=== PATIENT | male | born 1945 | race Caucasian/White ===

== ENCOUNTER → 2016-08-25 | Outpatient (CLI) | payer OTHER ==
[~2016-08-25] MED LIST: ACET-1256 PO; ASCA500 PO; ASPI-435 PO; BISA-16 PO; BUPR100T13 PO; CALC500C3 PO; CAPS0.072 EXT; CEPH500C2 PO; CHLOTAB3 PO; CRAN1CAP15 PO; EPP3 IM; HYDR25TA5 PO; KETO1DRO13 OPB; MISCCAP80 PO; NORT75CA2 PO; POLY335025 PO; POTA10CA28 PO; PRLSR20 PO; SILD100T PO; SIMETHICONE PO; SODI650T8 PO; TNR25 PO; ZNTT/150 PO; [UNRECOGNIZED DRUG - CODE]
--- NOTE | 2016-08-25 16:12 | DIAGNOSTIC IMAGING REPORT ---
SACRUM COCCYX MIN 2 VIEWS CLINICAL HISTORY: Arthritis, Back pain pain COMPARISON STUDY: 08/16/2013 FINDINGS: Significant degenerative changes low lumbar spine. Moderate degenerative change of the sacrococcygeal region. No well-defined acute bony abnormality. Right hip arthroplasty. IMPRESSION: Considerable degenerative change. No acute process. Electronically signed by: Ray Carrillo M.D. 08/25/2016 4:10 PM Dictated Date/Time: 08/25/2016 4:09 PM
--- NOTE | 2016-08-25 16:12 | DIAGNOSTIC IMAGING REPORT ---
L-SPINE MIN 4 VIEWS ROUTINE CLINICAL HISTORY: Back pain, arthritis. COMPARISON STUDY: MRI dated 05/25/2016 FINDINGS: There is a moderate thoracolumbar scoliosis. Postlaminectomy changes are visualized. There are postsurgical changes are prior lymph node dissection with surgical clips identified within the pelvis. There are postsurgical changes are prior hernia repair. There are postsurgical changes of a total right hip arthroplasty. There are advanced multilevel degenerative changes within the spine. There is a grade 1 spondylolisthesis of L4 and L5. There is narrowing of the AP diameter of the canal, and underlying spinal stenosis is suspected. There is a metallic density within the left mid abdomen possibly representing a probable fragment. IMPRESSION: Advanced multilevel degenerative change. Scoliosis. Postsurgical change. No acute fractures. Electronically signed by: Willard Deleon M.D. 08/25/2016 4:11 PM Dictated Date/Time: 08/25/2016 4:08 PM
== END | disposition home or self-care (01) ==
LOC: C.RADBC 15:39
PROVIDERS: ATTEND Internal Medicine
DX: M19.90 Unspecified osteoarthritis, unspecified site (principal); M54.9 Dorsalgia, unspecified; M41.9 Scoliosis, unspecified

== ENCOUNTER → 2016-10-11 | Outpatient (CLI) | payer OTHER ==
[~2016-10-11] MED LIST changes: -POTA10CA28 PO
--- NOTE | 2016-10-11 15:47 | DIAGNOSTIC IMAGING REPORT ---
RIGHT ELBOW MIN 3 VIEWS ROUTINE CLINICAL HISTORY: Right elbow pain. Olecranon bursitis. COMPARISON: None FINDINGS: Alignment of the right elbow is anatomic. No fracture or joint effusion is present. There is moderate soft tissue swelling overlying olecranon. Irregularity of the lateral condyle is chronic. A few calcific/ossific densities are noted adjacent to the radial head. IMPRESSION: 1. Moderate soft tissue swelling overlying olecranon. This favors olecranon bursitis. 2. No acute fracture or joint effusion of the right elbow. 3. Mild degenerative changes of the right elbow. 4. A few tiny ossific/calcific densities adjacent to the radial head which could reflect osteophytes or joint bodies Electronically signed by: Eyad Bo M.D. 10/11/2016 3:46 PM Dictated Date/Time: 10/11/2016 3:44 PM
--- NOTE | 2016-10-11 15:52 | DIAGNOSTIC IMAGING REPORT ---
RIGHT HAND MIN 3 VIEWS ROUTINE CLINICAL HISTORY: 722.71, M50.10, 719.43, M25.532, 726.33, 716.50, M13 Right pain COMPARISON: None. DISCUSSION: Severe degenerative change throughout the bulk of the wrist and hand region. This is severe at the first carpometacarpal joint. Bony mineralization throughout is somewhat diminished in a periarticular distribution. Considerable soft tissue swelling adjacent to the second metacarpophalangeal joint IMPRESSION: Severe degenerative change and associated deformity. Periarticular osteopenia and soft tissue edematous change. Possibility of rheumatoid variant is considered Electronically signed by: Ray Carrillo M.D. 10/11/2016 3:51 PM Dictated Date/Time: 10/11/2016 3:45 PM
--- NOTE | 2016-10-11 15:56 | DIAGNOSTIC IMAGING REPORT ---
LEFT HAND MIN 3 VIEWS ROUTINE CLINICAL HISTORY: 722.71, M50.10, 719.43, M25.532, 726.33, 716.50, M13 pain COMPARISON: None. DISCUSSION: Severe degenerative change of all major osseous structures of the wrist and to lesser extent hand. Moderate periarticular osteopenia. Deformity with partial degenerative subluxation of the radiocarpal as well as ulnocarpal articulations. Generalized soft tissue edematous change. IMPRESSION: Severe degenerative/rheumatoid change with disruption of the radiocarpal and ulnar carpal articulations Electronically signed by: Ray Carrillo M.D. 10/11/2016 3:55 PM Dictated Date/Time: 10/11/2016 3:52 PM
[2016-10-11 16:55] LABS: CALCIUM 9.3 mg/dl (8.5-10.1)
[2016-10-11 19:38] LABS: FLUID APPEARANCE BLOODY; FLUID MONONUC 70.8 %; FLUID POLYNUC 29.2 %; FLUID RBC (A) 86000 /uL; FLUID WBC (A) 421 /uL
== END | disposition home or self-care (01) ==
LOC: C.RAD1850 15:18
PROVIDERS: ATTEND Internal Medicine Rheumatology
DX: M13.0 Polyarthritis, unspecified (principal); M25.532 Pain in left wrist; M50.10 Cervical disc disorder with radiculopathy, unspecified cervical region; M70.21 Olecranon bursitis, right elbow; M79.9 Soft tissue disorder, unspecified; M85.9 Disorder of bone density and structure, unspecified; M21.941 Unspecified acquired deformity of hand, right hand; M19.041 Primary osteoarthritis, right hand; M85.841 Other specified disorders of bone density and structure, right hand; M06.842 Other specified rheumatoid arthritis, left hand; M21.942 Unspecified acquired deformity of hand, left hand

== ENCOUNTER → 2016-12-07 | Outpatient (CLI) | payer OTHER ==
[2016-12-07 17:11] LABS: BASO % 0.8 %; BASO ABS # 0.08 K/uL (0-0.2); COMPLETE YES; EOS % 7.3 %; HEMATOCRIT 45.2 % (42-52); IG% 0.3 %; LYMPH % 12.1 %; LYMPH ABS # 1.15 K/uL (1.2-3.4); MEAN CELL VOLUME 93.6 fL (80-100); MEAN CORPUSCULAR HEMOGLOBIN 31.3 pg (25-34); MEAN CORPUSCULAR HGB CONC 33.4 g/dl (32-36); MEAN PLATELET VOLUME 10.2 fL (7.4-10.4); MONO % 15.6 %; NEUT % 63.9 %; PLATELET COUNT 357 K/uL (130-400); RED BLOOD COUNT 4.83 M/uL (4.7-6.1); WHITE BLOOD COUNT 9.54 K/uL (4.8-10.8)
== END | disposition home or self-care (01) ==
LOC: C.LABBC 14:43
PROVIDERS: ATTEND Internal Medicine Rheumatology
DX: M25.532 Pain in left wrist (principal); M70.21 Olecranon bursitis, right elbow

== ENCOUNTER → 2017-05-08 | Outpatient (CLI) | payer OTHER ==
[~2017-05-08] MED LIST changes: -BISA-16 PO; -SIMETHICONE PO; -[UNRECOGNIZED DRUG - CODE]
--- NOTE | 2017-05-08 12:36 | DIAGNOSTIC IMAGING REPORT ---
RIGHT UPPER EXT JOINT WITHOUT CLINICAL HISTORY: M25.511 Right pain. Weakness. TECHNIQUE: Multiaxial MRI acquisition COMPARISON STUDY: None FINDINGS: Signal characteristics the osseous structures indicate moderate degenerative changes of glenohumeral as well as acromioclavicular joint. There is moderate amount of fluid within the subdeltoid bursa as well as acromioclavicular joint region. There is a full-thickness tear of the subscapularis tendon with a 3 cm musculotendinous retraction. There are findings of moderate generalized deterioration of the supraspinatus with partial-thickness tears at its superior surface. There does not appear to be evidence for full-thickness tear. There is superimposed supraspinatus tendinitis. The infraspinatus muscle and tendon appear to be intact. There are generalized degenerative changes of the glenoid labrum with loss of the labrum a labral substance and configuration throughout. IMPRESSION: 1. Full-thickness tear subscapularis tendon with 3 cm of musculotendinous retraction.. 2. Degenerative substance change of the supraspinatus with multifocal partial-thickness tears at its superior surface. 3. Considerable degenerative substance change of the glenoid labrum throughout The above report was generated using voice recognition software. It may contain grammatical, syntax or spelling errors. Electronically signed by: Ray Carrillo M.D. 05/08/2017 12:35 PM Dictated Date/Time: 05/08/2017 12:28 PM
== END | disposition home or self-care (01) ==
LOC: C.MRIBC 11:24
DX: S46.801A Unspecified injury of other muscles, fascia and tendons at shoulder and upper arm level, right arm, initial encounter (principal); X58.XXXA Exposure to other specified factors, initial encounter; M25.511 Pain in right shoulder; M19.011 Primary osteoarthritis, right shoulder; R53.1 Weakness; Z96.653 Presence of artificial knee joint, bilateral; Z79.899 Other long term (current) drug therapy

== ENCOUNTER → 2017-08-31 | Outpatient (CLI) | payer OTHER ==
[~2017-08-31] MED LIST changes: -CAPS0.072 EXT
--- NOTE | 2017-08-31 11:28 | DIAGNOSTIC IMAGING REPORT ---
KUB HISTORY: BOWEL OBSTRUCTION, colostomy .041 Z00.00 COMPARISON: Chest and abdominal series 07/12/2016. FINDINGS: Large amount well-formed stool seen within the colon. No dilated loops of small bowel to suggest an obstruction. Right total arthroplasty. S-shaped scoliosis of the lumbar spine. Metallic sutures coils and surgical clips seen overlying the pelvis. Irregular 1 cm metallic foreign body seen within the left side of the abdomen, unchanged. No renal calculi. No ureteral calculi. No pneumoperitoneum or pneumatosis. IMPRESSION: 1. No evidence for bowel obstruction. 2. Large amount of well-formed stool seen throughout the majority of the colon. Electronically signed by: Jaswant Pacheoc M.D. 08/31/2017 11:27 AM Dictated Date/Time: 08/31/2017 11:25 AM
[2017-08-31 13:55] LABS: BASO % 0.7 %; BASO ABS # 0.06 K/uL (0-0.2); EOS % 5.5 %; EOS ABS # 0.44 K/uL (0-0.5); HEMATOCRIT 44.4 % (42-52); HEMOGLOBIN 15.5 g/dL (14.0-18.0); IG# 0.03 K/uL (0.00-0.02); LYMPH % 16.9 %; LYMPH ABS # 1.36 K/uL (1.2-3.4); MEAN CELL VOLUME 93.9 fL (80-100); MEAN CORPUSCULAR HEMOGLOBIN 32.8 pg (25-34); MEAN CORPUSCULAR HGB CONC 34.9 g/dl (32-36); MEAN PLATELET VOLUME 10.3 fL (7.4-10.4); MONO % 17.6 %; MONO ABS # 1.42 K/uL (0.11-0.59); NEUT % 58.9 %; NEUT ABS # 4.74 K/uL (1.4-6.5); PLATELET COUNT 376 K/uL (130-400); RED CELL DISTRIBUTION WIDTH CV 13.8 % (11.5-14.5); RED CELL DISTRIBUTION WIDTH SD 47.1 fL (36.4-46.3); WHITE BLOOD COUNT 8.05 K/uL (4.8-10.8)
[2017-08-31 14:23] LABS: ALBUMIN 3.8 gm/dl (3.4-5.0); TOTAL PROTEIN 6.8 gm/dl (6.4-8.2)
== END | disposition home or self-care (01) ==
LOC: C.LABBC 10:46
PROVIDERS: ATTEND Internal Medicine Rheumatology
DX: Z00.00 Encounter for general adult medical examination without abnormal findings (principal); G56.00 Carpal tunnel syndrome, unspecified upper limb; K56.600 Partial intestinal obstruction, unspecified as to cause; M19.90 Unspecified osteoarthritis, unspecified site; M25.579 Pain in unspecified ankle and joints of unspecified foot; M50.00 Cervical disc disorder with myelopathy, unspecified cervical region; M54.9 Dorsalgia, unspecified; R05 Cough; R68.82 Decreased libido; Z93.3 Colostomy status; M06.041 Rheumatoid arthritis without rheumatoid factor, right hand; M06.042 Rheumatoid arthritis without rheumatoid factor, left hand

== ENCOUNTER → 2017-09-04 | Outpatient (CLI) | payer OTHER ==
--- NOTE | 2017-09-04 15:48 | DIAGNOSTIC IMAGING REPORT ---
RENAL ULTRASOUND HISTORY: N20.0 [id number] COMPARISON: KUB 08/31/2017. Abdomen and pelvis CT 07/07/2016. FINDINGS: Right kidney: 9.9 cm. No hydronephrosis. Moderate cortical thinning with increased cortical echogenicity. A few small cysts with the largest measuring 1.6 cm. Left kidney: 7.6 cm. No hydronephrosis. Moderate to severe cortical thinning with increased cortical echogenicity. A few renal cysts some which contain septations. The largest measures 1.9 cm. No definite renal calculi. Bladder: The bladder is small in size and not well visualized. IMPRESSION: 1. No hydronephrosis. No definite renal calculi. 2. Bilateral renal cysts. 3. Bilateral cortical renal thinning with increased cortical echogenicity consistent with medical renal disease. Electronically signed by: Jaswant Pacheco M.D. 09/04/2017 3:47 PM Dictated Date/Time: 09/04/2017 3:44 PM
== END | disposition home or self-care (01) ==
LOC: C.ULTRBC 14:50
PROVIDERS: ATTEND Urology
DX: N20.0 Calculus of kidney (principal); N28.1 Cyst of kidney, acquired

== ENCOUNTER → 2018-01-02 | Outpatient (CLI) | payer OTHER ==
[~2018-01-02] MED LIST changes: +RANI150T85 PO; -ZNTT/150 PO
[2018-01-02 13:15] LABS: HEMATOCRIT 39.7 % (42-52); HEMOGLOBIN 13.6 g/dL (14.0-18.0); MEAN CELL VOLUME 90.4 fL (80-100); MEAN CORPUSCULAR HGB CONC 34.3 g/dl (32-36); MEAN PLATELET VOLUME 9.8 fL (7.4-10.4); PLATELET COUNT 398 K/uL (130-400); RED CELL DISTRIBUTION WIDTH CV 13.5 % (11.5-14.5); RED CELL DISTRIBUTION WIDTH SD 44.1 fL (36.4-46.3); WHITE BLOOD COUNT 6.16 K/uL (4.8-10.8)
[2018-01-02 13:31] LABS: ALBUMIN 3.8 gm/dl (3.4-5.0); AST/SGOT 30 U/L (15-37); BLOOD UREA NITROGEN 41 mg/dl (7-18); CALCIUM 9.3 mg/dl (8.5-10.1); CARBON DIOXIDE 27 mmol/L (21-32); GLUCOSE 99 mg/dl (70-99); POTASSIUM 3.5 mmol/L (3.5-5.1); SODIUM 135 mmol/L (136-145)
[2018-01-02 13:34] LABS: ALKALINE PHOSPHATASE 92 U/L (45-117); ALT/SGPT 29 U/L (12-78); TOTAL PROTEIN 6.6 gm/dl (6.4-8.2)
== END | disposition home or self-care (01) ==
LOC: C.LABBC 10:31
PROVIDERS: ATTEND Internal Medicine Rheumatology
DX: N20.0 Calculus of kidney (principal); M06.041 Rheumatoid arthritis without rheumatoid factor, right hand

== ENCOUNTER 2019-05-21 21:05 | Inpatient (IN) ==
[2019-05-21 22:38] LABS: Hematocrit (blood only) 39.1 % (42-52); Hemoglobin 13.1 g/dL (14.0-18.0); Mean Corpuscular Hgb Conc 33.5 g/dL (32-36); Mean Corpuscular Volume 86.5 fL (80-100); Mean Platelet Volume 9.1 fL (7.4-10.4); Platelet Count 416 K/uL (130-400); RDW Coefficient of Variation 15.8 % (11.5-14.5); RDW Standard Deviation 50.3 fL (36.4-46.3); Red Blood Count 4.52 M/uL (4.7-6.1); White Blood Count 7.59 K/uL (4.8-10.8)
[2019-05-21 22:54] LABS: Partial Thromboplastin Ratio 0.9; Partial Thromboplastin Time 25.1 Seconds (21.0-31.0)
--- NOTE | 2019-05-21 23:00 | CT Scan Report ---
CT OF THE HEAD WITHOUT CONTRAST CLINICAL HISTORY: Headache. COMPARISON STUDY: Head CT March 10, 2018. CT DOSE: 537.48 mGy.cm TECHNIQUE: Helical axial images of the head were obtained without IV contrast. Automated exposure con trol was utilized for the study. A dose lowering technique was utilized adhering to the principles o f ALARA. FINDINGS: No acute intracranial hemorrhage, midline shift or mass effect is present. The ventricular system is stable. Basilar cisterns are patent. There are no extra-axial collections. White matter hyp odensity suggests small vessel disease. There are no findings to suggest acute dural sinus thrombosis or acute territorial infarct. Left mastoid air cells are partially opacified. IMPRESSION: 1. No acute intracranial findings. 2. Partially opacified left mastoid air cells. Electronically signed by: Eyad Bo M.D. 05/21/2019 10:59 PM
[2019-05-21 23:01] LABS: Albumin Level 3.7 gm/dl (3.4-5.0); BUN Creatinine Ratio 20.2 (10-20); Calcium 9.2 mg/dl (8.5-10.1); Creatinine Clr Calc Pharmacy 46.7 ml/min; Est GFR (African American) 48.5; Est GFR (Non-African American) 41.8; Potassium 3.4 mmol/L (3.5-5.1)
[2019-05-21 23:04] LABS: Albumin Globulin Ratio 1.2 (0.9-2); Bilirubin,Total 0.4 mg/dl (0.2-1); Total Protein 6.7 gm/dl (6.4-8.2)
[2019-05-21] MEDS ORDERED: SODIUM CHLORIDE 0.9% 1000ML 1,000 ML IV ONE (23:08)
[2019-05-22 00:20] LABS: Acanthocytes 1+; Howell-Jolly Bodies 1+; Pappenheimer Bodies 1+; Target Cells 1+
[2019-05-22 00:27] LABS: Appearance Urine Cloudy (Clear); Bacteria Urine Automated 3+ (Negative); Bilirubin Urine Negative (Negative); Blood Urine Negative (Negative); Color Urine Yellow; Glucose Urine UA Negative (Negative); Ketones Urine Trace (Negative); Leukocyte Esterase Urine 3+ (Negative); Nitrite Urine Negative (Negative); Protein Urine 1+ (Negative); RBC Urine Automated 0-4 /hpf (0-4); Specific Gravity Urine 1.015 (1.000-1.030); Urobilinogen Urine Negative (Negative); WBC Urine Automated >30 /hpf (0-5)
[2019-05-22 00:33] LABS: ALC (manual) 1.14 K/uL (1.2-3.4); Basophils # (manual) 0.15 K/uL (0-0.2); Eosinophils # (manual) 0.68 K/uL (0-0.5); Lymphocytes # (manual) 1.14 K/uL (1.2-3.4); Monocytes # (manual) 1.52 K/uL (0.11-0.59)
[2019-05-22] MEDS: LORazepam 0.5 MG TAB PO SCH ×2 (03:36→20:16)
[2019-05-22] MEDS: ACETAMINOPHEN 500 MG TAB PO PRN (04:10)
[2019-05-22] MEDS ORDERED: NSS + 20MEQ KCL 20 MEQ/1,000 ML BAG IV SCH (04:15)
[2019-05-22] MEDS: NORTRIPTYLINE HCL 25 MG CAP PO SCH ×2 (04:50→20:17)
[2019-05-22] MEDS: CHLORZOXAZONE 500 MG TAB PO SCH ×2 (04:50→20:17)
[2019-05-22] MEDS: GABAPENTIN 300 MG CAP PO SCH ×2 (04:51→20:18)
--- NOTE | 2019-05-22 05:13 | Emergency Department Note ---
Entered by Mike Valentino acting as a scribe for Sav Dennis MD ED Provider Note Name: Meek Anaya Age: 73, male Arrives Via: EMS Informant: Patient CC: Headache HPI: The patient is a 73 year old male who presents to the emergency department with complaints of a constant headache beginning a few days ago. The patient states that he has been having a headache located primarily in the back of his head. He notes that he has not fallen recently. He reports that he had a low blood pressure in the 80s today, prompting his call to EMS. He also complains of back pain, neck pain, a decreased appetite, and eye pain. The patient states that he has chronic back and neck pain due to a shrapnel injury that he sustained in [place]. He notes that he has weakness in his arms and he reports that he cannot move his legs. He states that his appetite has been decreased, but he notes that it has been improving over the last few days. He denies any abdominal pain, nausea, vomiting, and rash. He reports that he has a history of previous UTIs. The patient states that he is on cephalexin and he notes that he took 3 Tylenol today for pain. ROS: See above HPI for pertinent positives & negatives. A total of 10 systems reviewed and were otherwise negative. Past Medical History: Please see medical history list. Past Surgical History: Please see surgical history list. Family History: None Social History: , lives with , disabled, former smoker, uses alcohol Home Medications: Please see medication list. Allergies: Oxycodone, Sulfa, hydromorphone, morphine, naproxen Physical: Vitals: BP 101/54, Pulse 83, Resp 16, Temp 98.2 F, O2 Sat 97 Exam: GENERAL: Patient is significantly dehydrated appearing and in no acute distress. EYES: No scleral icterus, unremarkable pupils. ENT: Mucous membranes dry, no nasal congestion. NECK: No masses appreciated, no meningismus, trachea is midline. RESPIRATORY: No dyspnea. Clear to auscultation and equal bilaterally. No wheeze, no rhonchi. CARDIOVASCULAR: Regular rate and rhythm. No murmurs, rubs, gallops appreciated. GASTROINTESTINAL: Abdomen soft, non-tender, no peritonitis. Bowel sounds positive. No masses appreciated. Urostomy in right lower abdomen, ileostomy in left lower abdomen. BACK: No midline tenderness, no CVA tenderness EXTREMITIES: No cyanosis, no edema. Quadriplegic with weak movement of arms and hands. NEUROLOGIC: Alert and oriented, weakness in arms, non-mobile legs. SKIN: No rash, no jaundice, no diaphoresis. ED Course: Prior Medical Record, Triage/Nursing Notes, Medications, Allergies reviewed by Me 2300: The patient was evaluated in room B4. A complete history and physical exam was performed. 0039: Upon reevaluation, the patient is stable. I discussed the findings and the treatment plan with the patient. He expresses agreement and understanding. I spoke with Dr. Garces of the [facility] Hospitalist Service. The patient will be evaluated for further management. Vital Signs: reviewed and remarkable for mild hypotension, hanh Labs: Reviewed and remarkable for hyponatremia, mild renal insufficiency Interventions: saline lock, nss bolus 1 L IV Imaging: CT OF THE HEAD WITHOUT CONTRAST FINDINGS: No acute intracranial hemorrhage, midline shift or mass effect is present. The ventricular system is stable. Basilar cisterns are patent. There are no extra-axial collections. White matter hypodensity suggests small vessel disease. There are no findings to suggest acute dural sinus thrombosis or acute territorial infarct. Left mastoid air cells are partially opacified. IMPRESSION: 1. No acute intracranial findings. 2. Partially opacified left mastoid air cells. Electronically signed by: Eyad Bo M.D. 05/21/2019 10:59 PM EKG: Per My Interpretation: Indication Weakness: NSR 84 bpm no ischemia, no ectopy, qtc 460. No recent available for comparison Consults: 0039: I reviewed the patient's case with Dr. Garces - Hospitalist, [facility]. He will evaluate the patient for further management. Blood pressure: Normal. No Referral necessary Disposition: Hospitalization Differentials: Differential: Sepsis, Infectious (UTI/Pneumonia/Meningitis/etc), Metabolic/Electrolyte Abnormality, Cardiac, Dehydration, Anemia, Hepatic, Endocrine, Toxicologic, Neurologic, amongst other pathologies entertained. Medical Decision Making: Pleasant 73 yr old male with hypotension and headache arrives for evaluation. Extensive PMH with quadraplegia and ostomies. He had SBP in 80s for EMS and is starting to trend up with IV fluids. No neuro deficits new thus with headache went ahead with CT head which was negative. Labs reveal hyponatremia which may explain weakness. Suspect his not eating well and having been drinking extra fluids may have caused hyponatremia. That said, he very much appears dehydrated and I suspect this is cause of hypotension. With normal WBC, no fevers, and no rigors in setting of normal lactate I think this is unlikely infectious. Urine quite concentrated from dehydration, but I do not feel this is infected given it is unclean specimen and inability to cath urostomy. Hydrated with 1 L NSS here with improvement in BP. Breathing comfortably. Given findings will need to come in for further management. Impression: Hypotension, hyponatremia, dehydration Sav Dennis MD The scribe's documentation has been prepared under my direction and personally reviewed by me in its entirety. I confirm that the note above accurately reflects all work, treatment, procedures, and medical decision making performed by me. Impression & Plan Hypotension, Hyponatremia, Dehydration Past Med/Surg History Medical History Open wound of right great toe (Acute) Traumatic wound (Acute) Rheumatoid arthritis (Chronic) Chronic right shoulder pain (Chronic) Leg length discrepancy (Chronic) Lumbar radiculitis (Chronic) Groin pain, chronic, left (Chronic) History of left foot drop (Chronic) Lumbar spinal stenosis (Chronic) multifactorial multilevel L5-S1 Sacroiliac joint pain (Chronic) Spinal cord injury (Chronic) occurred in 1967 GERD (gastroesophageal reflux disease) (Chronic) Hypertension (Chronic) Depression (Chronic) PTSD (post-traumatic stress disorder) (Chronic) SBO (small bowel obstruction) (Chronic) 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) Fusion of lumbar spine (Acute) Ileal loop stomatitis Surgical History History of total knee replacement (TKR) (Chronic) BTKA Hx of cervical spine surgery (Chronic) History of herniorrhaphy (Chronic) History of tonsillectomy and adenoidectomy (Chronic) History of appendectomy (Chronic) History of urostomy (Acute) Knee joint replacement status (Acute) Family History Other No significant family history Social History Preferred Language: Tunisian Communication Ability: Impaired Visual Impairment: Limited Hearing Ability: Use of Hearing Aid Chemistry Associate Required: No Beliefs That Will Affect Care: None marital status: Current Living Situation: Spouse Current Living Situation Comment: 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 ([facility]) OBTAINED THROUGH THE [place] current occupational status: disabled Other Information That Helps Us Care for You: No Feels Safe at Home: Yes Safety Concerns: Feels Safe At This Time Smoking Status: Former smoker Tobacco Type: pipe ; Hx Alcohol Use: Yes Alcohol type: other Alcohol Intake Frequency Comment: ONE DRINK AT BEDTIME Hx Substance Use: No during the past year weight has: increased > 10 lbs Results & Data Vital Signs Vital Signs - 24 hr 05/21/19 21:09 05/21/19 21:16 05/21/19 21:30 Temperature 36.8 C Temperature Source Oral Sepsis Recent Fever Within 48 Hours No Sepsis New/Unexplained Change in Mental Status No Sepsis Action Taken by Nursing No Action Required Pulse Rate 89 84 82 Pulse Rate from SpO2 Sensor 84 82 Pulse Rhythm Respiratory Rate 20 16 28 H Respiratory Depth Normal Blood Pressure 103/68 103/68 113/67 Blood Pressure Mean 79 79 82 Pulse Oximetry 95 94 95 Oxygen Delivery Method Room Air Room Air Room Air 05/21/19 21:53 05/21/19 22:00 05/21/19 22:30 Temperature Temperature Source Sepsis Recent Fever Within 48 Hours Sepsis New/Unexplained Change in Mental Status Sepsis Action Taken by Nursing Pulse Rate 89 84 83 Pulse Rate from SpO2 Sensor 85 83 Pulse Rhythm Regular Respiratory Rate 20 22 16 Respiratory Depth Blood Pressure 97/54 L 101/54 L Blood Pressure Mean 68 69 Pulse Oximetry 95 94 97 Oxygen Delivery Method Room Air Room Air Room Air 05/21/19 23:00 05/21/19 23:30 05/22/19 00:00 Temperature Temperature Source Sepsis Recent Fever Within 48 Hours Sepsis New/Unexplained Change in Mental Status Sepsis Action Taken by Nursing Pulse Rate 85 82 84 Pulse Rate from SpO2 Sensor 86 82 86 Pulse Rhythm Respiratory Rate 20 14 19 Respiratory Depth Blood Pressure 96/88 L 111/83 111/79 Blood Pressure Mean 90 92 89 Pulse Oximetry 96 92 97 Oxygen Delivery Method Room Air Room Air Room Air 05/22/19 00:30 05/22/19 01:00 05/22/19 01:30 Temperature Temperature Source Sepsis Recent Fever Within 48 Hours Sepsis New/Unexplained Change in Mental Status Sepsis Action Taken by Nursing Pulse Rate 86 88 88 Pulse Rate from SpO2 Sensor 85 89 89 Pulse Rhythm Respiratory Rate 16 19 19 Respiratory Depth Blood Pressure 110/76 125/82 115/74 Blood Pressure Mean 87 96 87 Pulse Oximetry 95 95 94 Oxygen Delivery Method Room Air Room Air Room Air Home Medications Current Medication List: was personally reviewed by me Laboratory Data Attestation: I reviewed the patient's lab results. Result diagrams: 05/21/19 22:27 05/21/19 22:27 Lab Results 05/21/19 05/21/19 05/21/19 Range/Units 22:27 22:27 22:27 WBC 7.59 (4.8-10.8) K/uL RBC 4.52 L (4.7-6.1) M/uL Hgb 13.1 L (14.0-18.0) g/dL Hct 39.1 L (42-52) % MCV 86.5 (80-100) fL MCH 29.0 (25-34) pg MCHC 33.5 (32-36) g/dL RDW Std Deviation 50.3 H (36.4-46.3) fL RDW Coeff of Faustino 15.8 H (11.5-14.5) % Plt Count 416 H (130-400) K/uL MPV 9.1 (7.4-10.4) fL Neutrophils % (Manual) 54.0 % Lymphocytes % (Manual) 15.0 % Monocytes % (Manual) 20.0 % Eosinophils % (Manual) 9.0 % Basophils % (Manual) 2.0 % Neutrophils # (Manual) 4.10 (1.4-6.5) K/uL Total Absolute Neuts 4.10 (1.4-6.5) K/uL Lymphocytes # (Manual) 1.14 L (1.2-3.4) K/uL Total Abs Lymphocytes 1.14 L (1.2-3.4) K/uL Monocytes # (Manual) 1.52 H (0.11-0.59) K/uL Eosinophils # (Manual) 0.68 H (0-0.5) K/uL Basophils # (Manual) 0.15 (0-0.2) K/uL Pappenheimer Bodies 1+ Target Cells 1+ Miller-Mcbride Bodies 1+ Acanthocytes (Spur) 1+ PT 10.0 (9.0-12.0) Seconds INR 1.0 (0.9-1.1) APTT 25.1 (21.0-31.0) Seconds PTT Ratio 0.9 Sodium 125 L (136-145) mmol/L Potassium 3.4 L (3.5-5.1) mmol/L Chloride 91 L (98-107) mmol/L Carbon Dioxide 25 (21-32) mmol/L Anion Gap 10.0 (3-11) BUN 32 H (7-18) mg/dl Creatinine 1.60 H (0.6-1.4) mg/dl Est Cr Clr Drug Dosing 46.7 ml/min Est GFR ( Amer) 48.5 Est GFR (Non-Af Amer) 41.8 BUN/Creatinine Ratio 20.2 H (10-20) Glucose 107 H (70-99) mg/dl Lactate (0.4-2.0) mmol/L Calcium 9.2 (8.5-10.1) mg/dl Total Bilirubin 0.4 (0.2-1) mg/dl AST 27 (15-37) U/L ALT 31 (12-78) U/L Alkaline Phosphatase 95 (45-117) U/L Total Protein 6.7 (6.4-8.2) gm/dl Albumin 3.7 (3.4-5.0) gm/dl Globulin 3.0 (2.5-4.0) gm/dl Albumin/Globulin Ratio 1.2 (0.9-2) Urine Color Urine Appearance (Clear) Urine pH (4.5-7.5) Ur Specific Tillar (1.000-1.030) Urine Protein (Negative) Urine Glucose (UA) (Negative) Urine Ketones (Negative) Urine Blood (Negative) Urine Nitrite (Negative) Urine Bilirubin (Negative) Urine Urobilinogen (Negative) Ur Leukocyte Esterase (Negative) Urine WBC (Auto) (0-5) /hpf Urine RBC (Auto) (0-4) /hpf U Hyaline Cast (Auto) (0-5) /lpf U Epithel Cells (Auto) (0-5) /lpf Urine Bacteria (Auto) (Negative) 05/21/19 05/22/19 Range/Units 23:48 00:10 WBC (4.8-10.8) K/uL RBC (4.7-6.1) M/uL Hgb (14.0-18.0) g/dL Hct (42-52) % MCV (80-100) fL MCH (25-34) pg MCHC (32-36) g/dL RDW Std Deviation (36.4-46.3) fL RDW Coeff of Faustino (11.5-14.5) % Plt Count (130-400) K/uL MPV (7.4-10.4) fL Neutrophils % (Manual) % Lymphocytes % (Manual) % Monocytes % (Manual) % Eosinophils % (Manual) % Basophils % (Manual) % Neutrophils # (Manual) (1.4-6.5) K/uL Total Absolute Neuts (1.4-6.5) K/uL Lymphocytes # (Manual) (1.2-3.4) K/uL Total Abs Lymphocytes (1.2-3.4) K/uL Monocytes # (Manual) (0.11-0.59) K/uL Eosinophils # (Manual) (0-0.5) K/uL Basophils # (Manual) (0-0.2) K/uL Pappenheimer Bodies Target Cells Miller-Mcbride Bodies Acanthocytes (Spur) PT (9.0-12.0) Seconds INR (0.9-1.1) APTT (21.0-31.0) Seconds PTT Ratio Sodium (136-145) mmol/L Potassium (3.5-5.1) mmol/L Chloride (98-107) mmol/L Carbon Dioxide (21-32) mmol/L Anion Gap (3-11) BUN (7-18) mg/dl Creatinine (0.6-1.4) mg/dl Est Cr Clr Drug Dosing ml/min Est GFR ( Amer) Est GFR (Non-Af Amer) BUN/Creatinine Ratio (10-20) Glucose (70-99) mg/dl Lactate 2.0 (0.4-2.0) mmol/L Calcium (8.5-10.1) mg/dl Total Bilirubin (0.2-1) mg/dl AST (15-37) U/L ALT (12-78) U/L Alkaline Phosphatase (45-117) U/L Total Protein (6.4-8.2) gm/dl Albumin (3.4-5.0) gm/dl Globulin (2.5-4.0) gm/dl Albumin/Globulin Ratio (0.9-2) Urine Color Yellow Urine Appearance Cloudy A (Clear) Urine pH 7.0 (4.5-7.5) Ur Specific Tillar 1.015 (1.000-1.030) Urine Protein 1+ H (Negative) Urine Glucose (UA) Negative (Negative) Urine Ketones Trace H (Negative) Urine Blood Negative (Negative) Urine Nitrite Negative (Negative) Urine Bilirubin Negative (Negative) Urine Urobilinogen Negative (Negative) Ur Leukocyte Esterase 3+ H (Negative) Urine WBC (Auto) >30 H (0-5) /hpf Urine RBC (Auto) 0-4 (0-4) /hpf U Hyaline Cast (Auto) 5-10 H (0-5) /lpf U Epithel Cells (Auto) 5-10 H (0-5) /lpf Urine Bacteria (Auto) 3+ H (Negative) Administered Medications Acetaminophen (Tylenol) 1,000 mg PO Q8H PRN PRN Reason: Pain Stop: 06/21/19 03:43 Last Admin: 05/22/19 04:10 Dose: 1,000 mg Documented by: [id number] Chlorzoxazone (Paraflex) 250 mg PO [facility] Stop: 06/21/19 01:47 Last Admin: 05/22/19 04:50 Dose: 250 mg Documented by: [id number] Gabapentin (Neurontin) 300 mg PO [facility] Stop: 06/21/19 01:47 Last Admin: 05/22/19 04:51 Dose: 300 mg Documented by: [id number] Potassium Chloride/Sodium Chloride (Normal Saline W/20 Meq Kcl) 20 meq in 1,000 mls @ 125 mls/hr IV .Q8H [facility] Stop: 06/21/19 04:14 Last Admin: 05/22/19 04:54 Dose: 125 mls/hr Documented by: [id number] Lorazepam (Ativan) 0.5 mg PO [facility] Stop: 06/21/19 01:47 Last Admin: 05/22/19 03:36 Dose: Not Given Documented by: [id number] Nortriptyline HCl (Pamelor) 75 mg PO [facility] Stop: 06/21/19 01:47 Last Admin: 05/22/19 04:50 Dose: 75 mg Documented by: [id number] Discontinued Medications Sodium Chloride (Nss 1000ml) 1,000 mls @ 999 mls/hr IV .Q1H1M ONE Stop: 05/22/19 00:08 Last Infusion: 05/22/19 01:48 Dose: 0 mls/hr Documented by: [id number] Admin: 05/22/19 00:16 Dose: 999 mls/hr Documented by: [id number] Discharge Plan Visit Data *Final* Discharge Date/Time: 05/22/19 02:46 Chief Complaint: Headache Stated Complaint: HEADACHE ED Provider: Sav Dennis Discharge Problem: Hypotension, Hyponatremia, Dehydration Patient Disposition: Admitted As Inpatient Discharge Instructions Interventions: ED Discharge Assessment Last Done: 05/22/19 02:46 Discharge Problem: Hypotension Qualifiers: Hypotension type: unspecified hypotension type Qualified Code(s): I95.9 - Hypotension, unspecified The scribe's documentation has been prepared under my direction and personally reviewed by me in its entirety. I confirm that the note above accurately reflects all work, treatment, procedures, and medical decision making performed by me.
--- NOTE | 2019-05-22 05:45 | History & Physical Report ---
Date of Service May 22, 2019 Assessment & Plan (1) Hypotension: Admit tele Hold HCTZ IVF overnight check orthostatic vitals. Last echo was over 1 year prior I will order. DVT prophylaxis = SCDs and Heparin (2) Hyponatremia: Giving IVF then recheck labs. (3) Dehydration: IV hydration. (4) Headache: CT head was unremarkable I will order MRI brain He did report stopping his tramadol around the same time as headaches started, which may be a rebound headache. He is also possibly having referred pain from cervical disc disease or cervical spine arthritis. History of Present Illness 73 y/o male presented to the ED with a 2 week history of headache "behind my eyes". No reported falls or trauma. He said he has also been having problems with low BP such that his PCP reduced dose of HCTZ. He had a BP with systolic in the 80's on 05/21. He has chronic low back pain and neck pain. He has also noticed decreased appetite as of late. He takes Keflex due to chronic foot wound. Basically, the patient presents due to low BP and 2 week history of headache. Primary Care Provider: Elmo Hoskins MD Allergies Allergy/AdvReac Type Severity Reaction Status Date / Time shellfish derived Allergy Severe Anaphylaxis Verified 05/21/19 21:39 oxycodone AdvReac Severe PSYCHOTIC Verified 05/21/19 21:39 Sulfa (Sulfonamide AdvReac Severe KIDNEY Verified 05/21/19 21:39 Antibiotics) FAILURE hydromorphone AdvReac Intermediate NAUSEA AND Verified 05/21/19 21:39 VOMITING morphine AdvReac Mild VOMITING Verified 05/21/19 21:39 naproxen AdvReac Mild vertigo Verified 05/21/19 21:39 Home Medications Home Medications Medication Instructions Recorded Confirmed Type acetaminophen 500 mg tablet 500 mg PO Q6H PRN 05/11/18 05/21/19 History ascorbic acid (vitamin C) 500 mg 500 mg PO BID cap 05/11/18 05/21/19 History capsule aspirin 81 mg tablet,delayed 81 mg PO QPM 05/11/18 05/21/19 History release atenolol 25 mg tablet 25 mg PO QAM 05/11/18 05/21/19 History bupropion HCl XL 150 mg 24 hr 150 mg PO QAM 05/11/18 05/21/19 History tablet, extended release epinephrine 0.3 mg/0.3 mL 0.3 mg IM Q10M PRN 05/11/18 05/21/19 History injection, auto-injector ibuprofen 400 mg tablet 400 mg PO TID PRN tab 05/11/18 05/21/19 History lactobacillus combination no.9 4 2 tab PO DAILY 05/11/18 05/21/19 History billion cell capsule nortriptyline 75 mg capsule 75 mg PO HS cap 05/11/18 05/21/19 History omeprazole magnesium 20 mg 20 mg PO BID tab 05/11/18 05/21/19 History tablet,delayed release polyethylene glycol 3350 17 17 g PO QAM gm 05/11/18 05/21/19 History gram/dose oral powder ranitidine 150 mg tablet 150 mg PO HS tab 05/11/18 05/21/19 History sildenafil 100 mg tablet 100 mg PO DAILY PRN 05/11/18 05/21/19 History simethicone 80 mg chewable tablet 80 mg PO BID 05/11/18 05/21/19 History sodium bicarbonate 650 mg tablet 650 mg PO QDL tab 05/11/18 05/21/19 History gabapentin 300 mg capsule 300 mg PO HS cap 06/13/18 05/21/19 History diclofenac 1 % topical gel 2 gm TOP QID 07/09/18 05/21/19 History lidocaine-prilocaine 2.5 %-2.5 % 1 applic TRANSDERMAL TID gm 07/09/18 05/21/19 History topical cream tocilizumab 162 mg/0.9 mL 162 mg SQ WK ml 09/28/18 05/21/19 History subcutaneous pen injector chlorzoxazone 250 mg PO HS 10/03/18 05/21/19 History cranberry 500 mg PO DAILY 10/23/18 05/21/19 History dextran 70-hypromellose (PF) 1 drp OPB BID 10/23/18 05/21/19 History [Artificial Tears (PF)] lorazepam 0.5 mg PO HS PRN 11/04/18 05/21/19 History hydrochlorothiazide 50 mg tablet 50 mg PO QAM tab 04/29/19 05/21/19 History cephalexin 500 mg capsule 500 mg PO BID #60 cap 04/30/19 05/21/19 Rx tramadol 50 mg tablet 50 mg PO TID PRN 05/09/19 05/21/19 History Past Med/Surg History Medical History Open wound of right great toe (Acute) Traumatic wound (Acute) Rheumatoid arthritis (Chronic) Chronic right shoulder pain (Chronic) Leg length discrepancy (Chronic) Lumbar radiculitis (Chronic) Groin pain, chronic, left (Chronic) History of left foot drop (Chronic) Lumbar spinal stenosis (Chronic) multifactorial multilevel L5-S1 Sacroiliac joint pain (Chronic) Spinal cord injury (Chronic) occurred in 1967 GERD (gastroesophageal reflux disease) (Chronic) Hypertension (Chronic) Depression (Chronic) PTSD (post-traumatic stress disorder) (Chronic) SBO (small bowel obstruction) (Chronic) 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) Fusion of lumbar spine (Acute) Ileal loop stomatitis Surgical History History of total knee replacement (TKR) (Chronic) BTKA Hx of cervical spine surgery (Chronic) History of herniorrhaphy (Chronic) History of tonsillectomy and adenoidectomy (Chronic) History of appendectomy (Chronic) History of urostomy (Acute) Knee joint replacement status (Acute) Family History Other No significant family history Social History Preferred Language: Citizen Of [place] Communication Ability: Impaired Visual Impairment: Limited Hearing Ability: Use of Hearing Aid 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 Beliefs That Will Affect Care: None marital status: Current Living Situation: Spouse Current Living Situation Comment: 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 Eyes- no acute visual changes ENT- no sinus drainage; no pharyngitis Pulmonary- no cough, no wheezing, no shortness of breath Cardiac- no chest pain, no palpitations. GI- no nausea, no vomiting, no diarrhea. - no dysuria, no gross hematuria Musculoskeletal- " all my joints hurt" Derm- no rashes, no new skin lesions, no changing skin lesions Hematologic- no unusual bruising, no unusual bleeding Lymphatics- no adenopathy Endocrine- no polyuria or polydipsia; no heat or cold intolerance Neuro- no focal neurologic symptoms Psych- no anxiety, no depression Physical Exam Physical Exam: GENERAL: Adult male, NAD EYES: No scleral icterus, unremarkable pupils. ENT: Mucous membranes dry, no nasal congestion. NECK: No masses appreciated, no meningismus, trachea is midline. RESPIRATORY: No dyspnea. Clear to auscultation and equal bilaterally. No wheeze, no rhonchi. CARDIOVASCULAR: Regular rate and rhythm. No murmurs, rubs, gallops appreciated. GASTROINTESTINAL: Abdomen soft, non-tender, no peritonitis. Bowel sounds positive. Urostomy in right lower abdomen, ileostomy in left lower abdomen. BACK: No midline tenderness, no CVA tenderness EXTREMITIES: No cyanosis, no edema. Quadriplegic with weak movement of arms and hands. NEUROLOGIC: Alert and oriented, weakness in arms, non-mobile legs. SKIN: No rash, no jaundice, no diaphoresis. Results & Data Vital Signs (Past 12 Hours) Vital Signs Temp Pulse Pulse Pulse Resp BP BP 05/22/19 04:45 36.7 C 50 L 20 05/22/19 04:12 36.7 C 89 18 143/86 H 05/22/19 03:00 87 05/22/19 02:30 87 20 127/90 05/22/19 02:00 88 15 122/69 05/22/19 01:30 88 19 115/74 05/22/19 01:00 88 19 125/82 05/22/19 00:30 86 16 110/76 05/22/19 00:00 84 19 111/79 05/21/19 23:30 82 14 111/83 05/21/19 23:00 85 20 96/88 L 05/21/19 22:30 83 16 101/54 L 05/21/19 22:00 84 22 97/54 L 05/21/19 21:53 89 20 05/21/19 21:30 82 28 H 113/67 05/21/19 21:16 84 16 103/68 05/21/19 21:09 36.8 C 89 20 103/68 BP Pulse Ox 05/22/19 04:45 156/86 H 96 05/22/19 04:12 93 05/22/19 03:00 05/22/19 02:30 96 05/22/19 02:00 94 05/22/19 01:30 94 05/22/19 01:00 95 05/22/19 00:30 95 05/22/19 00:00 97 05/21/19 23:30 92 05/21/19 23:00 96 05/21/19 22:30 97 05/21/19 22:00 94 05/21/19 21:53 95 05/21/19 21:30 95 05/21/19 21:16 94 05/21/19 21:09 95 Laboratory Results Laboratory Results WBC 7.59 K/uL (4.8-10.8) 05/21/19 22:27 RBC 4.52 M/uL (4.7-6.1) L 05/21/19 22:27 Hgb 13.1 g/dL (14.0-18.0) L 05/21/19 22:27 Hct 39.1 % (42-52) L 05/21/19 22:27 MCV 86.5 fL (80-100) 05/21/19 22:27 MCH 29.0 pg (25-34) 05/21/19 22:27 MCHC 33.5 g/dL (32-36) 05/21/19 22:27 RDW Std Deviation 50.3 fL (36.4-46.3) H 05/21/19 22:27 RDW Coeff of Faustino 15.8 % (11.5-14.5) H 05/21/19 22:27 Plt Count 416 K/uL (130-400) H 05/21/19 22:27 MPV 9.1 fL (7.4-10.4) 05/21/19 22:27 Neutrophils % (Manual) 54.0 % 05/21/19 22:27 Lymphocytes % (Manual) 15.0 % 05/21/19 22:27 Monocytes % (Manual) 20.0 % 05/21/19: Eosinophils % (Manual) 9.0 % 05/21/19: Basophils % (Manual) 2.0 % 05/21/19: Neutrophils # (Manual) 4.10 K/uL (1.4-6.5) 05/21/19: Total Absolute Neuts 4.10 K/uL (1.4-6.5) 05/21/19: Lymphocytes # (Manual) 1.14 K/uL (1.2-3.4) L 05/21/19: Total Abs Lymphocytes 1.14 K/uL (1.2-3.4) L 05/21/19: Monocytes # (Manual) 1.52 K/uL (0.11-0.59) H 05/21/19: Eosinophils # (Manual) 0.68 K/uL (0-0.5) H 05/21/19: Basophils # (Manual) 0.15 K/uL (0-0.2) 05/21/19: Pappenheimer Bodies 1+ 05/21/19: Target Cells 1+ 05/21/19: [place] Bodies 1+ 05/21/19: Acanthocytes (Spur) 1+ 05/21/19: PT 10.0 Seconds (9.0-12.0) 05/21/19: INR 1.0 (0.9-1.1) 05/21/19: APTT 25.1 Seconds (21.0-31.0) 05/21/19: PTT Ratio 0.9 05/21/19: Sodium 125 mmol/L (136-145) L 05/21/19: Potassium 3.4 mmol/L (3.5-5.1) L 05/21/19: Chloride 91 mmol/L (98-107) L 05/21/19: Carbon Dioxide 25 mmol/L (21-32) 05/21/19: Anion Gap 10.0 (3-11) 05/21/19: BUN 32 mg/dl (7-18) H 05/21/19: Creatinine 1.60 mg/dl (0.6-1.4) H 05/21/19 22:27 Est Cr Clr Drug Dosing 46.7 ml/min 05/21/19 22:27 Est GFR ( Amer) 48.5 05/21/19 22:27 Est GFR (Non-Af Amer) 41.8 05/21/19 22:27 BUN/Creatinine Ratio 20.2 (10-20) H 05/21/19 22:27 Glucose 107 mg/dl (70-99) H 05/21/19 22:27 Lactate 2.0 mmol/L (0.4-2.0) 05/21/19 23:48 Calcium 9.2 mg/dl (8.5-10.1) 05/21/19 22:27 Total Bilirubin 0.4 mg/dl (0.2-1) 05/21/19 22:27 AST 27 U/L (15-37) 05/21/19 22:27 ALT 31 U/L (12-78) 05/21/19 22:27 Alkaline Phosphatase 95 U/L (45-117) 05/21/19 22:27 Total Protein 6.7 gm/dl (6.4-8.2) 05/21/19 22:27 Albumin 3.7 gm/dl (3.4-5.0) 05/21/19 22:27 Globulin 3.0 gm/dl (2.5-4.0) 05/21/19 22:27 Albumin/Globulin Ratio 1.2 (0.9-2) 05/21/19 22:27 Urine Color Yellow 05/22/19 00:10 Urine Appearance Cloudy (Clear) A 05/22/19 00:10 Urine pH 7.0 (4.5-7.5) 05/22/19 00:10 Ur Specific [place] 1.015 (1.000-1.030) 05/22/19 00:10 Urine Protein 1+ (Negative) H 05/22/19 00:10 Urine Glucose (UA) Negative (Negative) 05/22/19 00:10 Urine Ketones Trace (Negative) H 05/22/19 00:10 Urine Blood Negative (Negative) 05/22/19 00:10 Urine Nitrite Negative (Negative) 05/22/19 00:10 Urine Bilirubin Negative (Negative) 05/22/19 00:10 Urine Urobilinogen Negative (Negative) 05/22/19 00:10 Ur Leukocyte Esterase 3+ (Negative) H 05/22/19 00:10 Urine WBC (Auto) >30 /hpf (0-5) H 05/22/19 00:10 Urine RBC (Auto) 0-4 /hpf (0-4) 05/22/19 00:10 U Hyaline Cast (Auto) 5-10 /lpf (0-5) H 05/22/19 00:10 U Epithel Cells (Auto) 5-10 /lpf (0-5) H 05/22/19 00:10 Urine Bacteria (Auto) 3+ (Negative) H 05/22/19 00:10 Code Status & VTE Plan VTE Prophylaxis Plan VTE Prophylaxis will be ordered: Yes PG Care Time/CCT Total # of Minutes Spent Total Time Spent: 65 Total Time Spent with Patient: Total time spent is greater than 50% in coordination of care (as documented) at patient's floor/unit and/or counseling patient: (1) Hypotension Hypotension type: unspecified hypotension type Qualified Code(s): I95.9 - Hypotension, unspecified
[2019-05-22] MEDS: HEPARIN SOD 5,000 UNIT/0.5 ML VIAL SQ SCH ×3 (06:18→20:30)
[2019-05-22 06:20] LABS: Hematocrit (blood only) 36.7 % (42-52); Hemoglobin 12.1 g/dL (14.0-18.0); Mean Corpuscular Hemoglobin 28.6 pg (25-34); Mean Corpuscular Volume 86.8 fL (80-100); Mean Platelet Volume 9.1 fL (7.4-10.4); Platelet Count 425 K/uL (130-400); RDW Coefficient of Variation 15.6 % (11.5-14.5); RDW Standard Deviation 50.1 fL (36.4-46.3); Red Blood Count 4.23 M/uL (4.7-6.1); White Blood Count 7.86 K/uL (4.8-10.8)
[2019-05-22 06:54] LABS: BUN Creatinine Ratio 23.8 (10-20); Calcium 8.4 mg/dl (8.5-10.1); Creatinine Clr Calc Pharmacy 55.5 ml/min; Est GFR (African American) 59.5; Est GFR (Non-African American) 51.4; Phosphorus 3.2 mg/dl (2.5-4.9); Potassium 3.2 mmol/L (3.5-5.1)
[2019-05-22] MEDS: SIMETHICONE 80 MG CHEW PO SCH ×2 (07:49→20:53)
[2019-05-22] MEDS: PANTOprazole 40 MG TAB PO SCH ×2 (07:50→20:16)
[2019-05-22] MEDS: POLYETHYLENE (MIRALAX) 17 GM PACK PO SCH (07:50)
[2019-05-22] MEDS: BuPROPion XL 150 MG TABCR PO SCH (07:50)
[2019-05-22] MEDS: ASCORBIC ACID 500 MG TAB PO SCH ×2 (07:50→20:16)
[2019-05-22] MEDS: ATENOLOL 25 MG TABLET PO SCH (07:50)
[2019-05-22] MEDS: DICLOFENAC SOD 1% GEL 100 GM TUBE EXT SCH ×4 (07:51→20:19)
[2019-05-22] MEDS ORDERED: NON-FORMULARY MEDICATION (Cranberry 500 MG) PO SCH (09:00)
[2019-05-22] MEDS ORDERED: POTASSIUM CHLORIDE 40 MEQ in SODIUM CHLORIDE 0.9% 500 ML IV ONE (10:43)
[2019-05-22] MEDS ORDERED: CALCIUM GLUCONATE 10% 10 ML VIAL IV STA (10:44)
[2019-05-22] MEDS ORDERED: CALCIUM GLUCONATE 10% 1,000 MG in SODIUM CHLORIDE 0.9% 50 ML IV STA (10:50)
[2019-05-22] MEDS: SODIUM BICARBONATE 650 MG TAB PO SCH (11:19)
[2019-05-22] MEDS: TRAMADOL HCL 50 MG TABLET PO PRN (11:24)
[2019-05-22] MEDS: LIDOCAINE 5% 1 PATCH TD SCH (14:00)
--- NOTE | 2019-05-22 15:07 | History & Physical Bridge Note ---
Date of Service May 22, 2019 History & Physical Bridge Note I have examined the patient, reviewed the History & Physical and in the interval since the performance of the History & Physical I have noted the following changes of clinical significance: no changes noted. Significant pain in the hands and right thigh which he reports is fairly typical for him. After discontinuing his HCTZ, his BP has been stable. His HR is low, however. Na is improving with IV fluids. Will monitor his Na & K this afternoon, and ensure he is still improving.
[2019-05-22 16:08] LABS: BUN Creatinine Ratio 18.8 (10-20); Calcium 8.5 mg/dl (8.5-10.1); Creatinine Clr Calc Pharmacy 49.6 ml/min; Est GFR (Non-African American) 44.9
[2019-05-22 16:12] LABS: Potassium 3.9 mmol/L (3.5-5.1)
[2019-05-22] MEDS ORDERED: ASPIRIN 81 MG ECTAB PO SCH (21:00)
[2019-05-23] MEDS ORDERED: Nursing to Pharmacy Communication ONE ×2 (02:17→04:04)
[2019-05-23] MEDS: HEPARIN SOD 5,000 UNIT/0.5 ML VIAL SQ SCH ×2 (06:25→13:00)
[2019-05-23 06:41] LABS: Hematocrit (blood only) 36.4 % (42-52); Hemoglobin 11.9 g/dL (14.0-18.0); Mean Corpuscular Hemoglobin 28.5 pg (25-34); Mean Corpuscular Hgb Conc 32.7 g/dL (32-36); Mean Corpuscular Volume 87.3 fL (80-100); Mean Platelet Volume 9.2 fL (7.4-10.4); Platelet Count 425 K/uL (130-400); RDW Standard Deviation 50.9 fL (36.4-46.3); Red Blood Count 4.17 M/uL (4.7-6.1); White Blood Count 7.49 K/uL (4.8-10.8)
[2019-05-23 07:16] LABS: BUN Creatinine Ratio 19.1 (10-20); Calcium 8.5 mg/dl (8.5-10.1); Creatinine Clr Calc Pharmacy 44.8 ml/min; Est GFR (Non-African American) 39.7; Potassium 3.7 mmol/L (3.5-5.1)
[2019-05-23] MEDS: DICLOFENAC SOD 1% GEL 100 GM TUBE EXT SCH ×2 (08:40→13:22)
[2019-05-23] MEDS: PANTOprazole 40 MG TAB PO SCH (08:41)
[2019-05-23] MEDS: SIMETHICONE 80 MG CHEW PO SCH (08:41)
[2019-05-23] MEDS: LIDOCAINE 5% 1 PATCH TD SCH (08:41)
[2019-05-23] MEDS: ATENOLOL 25 MG TABLET PO SCH (08:42)
[2019-05-23] MEDS: POLYETHYLENE (MIRALAX) 17 GM PACK PO SCH (08:42)
[2019-05-23] MEDS: ASCORBIC ACID 500 MG TAB PO SCH (08:42)
[2019-05-23] MEDS: BuPROPion XL 150 MG TABCR PO SCH (08:42)
[2019-05-23] MEDS: SODIUM BICARBONATE 650 MG TAB PO SCH (11:20)
[2019-05-23 12:38] VITALS: TEMP 97.5; O2SAT 96
[2019-05-23 12:55] VITALS: BP 131/84; PULSE 88
[2019-05-23] MEDS: ACETAMINOPHEN 500 MG TAB PO PRN (14:21)
[2019-05-23] MEDS: TRAMADOL HCL 50 MG TABLET PO PRN (14:21)
--- NOTE | 2019-05-23 16:33 | Discharge Summary ---
Date of Service May 23, 2019 Principal Diagnosis Hyponatremia and hypotension, possibly from HCTZ Discharge Exam Constitutional WD/WN, vitals as above Eyes EOM intact bilaterally; no conjunctival abnormality ENMT external ear and nose normal, oropharynx normal Neck trachea midline, no thyromegaly normal visual inspection Respiratory normal respiratory effort, lungs clear to auscultation no respiratory distress Cardiovascular RRR, no murmur, no edema Gastrointestinal (Abdomen) Inspection/Auscultation: abdomen normal to inspection; abdomen not distended Musculoskeletal no cyanosis or clubbing, extremities motor strength 5/5 Skin no rashes, warm and dry Neurologic moves all extremities and awake Psychiatric Orientation: alert, oriented to person and cooperative Discharge Data Allergies Allergy/AdvReac Type Severity Reaction Status Date / Time shellfish derived Allergy Severe Anaphylaxis Verified 05/21/19 21:39 oxycodone AdvReac Severe PSYCHOTIC Verified 05/21/19 21:39 Sulfa (Sulfonamide AdvReac Severe KIDNEY Verified 05/21/19 21:39 Antibiotics) FAILURE hydromorphone AdvReac Intermediate NAUSEA AND Verified 05/21/19 21:39 VOMITING morphine AdvReac Mild VOMITING Verified 05/21/19 21:39 naproxen AdvReac Mild vertigo Verified 05/21/19 21:39 Consultations 05/22/19 00:14 ED Decision to Admit Stat Ordered Studies 05/21/19 21:48 CT head/brain wo con Stat Hospital Course (1) Hypotension: Held HCTZ. BP returned to normal. Likely mild dehydration. (2) Hyponatremia: Off HCTZ, it returned to 131 by discharge. Urine lytes were ordered, but never collected. Possibly HCTZ with possible mild SIADH. (3) Dehydration: IV hydration. (4) Headache: CT head was unremarkable. He declined a brain MRI. Headache was gone by discharge. (5) CKD (chronic kidney disease) stage 3, GFR 30-59 ml/min: Stable while inpatient. Total Time Total Time Spent Total Time Spent (In Minutes): 35 Discharge Plan Discharge Items Patient Disposition: Home - Home Health Services Reason For Visit: HYPONATREMIA,HYPOTENSION Discharge Diagnosis: Low sodium, low blood pressure Activity: Resume your previous activity Non-emergency contact: Primary Care Provider Call non-emergency contact if: your symptoms worsen and your pain is unusual for you Follow-up/Referrals: Elmo Hoskins MD [Primary Care Provider] - 05/27/19 1:45 pm (Please, follow up with Dr. Hoskins on MondayMay 27 at 1:45 pm. *If you need to change this appointment, call the office at [phone].) Diet: Heart Healthy Addtl Attending Provider Instructions: Mr. Anaya, Your blood pressure and sodium were likely low due to the HCTZ (hydrochlorothiazide). Your blood pressure returned to normal. Your sodium is still mildly low (131), but is increasing daily. Please follow up with Dr. Hoskins this week, and he may check your labs to be sure your sodium is returning to normal. Please do not take your hydrochlorothiazide any more. Your blood pressure has been good without it here, so you may only need your atenolol at this point to control your BP. Pending Studies at Discharge: No Stand-Alone Forms: My [facility] Medications and DC Order Prescriptions: Continued atenolol 25 mg tablet 25 mg PO QAM RF: 0 aspirin [Adult Aspirin Regimen] 81 mg tablet,delayed release (DR/EC) 81 mg PO QPM RF: 0 acetaminophen [Tylenol Extra Strength] 500 mg tablet 500 mg PO Q6H PRN (Reason: Pain (Scale Score 7-10)) RF: 0 sildenafil [Viagra] 100 mg tablet 100 mg PO DAILY PRN (Reason: Erectile Dysfunction) RF: 0 sodium bicarbonate 650 mg tablet 650 mg PO QDL RF: 0 nortriptyline 75 mg capsule 75 mg PO HS RF: 0 ranitidine HCl [Zantac] 150 mg tablet 150 mg PO HS RF: 0 ibuprofen 400 mg tablet 400 mg PO TID PRN (Reason: Pain) RF: 0 epinephrine 0.3 mg/0.3 mL auto-injector 0.3 mg IM Q10M PRN (Reason: Anaphylaxis) RF: 0 polyethylene glycol 3350 [Miralax] 17 gram/dose powder 17 g PO QAM RF: 0 simethicone 80 mg tablet,chewable 80 mg PO BID RF: 0 omeprazole magnesium [Prilosec OTC] 20 mg tablet,delayed release (DR/EC) 20 mg PO BID RF: 0 bupropion HCl 150 mg tablet extended release 24 hr 150 mg PO QAM RF: 0 lactobacillus combination no.9 [Adult 50+ Probiotic] 4 billion cell capsule 2 tab PO DAILY RF: 0 ascorbic acid (vitamin C) 500 mg capsule 500 mg PO BID RF: 0 diclofenac sodium [Voltaren] 1 % gel 2 gm TOP QID RF: 0 lidocaine-prilocaine 2.5-2.5 % cream 1 applic Transdermal TID RF: 0 tramadol 50 mg tablet 50 mg PO TID PRN (Reason: Pain) RF: 0 gabapentin 300 mg capsule 300 mg PO HS RF: 0 tocilizumab 162 mg/0.9 mL pen injector 162 mg SQ WK RF: 0 cephalexin [Keflex] 500 mg capsule 500 mg PO BID Qty: 60 RF: 0 lorazepam 0.5 mg Tablet 0.5 mg PO HS PRN (Reason: Unknown) RF: 0 chlorzoxazone 500 mg Tablet 250 mg PO HS RF: 0 cranberry 500 mg Capsule 500 mg PO DAILY RF: 0 Artificial Tears (PF) 0.1-0.3 % Dropperette 1 drp OPB BID RF: 0 Discontinued hydrochlorothiazide 50 mg tablet 50 mg PO QAM RF: 0 Discharge Orders: Discharge Order (Routine); Ordered 05/23/19 Ordered By: Moises Perez Admission Data Admit Date/Time: 05/22/19 01:48 Attending Provider: Moises Perez Admit Provider: Aníbal Garces Primary Care Provider: Elmo Hoskins Other Providers: Moises Perez Other Interventions: Discharge Summary Assessment (RN) Last Done: 05/23/19 12:38 DC Date/Time DO NOT enter until pt leaves facility: 05/23/19 14:33
== END 2019-05-23 14:33 | disposition home health service (06) | DRG 315 ==
LOC: ED 21:05 → SUATTDRO 05-22 01:48 → 2N 05-22 01:48

== ENCOUNTER 2020-01-28 16:19 | Inpatient (IN) ==
[2020-01-28] MEDS ORDERED: SODIUM CHLORIDE 0.9% 500 ML IV ONE (17:12)
[2020-01-28] MEDS ORDERED: ACETAMINOPHEN 1,000 MG/100 ML VIAL IV STA (17:14)
[2020-01-28] MEDS ORDERED: PROCHLORPERAZINE 1 ML IV ONE (17:14)
[2020-01-28] MEDS ORDERED: DiphenhydrAMINE HCL 50 MG/ML VIAL IV STA (17:14)
[2020-01-28] MEDS ORDERED: DEXAMETHASONE SOD PHOSPHATE 10 MG in SYRINGE 0 ML IV STA (17:15)
[2020-01-28 18:01] LABS: Basophils # (auto) 0.05 K/uL (0-0.2); Basophils % (auto) 0.5 %; Eosinophils # (auto) 0.98 K/uL (0-0.5); Eosinophils % (auto) 9.4 %; Hematocrit (blood only) 31.3 % (42-52); Immature Granulocytes # (auto) 0.02 K/uL (0.00-0.02); Immature Granulocytes % (auto) 0.2 %; Lymphocytes % (auto) 14.3 %; Mean Corpuscular Hemoglobin 26.5 pg (25-34); Mean Corpuscular Hgb Conc 31.9 g/dL (32-36); Mean Platelet Volume 8.9 fL (7.4-10.4); Monocytes % (auto) 17.2 %; Neutrophils # (auto) 6.12 K/uL (1.4-6.5); Neutrophils % (auto) 58.4 %; Nucleated RBC # (auto) 0.02 K/uL (0-0); Nucleated RBC % (auto) 0.2 %; Platelet Count 488 K/uL (130-400); RDW Coefficient of Variation 15.2 % (11.5-14.5); RDW Standard Deviation 46.2 fL (36.4-46.3); Red Blood Count 3.77 M/uL (4.7-6.1); White Blood Count 10.47 K/uL (4.8-10.8)
[2020-01-28 18:13] LABS: Partial Thromboplastin Ratio 0.9; Partial Thromboplastin Time 24.8 Seconds (21.0-31.0); Prothrombin Time 10.6 Seconds (9.0-12.0)
[2020-01-28] MEDS ORDERED: DEXAMETHASONE **PF** INJ 10 MG/ML VIAL ONE (18:13)
[2020-01-28 18:15] LABS: Appearance Urine Clear (Clear); Bacteria Urine Automated 3+ (Negative); Bilirubin Urine Negative (Negative); Blood Urine Negative (Negative); Color Urine Yellow; Epithelial Cell Urine Auto 0-5 /lpf (0-5); Glucose Urine UA Negative (Negative); Ketones Urine Negative (Negative); Leukocyte Esterase Urine 3+ (Negative); Nitrite Urine Negative (Negative); Protein Urine 2+ (Negative); RBC Urine Automated 0-4 /hpf (0-4); Specific Gravity Urine 1.014 (1.000-1.030); Urobilinogen Urine Negative (Negative); WBC Urine Automated >30 /hpf (0-5); pH Urine 6.5 (4.5-7.5)
[2020-01-28 18:19] LABS: Alanine Aminotransferase 27 U/L (12-78); Albumin Level 3.7 gm/dl (3.4-5.0); Aspartate Aminotransferase 21 U/L (15-37); BUN Creatinine Ratio 23.3 (10-20); Bilirubin Direct 0.1 mg/dl (0-0.2); Blood Urea Nitrogen 28 mg/dl (7-18); Calcium 9.2 mg/dl (8.5-10.1); Carbon Dioxide 26 mmol/L (21-32); Chloride 97 mmol/L (98-107); Creatinine Clr Calc Pharmacy 60.9 ml/min; Est GFR (African American) 67.5; Est GFR (Non-African American) 58.2; Glucose 81 mg/dl (70-99); Potassium 4.3 mmol/L (3.5-5.1); Sodium 131 mmol/L (136-145)
[2020-01-28 18:30] LABS: Albumin Globulin Ratio 1.3 (0.9-2); Alkaline Phosphatase 70 U/L (45-117); Bilirubin,Total 0.5 mg/dl (0.2-1); Globulin 2.8 gm/dl (2.5-4.0); Phosphorus 2.8 mg/dl (2.5-4.9); Total Protein 6.5 gm/dl (6.4-8.2); Troponin I < 0.015 ng/ml (0-0.045)
[2020-01-28] MEDS ORDERED: OPTIRAY 320 125ml IV PRN (19:21)
--- NOTE | 2020-01-28 19:44 | CT Scan Report ---
HEAD CT NONCONTRAST CT DOSE: 1151.80 mGy.cm HISTORY: Stroke symptoms. Stroke evaluation TECHNIQUE: Multiaxial CT images of the head were performed without the use of intravenous contrast. A utomated exposure control was utilized for this study. A dose lowering technique was utilized adheri ng to the principles of ALARA. Comparison: Head CT 05/21/2019. Findings: Small left and trace right mastoid effusions. The paranasal sinuses are clear. The calvariu m and skull base are intact. There is no mass, hematoma, midline shift, acute infarct. White matter h ypodensity is nonspecific but suggestive of microvascular ischemic change. The ventricles and sulci d emonstrate mild age-related involutional changes. Impression: No acute intracranial abnormality. Atrophy and microvascular ischemic changes. ACT 112: Negative or not required by law. Electronically signed by: Jaswant Pacheco M.D. 01/28/2020 7:43 PM
--- NOTE | 2020-01-28 19:50 | CT Scan Report ---
HEAD & NECK CTA HISTORY: Stroke symptoms. Stroke evaluation TECHNIQUE: Multiaxial CT images of the head were performed following the intravenous administration o f contrast to evaluate the major cerebral vessels. Multiaxial CT images of the neck were also perform ed following the intravenous administration of contrast to evaluate the major cervical vessels. Maxim um intensity projection images were also obtained. A dose lowering technique was utilized adhering to the principles of ALARA. COMPARISON: Head CT 01/28/2020. FINDINGS: There is no mass, hematoma, midline shift, or acute infarct. Visualized intracranial internal carotid arteries, distal vertebral arteries, and basilar artery are widely patent. There is no significant s tenosis, occlusion, or aneurysm seen within the bilateral ACAs, MCAs, or compositor apprentice. The major dural venous sinuses are widely patent. Hypoplastic distal right vertebral artery. Hypoplastic right P1 segment c onsidered to be a normal variant. The right SKI INSTRUCTOR is fed primarily through the right posterior communic ating artery. Severely hypoplastic right A1 segment which is also likely developmental. The bilateral A2 segments are fed primarily through the left side. Mild calcified plaque seen within the bilateral carotid siphons. The aortic arch and proximal great vessels are widely patent. There is no significant stenosis, occ lusion, or dissection identified within the bilateral common carotid, internal carotid, or vertebral arteries. There are few subcentimeter bilateral thyroid nodules with the largest on the right measuri ng 8 mm. IMPRESSION: 1. No significant stenosis, occlusion, or aneurysm within the [place]. 2. No significant stenosis, occlusion, or dissection identified within the carotid or vertebral arter ies. ACT 112: Negative or not required by law. Electronically signed by: Jaswant Pacheco M.D. 01/28/2020 7:49 PM
--- NOTE | 2020-01-28 19:50 | CT Scan Report ---
HEAD & NECK CTA HISTORY: Stroke symptoms. Stroke evaluation TECHNIQUE: Multiaxial CT images of the head were performed following the intravenous administration o f contrast to evaluate the major cerebral vessels. Multiaxial CT images of the neck were also perform ed following the intravenous administration of contrast to evaluate the major cervical vessels. Maxim um intensity projection images were also obtained. A dose lowering technique was utilized adhering to the principles of ALARA. COMPARISON: Head CT 01/28/2020. FINDINGS: There is no mass, hematoma, midline shift, or acute infarct. Visualized intracranial internal carotid arteries, distal vertebral arteries, and basilar artery are widely patent. There is no significant s tenosis, occlusion, or aneurysm seen within the bilateral ACAs, MCAs, or behaviorist. The major dural venous sinuses are widely patent. Hypoplastic distal right vertebral artery. Hypoplastic right P1 segment c onsidered to be a normal variant. The right GEOMETRICIAN is fed primarily through the right posterior communic ating artery. Severely hypoplastic right A1 segment which is also likely developmental. The bilateral A2 segments are fed primarily through the left side. Mild calcified plaque seen within the bilateral carotid siphons. The aortic arch and proximal great vessels are widely patent. There is no significant stenosis, occ lusion, or dissection identified within the bilateral common carotid, internal carotid, or vertebral arteries. There are few subcentimeter bilateral thyroid nodules with the largest on the right measuri ng 8 mm. IMPRESSION: 1. No significant stenosis, occlusion, or aneurysm within the [place]. 2. No significant stenosis, occlusion, or dissection identified within the carotid or vertebral arter ies. ACT 112: Negative or not required by law. Electronically signed by: Jaswant Pacheco M.D. 01/28/2020 7:49 PM
[2020-01-29] MEDS ORDERED: ACETAMINOPHEN 500 MG TAB PO PRN (00:34)
[2020-01-29] MEDS ORDERED: EPINEPHRINE ADULT AUTO-INJECT 0.3 MG SYR IM PRN (00:34)
[2020-01-29] MEDS ORDERED: PHARMACIST DISCHARGE MED REC CONSULT PRN (00:34)
--- NOTE | 2020-01-29 00:39 | Emergency Department Note ---
Impression & Plan Stroke-like symptom, Quadriparesis, Left arm weakness, Chronic bilateral low back pain ED Provider Note NAME: GENIE ADAMS AGE: 74 SEX: M ARRIVES VIA: Ambulance INFORMANT: Patient, ED PROVIDER(S): Danny Hansen MD CHIEF COMPLAINT: Back/Leg pain, Left arm weakness, Headache. 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 Patient describes being taken off NSAIDS in preparation for outpatient CT myelogram to evaluate his spine given he reports progressive worsening paresis over the past several months. Patient relates he is unable to get MRI's 2/2 severe claustraphobia and requires complete sedation if he needs MRI. The patient further relates his back and extremity pain typically get worse when he is off of his NSAIDS. However, he reports today he began to have severe ESPANA in association with transient LUE paralysis and so presents to the ED for evaluation. Denies cough, CP, SOB, fevers, changes in colostomy or urostomy output. On arrival the patient is in NAD, AFVSS. He appears chronically ill, clinically dry. 3/5 strength BUE is symmetric. 2/5 strength BLE. EKG unremarkable without evidence of acute ischemia. WBC wnl. Platelets 488 similar to prior. H/H 10.0/31.3 approximate to prior range of valu es. Chemistry without acidosis. Electrolytes and LFTs unremarkable. Troponin negative. UA suspicious for infection. CT head/CTA head/neck negative for ICH, ischemia, or severe narrowing or occlusion of large vessels. Given the paient's report of transient LUE weakness/worse than baseline, reasonable to admit for further management. Patient is agreeable. Case was discussed with Dr. Jones, [facility] hospitalist, who will evaluate the patient for admission. ABX for UTI deferred to admitting team. Triage Nursing notes reviewed and agree them. Prior medical records reviewed Vital Signs: reviewed and remarkable for no significant abnormalities Differential diagnosis: Infection, dehydration, metabolic abnormality, hypo/hyperglycemia, electrolyte disturbance, anemia, hypoxia, cardiac sources, intracerebral event, toxicologic, neurologic, as well as other pathologies. ER treatment provided: See below. Diagnostics interpreted by me: ECG: NSR, sinus arrhythmia, 83 bpm, no ectopy, nonspecific ST abnormality, No overt ST elevation, QTC 451, QRS 92. Cardiac Monitoring: An order for continuous cardiac monitoring was placed and demonstrated NSR, 83 bpm, no ectopy. Laboratory studies: See below Imaging studies: HEAD CT NONCONTRAST CT DOSE: 1151.80 mGy.cm HISTORY: Stroke symptoms. Stroke evaluation TECHNIQUE: Multiaxial CT images of the head were performed without the use of intravenous contrast. Automated exposure control was utilized for this study. A dose lowering technique was utilized adhering to the principles of ALARA. Comparison: Head CT 05/21/2019. Findings: Small left and trace right mastoid effusions. The paranasal sinuses are clear. The calvarium and skull base are intact. There is no mass, hematoma, midline shift, acute infarct. White matter hypodensity is nonspecific but suggestive of microvascular ischemic change. The ventricles and sulci demonstrate mild age-related involutional changes. Impression: No acute intracranial abnormality. Atrophy and microvascular ischemic changes. -- HEAD & NECK CTA HISTORY: Stroke symptoms. Stroke evaluation TECHNIQUE: Multiaxial CT images of the head were performed following the intrav enous administration of contrast to evaluate the major cerebral vessels. Multiaxial CT images of the neck were also performed following the intravenous administration of contrast to evaluate the major cervical vessels. Maximum intensity projection images were also obtained. A dose lowering technique was utilized adhering to the principles of ALARA. COMPARISON: Head CT 01/28/2020. FINDINGS: There is no mass, hematoma, midline shift, or acute infarct. Visualized intracranial internal carotid arteries, distal vertebral arteries, and basilar artery are widely patent. There is no significant stenosis, occlusion, or aneurysm seen within the bilateral ACAs, MCAs, or sales development specialist. The major dural venous s inuses are widely patent. Hypoplastic distal right vertebral artery. Hypoplastic right P1 segment considered to be a normal variant. The right REGISTERED REPRESENTATIVE is fed primarily through the right posterior communicating artery. Severely hypoplastic right A1 segment which is also likely developmental. The bilateral A2 segments are fed primarily through the left side. Mild calcified plaque seen within the bilateral carotid siphons. The aortic arch and proximal great vessels are widely patent. There is no sig nificant stenosis, occlusion, or dissection identified within the bilateral common carotid, internal carotid, or vertebral arteries. There are few subcentimeter bilateral thyroid nodules with the largest on the right measuring 8 mm. IMPRESSION: 1. No significant stenosis, occlusion, or aneurysm within the wain[place] of [place]. 2. No significant stenosis, occlusion, or dissection identified within the carotid or vertebral arteries. Consultation(s): Case was discussed with Dr. Jones, [facility] [place] hospitalist, who will evaluate the patient for admission. 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 Patient describes being taken off NSAIDS in preparation for outpatient CT myelogram to evaluate his spine given he reports progressive worsening paresis over the past several months. Patient relates he is unable to get MRI's 2/2 severe claustraphobia and requires complete sedation if he needs MRI. The patient further relates his back and extremity pain typically get worse when he is off of his NSAIDS. However, he reports today he began to have severe ESPANA in association with transient LUE paralysis and so presents to the ED for evaluation. Denies cough, CP, SOB, fevers, changes in colostomy or urostomy output. ROS: See above HPI for pertinent positives & negatives. A total of 10 systems reviewed and were otherwise negative. PAST MEDICAL HISTORY:See Below PAST SURGICAL HISTORY:See Below FAMILY HISTORY:See Below SOCIAL HISTORY:See Below HOME MEDICATIONS:See Below ALLERGIES:See Below VITALS:See Below PHYSICAL EXAMINATION: GENERAL: Awake, alert, chronically ill-appearing, in no distress HENT: Normocephalic, atraumatic. Oropharynx with dry mucous membranes and otherwise unremarkable. EYES: Normal conjunctiva. Sclera non-icteric. EOMI. No nystamgus. PEARRL. NECK: Supple. No nuchal rigidity. FROM. No JVD. RESPIRATORY: Clear to auscultation. CARDIAC: Regular rate, normal rhythm. Extremities warm and well perfused. Pulses equal. ABDOMEN: Soft, non-distended. No tenderness to palpation. No rebound or guarding. No masses. RECTAL: Deferred. MUSCULOSKELETAL: Chest examination reveals no tenderness. The back is symm etrical on inspection without obvious abnormality. There is no CVA tenderness to palpation. No joint edema. LOWER EXTREMITIES: Calves are equal size bilaterally and non-tender. No edema. No discoloration. NEURO: Speech fluent. 3/5 strength BUE, 2/5 BLE. SKIN: No rash or jaundice noted. Danny Hansen MD Past Med/Surg History Medical History Chronic right shoulder pain (Chronic) Colostomy in place (Chronic) Depression (Chronic) Fusion of lumbar spine (Acute) GERD (gastroesophageal reflux disease) (Chronic) Groin pain, chronic, left (Chronic) History of left foot drop (Chronic) Hypertension (Chronic) 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) Leg length discrepancy (Chronic) Lumbar radiculitis (Chronic) Lumbar spinal stenosis (Chronic) multifactorial multilevel L5-S1 Open wound of right great toe (Acute) PTSD (post-traumatic stress disorder) (Chronic) Rheumatoid arthritis (Chronic) Sacroiliac joint pain (Chronic) SBO (small bowel obstruction) (Chronic) Spinal cord injury (Chronic) occurred in [place] 1967 Traumatic wound (Acute) Surgical History History of appendectomy (Chronic) History of herniorrhaphy (Chronic) History of tonsillectomy and adenoidectomy (Chronic) History of total knee replacement (TKR) (Chronic) BTKA History of urostomy (Acute) Hx of cervical spine surgery (Chronic) Knee joint replacement status (Acute) Family History Other No significant family history Social History Preferred Language: Sinhala Communication Ability: Effective Visual Impairment: Limited Hearing Ability: Use of Hearing Aid Skip Miner Required: No Beliefs That Will Affect Care: None marital status: Current Living Situation: Spouse Current Living Situation Comment: 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 ([facility]) OBTAINED THROUGH THE [facility] current occupational status: disabled Other Information That Helps Us Care for You: No Feels Safe at Home: Yes Safety Concerns: Feels Safe At This Time Smoking Status: Former smoker Tobacco Type: pipe ; Smoking End Date: 35 years ago ; Hx Alcohol Use: Yes Alcohol type: beer, wine and hard liquor Alcohol Intake Frequency Comment: ONE DRINK AT BEDTIME Hx Substance Use: No during the past year weight has: increased > 10 lbs Allergies Allergies Allergy/AdvReac Type Severity Reaction Status Date / Time shellfish derived Allergy Severe Anaphylaxis Verified 01/28/20 17:56 oxycodone AdvReac Severe PSYCHOTIC Verified 01/28/20 17:56 Sulfa (Sulfonamide AdvReac Severe KIDNEY Verified 01/28/20 17:56 Antibiotics) FAILURE hydromorphone AdvReac Intermediate NAUSEA AND Verified 01/28/20 17:56 VOMITING morphine AdvReac Mild VOMITING Verified 01/28/20 17:56 naproxen AdvReac Mild vertigo Verified 01/28/20 17:56 Home Meds Home Medications Medication Instructions Recorded Confirmed acetaminophen 500 mg tablet 500 mg PO Q6H PRN 05/11/18 01/28/20 ascorbic acid (vitamin C) 500 mg 500 mg PO BID cap 05/11/18 01/28/20 capsule aspirin 81 mg tablet,delayed 81 mg PO QPM 05/11/18 01/28/20 release bupropion HCl 150 mg 24 hr tablet, 150 mg PO QAM 05/11/18 01/28/20 extended release epinephrine 0.3 mg/0.3 mL 0.3 mg IM Q10M PRN 05/11/18 01/28/20 injection, auto-injector ibuprofen 400 mg tablet 400 mg PO TID PRN tab 05/11/18 01/28/20 lactobacillus combination no.9 4 2 tab PO DAILY 05/11/18 01/28/20 billion cell capsule nortriptyline 75 mg capsule 75 mg PO HS cap 05/11/18 01/28/20 omeprazole magnesium 20 mg 20 mg PO BID tab 05/11/18 01/28/20 tablet,delayed release polyethylene glycol 3350 17 17 g PO QAM gm 05/11/18 01/28/20 gram/dose oral powder simethicone 80 mg chewable tablet 80 mg PO BID 05/11/18 01/28/20 sodium bicarbonate 650 mg tablet 650 mg PO QDL tab 05/11/18 01/28/20 gabapentin 300 mg capsule 300 mg PO HS cap 06/13/18 01/28/20 diclofenac sodium 1 % topical gel 2 gm TOP QID 07/09/18 01/28/20 lidocaine-prilocaine 2.5 %-2.5 % 1 applic TRANSDERMAL TID gm 07/09/18 01/28/20 topical cream tocilizumab 162 mg/0.9 mL 162 mg SQ WK ml 09/28/18 01/28/20 subcutaneous pen injector Artificial Tears (PF) 1 drp OPB BID 10/23/18 01/28/20 cranberry 500 mg PO DAILY 10/23/18 01/28/20 atenolol 25 mg tablet 12.5 mg PO QAM tab 06/17/19 01/28/20 whey 1 ea PO DAILY gm 07/30/19 01/28/20 cholecalciferol (vitamin D3) 25 25 mcg PO BID cap 01/02/20 01/28/20 mcg (1,000 unit) capsule cholecalciferol (vitamin D3) 25 25 mcg PO BID cap 01/09/20 01/28/20 mcg (1,000 unit) capsule Previous Rx's Medication Instructions Recorded cephalexin 500 mg capsule 500 mg PO BID #60 cap 04/30/19 tramadol 50 mg tablet 50 mg PO TID PRN #120 tab 06/18/19 Results & Data (ED) Vital Signs Vital Signs - 24 hr 01/28/20 16:34 01/28/20 17:31 01/28/20 18:00 Temperature 36.6 C Temperature Source Oral Pulse Rate 87 86 91 H Pulse Rate from SpO2 Sensor Pulse Rhythm Regular Pulse Strength Normal Respiratory Rate 18 18 17 Respiratory Effort / Characteristics Non-Labored Spontaneous Respiratory Depth Normal Respiratory Pattern Regular Blood Pressure 139/96 141/96 H 119/95 Blood Pressure Mean 110 106 99 Blood Pressure Position Sitting Pulse Oximetry 96 Oxygen Delivery Method Room Air Sepsis Recent Fever Within 48 Hours No Sepsis New/Unexplained Change in Mental Status No Sepsis Action Taken by Nursing No Action Required 01/28/20 18:31 01/28/20 19:01 01/28/20 19:48 Temperature Temperature Source Pulse Rate 93 H 87 88 Pulse Rate from SpO2 Sensor 94 H 88 Pulse Rhythm Pulse Strength Respiratory Rate 27 H 16 22 Respiratory Effort / Characteristics Respiratory Depth Respiratory Pattern Blood Pressure 123/72 147/86 H 154/93 H Blood Pressure Mean 85 103 103 Blood Pressure Position Pulse Oximetry 97 96 Oxygen Delivery Method Room Air Sepsis Recent Fever Within 48 Hours Sepsis New/Unexplained Change in Mental Status Sepsis Action Taken by Nursing 01/28/20 20:00 01/28/20 20:30 01/28/20 21:00 Temperature Temperature Source Pulse Rate 90 90 93 H Pulse Rate from SpO2 Sensor 90 88 92 H Pulse Rhythm Pulse Strength Respiratory Rate 16 16 22 Respiratory Effort / Characteristics Respiratory Depth Respiratory Pattern Blood Pressure 152/86 H 141/85 H 147/96 H Blood Pressure Mean 115 99 109 Blood Pressure Position Pulse Oximetry 96 94 94 Oxygen Delivery Method Room Air Sepsis Recent Fever Within 48 Hours Sepsis New/Unexplained Change in Mental Status Sepsis Action Taken by Nursing 01/28/20 21:30 01/28/20 22:00 01/28/20 22:30 Temperature Temperature Source Pulse Rate 92 H 94 H 96 H Pulse Rate from SpO2 Sensor 95 H Pulse Rhythm Pulse Strength Respiratory Rate 14 19 23 Respiratory Effort / Characteristics Respiratory Depth Respiratory Pattern Blood Pressure 128/93 146/92 H 140/97 Blood Pressure Mean 111 116 112 Blood Pressure Position Pulse Oximetry 95 94 95 Oxygen Delivery Method Sepsis Recent Fever Within 48 Hours Sepsis New/Unexplained Change in Mental Status Sepsis Action Taken by Nursing 01/28/20 23:01 Temperature Temperature Source Pulse Rate 100 H Pulse Rate from SpO2 Sensor Pulse Rhythm Pulse Strength Respiratory Rate 21 Respiratory Effort / Characteristics Respiratory Depth Respiratory Pattern Blood Pressure 165/92 H Blood Pressure Mean 98 Blood Pressure Position Pulse Oximetry 97 Oxygen Delivery Method Sepsis Recent Fever Within 48 Hours Sepsis New/Unexplained Change in Mental Status Sepsis Action Taken by Nursing Laboratory Data Result diagrams: 01/28/20 17:31 01/28/20 17:31 Lab Results 01/28/20 01/28/20 01/28/20 Range/Units 17:31 17:31 17:31 WBC 10.47 (4.8-10.8) K/uL RBC 3.77 L (4.7-6.1) M/uL Hgb 10.0 L (14.0-18.0) g/dL Hct 31.3 L (42-52) % MCV 83.0 (80-100) fL MCH 26.5 (25-34) pg MCHC 31.9 L (32-36) g/dL RDW Std Deviation 46.2 (36.4-46.3) fL RDW Coeff of Faustino 15.2 H (11.5-14.5) % Plt Count 488 H (130-400) K/uL MPV 8.9 (7.4-10.4) fL Immature Gran % (Auto) 0.2 % Neut % (Auto) 58.4 % Lymph % (Auto) 14.3 % [place] % (Auto) 17.2 % Eos % (Auto) 9.4 % Baso % (Auto) 0.5 % Immature Gran # (Auto) 0.02 (0.00-0.02) K/uL Neut # (Auto) 6.12 (1.4-6.5) K/uL Lymph # (Auto) 1.50 (1.2-3.4) K/uL [place] # (Auto) 1.80 H (0.11-0.59) K/uL Eos # (Auto) 0.98 H (0-0.5) K/uL Baso # (Auto) 0.05 (0-0.2) K/uL Absolute Nucleated RBC 0.02 H (0-0) K/uL Nucleated RBC % (auto) 0.2 % PT 10.6 (9.0-12.0) Seconds INR 1.0 (0.9-1.1) APTT 24.8 (21.0-31.0) Seconds PTT Ratio 0.9 Sodium 131 L (136-145) mmol/L Potassium 4.3 (3.5-5.1) mmol/L Chloride 97 L (98-107) mmol/L Carbon Dioxide 26 (21-32) mmol/L Anion Gap 8.0 (3-11) BUN 28 H (7-18) mg/dl Creatinine 1.21 (0.6-1.4) mg/dl Est Cr Clr Drug Dosing 60.9 ml/min Est GFR ( Amer) 67.5 Est GFR (Non-Af Amer) 58.2 BUN/Creatinine Ratio 23.3 H (10-20) Glucose 81 (70-99) mg/dl POC Glucose (70-99) mg/dl Calcium 9.2 (8.5-10.1) mg/dl Phosphorus 2.8 (2.5-4.9) mg/dl Magnesium 2.0 (1.8-2.4) mg/dl Total Bilirubin 0.5 (0.2-1) mg/dl Direct Bilirubin 0.1 (0-0.2) mg/dl AST 21 (15-37) U/L ALT 27 (12-78) U/L Alkaline Phosphatase 70 (45-117) U/L Troponin I < 0.015 (0-0.045) ng/ml Total Protein 6.5 (6.4-8.2) gm/dl Albumin 3.7 (3.4-5.0) gm/dl Globulin 2.8 (2.5-4.0) gm/dl Albumin/Globulin Ratio 1.3 (0.9-2) TSH 1.150 (0.300-4.500) uIu/ml Urine Color Urine Appearance (Clear) Urine pH (4.5-7.5) Ur Specific [place] (1.000-1.030) Urine Protein (Negative) Urine Glucose (UA) (Negative) Urine Ketones (Negative) Urine Blood (Negative) Urine Nitrite (Negative) Urine Bilirubin (Negative) Urine Urobilinogen (Negative) Ur Leukocyte Esterase (Negative) Urine WBC (Auto) (0-5) /hpf Urine RBC (Auto) (0-4) /hpf U Hyaline Cast (Auto) (0-5) /lpf U Epithel Cells (Auto) (0-5) /lpf Urine Bacteria (Auto) (Negative) 01/28/20 01/28/20 Range/Units 17:34 18:02 WBC (4.8-10.8) K/uL RBC (4.7-6.1) M/uL Hgb (14.0-18.0) g/dL Hct (42-52) % MCV (80-100) fL MCH (25-34) pg MCHC (32-36) g/dL RDW Std Deviation (36.4-46.3) fL RDW Coeff of Faustino (11.5-14.5) % Plt Count (130-400) K/uL MPV (7.4-10.4) fL Immature Gran % (Auto) % Neut % (Auto) % Lymph % (Auto) % [place] % (Auto) % Eos % (Auto) % Baso % (Auto) % Immature Gran # (Auto) (0.00-0.02) K/uL Neut # (Auto) (1.4-6.5) K/uL Lymph # (Auto) (1.2-3.4) K/uL [place] # (Auto) (0.11-0.59) K/uL Eos # (Auto) (0-0.5) K/uL Baso # (Auto) (0-0.2) K/uL Absolute Nucleated RBC (0-0) K/uL Nucleated RBC % (auto) % PT (9.0-12.0) Seconds INR (0.9-1.1) APTT (21.0-31.0) Seconds PTT Ratio Sodium (136-145) mmol/L Potassium (3.5-5.1) mmol/L Chloride (98-107) mmol/L Carbon Dioxide (21-32) mmol/L Anion Gap (3-11) BUN (7-18) mg/dl Creatinine (0.6-1.4) mg/dl Est Cr Clr Drug Dosing ml/min Est GFR ( Amer) Est GFR (Non-Af Amer) BUN/Creatinine Ratio (10-20) Glucose (70-99) mg/dl POC Glucose 93 (70-99) mg/dl Calcium (8.5-10.1) mg/dl Phosphorus (2.5-4.9) mg/dl Magnesium (1.8-2.4) mg/dl Total Bilirubin (0.2-1) mg/dl Direct Bilirubin (0-0.2) mg/dl AST (15-37) U/L ALT (12-78) U/L Alkaline Phosphatase (45-117) U/L Troponin I (0-0.045) ng/ml Total Protein (6.4-8.2) gm/dl Albumin (3.4-5.0) gm/dl Globulin (2.5-4.0) gm/dl Albumin/Globulin Ratio (0.9-2) TSH (0.300-4.500) uIu/ml Urine Color Yellow Urine Appearance Clear (Clear) Urine pH 6.5 (4.5-7.5) Ur Specific [place] 1.014 (1.000-1.030) Urine Protein 2+ H (Negative) Urine Glucose (UA) Negative (Negative) Urine Ketones Negative (Negative) Urine Blood Negative (Negative) Urine Nitrite Negative (Negative) Urine Bilirubin Negative (Negative) Urine Urobilinogen Negative (Negative) Ur Leukocyte Esterase 3+ H (Negative) Urine WBC (Auto) >30 H (0-5) /hpf Urine RBC (Auto) 0-4 (0-4) /hpf U Hyaline Cast (Auto) 10-30 H (0-5) /lpf U Epithel Cells (Auto) 0-5 (0-5) /lpf Urine Bacteria (Auto) 3+ H (Negative) Administered Medications Ioversol (Optiray 320 125ml) 121 ml IV ONCE PRN PRN Reason: Interaction Checking Stop: 02/01/20 19:20 Last Admin: 01/28/20 19:21 Dose: 121 ml Documented by: [id number] Discontinued Medications Dexamethasone Sodium Phosphate (Decadron Pf) Confirm Administered Dose 10 mg .ROUTE .STK-MED ONE Stop: 01/28/20 18:14 Last Admin: 01/28/20 18:26 Dose: 10 mg Documented by: [id number] Diphenhydramine HCl (Benadryl) 12.5 mg IV NOW STA Stop: 01/28/20 17:15 Last Admin: 01/28/20 18:25 Dose: 12.5 mg Documented by: [id number] Sodium Chloride (Nss) 500 mls @ 999 mls/hr IV .Q31M ONE Stop: 01/28/20 17:42 Last Infusion: 01/28/20 18:55 Dose: 0 mls/hr Documented by: [id number] Admin: 01/28/20 18:24 Dose: 999 mls/hr Documented by: [id number] Acetaminophen (Ofirmev) 1,000 mg in 100 mls @ 400 mls/hr IV NOW STA Stop: 01/28/20 17:28 Last Infusion: 01/28/20 18:44 Dose: 0 mls/hr Documented by: [id number] Admin: 01/28/20 18:29 Dose: 400 mls/hr Documented by: [id number] Prochlorperazine (Compazine) 1 mls @ 1 mls/min IV ONE ONE Stop: 01/28/20 17:15 Last Admin: 01/28/20 18:28 Dose: 1 mls/min Documented by: [id number] Dexamethasone Sodium Phosphate (10 mg/ Syringe) 2.5 mls @ 1 mls/min IV NOW STA Stop: 01/28/20 17:17 Last Admin: 01/28/20 18:26 Dose: Not Given Documented by: [id number] Blood Pressure Blood Pressure Findings: Elevated blood pressure Blood Pressure Disposition: further management by hospitalist Discharge Plan Visit Data *Final* Discharge Date/Time: 01/28/20 23:59 Chief Complaint: Leg Injury/Pain Stated Complaint: R UPPER THIGH & LEG PAIN, HEADACHE ED Provider: Danny Hansen Discharge Problem: Stroke-like symptom, Quadriparesis, Left arm weakness, Chronic bilateral low back pain Patient Disposition: Admitted As Inpatient Discharge Instructions Interventions: ED Discharge Assessment Last Done: 01/28/20 23:59 Discharge Problem: Chronic bilateral low back pain Qualifiers: Sciatica presence: unspecified whether sciatica present Qualified Code(s): M54.5 - Low back pain
[2020-01-29 06:13] LABS: Basophils # (auto) 0.01 K/uL (0-0.2); Basophils % (auto) 0.1 %; Hematocrit (blood only) 33.6 % (42-52); Hemoglobin 10.4 g/dL (14.0-18.0); Immature Granulocytes # (auto) 0.01 K/uL (0.00-0.02); Immature Granulocytes % (auto) 0.1 %; Lymphocytes # (auto) 0.37 K/uL (1.2-3.4); Lymphocytes % (auto) 3.7 %; Mean Corpuscular Hemoglobin 25.9 pg (25-34); Mean Corpuscular Volume 83.8 fL (80-100); Mean Platelet Volume 8.9 fL (7.4-10.4); Monocytes # (auto) 0.06 K/uL (0.11-0.59); Monocytes % (auto) 0.6 %; Neutrophils # (auto) 9.57 K/uL (1.4-6.5); Neutrophils % (auto) 95.5 %; Platelet Count 545 K/uL (130-400); RDW Coefficient of Variation 15.2 % (11.5-14.5); RDW Standard Deviation 47.2 fL (36.4-46.3); Red Blood Count 4.01 M/uL (4.7-6.1); White Blood Count 10.02 K/uL (4.8-10.8)
[2020-01-29 06:39] LABS: BUN Creatinine Ratio 21.7 (10-20); Calcium 9.7 mg/dl (8.5-10.1); Est GFR (African American) 70.3; Est GFR (Non-African American) 60.6; Potassium 4.1 mmol/L (3.5-5.1)
[2020-01-29 07:11] LABS: Estimated Average Glucose 117 mg/dl; Hemoglobin A1C 5.7 % (4.5-5.6)
[2020-01-29] MEDS ORDERED: PANTOprazole 40 MG TAB PO SCH (09:00)
[2020-01-29] MEDS ORDERED: CHOLECALCIFEROL 1,000 UNITS 25 MCG TAB PO SCH ×2 (09:00)
[2020-01-29] MEDS ORDERED: ATENOLOL 25 MG TABLET PO SCH (09:00)
[2020-01-29] MEDS ORDERED: BuPROPion XL 150 MG TABCR PO SCH (09:00)
[2020-01-29] MEDS ORDERED: LACTOBACILLUS ACIDOPHILUS (FLORANEX) TAB PO SCH (09:00)
[2020-01-29] MEDS ORDERED: SIMETHICONE 80 MG CHEW PO SCH (09:00)
[2020-01-29] MEDS ORDERED: ARTIFICIAL TEARS OP SCH (09:00)
[2020-01-29] MEDS ORDERED: cephALEXin 500 MG CAP PO SCH (09:00)
[2020-01-29] MEDS ORDERED: POLYETHYLENE (MIRALAX) 17 GM PACK PO SCH (09:00)
[2020-01-29] MEDS: LIDOCAINE/PRILOCAINE 2.5% EA CRM EXT SCH ×2 (09:42→13:17)
--- NOTE | 2020-01-29 11:01 | Neurology Consultation ---
Date of Consultation January 29, 2020 Assessment & Plan (1) Stroke-like episode: Resolved episode of left upper extremity numbness and weakness occurring in the context of chronic cervical myeloradiculopathy, left ulnar neuropathy, and spastic paraplegia/incomplete quadriplegia. Patient will not tolerate MRI due to severe claustrophobia. Would recommend adding Plavix 75 mg/day to patient's medication regimen for the next 3 weeks, then discontinue daily low- dose aspirin in favor of Plavix monotherapy. Consider 30-day cardiac event monitor. Please contact me if I may be of further assistance. Time spent with patient, record review including imaging and other test results: 50 minutes History of Present Illness Reason for Consultation: concern for stroke Requesting Physician: Mercedes Amaro MD Attending Physician: Maurice Huang DO History of Present Illness The patient is a 74-year-old male with a chief complaint of sudden weakness and numbness affecting the left upper extremity that began yesterday afternoon while he was sitting up speaking with his . The episode resolved within about 15 minutes. 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 He has been experiencing functional decline and was able to ambulate with a walker until about 1 year ago. He has chronic spinal pain, neurogenic bladder, and rheumatoid arthritis. The patient has not had a recurrence of his left upper extremity weakness or numbness during this hospitalization. He indicates that he feels as if he is back to his typical baseline. He does not recall experiencing any associated speech or vision changes with yesterday's episode. He does not recall any associated facial droop. Allergies Allergy/AdvReac Type Severity Reaction Status Date / Time shellfish derived Allergy Severe Anaphylaxis Verified 01/29/20 09:35 oxycodone AdvReac Severe PSYCHOTIC Verified 01/29/20 09:35 Sulfa (Sulfonamide AdvReac Severe KIDNEY Verified 01/29/20 09:35 Antibiotics) FAILURE hydromorphone AdvReac Intermediate NAUSEA AND Verified 01/29/20 09:35 VOMITING morphine AdvReac Mild VOMITING Verified 01/29/20 09:35 naproxen AdvReac Mild vertigo Verified 01/29/20 09:35 Home Medications Home Medications Medication Instructions Recorded Confirmed Type acetaminophen 500 mg tablet 500 mg PO Q6H PRN 05/11/18 01/29/20 History ascorbic acid (vitamin C) 500 mg 500 mg PO BID cap 05/11/18 01/29/20 History capsule aspirin 81 mg tablet,delayed 81 mg PO QPM 05/11/18 01/29/20 History release bupropion HCl 150 mg 24 hr tablet, 150 mg PO QAM 05/11/18 01/29/20 History extended release epinephrine 0.3 mg/0.3 mL 0.3 mg IM Q10M PRN 05/11/18 01/29/20 History injection, auto-injector ibuprofen 400 mg tablet 400 mg PO TID PRN tab 05/11/18 01/29/20 History lactobacillus combination no.9 4 2 tab PO DAILY 05/11/18 01/29/20 History billion cell capsule nortriptyline 75 mg capsule 75 mg PO HS cap 05/11/18 01/29/20 History omeprazole magnesium 20 mg 20 mg PO BID tab 05/11/18 01/29/20 History tablet,delayed release polyethylene glycol 3350 17 17 g PO QAM gm 05/11/18 01/29/20 History gram/dose oral powder simethicone 80 mg chewable tablet 80 mg PO BID 05/11/18 01/29/20 History sodium bicarbonate 650 mg tablet 650 mg PO QDL tab 05/11/18 01/29/20 History gabapentin 300 mg capsule 300 mg PO HS cap 06/13/18 01/29/20 History diclofenac sodium 1 % topical gel 2 gm TOP QID 07/09/18 01/29/20 History lidocaine-prilocaine 2.5 %-2.5 % 1 applic TRANSDERMAL TID gm 07/09/18 01/29/20 History topical cream tocilizumab 162 mg/0.9 mL 162 mg SQ WK ml 09/28/18 01/29/20 History subcutaneous pen injector Artificial Tears (PF) 1 drp OPB BID 10/23/18 01/29/20 History cranberry 500 mg PO DAILY 10/23/18 01/29/20 History cephalexin 500 mg capsule 500 mg PO BID #60 cap 04/30/19 01/29/20 Rx atenolol 25 mg tablet 12.5 mg PO QAM tab 06/17/19 01/29/20 History tramadol 50 mg tablet 50 mg PO TID PRN #120 tab 06/18/19 01/29/20 Rx whey 1 ea PO DAILY gm 07/30/19 01/29/20 History cholecalciferol (vitamin D3) 25 25 mcg PO BID cap 01/02/20 01/29/20 History mcg (1,000 unit) capsule cholecalciferol (vitamin D3) 25 25 mcg PO BID cap 01/09/20 01/29/20 History mcg (1,000 unit) capsule Patient History Medical History Chronic right shoulder pain (Chronic) Colostomy in place (Chronic) Depression (Chronic) Fusion of lumbar spine (Acute) GERD (gastroesophageal reflux disease) (Chronic) Groin pain, chronic, left (Chronic) History of left foot drop (Chronic) Hypertension (Chronic) 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) Leg length discrepancy (Chronic) Lumbar radiculitis (Chronic) Lumbar spinal stenosis (Chronic) multifactorial multilevel L5-S1 Open wound of right great toe (Acute) PTSD (post-traumatic stress disorder) (Chronic) Rheumatoid arthritis (Chronic) Sacroiliac joint pain (Chronic) SBO (small bowel obstruction) (Chronic) Spinal cord injury (Chronic) occurred in [place] 1967 Traumatic wound (Acute) Surgical History History of appendectomy (Chronic) History of herniorrhaphy (Chronic) History of tonsillectomy and adenoidectomy (Chronic) History of total knee replacement (TKR) (Chronic) BTKA History of urostomy (Acute) Hx of cervical spine surgery (Chronic) Knee joint replacement status (Acute) Family History Other No significant family history Social History Preferred Language: [place] Communication Ability: Effective Visual Impairment: Limited Hearing Ability: Use of Hearing Aid Steam Pan Sponger Required: No Beliefs That Will Affect Care: None marital status: Current Living Situation: Spouse Current Living Situation Comment: 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 ([facility]) OBTAINED THROUGH THE [facility] current occupational status: disabled Other Information That Helps Us Care for You: No Feels Safe at Home: Yes Safety Concerns: Feels Safe At This Time Smoking Status: Former smoker Tobacco Type: pipe ; Smoking End Date: 35 years ago ; Hx Alcohol Use: Yes Alcohol type: beer, wine and hard liquor Alcohol Intake Frequency Comment: ONE DRINK AT BEDTIME Hx Substance Use: No during the past year weight has: increased > 10 lbs Review of Systems Constitutional: no fever and no chills Eyes: no blind spots and no diplopia Ear, Nose, Mouth, Throat: no hearing loss Respiratory: no cough and no dyspnea Cardiovascular: no chest pain and no palpitations Gastrointestinal: no nausea and no vomiting Genitourinary: + as per Subjective / HPI and + urinary incontinence Musculoskeletal: as per Subjective / HPI, + back pain, + neck pain, + deformity and + muscle weakness Integumentary: no rash and no lesions Neurologic: as per Subjective / HPI, + localized weakness and + loss of sensation Psychiatric: no depression and no anxiety Hematologic / Lymphatic: no easy bleeding and no easy bruising Exam (Neuro) Physical Exam: This patient has a spastic paraparesis affecting both lower limbs with associated dystonic posturing. He has significant sensory loss from the waist down with notable impairment of proprioceptive sensation. He has mild proximal and moderate distal upper extremity weakness bilaterally with associated atrophy of the intrinsic hand musculature and rheumatic joint deformities affecting the wrists and digits. He does not have a facial droop. He does not appear to have a hemiparesis. There is no dysarthria or aphasia. Constitutional: + physical limitations and + frail appearing; no acute distress Neurologic: Oriented to:: Person, Place and Time Memory: Short Term Intact and Remote Intact Attention: Span Intact and Concentration Intact Language: Naming Objects and Repeating Phrases Speech Fluency: negative Dysarthria Speech Aphasia: negative Aphasia Fund of Knowledge: Current Events, Past History and Vocabulary Cranial Nerves: Normal II, III, IV, , V, VII, VIII, IX, X, XI and XII Motor Strength: Paraplegia; negative Normal Lower Extremities and Normal Upper Extremities Motor Tone: Normal Upper Extremities; negative Normal Lower Extremities Spasticity: Legs Muscle Bulk/Involuntary Movements: No Involuntary Movements and Muscle Atrophy (Atrophy of the intrinsic hand musculature noted bilaterally.) Sensation: Light Touch Intact, Pain/Temperature Intact and Vibration Intact; negative Proprioception Intact Coordination: Finger-Nose Abnormal and Heel-Ness Abnormal Deep Tendon Reflexes: Rt Triceps: 3+, Lt Triceps: 3+, Rt Biceps: 3+, Lt Biceps: 3+, Rt Brachioradialis: 3+, Lt Brachioradialis: 3+, Rt Patellar: 3+, Lt Patellar: 3+, Rt Ankle: 0 and Lt Ankle: 0 Special Tests: negative Babinski Present Details: Gait cannot be tested due to chronic paraplegia/quadriplegia Results & Data ([facility]) Vital Signs (Past 12 Hours) Vital Signs Temp Pulse Pulse Resp BP BP Pulse Ox 01/29/20 08:15 36.7 C 114 H 18 125/80 95 01/29/20 04:13 36.3 C L 108 H 17 131/80 95 01/29/20 02:10 103 H 01/29/20 00:34 36.8 C 100 H 20 147/98 H 92 01/28/20 23:32 101 H 21 114/72 01/28/20 23:01 100 H 21 165/92 H 97 Laboratory Results Triglycerides 65, cholesterol 200, LDL 115, VLDL 13, HDL [address] of the head completed yesterday is negative for hemorrhage or acute process. There is atrophy and chronic microvascular ischemic change. A CT angiogram of the head and neck are negative for stenosis, occlusion, aneurysm, or dissection. I reviewed the images as well as the radiologist's interpretation of these tests. An electrocardiogram completed yesterday reveals a normal sinus rhythm. An echocardiogram completed May 22, 2019 reveals normal left ventricular size and systolic function. There is mild dilatation of the left atrium. There is no atrial septal defect. Coding Level of Care Code 43059 Initial Inpt Care Lvl 2 Diagnoses Stroke-like episode I63.9
[2020-01-29] MEDS ORDERED: SODIUM BICARBONATE 650 MG TAB PO SCH (11:30)
[2020-01-29] MEDS ORDERED: CLOPIDOGREL BISULFATE 75 MG TAB PO ONE (11:50)
[2020-01-29 11:58] VITALS: PULSE 98; TEMP 98.2; O2SAT 94
[2020-01-29] MEDS ORDERED: STROKE PATIENT DISCHARGE STA (13:51)
--- NOTE | 2020-01-29 13:52 | Discharge Summary ---
Date of Service January 29, 2020 Admission HPI Per Admitting Provider The patient is a 74-year-old male with a chief complaint of sudden weakness and numbness affecting the left upper extremity that began yesterday afternoon while he was sitting up speaking with his . The episode resolved within about 15 minutes. 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 He has been experiencing functional decline and was able to ambulate with a walker until about 1 year ago. He has chronic spinal pain, neurogenic bladder, and rheumatoid arthritis. The patient has not had a recurrence of his left upper extremity weakness or numbness during this hospitalization. He indicates that he feels as if he is back to his typical baseline. He does not recall experiencing any associated speech or vision changes with yesterday's episode. He does not recall any associated facial droop. Principal Diagnosis TIA presenting with left arm weakness Discharge Exam Constitutional well developed and well nourished; no acute distress Eyes PERRL, conjunctivae normal, anicteric sclerae ENMT external ear and nose normal, oropharynx normal Neck trachea midline, no thyromegaly Respiratory normal respiratory effort, lungs clear to auscultation Cardiovascular RRR, no murmur, no edema Gastrointestinal (Abdomen) normal bowel sounds, soft, nontender, no hepatosplenomegaly Musculoskeletal Head/Neck/Chest: normocephalic, head atraumatic and neck supple Extremities: + abnormal strength (lower extremity paralysis, upper extremities 4/5 strength) and + muscle atrophy (lower extremities); + abnormal strength Skin no rashes, warm and dry Neurologic patellar DTR's 2+ bilat, sensation intact and PERRL, EOMI, accommodation nl, no face palsy, no dysarthria Psychiatric A+Ox3, euthymic affect Lymphatic no cervical or axillary lymphadenopathy Discharge Data Allergies Allergy/AdvReac Type Severity Reaction Status Date / Time shellfish derived Allergy Severe Anaphylaxis Verified 01/29/20 09:35 oxycodone AdvReac Severe PSYCHOTIC Verified 01/29/20 09:35 Sulfa (Sulfonamide AdvReac Severe KIDNEY Verified 01/29/20 09:35 Antibiotics) FAILURE hydromorphone AdvReac Intermediate NAUSEA AND Verified 01/29/20 09:35 VOMITING morphine AdvReac Mild VOMITING Verified 01/29/20 09:35 naproxen AdvReac Mild vertigo Verified 01/29/20 09:35 Consultations 06/09/20 21:19 ED Decision to Admit Stat 01/29/20 00:34 Consult Case Management - Discharge Planning Routine Consult Neurology Routine Ordered Studies 01/28/20 17:13 CT angio head w con Stat CT angio neck with con Stat CT head/brain wo con Stat 01/29/20 00:34 CT cervical spine w con Routine Hospital Course (1) TIA (transient ischemic attack): presented with episode of decreased responsiveness and left arm weakness left arm always weak but it was more weak than normal symptoms resolved quickly MRI brain without any evidence of acute stroke evaluated by Dr. Asencio with neurology recommendations for secondary stroke prevention are as follows: - aspirin and Plavix for three weeks, then just Plavix 75mg daily - start Lipitor 20mg daily - blood pressure control, well controlled during admission - HbA1c is at goal - will obtain 30 day heart monitor at home to make sure he does not have paroxysmal atrial fibrillation (2) Left arm weakness: resolved, using left arm and hand to eat lunch he says strength back to normal (3) GERD (gastroesophageal reflux disease): previously on Omeprazole this is now contraindicated with plans to use Plavix instructed patient to change to Protonix daily and stop omeprazole (4) Quadriparesis: (5) Normocytic anemia: (6) Cervical myelopathy: (7) CKD (chronic kidney disease) stage 3, GFR 30-59 ml/min: Cr is at baseline Total Time Total Time Spent Total Time Spent (In Minutes): 31 minutes Total Time Includes: Examination of the Patient, Discharge Planning, Medication Reconciliation, Communication With Other Providers (discussed with Dr. Asencio) and Other (spoke with over the phone) Discharge Plan Discharge Items Patient Disposition: Home - Self-Care Reason For Visit: LEFT ARM WEAKNESS Discharge Diagnosis: Left arm weakness Possible TIA Condition on Discharge: Good Goals: secondary stroke prevention measures, see below 30 day event monitor, will be mailed to your home Activity: Resume your previous activity Non-emergency contact: Primary Care Provider Call non-emergency contact if: you have any medication questions and your symptoms worsen Follow-up/Referrals: Elmo Hoskins MD [Primary Care Provider] - 02/07/20 11:30 am (Please, follow up at Dr. Hoskins's office with his associate, Leticia NIELSEN, on MondayFebruary 06 at 11:30 am. *If you need to cancel or change this appointment, call their office at [phone]. A CARDIAC EVENT MONITOR WILL BE MAILED TO YOUR HOME. THE KIT WILL INCLUDE EASY TO FOLLOW INSTRUCTIONS. YOU WILL WEAR THE MONITOR FOR 30 DAYS AND THE RESULTS WILL BE SENT TO DR. HOSKINS. ) Diet: Heart Healthy Addtl Attending Provider Instructions: Medications: - PLAVIX: 75mg daily, received first dose in the hospital, this will replace aspirin for antiplatelet therapy - ASPIRIN: 81mg daily, continue to take this with the Plavix for 3 weeks and then STOP aspirin, just use Plavix for stroke prevention - LIPITOR: 20mg daily, low dose statin to help prevent future stroke Transient left arm weakness, possible TIA difficult to determine if this was true stroke as MRI not possible Dr. Asencio with neurology recommends treating for possible small stroke vs TIA, encouraged that symptoms are rapidly improving plan: Plavix and aspirin for three weeks, after that just use Plavix will arrange for 30 day Holter monitor to look for paroxysmal atrial fibrillation as a risk for stroke blood pressure control, well controlled here in the hospital HbA1c is 5.7% so you do not have diabetes LDL is 115 but HDL (good cholesterol) is very high at 72, will start on low dose statin, Lipitor, can cause muscle pains, follow up with Dr. Hoskins if you have issues Risk Factors for Stroke: You can reduce your chances of stroke by working with your medical provider to adopt a healthy lifestyle. Some specific ways to lower your chance of stroke a re: * If you are a smoker, now is the time to stop smoking cigarettes * If you are diabetic, improve the control of your blood sugars * Avoid excessive amounts of alcohol * Control high blood pressure * Lose weight if you are overweight * Be sure to lead an active lifestyle * Eat a healthy diet low in salt, cholesterol and fat You should know about other risk factors for stroke that you are unable to c ontrol. These include: * Age 55 years or older * Male gender * Certain racial groups: , or / * Family History of Stroke, Mini stroke or Heart Attack * Sickle Cell Disease Follow Up: It is important for you to keep your follow up appointments with your medical provider. Who to Call and When: Medical Emergencies: Call 911 immediately if you experience any of the following warning signs and symptoms of Stroke: * Sudden numbness or weakness of the face, arm or leg, especially on one side of the body * Sudden confusion, trouble speaking or understanding * Sudden trouble seeing in one or both eyes * Sudden trouble walking, dizziness, loss of balance or coordination * Sudden severe headache with no cause Do not delay calling 911 if you experience any warning signs or symptoms of a stroke. Delay in seeking medical attention may affect what treatments can be given to you. . Pending Studies at Discharge: No Stand-Alone Forms: Medications to Prevent Stroke, My [facility], Smoking Cessation Medications and DC Order Prescriptions: New clopidogrel 75 mg tablet 75 mg PO DAILY 30 Days Qty: 30 RF: 3 atorvastatin 20 mg tablet 20 mg PO DAILY 30 Days Qty: 30 RF: 3 Continued aspirin [Adult Aspirin Regimen] 81 mg tablet,delayed release (DR/EC) 81 mg PO QPM RF: 0 acetaminophen [Tylenol Extra Strength] 500 mg tablet 500 mg PO Q6H PRN (Reason: Pain (Scale Score 7-10)) RF: 0 sodium bicarbonate 650 mg tablet 650 mg PO QDL RF: 0 nortriptyline 75 mg capsule 75 mg PO HS RF: 0 ibuprofen 400 mg tablet 400 mg PO TID PRN (Reason: Pain) RF: 0 epinephrine 0.3 mg/0.3 mL auto-injector 0.3 mg IM Q10M PRN (Reason: Anaphylaxis) RF: 0 polyethylene glycol 3350 [Miralax] 17 gram/dose powder 17 g PO QAM RF: 0 simethicone 80 mg tablet,chewable 80 mg PO BID RF: 0 omeprazole magnesium [Prilosec OTC] 20 mg tablet,delayed release (DR/EC) 20 mg PO BID RF: 0 bupropion HCl 150 mg tablet extended release 24 hr 150 mg PO QAM RF: 0 lactobacillus combination no.9 [Adult 50 Plus Probiotic] 4 billion cell capsule 2 tab PO DAILY RF: 0 ascorbic acid (vitamin C) 500 mg capsule 500 mg PO BID RF: 0 diclofenac sodium [Voltaren] 1 % gel 2 gm TOP QID RF: 0 lidocaine-prilocaine 2.5-2.5 % cream 1 applic Transdermal TID RF: 0 gabapentin 300 mg capsule 300 mg PO HS RF: 0 tocilizumab 162 mg/0.9 mL pen injector 162 mg SQ WK RF: 0 cholecalciferol (vitamin D3) 25 mcg (1,000 unit) capsule 25 mcg PO BID RF: 0 atenolol 25 mg tablet 12.5 mg PO QAM RF: 0 tramadol 50 mg tablet 50 mg PO TID PRN (Reason: Pain) Qty: 120 RF: 0 cephalexin [Keflex] 500 mg capsule 500 mg PO BID Qty: 60 RF: 0 whey powder 1 ea PO DAILY RF: 0 cholecalciferol (vitamin D3) 25 mcg (1,000 unit) capsule 25 mcg PO BID RF: 0 cranberry 500 mg Capsule 500 mg PO DAILY RF: 0 Artificial Tears (PF) 0.1-0.3 % Dropperette 1 drp OPB BID RF: 0 Discharge Orders: Discharge Order (Routine); Ordered 01/29/20 Ordered By: Maurice Huang Admission Data Admit Date/Time: 01/28/20 23:14 Attending Provider: Maurice Huang Admit Provider: Mercedes Amaro Primary Care Provider: Elmo Hoskins Other Providers: Chadd Jones ; Mauro Asencio Other Interventions: Discharge Summary Assessment (RN) Last Done: 01/29/20 13:57 DC Date/Time DO NOT enter until pt leaves facility: 01/29/20 14:45 Coding Level of Care Code D/C Day Management >30 mins Diagnoses TIA (transient ischemic attack) G45.9 Left arm weakness R29.898 GERD (gastroesophageal reflux disease) K21.9 Quadriparesis G82.50 Normocytic anemia D64.9 Cervical myelopathy G95.9 CKD (chronic kidney disease) stage 3, GFR 30-59 ml/min N18.3
[2020-01-29 13:58] VITALS: BP 125/80
--- NOTE | 2020-01-29 14:47 | Pharmacy Report ---
Pharmacist Stroke Counseling - Date of Service January 29, 2020 - Scope: Pharmacy has been consulted to provide medication discharge counseling for this patient admitted with [ischemic stroke] [hemorrhagic stroke] [transient ischemic attack] as per the Pharmacist Discharge Counseling for Stroke Patients Yasemin reyna - Medications on Discharge: Home Medications Medication Instructions Recorded Confirmed acetaminophen 500 mg tablet 500 mg PO Q6H PRN 05/11/18 01/29/20 ascorbic acid (vitamin C) 500 mg 500 mg PO BID cap 05/11/18 01/29/20 capsule aspirin 81 mg tablet,delayed 81 mg PO QPM 05/11/18 01/29/20 release bupropion HCl 150 mg 24 hr tablet, 150 mg PO QAM 05/11/18 01/29/20 extended release epinephrine 0.3 mg/0.3 mL 0.3 mg IM Q10M PRN 05/11/18 01/29/20 injection, auto-injector ibuprofen 400 mg tablet 400 mg PO TID PRN tab 05/11/18 01/29/20 lactobacillus combination no.9 4 2 tab PO DAILY 05/11/18 01/29/20 billion cell capsule nortriptyline 75 mg capsule 75 mg PO HS cap 05/11/18 01/29/20 omeprazole magnesium 20 mg 20 mg PO BID tab 05/11/18 01/29/20 tablet,delayed release polyethylene glycol 3350 17 17 g PO QAM 05/11/18 01/29/20 gram/dose oral powder simethicone 80 mg chewable tablet 80 mg PO BID 05/11/18 01/29/20 sodium bicarbonate 650 mg tablet 650 mg PO QDL tab 05/11/18 01/29/20 gabapentin 300 mg capsule 300 mg PO HS cap 06/13/18 01/29/20 diclofenac sodium 1 % topical gel 2 gm TOP QID 07/09/18 01/29/20 lidocaine-prilocaine 2.5 %-2.5 % 1 applic TRANSDERMAL TID gm 07/09/18 01/29/20 topical cream tocilizumab 162 mg/0.9 mL 162 mg SQ WK ml 09/28/18 01/29/20 subcutaneous pen injector Artificial Tears (PF) 1 drp OPB BID 10/23/18 01/29/20 cranberry 500 mg PO DAILY 10/23/18 01/29/20 atenolol 25 mg tablet 12.5 mg PO QAM tab 06/17/19 01/29/20 whey 1 ea PO DAILY gm 07/30/19 01/29/20 cholecalciferol (vitamin D3) 25 25 mcg PO BID cap 01/02/20 01/29/20 mcg (1,000 unit) capsule cholecalciferol (vitamin D3) 25 25 mcg PO BID cap 01/09/20 01/29/20 mcg (1,000 unit) capsule New Rx's Medication Instructions Recorded cephalexin 500 mg capsule 500 mg PO BID #60 cap 04/30/19 tramadol 50 mg tablet 50 mg PO TID PRN #120 tab 06/18/19 atorvastatin 20 mg PO DAILY 30 Days #30 tab 01/29/20 clopidogrel 75 mg PO DAILY 30 Days #30 tab 01/29/20 - Action: The above medications, specifically ones for stroke treatment/prophylaxis, have been reviewed in detail with the patient prior to discharge. This includes indication, common adverse reactions, drug interactions, and medication administration. Medication counseling has been employed using the teach-back method to ensure understanding. - Outcome: The patient has demonstrated understanding of the medications. Additional comments: -attempted to call provider twice to have Prilosec changed to Protonix. Unable to reach at this time. Told patient and his son to continue medications as directed and will attempt to change later. -patient hesitant to start Lipitor and will speak to Dr Hoskins prior. I provided with details regarding benefits. Thank you for allowing pharmacy to be involved in the care of this patient. Please call [phone] with any additional questions
[2020-01-29] MEDS ORDERED: NORTRIPTYLINE HCL 25 MG CAP PO SCH (21:00)
[2020-01-29] MEDS ORDERED: ASPIRIN 81 MG ECTAB PO SCH (21:00)
[2020-01-29] MEDS ORDERED: GABAPENTIN 300 MG CAP PO SCH (21:00)
--- NOTE | 2020-01-29 22:15 | Electrocardiogram Report ---
Test Reason : Blood Pressure : / mmHG Vent. Rate : 083 BPM Atrial Rate : 083 BPM P-R Int : 196 ms QRS Dur : 092 ms QT Int : 384 ms P-R-T Axes : 053 012 067 degrees QTc Int : 451 ms Normal sinus rhythm with sinus arrhythmia Possible Inferior infarct Nonspecific ST abnormality Abnormal ECG When compared with ECG of 21-MAY-2019 21:15, No significant change was found Confirmed by Anupam Contreras ([id number]) on 01/29/2020 10:14:27 PM Referred By: REFERRED SELF Confirmed By:Anupam Contreras
--- NOTE | 2020-01-30 10:45 | XCELERA ---
[id number]
== END 2020-01-29 14:45 | disposition home or self-care (01) | DRG 69 ==
LOC: ED 16:19 → 2S 23:14 → SUATTDRO 23:14 → 2S 23:59

== ENCOUNTER 2020-02-07 21:52 | Inpatient (IN) ==
[2020-02-07 22:58] LABS: Basophils # (auto) 0.06 K/uL (0-0.2); Basophils % (auto) 0.6 %; Eosinophils # (auto) 1.06 K/uL (0-0.5); Eosinophils % (auto) 10.3 %; Hematocrit (blood only) 27.6 % (42-52); Hemoglobin 8.7 g/dL (14.0-18.0); Immature Granulocytes # (auto) 0.03 K/uL (0.00-0.02); Immature Granulocytes % (auto) 0.3 %; Lymphocytes # (auto) 1.53 K/uL (1.2-3.4); Lymphocytes % (auto) 14.9 %; Mean Corpuscular Hemoglobin 25.9 pg (25-34); Mean Corpuscular Hgb Conc 31.5 g/dL (32-36); Mean Corpuscular Volume 82.1 fL (80-100); Mean Platelet Volume 8.8 fL (7.4-10.4); Monocytes # (auto) 1.71 K/uL (0.11-0.59); Monocytes % (auto) 16.7 %; Neutrophils # (auto) 5.87 K/uL (1.4-6.5); Neutrophils % (auto) 57.2 %; Platelet Count 569 K/uL (130-400); RDW Standard Deviation 44.9 fL (36.4-46.3); Red Blood Count 3.36 M/uL (4.7-6.1); White Blood Count 10.26 K/uL (4.8-10.8)
[2020-02-07 23:12] LABS: Albumin Level 3.5 gm/dl (3.4-5.0); BUN Creatinine Ratio 18.2 (10-20); Calcium 8.8 mg/dl (8.5-10.1); Creatinine Clr Calc Pharmacy 49.7 ml/min; Est GFR (African American) 56.1; Est GFR (Non-African American) 48.4
[2020-02-07] MEDS ORDERED: SODIUM CHLORIDE 0.9% 1000ML 500 ML IV ONE (23:18)
[2020-02-07 23:20] LABS: Albumin Globulin Ratio 1.3 (0.9-2); Bilirubin,Total 0.4 mg/dl (0.2-1); Globulin 2.6 gm/dl (2.5-4.0); Thyroid Stimulating Hormone 2.17 uIu/ml (0.300-4.500); Total Protein 6.1 gm/dl (6.4-8.2)
--- NOTE | 2020-02-07 23:25 | Emergency Department Note ---
Impression & Plan Acute hypotension, Anemia, Hematuria, Acute hyponatremia, Acute weakness ED Provider Note Name: GENIE ADAMS Age: 74 Sex: M Arrives Via: Ambulance Informant: Patient, ED Provider: Sav Dennis MD Chief Complaint: Hypotension Impression: Acute Hypotension Anemia Hematuria Acute Hyponatremia Acute Weakness Medical Decision Makin yr old male with extensive history including quadriplegia with colostomy as well as urostomy with small bowel conduit. Recent hospitalization due to weakness felt to be secondary to TIA and thus started on Plavix in addition to his ASA. Increased bleeding in urostomy this morning which has happened previously though was much heavier that previously and thus was seen at PCP office. HgB this afternoon noted to be 8 which is a bit lower than his baseline. He was at home this evenign with and son and started feeling increasingly weak. noted he seemed as if he was near passing out. Blood pressure check by her revealed SBP in the 60s and thus brought in by EMS. BP a bit on low side on arrival and NSS bolus initiated. HgB stable from this morning though is down from his baseline. No indication for transfusion at this time. EKG unremarkable and without headache/injury nor other blood thinner use I don't think neuro imaging necessary. Already on protonix and no blood in colostomy thus further anti-acid seems unnecessary. Na has dropped considerably which has also occurred previously and this combined with modest anemia as well as long day may have resulted in worsening of weakness. With bump in Cr and lower Na likely some dehydration given today's activities. There is no indicat ion of acute infection at this time and abdomen is soft, non-tender without evidence of need for emergent imaging. Blood in to urostomy has happened previously though he and make clear this is much more blood than previously. Fortunately urine is already starting to lighten up. Hospitalist c onsulted for further management. Prior Medical Record and Triage/Nursing Notes reviewed by Me Additional history obtained from Differentials:Infection, dehydration, metabolic abnormality, hypo/hyperglycemia, electrolyte disturbance, anemia, hypoxia, cardiac sources, intracerebral event, toxicologic, neurologic, as well as other pathologies. Vital Signs: reviewed and remarkable for mild hypotension Interventions: saline lock, nss bolus 1 L IV Labs:Reviewed and remarkable for anemia, hyponatremia EKG:Per My Interpretation: Indication Hypotension: NSR 77 bpm, qtc 443 with 1st av block. No Ectopy. No Ischemia. Compared to EKG 01/28/20, no significant changes with IL interval on strip appearing similar. Consults:Dr Robert BUTT Hospitalist Plan: Disposition:Hospitalization. Condition: Good Blood pressure:Normal.No Referral necessary History of Present Illness:74 / M arrives for evaluation of hypotension. Patient with recent hospitalization for near-syncope and started on Plavix in addition to his aspirin for possible TIA. He was doing well at home though noted blood in urostomy bag this morning. HgB this morning was noted to be 8 in physician office. He was feeling very light-headed and fatigued thus checked BP at home. BP was 60s/-. He was taken to ED for further evaluation. No interventions prior to arrival. Laying back and resting makes patient feel better. Exertion makes worse. Denies trauma, falls, nor injury. He notes blood in urostomy for the last few months on and off. Today blood was much heavier and red. It has been clearing up over the last few hours. Denies abdominal pain, fevers, chills, nausea, vomiting, sob, cp, headache, neck pain, leg swelling, rashes, flank pain, nor other symptoms. ROS: See above HPI for pertinent positives & negatives. A total of 10 systems reviewed and were otherwise negative. Past Medical History:See Below Past Surgical History:See Below Family History:See Below Social History:See Below Home Medications:See Below Allergies:See Below Vitals:Blood Pressure: 97/67, Pulse 80, RR 18, T 36.7C, O2 100% on RA Physical Exam: GENERAL: Patient is chronically unwell appearing and in no acute distress. EYES: No scleral icterus, unremarkable pupils. ENT: Mucous membranes moist, no nasal congestion. NECK: No masses appreciated, nomeningismus, trachea is midline. RESPIRATORY: No dyspnea. Clear to auscultation and equal bilaterally. No wheeze, no rhonchi. CARDIOVASCULAR: Regular rate and rhythm.No murmurs, rubs, gallops appreciated. GASTROINTESTINAL: Bloody urine in right abdominal urostomy bag. Left colostomy bag empty. Abdomen soft, non-tender, no peritonitis.Bowel sounds positive.No masses appreciated. BACK: No midline tenderness, no CVA tenderness EXTREMITIES: Normal motion all extremities, no cyanosis. Modest edema bilateral lower legs without significant calf swelling NEUROLOGIC: Spasticity and weakness of upper extremities, no movement lower extremities. CN intact. Alert and oriented. SKIN: No rash, no jaundice, no diaphoresis. PSYCH: Appropriate GCS: 15 ED Course: Times/Reassessments: Stable throughout ED care aSv Dennis MD Past Med/Surg History Surgical History History of appendectomy (Chronic) History of herniorrhaphy (Chronic) History of tonsillectomy and adenoidectomy (Chronic) History of total knee replacement (TKR) (Chronic) BTKA History of urostomy (Acute) Hx of cervical spine surgery (Chronic) Knee joint replacement status (Acute) Family History Other No significant family history Social History Preferred Language: Occitan Communication Ability: Effective Visual Impairment: Limited Hearing Ability: Use of Hearing Aid Clean Out Driller Required: No Beliefs That Will Affect Care: None marital status: Current Living Situation: Spouse Current Living Situation Comment: 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 ([facility]) OBTAINED THROUGH [place] current occupational status: disabled Feels Safe at Home: Yes Smoking Status: Former smoker Tobacco Type: pipe ; Hx Alcohol Use: Yes Alcohol type: beer, wine and hard liquor Alcohol Intake Frequency Comment: ONE DRINK AT BEDTIME Hx Substance Use: No during the past year weight has: increased > 10 lbs Allergies Allergies Allergy/AdvReac Type Severity Reaction Status Date / Time shellfish derived Allergy Severe Anaphylaxis Verified 01/29/20 09:35 oxycodone AdvReac Severe PSYCHOTIC Verified 01/29/20 09:35 Sulfa (Sulfonamide AdvReac Severe KIDNEY Verified 01/29/20 09:35 Antibiotics) FAILURE hydromorphone AdvReac Intermediate NAUSEA AND Verified 01/29/20 09:35 VOMITING morphine AdvReac Mild VOMITING Verified 01/29/20 09:35 naproxen AdvReac Mild vertigo Verified 01/29/20 09:35 Home Meds Home Medications Medication Instructions Recorded Confirmed acetaminophen 500 mg tablet 500 mg PO Q6H PRN 05/11/18 02/07/20 ascorbic acid (vitamin C) 500 mg 500 mg PO BID cap 05/11/18 02/07/20 capsule aspirin 81 mg tablet,delayed 81 mg PO QPM 05/11/18 02/07/20 release bupropion HCl 150 mg 24 hr tablet, 150 mg PO QAM 05/11/18 02/07/20 extended release epinephrine 0.3 mg/0.3 mL 0.3 mg IM Q10M PRN 05/11/18 02/07/20 injection, auto-injector ibuprofen 400 mg tablet 400 mg PO TID PRN tab 05/11/18 02/07/20 lactobacillus combination no.9 4 2 tab PO DAILY 05/11/18 02/07/20 billion cell capsule nortriptyline 75 mg capsule 75 mg PO HS cap 05/11/18 02/07/20 polyethylene glycol 3350 17 17 g PO QAM gm 05/11/18 02/07/20 gram/dose oral powder simethicone 80 mg chewable tablet 80 mg PO BID 05/11/18 02/07/20 sodium bicarbonate 650 mg tablet 650 mg PO QDL tab 05/11/18 02/07/20 gabapentin 300 mg capsule 300 mg PO HS cap 06/13/18 02/07/20 diclofenac sodium 1 % topical gel 2 gm TOP QID 07/09/18 02/07/20 lidocaine-prilocaine 2.5 %-2.5 % 1 applic TRANSDERMAL TID gm 07/09/18 02/07/20 topical cream tocilizumab 162 mg/0.9 mL 162 mg SQ WK ml 09/28/18 02/07/20 subcutaneous pen injector Artificial Tears (PF) 1 drp OPB BID 10/23/18 02/07/20 cranberry 500 mg PO DAILY 10/23/18 02/07/20 atenolol 25 mg tablet 12.5 mg PO QAM tab 06/17/19 02/07/20 whey 1 ea PO DAILY gm 07/30/19 02/07/20 cholecalciferol (vitamin D3) 25 25 mcg PO BID cap 01/02/20 02/07/20 mcg (1,000 unit) capsule cholecalciferol (vitamin D3) 25 25 mcg PO BID cap 01/09/20 02/07/20 mcg (1,000 unit) capsule pantoprazole 40 mg PO DAILY 02/07/20 02/07/20 Previous Rx's Medication Instructions Recorded cephalexin 500 mg capsule 500 mg PO BID #60 cap 04/30/19 tramadol 50 mg tablet 50 mg PO TID PRN #120 tab 06/18/19 clopidogrel 75 mg PO DAILY 30 Days #30 tab 01/29/20 Results & Data (ED) Vital Signs Vital Signs - 24 hr 02/07/20 22:02 02/07/20 22:14 02/07/20 22:15 Temperature Temperature Source Pulse Rate 80 79 79 Pulse Rate from SpO2 Sensor 77 79 Pulse Rhythm Pulse Strength Respiratory Rate 18 17 13 Respiratory Effort / Characteristics Respiratory Depth Respiratory Pattern Blood Pressure 97/61 L 96/66 L 93/65 L Blood Pressure Mean 67 79 80 Blood Pressure Position Pulse Oximetry 98 100 100 Oxygen Delivery Method Sepsis Recent Fever Within 48 Hours Sepsis New/Unexplained Change in Mental Status Sepsis Action Taken by Nursing 02/07/20 22:30 02/07/20 22:31 02/07/20 22:45 Temperature 36.7 C Temperature Source Oral Pulse Rate 79 79 80 Pulse Rate from SpO2 Sensor 78 80 Pulse Rhythm Regular Pulse Strength Normal Respiratory Rate 20 18 16 Respiratory Effort / Characteristics Non-Labored Spontaneous Respiratory Depth Normal Respiratory Pattern Regular Blood Pressure 102/53 L 97/67 L 87/63 L Blood Pressure Mean 63 77 77 Blood Pressure Position Lying Pulse Oximetry 100 95 Oxygen Delivery Method Room Air Sepsis Recent Fever Within 48 Hours No Sepsis New/Unexplained Change in Mental Status No Sepsis Action Taken by Nursing No Action Required 02/07/20 23:00 02/07/20 23:06 02/07/20 23:15 Temperature Temperature Source Pulse Rate 83 80 83 Pulse Rate from SpO2 Sensor 82 81 Pulse Rhythm Regular Pulse Strength Respiratory Rate 20 18 22 Respiratory Effort / Characteristics Respiratory Depth Respiratory Pattern Blood Pressure 105/60 104/66 Blood Pressure Mean 69 95 Blood Pressure Position Pulse Oximetry 97 100 100 Oxygen Delivery Method Room Air Sepsis Recent Fever Within 48 Hours Sepsis New/Unexplained Change in Mental Status Sepsis Action Taken by Nursing 02/07/20 23:30 02/07/20 23:45 02/08/20 00:00 Temperature Temperature Source Pulse Rate 83 83 84 Pulse Rate from SpO2 Sensor 85 82 83 Pulse Rhythm Pulse Strength Respiratory Rate 17 17 19 Respiratory Effort / Characteristics Respiratory Depth Respiratory Pattern Blood Pressure 120/69 112/74 112/72 Blood Pressure Mean 75 96 78 Blood Pressure Position Pulse Oximetry 99 98 99 Oxygen Delivery Method Sepsis Recent Fever Within 48 Hours Sepsis New/Unexplained Change in Mental Status Sepsis Action Taken by Nursing 02/08/20 00:15 02/08/20 00:30 02/08/20 00:45 Temperature Temperature Source Pulse Rate 85 85 85 Pulse Rate from SpO2 Sensor 85 86 86 Pulse Rhythm Pulse Strength Respiratory Rate 24 18 13 Respiratory Effort / Characteristics Respiratory Depth Respiratory Pattern Blood Pressure 110/69 110/69 109/68 Blood Pressure Mean 81 79 93 Blood Pressure Position Pulse Oximetry 96 96 97 Oxygen Delivery Method Sepsis Recent Fever Within 48 Hours Sepsis New/Unexplained Change in Mental Status Sepsis Action Taken by Nursing Laboratory Data Result diagrams: 02/07/20 22:10 02/07/20 23:29 Lab Results 02/07/20 02/07/20 02/07/20 Range/Units 22:10 22:10 23:29 WBC 10.26 (4.8-10.8) K/uL RBC 3.36 L (4.7-6.1) M/uL Hgb 8.7 L (14.0-18.0) g/dL Hct 27.6 L (42-52) % MCV 82.1 (80-100) fL MCH 25.9 (25-34) pg MCHC 31.5 L (32-36) g/dL RDW Std Deviation 44.9 (36.4-46.3) fL RDW Coeff of Faustino 15.0 H (11.5-14.5) % Plt Count 569 H (130-400) K/uL MPV 8.8 (7.4-10.4) fL Immature Gran % (Auto) 0.3 % Neut % (Auto) 57.2 % Lymph % (Auto) 14.9 % [place] % (Auto) 16.7 % Eos % (Auto) 10.3 % Baso % (Auto) 0.6 % Immature Gran # (Auto) 0.03 H (0.00-0.02) K/uL Neut # (Auto) 5.87 (1.4-6.5) K/uL Lymph # (Auto) 1.53 (1.2-3.4) K/uL [place] # (Auto) 1.71 H (0.11-0.59) K/uL Eos # (Auto) 1.06 H (0-0.5) K/uL Baso # (Auto) 0.06 (0-0.2) K/uL Sodium 125 L (136-145) mmol/L Potassium 4.3 (3.5-5.1) mmol/L Chloride 89 L (98-107) mmol/L Carbon Dioxide 23 (21-32) mmol/L Anion Gap 13.0 H (3-11) BUN 26 H (7-18) mg/dl Creatinine 1.41 H (0.6-1.4) mg/dl Est Cr Clr Drug Dosing 49.7 ml/min Est GFR ( Amer) 56.1 Est GFR (Non-Af Amer) 48.4 BUN/Creatinine Ratio 18.2 (10-20) Glucose 94 (70-99) mg/dl Calcium 8.8 (8.5-10.1) mg/dl Magnesium 1.7 L (1.8-2.4) mg/dl Total Bilirubin 0.4 (0.2-1) mg/dl AST 21 (15-37) U/L ALT 29 (12-78) U/L Alkaline Phosphatase 73 (45-117) U/L Troponin I < 0.015 (0-0.045) ng/ml Total Protein 6.1 L (6.4-8.2) gm/dl Albumin 3.5 (3.4-5.0) gm/dl Globulin 2.6 (2.5-4.0) gm/dl Albumin/Globulin Ratio 1.3 (0.9-2) TSH 2.170 (0.300-4.500) uIu/ml Administered Medications Sodium Chloride (Nss 1000ml) 1,000 mls @ 125 mls/hr IV .Q8H MATTHEW Stop: 03/09/20 01:24 Last Admin: 02/08/20 02:58 Dose: 125 mls/hr Documented by: [id number] Discontinued Medications Sodium Chloride (Nss 1000ml) 500 mls @ 999 mls/hr IV .Q31M ONE Stop: 02/07/20 23:48 Last Infusion: 02/08/20 00:20 Dose: 0 mls/hr Documented by: [id number] Admin: 02/07/20 23:25 Dose: 999 mls/hr Documented by: [id number] Discharge Plan Visit Data *Final* Discharge Date/Time: 02/08/20 01:50 Chief Complaint: Syncope (Near Syncope) Stated Complaint: NEAR SYNCOPE, BLODD IN COLOSTOMY BAG ED Provider: Sav Dennis Discharge Problem: Acute hypotension, Anemia, Hematuria, Acute hyponatremia, Acute weakness Patient Disposition: Admitted As Inpatient Discharge Instructions Interventions: ED Discharge Assessment Last Done: 02/08/20 01:50 Discharge Problem: Anemia Qualifiers: Anemia type: other cause Other causes of anemia: acute posthemorrhagic Qualified Code(s): D62 - Acute posthemorrhagic anemia Hematuria Qualifiers: Hematuria type: gross Qualified Code(s): R31.0 - Gross hematuria
[2020-02-07 23:54] LABS: Potassium 4.3 mmol/L (3.5-5.1)
[2020-02-08 00:03] LABS: Aspartate Aminotransferase 21 U/L (15-37); Magnesium 1.7 mg/dl (1.8-2.4); Troponin I < 0.015 ng/ml (0-0.045)
[2020-02-08] MEDS ORDERED: ACETAMINOPHEN 1000 MG/100 ML IV IV PRN (01:25)
--- NOTE | 2020-02-08 01:36 | History & Physical Report ---
Date of Service February 08, 2020 Assessment & Plan (1) Symptomatic anemia: 74 yo M PMHx chronic incomplete quadriplegia, bilateral UE and LE muscle spasms, CKD with baseline Creatinine 1.2, urostomy bag with small bowel conduit, cervical and lumbar myelopathy, HTN, GERD, depression admitted for symptomatic hematuria. Symptomatic anemia due to acute blood loss 2/2 hematuria: Patient with continued hematuria for several days. [place] weak on arrival to ED, with improvement in sypmtoms with 1L NSS bolus. Recently started on Plavix on last admission, takes aspirin and ibuprofen daily. Patient has a history of hematuria with ongoing Urology workup. Bleeding likely due to multiple antiplatelet agents (aspirin, plavix, ibuprofen daily for several days). Hold aspirin and plavix in the setting of acute bleed. NPO for possible Urology intervention tomorrow, consult placed. NSS @ 125cc/hr. Patient refuses blood products at this time despite feeling dizzy and weak earlier today. Will repeat CBC AM and revisit transfusion at that time. Acute on Chronic Hyponatremia: Patient with Na 125 on arrival, baseline ~ 134. NSS 125 cc/hr. BMP AM. Chronic incomplete quadriplegia with muscle spasms and neck pain: No NSAIDs at this time due to acute bleeding. Tylenol 1000mg IV q8h PRN pain. HTN: Hold home medications. GERD: Hold home medications. Depression: Hold home medications. Code Status: FULL CODE FEN/GI: NPO, NSS @ 125cc/hr DVT ppx: SCDs, medical ppx contraindicated in acute blood loss anemia Dispo: med/surg with telemetry, Urology consult, IVF, possible transfusion pending CBC AM (2) Hematuria: (3) Acute hyponatremia: (4) Chronic incomplete quadriplegia: (5) GERD (gastroesophageal reflux disease): (6) Hypertension: (7) Depression: (8) Neck pain: History of Present Illness Chief Complaint: weakness, hematuria Primary Care Provider: Elmo Hoskins MD 74 yo M PMHx chronic incomplete quadriplegia, bilateral UE and LE muscle spasms, CKD with baseline Creatinine 1.2, cervical and lumbar myelopathy, HTN, GERD, depression presented to the ED for weakness in the setting of several days of hematuria. His is with him who also provides collateral information. Was admitted recently for TIA symptoms and during that visit was started on Plavix. Since that admission has been on Plavix, aspirin for CVA protection, also takes ibuprofen 400 mg daily at home. Over the last several days has had consistent hematuria, he reports that "usually when I get blood in my urine it only lasts for 12 to 24 hours, but this is lasting much longer". Today he had an episode at home where he felt profoundly fatigued on the couch, and his reports that he looked like he was going to pass out. They took his blood pressure at home and his cuff read 68/53, repeat on the same cuff 69/42. Very quickly he was given a glass of water and some orange juice, and EMS was called. They report that since he has been discharged they have been measuring his fluid intake, and he has had about 7-8 cups of water per day since discharge. Follows with Dr. Gagnon with Urology for his current work-up of hematuria with a history of small bowel conduit to urostomy bag. In the ED patient was found to be hypotensive to 80s/60s. Hgb 8.7, Na 125. Hospitalist service was consulted for admission. Patient's BP improved to 100s/60s with 1L NSS bolus. Allergies Allergy/AdvReac Type Severity Reaction Status Date / Time shellfish derived Allergy Severe Anaphylaxis Verified 01/29/20 09:35 oxycodone AdvReac Severe PSYCHOTIC Verified 01/29/20 09:35 Sulfa (Sulfonamide AdvReac Severe KIDNEY Verified 01/29/20 09:35 Antibiotics) FAILURE hydromorphone AdvReac Intermediate NAUSEA AND Verified 01/29/20 09:35 VOMITING morphine AdvReac Mild VOMITING Verified 01/29/20 09:35 naproxen AdvReac Mild vertigo Verified 01/29/20 09:35 Home Medications Home Medications Medication Instructions Recorded Confirmed Type acetaminophen 500 mg tablet 500 mg PO Q6H PRN 05/11/18 02/07/20 History ascorbic acid (vitamin C) 500 mg 500 mg PO BID cap 05/11/18 02/07/20 History capsule aspirin 81 mg tablet,delayed 81 mg PO QPM 05/11/18 02/07/20 History release bupropion HCl 150 mg 24 hr tablet, 150 mg PO QAM 05/11/18 02/07/20 History extended release epinephrine 0.3 mg/0.3 mL 0.3 mg IM Q10M PRN 05/11/18 02/07/20 History injection, auto-injector lactobacillus combination no.9 4 2 tab PO DAILY 05/11/18 02/07/20 History billion cell capsule nortriptyline 75 mg capsule 75 mg PO HS cap 05/11/18 02/07/20 History polyethylene glycol 3350 17 17 g PO QAM gm 05/11/18 02/07/20 History gram/dose oral powder simethicone 80 mg chewable tablet 80 mg PO BID 05/11/18 02/07/20 History sodium bicarbonate 650 mg tablet 650 mg PO QDL tab 05/11/18 02/07/20 History gabapentin 300 mg capsule 300 mg PO HS cap 06/13/18 02/07/20 History diclofenac sodium 1 % topical gel 2 gm TOP QID 07/09/18 02/07/20 History lidocaine-prilocaine 2.5 %-2.5 % 1 applic TRANSDERMAL TID gm 07/09/18 02/07/20 History topical cream tocilizumab 162 mg/0.9 mL 162 mg SQ WK ml 09/28/18 02/07/20 History subcutaneous pen injector Artificial Tears (PF) 1 drp OPB BID 10/23/18 02/07/20 History cranberry 500 mg PO DAILY 10/23/18 02/07/20 History atenolol 25 mg tablet 12.5 mg PO QAM tab 06/17/19 02/07/20 History whey 1 ea PO DAILY gm 07/30/19 02/07/20 History cholecalciferol (vitamin D3) 25 25 mcg PO BID cap 01/02/20 02/07/20 History mcg (1,000 unit) capsule cholecalciferol (vitamin D3) 25 25 mcg PO BID cap 01/09/20 02/07/20 History mcg (1,000 unit) capsule clopidogrel 75 mg PO DAILY 30 Days #30 tab 01/29/20 02/07/20 Rx pantoprazole 40 mg PO DAILY 02/07/20 02/07/20 History tramadol 50 mg tablet 50 mg PO TID PRN #120 tab 02/09/20 Rx Past Med/Surg History Medical History Chronic right shoulder pain (Chronic) Colostomy in place (Chronic) Depression (Chronic) Fusion of lumbar spine (Acute) GERD (gastroesophageal reflux disease) (Chronic) Groin pain, chronic, left (Chronic) History of left foot drop (Chronic) Hypertension (Chronic) 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) Leg length discrepancy (Chronic) Lumbar radiculitis (Chronic) Lumbar spinal stenosis (Chronic) multifactorial multilevel L5-S1 Open wound of right great toe (Acute) PTSD (post-traumatic stress disorder) (Chronic) Rheumatoid arthritis (Chronic) Sacroiliac joint pain (Chronic) SBO (small bowel obstruction) (Chronic) Spinal cord injury (Chronic) occurred in 1967 Traumatic wound (Acute) Surgical History History of appendectomy (Chronic) History of herniorrhaphy (Chronic) History of tonsillectomy and adenoidectomy (Chronic) History of total knee replacement (TKR) (Chronic) BTKA History of urostomy (Acute) Hx of cervical spine surgery (Chronic) Knee joint replacement status (Acute) Family History Other No significant family history Social History Preferred Language: Spanish Communication Ability: Effective Visual Impairment: Limited Hearing Ability: Use of Hearing Aid Porcelain Enamel Repairer Required: No Beliefs That Will Affect Care: None marital status: Current Living Situation: Spouse Current Living Situation Comment: 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 ([facility]) OBTAINED THROUGH THE [place] current occupational status: disabled Feels Safe at Home: Yes Smoking Status: Former smoker Tobacco Type: pipe ; Second Hand Exposure: No ; Hx Alcohol Use: Yes Alcohol type: hard liquor Alcohol Intake Frequency Comment: ONE DRINK AT BEDTIME Hx Substance Use: No during the past year weight has: increased > 10 lbs Review of Systems Review of Systems: All systems reviewed & are unremarkable except as noted in HPI & below Constitutional: + malaise; no fever and no chills Respiratory: no cough and no dyspnea Cardiovascular: no chest pain, no palpitations and no edema Gastrointestinal: no abdominal pain, no constipation and no diarrhea/loose stools Genitourinary: + hematuria Physical Exam Constitutional: WD/WN, vitals as above Eyes: PERRL, conjunctivae normal, anicteric sclerae ENMT: external ear and nose normal, oropharynx normal Neck: normal visual inspection Respiratory: normal respiratory effort, lungs clear to auscultation Cardiovascular: RRR, no murmur, no edema Gastrointestinal (Abdomen): normal bowel sounds, soft, nontender, no hepatosplenomegaly Musculoskeletal: no cyanosis or clubbing, extremities motor strength 5/5 Skin: no rashes, warm and dry Neurologic: AAOx3, normal speech. PERRLA, EOMI, no nystagmus. Normal visual acuity bilaterally. Psychiatric: A+Ox3, euthymic affect Genitourinary: urostomy bag with dark red urine with clots within Results & Data Results & Data ([facility]) Vital Signs (Past 12 Hours) Vital Signs Temp Pulse Resp BP Pulse Ox 02/08/20 00:45 85 13 109/68 97 02/08/20 00:30 85 18 110/69 96 02/08/20 00:15 85 24 110/69 96 02/08/20 00:00 84 19 112/72 99 02/07/20 23:45 83 17 112/74 98 02/07/20 23:30 83 17 120/69 99 02/07/20 23:15 83 22 104/66 100 02/07/20 23:06 80 18 100 02/07/20 23:00 83 20 105/60 97 02/07/20 22:45 80 16 87/63 L 95 02/07/20 22:31 36.7 C 79 18 97/67 L 100 02/07/20 22:30 79 20 102/53 L 02/07/20 22:15 79 13 93/65 L 100 02/07/20 22:14 79 17 96/66 L 100 02/07/20 22:02 80 18 97/61 L 98 Code Status & VTE Plan VTE Prophylaxis Plan VTE Prophylaxis will be ordered: Yes Supervising Physician Co-Signing Physician Notes Attending addendum: I have physically seen this patient, have supervised the medical residents activities, and agree with the H&P unless as otherwise noted. Assessment and Plan: Symptomatic anemia/acute blood loss/gross hematuria- N.p.o. NSS@125 mL's per hour Hold aspirin, Plavix and ibuprofen. H&H every 6 hours Type and screen Ceftriaxone 1 g IV daily Consult urology. Hyponatremia- Sodium 125 upon admission. Range 125-134 Has responded to normal saline in the past. Hypertension- Holding atenolol 12.5 mg p.o. Depression- Hold medications until hematuria assessed by urology GERD- Famotidine 20 mg IV every 12 hours Remainder of orders and notations as noted. Resident Activity Tracking Resident Involvement: Resident Care Provided Care Provided: Adult Hospital Medicine (1) Hematuria Hematuria type: gross Qualified Code(s): R31.0 - Gross hematuria
[2020-02-08] MEDS ORDERED: SODIUM CHLORIDE 0.9% 1000ML 250 ML IV ONE (01:40)
[2020-02-08] MEDS ORDERED: ONDANSETRON INJ 2 MG/ML 2 ML VIAL IV PRN (01:48)
[2020-02-08] MEDS: SODIUM CHLORIDE 0.9% 1000ML 1,000 ML IV SCH ×3 (02:58→22:15)
[2020-02-08 07:02] LABS: Basophils # (auto) 0.06 K/uL (0-0.2); Basophils % (auto) 0.7 %; Eosinophils # (auto) 1.34 K/uL (0-0.5); Eosinophils % (auto) 14.8 %; Hematocrit (blood only) 24.2 % (42-52); Hemoglobin 7.7 g/dL (14.0-18.0); Immature Granulocytes # (auto) 0.02 K/uL (0.00-0.02); Immature Granulocytes % (auto) 0.2 %; Lymphocytes # (auto) 1.23 K/uL (1.2-3.4); Lymphocytes % (auto) 13.5 %; Mean Corpuscular Hemoglobin 26.2 pg (25-34); Mean Corpuscular Hgb Conc 31.8 g/dL (32-36); Mean Corpuscular Volume 82.3 fL (80-100); Mean Platelet Volume 8.4 fL (7.4-10.4); Monocytes # (auto) 1.82 K/uL (0.11-0.59); Neutrophils # (auto) 4.61 K/uL (1.4-6.5); Neutrophils % (auto) 50.8 %; Nucleated RBC # (auto) 0.03 K/uL (0-0); Nucleated RBC % (auto) 0.4 %; Platelet Count 526 K/uL (130-400); RDW Coefficient of Variation 14.9 % (11.5-14.5); Red Blood Count 2.94 M/uL (4.7-6.1); White Blood Count 9.08 K/uL (4.8-10.8)
[2020-02-08 07:37] LABS: BUN Creatinine Ratio 20.7 (10-20); Calcium 8.7 mg/dl (8.5-10.1); Creatinine Clr Calc Pharmacy 64.3 ml/min; Est GFR (African American) 69.5; Potassium 3.9 mmol/L (3.5-5.1)
[2020-02-08 07:38] LABS: Acanthocytes 1+; Target Cells 1+
--- NOTE | 2020-02-08 07:50 | Hospitalist Progress Note ---
Date of Service February 08, 2020 Assessment & Plan (1) Symptomatic anemia: 74 yo M PMHx chronic cervical myeloradiculopathy, left ulnar neuropathy, and spastic paraplegia/incomplete quadriplegia, CKD with baseline Creatinine 1.2, urostomy bag with small bowel conduit, cervical and lumbar myelopathy, HTN, GERD, depression admitted for symptomatic hematuria. Symptomatic anemia due to acute blood loss 2/2 hematuria: Transfusion 1 unit packed red blood cells on 02/08/2020 Patient with prehospital hematuria for several days. [place] weak on arrival to ED, with improvement in sypmtoms with 1L NSS bolus. Recently started on Plavix on last admission, takes aspirin and ibuprofen daily. Patient has a history of hematuria with ongoing Urology workup. Bleeding likely due to multiple antiplatelet agents (aspirin, plavix, ibuprofen daily for several days). Holding aspirin and plavix in the setting of acute bleed. Urology not planning on a procedure NSS @ 125cc/hr. Patient refuses blood products at this time despite feeling dizzy and weak earlier today. Will repeat CBC AM and revisit transfusion at that time. Acute on Chronic Hyponatremia: Patient with Na 125 on arrival, improved to 129 NSS 125 cc/hr. Chronic incomplete quadriplegia with muscle spasms and neck pain: No NSAIDs at this time due to acute bleeding. Tylenol 1000mg IV q8h PRN pain. HTN: Hold home medications. GERD: Hold home medications. Depression: Hold home medications. Code Status: FULL CODE (2) Hematuria: (3) Acute hyponatremia: (4) Acute hypotension: (5) Chronic incomplete quadriplegia: (6) GERD (gastroesophageal reflux disease): (7) Hypertension: (8) Depression: (9) Neck pain: Admission and Anticipated Discharge Date Admission Date: February 08, 2020 Subjective pt feels somewhat improved, has clear yellow fluid in urostomy bag and ileal conduit does not show significant granulation tissue when inspected, has lower blood counts, does agree to a transfusion Review of Systems Review of Systems: moderate distress and fatigue, seems near his baseline no headache, blurry or double vision no speech or swallowing issues no chest pain, pressure or palpitations no shortness of breath, cough or wheezes no abdominal pain, nausea or vomiting, diarrhea or constipation no dysuria, hematuria or frequency no focal joint pain or swelling no back pain, CVA tenderness or radicular pain no bruising, bleeding or rashes no focal signs of weakness or numbness or altered sensation no complaints or anxiety or depression. Physical Exam Physical Exam: The patient appeared chronically ill and limited with his movement Vital signs as documented. Head exam is normocephalic atraumatic no scleral icterus Neck is without JVD, thyromegaly, or carotid bruits. Lungs are clear to auscultation, no focal loss of breath sounds Cardiac exam, Rhythm is regular.. No murmurs, rubs or gallops. Abdominal exam reveals normal bowel sounds, soft Has a colostomy bag over his ileal conduit his right lower quadrant with clear yellow urine in it. Extremities are nonedematous and both pedal pulses are normal. Neurologic exam is alert and oriented x3, severe limitations to his upper extremities movements and no movement to his lower extremities Skin is without bruises or rashes Psychologically is without concerns for anxiety or depression Results & Data Results & Data ([facility]) Vital Signs (Past 12 Hours) Vital Signs Temp Pulse Pulse Resp BP BP Pulse Ox 02/08/20 07:00 84 02/08/20 04:51 98.2 F 87 74 16 137/85 93 02/08/20 04:31 97.5 F L 85 18 127/81 95 02/08/20 00:45 85 13 109/68 97 02/08/20 00:30 85 18 110/69 96 02/08/20 00:15 85 24 110/69 96 02/08/20 00:00 84 19 112/72 99 02/07/20 23:45 83 17 112/74 98 02/07/20 23:30 83 17 120/69 99 02/07/20 23:15 83 22 104/66 100 02/07/20 23:06 80 18 100 02/07/20 23:00 83 20 105/60 97 02/07/20 22:45 80 16 87/63 L 95 02/07/20 22:31 98.1 F 79 18 97/67 L 100 02/07/20 22:30 79 20 102/53 L 02/07/20 22:15 79 13 93/65 L 100 02/07/20 22:14 79 17 96/66 L 100 02/07/20 22:02 80 18 97/61 L 98 PG Care Time/CCT Total # of Minutes Spent Total Time Spent with Patient: Total time spent is greater than 50% in coordination of care (as documented) at patient's floor/unit and/or counseling patient: Coding Level of Care Code 31479 Subseq Hosp Care Lvl 3 Diagnoses Symptomatic anemia D64.9 Hematuria R31.0 Hematuria type: gross Acute hyponatremia E87.1 Acute hypotension I95.9 Chronic incomplete quadriplegia G82.50 GERD (gastroesophageal reflux disease) K21.9 Hypertension I10 Depression F32.9 Neck pain M54.2 (1) Hematuria Hematuria type: gross Qualified Code(s): R31.0 - Gross hematuria
[2020-02-08] MEDS ORDERED: SODIUM CHLORIDE 0.9% 250 ML IV PRN (11:03)
[2020-02-08] MEDS ORDERED: IOVERSOL 100ml IV PRN (12:11)
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
--- NOTE | 2020-02-08 12:26 | CT Scan Report ---
CT abdomen pelvis wo/w con CT DOSE: 3199.66 mGycm HISTORY: Blood loss. Hematuria. ABLA TECHNIQUE: Multiaxial CT images of the abdomen and pelvis were performed pre and post intravenous con trast enhancement. A dose lowering technique was utilized adhering to the principles of ALARA. COMPARISON STUDY: 12/30/2019 FINDINGS: No major interval change compared to the prior study. Lung bases are considered generally clear. Liver spleen and pancreas are unremarkable. Chronic cortical as well as calyceal scarring of the kidn eys is noted. This is unchanged. No evidence for renal hydronephrosis. Moderate increase in colonic fecal load. Unchanged operative changes including cystectomy and ileal conduit placement. No free fluid within the abdomen or pelvic region. Operative changes consistent with a right hip arth roplasty. IMPRESSION: 1. Chronic and postoperative change. 2. No change compared to the prior study. 3. Nonobstructive bowel pattern. 4. No evidence for abnormal mass or collection or hematoma. ACT 112: Negative or not required by law. The above report was generated using voice recognition software. It may contain grammatical, syntax or spelling errors. Electronically signed by: Ray Carrillo M.D. 02/08/2020 12:24 PM
[2020-02-08] MEDS: ACETAMINOPHEN 1000 MG/100 ML IV IV PRN ×2 (12:41→21:46)
[2020-02-08] MEDS ORDERED: Nursing to Pharmacy Communication SCH (22:30)
[2020-02-09] MEDS: SODIUM CHLORIDE 0.9% 1000ML 1,000 ML IV SCH (06:43)
[2020-02-09 07:36] LABS: Hematocrit (blood only) 28.4 % (42-52); Hemoglobin 9.1 g/dL (14.0-18.0); Mean Corpuscular Hemoglobin 26.5 pg (25-34); Mean Corpuscular Volume 82.8 fL (80-100); Mean Platelet Volume 8.3 fL (7.4-10.4); Nucleated RBC # (auto) 0.04 K/uL (0-0); Nucleated RBC % (auto) 0.5 %; Platelet Count 532 K/uL (130-400); RDW Coefficient of Variation 15.3 % (11.5-14.5); RDW Standard Deviation 46.5 fL (36.4-46.3); Red Blood Count 3.43 M/uL (4.7-6.1); White Blood Count 7.97 K/uL (4.8-10.8)
[2020-02-09 08:06] LABS: BUN Creatinine Ratio 16.5 (10-20); Calcium 8.8 mg/dl (8.5-10.1); Creatinine Clr Calc Pharmacy 62.5 ml/min; Est GFR (African American) 74.1; Est GFR (Non-African American) 63.9; Potassium 3.4 mmol/L (3.5-5.1)
--- NOTE | 2020-02-09 08:58 | Electrocardiogram Report ---
Test Reason : Blood Pressure : / mmHG Vent. Rate : 077 BPM Atrial Rate : 077 BPM P-R Int : 220 ms QRS Dur : 096 ms QT Int : 392 ms P-R-T Axes : 046 029 058 degrees QTc Int : 443 ms Sinus rhythm with sinus arrhythmia with 1st degree A-V block Inferior infarct , age undetermined Nonspecific ST abnormality Abnormal ECG When compared with ECG of 28-JAN-2020 17:28, No significant change was found Confirmed by Red Hays ([id number]) on 02/09/2020 8:58:17 AM Referred By: REFERRED SELF Confirmed By:Red Hays
[2020-02-09] MEDS ORDERED: POTASSIUM CHLORIDE 20 MEQ TABCR PO STA (11:36)
--- NOTE | 2020-02-09 14:07 | Discharge Summary ---
Date of Service February 09, 2020 Admission HPI Per Admitting Provider 74 yo M PMHx chronic incomplete quadriplegia, bilateral UE and LE muscle spasms, CKD with baseline Creatinine 1.2, cervical and lumbar myelopathy, HTN, GERD, depression presented to the ED for weakness in the setting of several days of hematuria. His is with him who also provides collateral information. Was admitted recently for TIA symptoms and during that visit was started on Plavix. Since that admission has been on Plavix, aspirin for CVA protection, also takes ibuprofen 400 mg daily at home. Over the last several days has had consistent hematuria, he reports that "usually when I get blood in my urine it only lasts for 12 to 24 hours, but this is lasting much longer". Today he had an episode at home where he felt profoundly fatigued on the couch, and his reports that he looked like he was going to pass out. They took his blood pressure at home and his cuff read 68/53, repeat on the same cuff 69/42. Very quickly he was given a glass of water and some orange juice, and EMS was called. They report that since he has been discharged they have been measuring his fluid intake, and he has had about 7-8 cups of water per day since discharge. Follows with Dr. Gagnon with Urology for his current work-up of hematuria with a history of small bowel conduit to urostomy bag. In the ED patient was found to be hypotensive to 80s/60s. Hgb 8.7, Na 125. Hospitalist service was consulted for admission. Patient's BP improved to 100s/60s with 1L NSS bolus. Principal Diagnosis symptomatic anemia. chronic urostomy chronic cervical myopathy Discharge Exam The patient appeared chronically ill and debilitated Vital signs as documented. Lungs are clear but diminshed Cardiac exam, Rhythm is regular.. No murmurs, rubs or gallops. Abdominal exam reveals normal bowel sounds, soft non tender, no masses urostomy in RLQ draining clear urine Discharge Data Allergies Allergy/AdvReac Type Severity Reaction Status Date / Time shellfish derived Allergy Severe Anaphylaxis Verified 01/29/20 09:35 oxycodone AdvReac Severe PSYCHOTIC Verified 01/29/20 09:35 Sulfa (Sulfonamide AdvReac Severe KIDNEY Verified 01/29/20 09:35 Antibiotics) FAILURE hydromorphone AdvReac Intermediate NAUSEA AND Verified 01/29/20 09:35 VOMITING morphine AdvReac Mild VOMITING Verified 01/29/20 09:35 naproxen AdvReac Mild vertigo Verified 01/29/20 09:35 Consultations 02/07/20 23:19 ED Decision to Admit Stat 02/08/20 01:48 Consult Urology Routine Ordered Studies 02/08/20 10:38 CT abdomen pelvis wo/w con Stat Hospital Course (1) Symptomatic anemia: 74 yo M PMHx chronic cervical myeloradiculopathy, left ulnar neuropathy, and spastic paraplegia/incomplete quadriplegia, CKD with baseline Creatinine 1.2, urostomy bag with small bowel conduit, cervical and lumbar myelopathy, HTN, GERD, depression admitted for symptomatic hematuria. Symptomatic anemia due to acute blood loss 2/2 hematuria: Transfusion 1 unit packed red blood cells on 02/08/2020 with adequate rise in hgb Patient with prehospital hematuria for several days. [place] weak on arrival to ED, with improvement in sypmtoms with 1L NSS bolus. Recently started on Plavix on last admission, takes aspirin and ibuprofen daily. Patient has a history of hematuria with ongoing Urology workup. Bleeding likely due to multiple antiplatelet agents (aspirin, plavix, ibuprofen daily for several days). Holding aspirin for one week and restarting plavix at the time of d/c Urology not planning on a procedure as an inpatient may do as an outpt Acute on Chronic Hyponatremia: Patient with Na 125 on arrival, improved to 134 Chronic incomplete quadriplegia with muscle spasms and neck pain: No NSAIDs at this time due to acute bleeding. HTN: resume home medications.->atenolol GERD: resume home medications.->protonix Depression: resume home medications.-> wellbutrin Code Status: FULL CODE (2) Hematuria: (3) Acute hyponatremia: (4) Acute hypotension: (5) Chronic incomplete quadriplegia: (6) GERD (gastroesophageal reflux disease): (7) Hypertension: (8) Depression: (9) Neck pain: Total Time Total Time Spent Total Time Spent (In Minutes): It required greater than 30 minutes to prepare this patient for discharge Discharge Plan Discharge Items Patient Disposition: Home - Home Health Services Reason For Visit: SYMPTOMATIC ANEMIA Discharge Diagnosis: symptomatic anemia hematuria cervical myopathy Activity: Resume your previous activity Non-emergency contact: Primary Care Provider and Urologist Call non-emergency contact if: you have any medication questions and your symptoms worsen Follow-up/Referrals: Elmo Hoskins MD [Primary Care Provider] - Diet: Regular Addtl Attending Provider Instructions: please hold aspirin for one week then restart follow up with urology as you discussed Pending Studies at Discharge: No Stand-Alone Forms: [facility] [employer], Smoking Cessation Medications and DC Order Prescriptions: Continued aspirin [Adult Aspirin Regimen] 81 mg tablet,delayed release (DR/EC) 81 mg PO QPM RF: 0 acetaminophen [Tylenol Extra Strength] 500 mg tablet 500 mg PO Q6H PRN (Reason: Pain (Scale Score 7-10)) RF: 0 sodium bicarbonate 650 mg tablet 650 mg PO QDL RF: 0 nortriptyline 75 mg capsule 75 mg PO HS RF: 0 epinephrine 0.3 mg/0.3 mL auto-injector 0.3 mg IM Q10M PRN (Reason: Anaphylaxis) RF: 0 polyethylene glycol 3350 [Miralax] 17 gram/dose powder 17 g PO QAM RF: 0 simethicone 80 mg tablet,chewable 80 mg PO BID RF: 0 bupropion HCl 150 mg tablet extended release 24 hr 150 mg PO QAM RF: 0 lactobacillus combination no.9 [Adult 50 Plus Probiotic] 4 billion cell capsule 2 tab PO DAILY RF: 0 ascorbic acid (vitamin C) 500 mg capsule 500 mg PO BID RF: 0 diclofenac sodium [Voltaren] 1 % gel 2 gm TOP QID RF: 0 lidocaine-prilocaine 2.5-2.5 % cream 1 applic Transdermal TID RF: 0 gabapentin 300 mg capsule 300 mg PO HS RF: 0 tocilizumab 162 mg/0.9 mL pen injector 162 mg SQ WK RF: 0 cholecalciferol (vitamin D3) 25 mcg (1,000 unit) capsule 25 mcg PO BID RF: 0 atenolol 25 mg tablet 12.5 mg PO QAM RF: 0 tramadol 50 mg tablet 50 mg PO TID PRN (Reason: Pain) Qty: 120 RF: 0 whey powder 1 ea PO DAILY RF: 0 cholecalciferol (vitamin D3) 25 mcg (1,000 unit) capsule 25 mcg PO BID RF: 0 clopidogrel 75 mg tablet 75 mg PO DAILY 30 Days Qty: 30 RF: 3 cranberry 500 mg Capsule 500 mg PO DAILY RF: 0 Artificial Tears (PF) 0.1-0.3 % Dropperette 1 drp OPB BID RF: 0 pantoprazole 40 mg tablet,delayed release (DR/EC) 40 mg PO DAILY RF: 0 Discontinued ibuprofen 400 mg tablet 400 mg PO TID PRN (Reason: Pain) RF: 0 cephalexin [Keflex] 500 mg capsule 500 mg PO BID Qty: 60 RF: 0 Discharge Orders: Discharge Order (Routine); Ordered 02/09/20 Ordered By: Sal Caldwell Admission Data Admit Date/Time: 02/08/20 01:25 Attending Provider: Sal Caldwell Admit Provider: Chadd Jones Primary Care Provider: Elmo Hoskins Other Providers: Chadd Jones ; Lonnie Alatorre Other Interventions: Discharge Summary Assessment (RN) Last Done: 02/09/20 12:50 Coding Level of Care Code D/C Day Management >30 mins Diagnoses Symptomatic anemia D64.9 Hematuria R31.0 Hematuria type: gross Acute hyponatremia E87.1 Acute hypotension I95.9 Chronic incomplete quadriplegia G82.50 GERD (gastroesophageal reflux disease) K21.9 Hypertension I10 Depression F32.9 Neck pain M54.2
--- NOTE | 2020-02-10 01:47 | Billing Data ---
Date of Service February 10, 2020 Coding Level of Care Code 37237 OBS Care - Level 3
== END 2020-02-09 14:47 | disposition home health service (06) | DRG 811 ==
LOC: ED 21:52 → 2N 02-08 01:25 → SUATTDRO 02-08 01:25 → 2N 02-08 01:50

== ENCOUNTER 2021-04-29 17:31 | Inpatient (IN) ==
--- NOTE | 2021-04-29 20:02 | Emergency Department Note ---
History of Present Illness General Chief complaint: Wound Stated complaint: STAGE 3 OR 4 PRESSURE SORE Time Seen by Provider: 04/29/21 19:51 Source: patient and family History of Present Illness Provider complaint: Sacral wound Onset (ago): week(s) 2 Location: buttocks Pain Consistency: + constant Maximum Pain Intensity: 5 Quality: + other (No pain) Relieved By: + none Associated symptoms: no chest pain, no cough, no fever/chills, no headaches, no malaise, no nausea/vomiting, no shortness of breath or no weakness This is a 75-year-old paraplegic who presents with a wound to his sacrum. He has a decubitus ulcer there which developed 2 weeks ago while he was in the hospital in [place] for a right leg wound. His states the right leg wound is doing well and is being followed by home wound care. The wound care personnel saw him yesterday and was concerned about the appearance of his sacral decubitus so called the wound care nurse and they recommended that he be seen by a physician. They attempted to get him into the wound care clinic but they did not have appointment for 3 weeks so they advised him to go directly to the emergency department. He has no symptoms currently. He cannot feel the area. He denies any fever, cough or cold symptoms, chest pain, shortness of breath, abdominal pain, vomiting or malaise. He does have a colostomy and urostomy. He is currently on Keflex. He has no history of MRSA. Home Medications Medication Instructions Recorded Confirmed Type ascorbic acid (vitamin C) 500 mg 500 mg PO BID cap 05/11/18 04/29/21 History capsule aspirin 81 mg tablet,delayed 81 mg PO QPM 05/11/18 04/29/21 History release (Adult Aspirin Regimen) bupropion HCl 150 mg 24 hr tablet, 150 mg PO QAM 05/11/18 04/29/21 History extended release (Wellbutrin XL) polyethylene glycol 3350 17 17 g PO QAM gm 05/11/18 04/29/21 History gram/dose oral powder (Miralax) sodium bicarbonate 650 mg tablet 650 mg PO QDL tab 05/11/18 04/29/21 History gabapentin 300 mg capsule 300 mg PO HS cap 06/13/18 04/29/21 History (Neurontin) dextran 70-hypromellose (PF) 0.1 1 drp OPB BID 10/23/18 04/29/21 History %-0.3 % eye drops in a dropperette (Artificial Tears (PF)) cholecalciferol (vitamin D3) 25 25 mcg PO BID cap 01/09/20 04/29/21 History mcg (1,000 unit) capsule (Vitamin D3) pantoprazole 40 mg tablet,delayed 40 mg PO DAILY 02/07/20 04/29/21 History release (Protonix) cephalexin 500 mg capsule 500 mg PO BID #60 cap 04/08/20 04/29/21 Rx Lactobacillus acidophilus 2 tab PO DAILY 04/23/21 04/29/21 History (Acidophilus) betamethasone dipropionate 0.05 % 1 applic TOPICAL BID 04/23/21 04/29/21 History topical cream cyclobenzaprine 10 mg tablet 10 mg PO TID 04/23/21 04/29/21 History docusate sodium 100 mg capsule 100 mg PO BID 04/23/21 04/29/21 History (Colace) hydrophilic (DermaFix) 1 applic TOPICAL BID 04/23/21 04/29/21 History hydroxyzine HCl 25 mg tablet 25 mg PO Q8H PRN 04/23/21 04/29/21 History lidocaine 5 % topical patch 1 patch TOPICAL DAILY 04/23/21 04/29/21 History (Lidoderm) melatonin 3 mg capsule 3 mg PO HS PRN 04/23/21 04/29/21 History sennosides 8.6 mg tablet (Senokot) 8.6 mg PO DAILY PRN 04/23/21 04/29/21 History tramadol 50 mg tablet (Ultram) 50 mg PO Q8H 04/23/21 04/29/21 History acetaminophen 325 mg tablet 650 mg PO DIRECTED PRN 04/29/21 04/29/21 History (Tylenol) Allergies Allergy/AdvReac Type Severity Reaction Status Date / Time shellfish derived Allergy Severe Anaphylaxis Verified 04/29/21 20:46 trimethoprim Allergy Intermediate rash Verified 04/29/21 20:46 oxycodone AdvReac Severe PSYCHOTIC Verified 04/29/21 20:46 Sulfa (Sulfonamide AdvReac Severe KIDNEY Verified 04/29/21 20:46 Antibiotics) FAILURE hydromorphone AdvReac Intermediate NAUSEA AND Verified 04/29/21 20:46 VOMITING morphine AdvReac Mild VOMITING Verified 04/29/21 20:46 naproxen AdvReac Mild vertigo Verified 04/29/21 20:46 Past Med/Surg History Medical History Leg length discrepancy PTSD (post-traumatic stress disorder) Spinal cord injury occurred in 1967 TIA (transient ischemic attack) Surgical History History of appendectomy History of herniorrhaphy History of tonsillectomy and adenoidectomy History of total knee replacement (TKR) BTKA History of urostomy Hx of cervical spine surgery Knee joint replacement status Family History Other No significant family history Social History Smoking Status: Never smoker Tobacco Type: Pipe Second Hand Exposure: No; Hx Alcohol Use: Yes Alcohol type: hard liquor Alcohol Intake Frequency Comment: ONE DRINK AT BEDTIME Hx Substance Use: No Preferred Language: Divehi Communication Ability: Effective Visual Impairment: Partially Limited Hearing Ability: Use of Hearing Aid Darklight Inspector Required: No Beliefs That Will Affect Care: None marital status: Current Living Situation: Spouse Current Living Situation Comment: 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 and A total of 10 systems reviewed and were otherwise negative Physical Exam Vital Signs Vital Signs - 24 hr 04/29/21 17:39 04/29/21 21:43 04/29/21 22:01 Temperature 36.6 C Temperature Source Temporal Artery Scan Pulse Rate 95 H 109 H 108 H Pulse Rate from SpO2 Sensor 109 H 109 H Respiratory Rate 20 18 16 Respiratory Effort / Characteristics Non-Labored Spontaneous Respiratory Depth Normal Respiratory Pattern Regular Blood Pressure 130/83 146/94 H 146/106 H Blood Pressure Mean 98 111 119 Pulse Oximetry 95 92 92 Oxygen Delivery Method Room Air Sepsis Recent Fever Within 48 Hours No Sepsis New/Unexplained Change in Mental Status No Sepsis Action Taken by Nursing No Action Required 04/29/21 22:30 04/29/21 23:00 04/29/21 23:30 Temperature Temperature Source Pulse Rate 111 H 107 H 107 H Pulse Rate from SpO2 Sensor 111 H 107 H 107 H Respiratory Rate 20 20 20 Respiratory Effort / Characteristics Respiratory Depth Respiratory Pattern Blood Pressure 146/99 H 119/76 132/83 Blood Pressure Mean 114 90 99 Pulse Oximetry 92 92 94 Oxygen Delivery Method Sepsis Recent Fever Within 48 Hours Sepsis New/Unexplained Change in Mental Status Sepsis Action Taken by Nursing 04/30/21 00:00 Temperature Temperature Source Pulse Rate 102 H Pulse Rate from SpO2 Sensor 102 H Respiratory Rate 20 Respiratory Effort / Characteristics Respiratory Depth Respiratory Pattern Blood Pressure 114/75 Blood Pressure Mean 88 Pulse Oximetry 95 Oxygen Delivery Method Sepsis Recent Fever Within 48 Hours Sepsis New/Unexplained Change in Mental Status Sepsis Action Taken by Nursing Constitutional: Vital signs reviewed. Eyes: Pupils are equal round reactive to light. Conjunctiva are noninjected. ENT: Pharynx is clear without erythema or exudate. Mucous membranes are moist. Neck supple without meningeal signs. Respiratory: Clear to auscultation bilaterally. Breath sounds are equal bilaterally. Cardiovascular: Mild tachycardia. Regular rhythm. GI: Soft, nondistended and nontender. Bowel sounds are present. Colostomy and urostomy. Musculoskeletal: Large soft tissue defect to the left buttock with what appears to be necrotic tissue in the inferior margin. There is purulent discharge and a foul odor. There is surrounding cellulitis to the wound. Integumentary: No cyanosis. or jaundice. Neurological: The patient is awake and alert. Wheelchair-bound paraplegic. Psychiatric: Normal affect. Not anxious appearing. Course Administered Medications Discontinued Medications Piperacillin Sod/Tazobactam (Sod 4.5 gm/ Dextrose) 120 mls @ 200 mls/hr IV NOW ONE; Protocol Stop: 04/29/21 20:58 Last Infusion: 04/29/21 23:02 Dose: 0 mls/hr Documented by: [id number] Admin: 04/29/21 22:23 Dose: 200 mls/hr Documented by: [id number] Ioversol (Optiray 320 100ml) 90 ml IV ONCE ONE Stop: 04/29/21 21:27 Last Admin: 04/29/21 21:27 Dose: 90 ml Documented by: [id number] Medical Decision Making Differential Diagnosis Abscess, cellulitis, infected decubitus ulcer, Rossi's gangrene, bacteremia Medical Records Attestation: I reviewed the patient's medical records. I did perform a limited focused review of portions of the patient's old chart on the electronic medical record. The patient was seen here for dehydration and weakness on April 23. He had negative CT angiogram of his chest at that time. Home Medications Current Medication List: was personally reviewed by me Laboratory Data Attestation: I reviewed the patient's lab results. Result diagrams: 04/29/21 20:30 04/29/21 20:30 Lab Results 04/29/21 04/29/21 04/29/21 Range/Units 20:30 20:30 20:30 WBC 14.58 H (4.8-10.8) K/uL RBC 4.11 L (4.7-6.1) M/uL Hgb 10.6 L (14.0-18.0) g/dL POC Hgb (14.0-18.0) g/dl Hct 33.6 L (42-52) % POC Hct (42-52) % MCV 81.8 (80-100) fL MCH 25.8 (25-34) pg MCHC 31.5 L (32-36) g/dL RDW Std Deviation 51.5 H (36.4-46.3) fL RDW Coeff of Faustino 17.7 H (11.5-14.5) % Plt Count 822 H (130-400) K/uL MPV 9.1 (7.4-10.4) fL Immature Gran % (Auto) 0.3 % Neut % (Auto) 74.5 % Lymph % (Auto) 9.7 % [place] % (Auto) 11.8 % Eos % (Auto) 3.5 % Baso % (Auto) 0.2 % Neut # (Auto) 10.86 H (1.4-6.5) K/uL Lymph # (Auto) 1.41 (1.2-3.4) K/uL [place] # (Auto) 1.72 H (0.11-0.59) K/uL Eos # (Auto) 0.51 H (0-0.5) K/uL Baso # (Auto) 0.03 (0-0.2) K/uL Immature Gran # (Auto) 0.05 H (0.00-0.02) K/uL Absolute Nucleated RBC 0.07 H (0-0) K/uL Nucleated RBC % (auto) 0.5 % PT 10.1 (9.0-12.0) Seconds INR 1.0 (0.9-1.1) APTT 32.0 H (21.0-31.0) Seconds PTT Ratio 1.2 POC Sodium (135-144) mmol/L Sodium 130 L (136-145) mmol/L POC Potassium (3.3-5.0) mmol/L Potassium 4.5 (3.5-5.1) mmol/L POC Chloride (101-112) mmol/L Chloride 97 L (98-107) mmol/L Carbon Dioxide 26 (21-32) mmol/L POC Total CO2 (24-31) mmol/L Anion Gap 7.0 (3-11) POC Anion Gap (16-25) mmol/L POC BUN (7-18) mg/dl BUN 27 H (7-18) mg/dl Creatinine 1.46 H (0.6-1.4) mg/dl POC Creatinine (0.6-1.3) mg/dl Est Cr Clr Drug Dosing Not Reportable Est GFR ( Amer) 53.4 ml/min Est GFR (Non-Af Amer) 46.1 ml/min BUN/Creatinine Ratio 18.6 (10-20) Glucose 80 (70-99) mg/dl POC Glucose (other) (70-99) mg/dl Calcium 10.0 (8.5-10.1) mg/dl POC Ioniz Calcium Kareem (1.12-1.32) mmol/l Total Bilirubin 0.3 (0.2-1) mg/dl AST 17 (15-37) U/L ALT 15 (12-78) U/L Alkaline Phosphatase 96 (45-117) U/L Total Protein 7.5 (6.4-8.2) gm/dl Albumin 2.6 L (3.4-5.0) gm/dl Globulin 4.9 H (2.5-4.0) gm/dl Albumin/Globulin Ratio 0.5 L (0.9-2) Lipase 199 (73-393) U/L COVID-19 Eval Order SARS-CoV-2 (PCR) (Negative) 0904/29/21 04/29/21 Range/Units 20:30 20:30 20:45 WBC (4.8-10.8) K/uL RBC (4.7-6.1) M/uL Hgb (14.0-18.0) g/dL POC Hgb 12.2 L (14.0-18.0) g/dl Hct (42-52) % POC Hct 36 L (42-52) % MCV (80-100) fL MCH (25-34) pg MCHC (32-36) g/dL RDW Std Deviation (36.4-46.3) fL RDW Coeff of Faustino (11.5-14.5) % Plt Count (130-400) K/uL MPV (7.4-10.4) fL Immature Gran % (Auto) % Neut % (Auto) % Lymph % (Auto) % [place] % (Auto) % Eos % (Auto) % Baso % (Auto) % Neut # (Auto) (1.4-6.5) K/uL Lymph # (Auto) (1.2-3.4) K/uL [place] # (Auto) (0.11-0.59) K/uL Eos # (Auto) (0-0.5) K/uL Baso # (Auto) (0-0.2) K/uL Immature Gran # (Auto) (0.00-0.02) K/uL Absolute Nucleated RBC (0-0) K/uL Nucleated RBC % (auto) % PT (9.0-12.0) Seconds INR (0.9-1.1) APTT (21.0-31.0) Seconds PTT Ratio POC Sodium 131 L (135-144) mmol/L Sodium (136-145) mmol/L POC Potassium 4.6 (3.3-5.0) mmol/L Potassium (3.5-5.1) mmol/L POC Chloride 94 L (101-112) mmol/L Chloride (98-107) mmol/L Carbon Dioxide (21-32) mmol/L POC Total CO2 25 (24-31) mmol/L Anion Gap (3-11) POC Anion Gap 17.0 (16-25) mmol/L POC BUN 27 H (7-18) mg/dl BUN (7-18) mg/dl Creatinine (0.6-1.4) mg/dl POC Creatinine 1.6 H (0.6-1.3) mg/dl Est Cr Clr Drug Dosing Est GFR ( Amer) ml/min Est GFR (Non-Af Amer) ml/min BUN/Creatinine Ratio (10-20) Glucose (70-99) mg/dl POC Glucose (other) 83 (70-99) mg/dl Calcium (8.5-10.1) mg/dl POC Ioniz Calcium Kareem 1.24 (1.12-1.32) mmol/l Total Bilirubin (0.2-1) mg/dl AST (15-37) U/L ALT (12-78) U/L Alkaline Phosphatase (45-117) U/L Total Protein (6.4-8.2) gm/dl Albumin (3.4-5.0) gm/dl Globulin (2.5-4.0) gm/dl Albumin/Globulin Ratio (0.9-2) Lipase (73-393) U/L COVID-19 Eval Order Covid19 at [facility] SARS-CoV-2 (PCR) NEGATIVE (Negative) Imaging Data Radiologist's Impression: [facility] Patient: GENIE ADAMS (Male) : 43 Status: ER Date: 04/29/21 21:36 Room #: History: BUTTOCKS WOUND EVAL FOR ABSCESS Slices: [phone] Priors: Tech: Meng Salcido @ [id number] Exams: CT ABDOMEN & PELVIS With Contrast Contrast: IV Amt: 90 Accession Numbers: [id number] Referring Physician: HOME CARE FAX [facility] Preliminary Findings Only See Final Report For Complete Findings CT ABDOMEN & PELVIS With Contrast: Mild atelectasis at the lung bases. The heart is large. Liver intact. Gallbladder unremarkable. There is a loculated slightly complex collection spanning most of the length of the pancreas estimated to measure 11 cm TRV and 4.5 cm AP. There is compression of the pancreas. Spleen absent. Adrenals intact. Scarring of the kidneys. Bilateral renal cysts. Moderate amount of stool in the colon. Fluid in small bowel loops. Right anterior pelvic wall ostomy with short segment small bowel hernia. No obstruction. Left anterior abdominal wall ostomy with short segment of bowel. Appendix not seen. Atherosclerosis. No adenopathy, free fluid or free air. Status post previous pelvic wall hernia repair. Degenerative changes and post surgical changes of the spine. Right hip hardware. Left posterior medial gluteal subcutaneous inflammatory changes with bubbles of air. Air is seen tracking from the superficial soft tissues into the deeper subcutaneous tissues near the left inferior ramus. There is a superficial skin ulceration. No obvious loculated collection detected. No foreign body. Comparison February 08, 2020. Similar appearance of the bowel. Impression: Left posterior medial gluteal region decubitus ulcer. Bubbles of air seen tracking from the skin surface into the deep subcutaneous tissues as described.. No loculated collection detected. Radiologist: Demian Brewster M.D. Study ready at 21:38 and initial results transmitted at 22:00 MDM Narrative I did evaluate the patient as noted above. The patient developed a sacral decubitus while hospitalized 2 weeks ago at the [facility]. He was sent here because his wound is not looking well and they could not get him into the wound care clinic. On examination he has a large wound to his left buttock with purulent discharge and some necrotic tissue. There is some deep granulation tissue. IV access was established. I did place an order for continuous cardiac monitoring. The monitor showed sinus tachycardia at a rate of 101 bpm. I did order blood cultures. I did treat the patient with Zosyn IV. He does have a history of asplenia. I did order and review the patient's blood work as noted in the electronic medical record. His white count is 14.5. Hemoglobin is 10. Platelet count is 822. Sodium is 130. Chloride 97. Creatinine is elevated at 1.4. I did discuss the case with Dr. Perez of general surgery who recommended obtaining a CT. I did discuss this with the patient and his . I did order a CT of the abdomen and pelvis. I did review the images myself as well as the radiology report as described above. There is no evidence of intra-abdominal abscess. He does have what is concerning for a pancreatic pseudocyst. I did add a lipase. This was normal. He is not complaining of abdominal pain. Dr. Perez did see the patient in emergency department and performed bedside debridement of the wound. He recommended hospitalization for continued antibiotics and wound care. I did discuss case with the hospitalist and case consultant. Impression & Plan Sacral decubitus ulcer, Cellulitis of buttock, left, Asplenia Discharge Plan Visit Data Chief Complaint: Wound Stated Complaint: STAGE 3 OR 4 PRESSURE SORE ED Provider: Sal Hartman Discharge Problem: Sacral decubitus ulcer, Cellulitis of buttock, left, Asplenia Patient Disposition: Admitted As Inpatient Discharge Instructions Interventions: ED Discharge Assessment Last Done: 04/30/21 00:19 Forms Stand Alone Forms: On License Of [facility] Prescriptions Prescriptions: No Action aspirin [Adult Aspirin Regimen] 81 mg tablet,delayed release (DR/EC) 81 mg PO QPM RF: 0 sodium bicarbonate 650 mg tablet 650 mg PO QDL RF: 0 polyethylene glycol 3350 [Miralax] 17 gram/dose powder 17 g PO QAM RF: 0 bupropion HCl [Wellbutrin XL] 150 mg tablet extended release 24 hr 150 mg PO QAM RF: 0 ascorbic acid (vitamin C) 500 mg capsule 500 mg PO BID RF: 0 gabapentin [Neurontin] 300 mg capsule 300 mg PO HS RF: 0 cholecalciferol (vitamin D3) [Vitamin D3] 25 mcg (1,000 unit) capsule 25 mcg PO BID RF: 0 cephalexin 500 mg capsule 500 mg PO BID Qty: 60 RF: 0 Artificial Tears (PF) 0.1-0.3 % Dropperette 1 drp OPB BID RF: 0 pantoprazole [Protonix] 40 mg tablet,delayed release (DR/EC) 40 mg PO DAILY RF: 0 acetaminophen [Tylenol] 325 mg Tablet 650 mg PO DIRECTED PRN (Reason: Pain) RF: 0 sennosides [Senokot] 8.6 mg Tablet 8.6 mg PO DAILY PRN (Reason: Constipation) RF: 0 hydrophilic [DermaFix] Ointment 1 applic TOPICAL BID RF: 0 lidocaine [Lidoderm] 5 % Adhesive Patch,Medicated 1 patch TOPICAL DAILY RF: 0 betamethasone dipropionate 0.05 % Cream 1 applic TOPICAL BID RF: 0 docusate sodium [Colace] 100 mg Capsule 100 mg PO BID RF: 0 hydroxyzine HCl 25 mg Tablet 25 mg PO Q8H PRN (Reason: Anxiety) RF: 0 Acidophilus Tablet,Chewable 2 tab PO DAILY RF: 0 melatonin 3 mg Capsule 3 mg PO HS PRN (Reason: Sleep) RF: 0 cyclobenzaprine 10 mg tablet 10 mg PO TID RF: 0 tramadol [Ultram] 50 mg tablet 50 mg PO Q8H RF: 0 Referrals Referrals: Elmo Hoskins MD [Primary Care Provider] -
[2021-04-29] MEDS ORDERED: PIPERACILL/TAZOBAC CONSULT ACTIVE PRN (20:23)
[2021-04-29] MEDS ORDERED: PIPERACILLIN/TAZOBACTAM 4.5 GM in DEXTROSE 5% 100 ML IV ONE (20:23)
[2021-04-29 20:50] LABS: Basophils # (auto) 0.03 K/uL (0-0.2); Basophils % (auto) 0.2 %; Eosinophils # (auto) 0.51 K/uL (0-0.5); Eosinophils % (auto) 3.5 %; Hematocrit (blood only) 33.6 % (42-52); Hemoglobin 10.6 g/dL (14.0-18.0); Immature Granulocytes # (auto) 0.05 K/uL (0.00-0.02); Immature Granulocytes % (auto) 0.3 %; Lymphocytes # (auto) 1.41 K/uL (1.2-3.4); Lymphocytes % (auto) 9.7 %; Mean Corpuscular Hemoglobin 25.8 pg (25-34); Mean Corpuscular Hgb Conc 31.5 g/dL (32-36); Mean Corpuscular Volume 81.8 fL (80-100); Mean Platelet Volume 9.1 fL (7.4-10.4); Monocytes # (auto) 1.72 K/uL (0.11-0.59); Monocytes % (auto) 11.8 %; Neutrophils # (auto) 10.86 K/uL (1.4-6.5); Neutrophils % (auto) 74.5 %; Nucleated RBC # (auto) 0.07 K/uL (0-0); Nucleated RBC % (auto) 0.5 %; Platelet Count 822 K/uL (130-400); RDW Coefficient of Variation 17.7 % (11.5-14.5); RDW Standard Deviation 51.5 fL (36.4-46.3); Red Blood Count 4.11 M/uL (4.7-6.1); White Blood Count 14.58 K/uL (4.8-10.8)
[2021-04-29 20:57] LABS: iSTAT Creatinine 1.6 mg/dl (0.6-1.3); iSTAT Hemoglobin 12.2 g/dl (14.0-18.0); iSTAT Ionized Calcium 1.24 mmol/l (1.12-1.32); iSTAT Potassium 4.6 mmol/L (3.3-5.0)
[2021-04-29 21:06] LABS: Alanine Aminotransferase 15 U/L (12-78); Albumin Level 2.6 gm/dl (3.4-5.0); Aspartate Aminotransferase 17 U/L (15-37); BUN Creatinine Ratio 18.6 (10-20); Blood Urea Nitrogen 27 mg/dl (7-18); Carbon Dioxide 26 mmol/L (21-32); Chloride 97 mmol/L (98-107); Est GFR (African American) 53.4 ml/min; Est GFR (Non-African American) 46.1 ml/min; Glucose 80 mg/dl (70-99); Potassium 4.5 mmol/L (3.5-5.1); Sodium 130 mmol/L (136-145)
[2021-04-29 21:07] LABS: Partial Thromboplastin Ratio 1.2; Prothrombin Time 10.1 Seconds (9.0-12.0)
[2021-04-29 21:09] LABS: Albumin Globulin Ratio 0.5 (0.9-2); Alkaline Phosphatase 96 U/L (45-117); Bilirubin,Total 0.3 mg/dl (0.2-1); Globulin 4.9 gm/dl (2.5-4.0); Total Protein 7.5 gm/dl (6.4-8.2)
[2021-04-29] MEDS ORDERED: OPTIRAY 320 100ml IV ONE (21:26)
--- NOTE | 2021-04-29 22:28 | Surgery Consultation ---
Date of Consultation April 29, 2021 Assessment & Plan (1) Sacral decubitus ulcer, stage III: 75-year-old paraplegic gentleman with sacral decubitus ulcer, stage III. The wound was debrided in the emergency room at the bedside. This is dictated in a separate operative note. He will be admitted to the hospital on the medicine service for antibiotics and wound care consult in the morning for possible wound VAC placement. Currently the wound is packed wet-to-dry with Kerlix. We will follow along closely. History of Present Illness Reason for Consultation: sacral decubitus ulcer Requesting Physician: Sal Hartman MD History of Present Illness 75-year-old paraplegic gentleman presents to the emergency department with a wound on his left buttock. He was recently in the [facility] for a wound on his leg. He developed a wound on his left buttock at that time. He was discharged and was being seen by the wound nurse who noted that the wound was not clean, and had what appeared to be purulent drainage. She recommended the he be seen by the wound clinic. The wound clinic was unable to get him in for 3 weeks, so he was instructed to go to the emergency department. He is unable to feel pain. He states he does have some pressure sensation in the area. He denies fevers and chills. He denies other complaints. Allergies Allergy/AdvReac Type Severity Reaction Status Date / Time shellfish derived Allergy Severe Anaphylaxis Verified 04/29/21 20:46 trimethoprim Allergy Intermediate rash Verified 04/29/21 20:46 oxycodone AdvReac Severe PSYCHOTIC Verified 04/29/21 20:46 Sulfa (Sulfonamide AdvReac Severe KIDNEY Verified 04/29/21 20:46 Antibiotics) FAILURE hydromorphone AdvReac Intermediate NAUSEA AND Verified 04/29/21 20:46 VOMITING morphine AdvReac Mild VOMITING Verified 04/29/21 20:46 naproxen AdvReac Mild vertigo Verified 04/29/21 20:46 Home Medications Medication Instructions Recorded Confirmed Type ascorbic acid (vitamin C) 500 mg 500 mg PO BID cap 05/11/18 04/29/21 History capsule aspirin 81 mg tablet,delayed 81 mg PO QPM 05/11/18 04/29/21 History release (Adult Aspirin Regimen) bupropion HCl 150 mg 24 hr tablet, 150 mg PO QAM 05/11/18 04/29/21 History extended release (Wellbutrin XL) polyethylene glycol 3350 17 17 g PO QAM gm 05/11/18 04/29/21 History gram/dose oral powder (Miralax) sodium bicarbonate 650 mg tablet 650 mg PO QDL tab 05/11/18 04/29/21 History gabapentin 300 mg capsule 300 mg PO HS cap 06/13/18 04/29/21 History (Neurontin) dextran 70-hypromellose (PF) 0.1 1 drp OPB BID 10/23/18 04/29/21 History %-0.3 % eye drops in a dropperette (Artificial Tears (PF)) cholecalciferol (vitamin D3) 25 25 mcg PO BID cap 01/09/20 04/29/21 History mcg (1,000 unit) capsule (Vitamin D3) pantoprazole 40 mg tablet,delayed 40 mg PO DAILY 02/07/20 04/29/21 History release (Protonix) cephalexin 500 mg capsule 500 mg PO BID #60 cap 04/08/20 04/29/21 Rx Lactobacillus acidophilus 2 tab PO DAILY 04/23/21 04/29/21 History (Acidophilus) betamethasone dipropionate 0.05 % 1 applic TOPICAL BID 04/23/21 04/29/21 History topical cream cyclobenzaprine 10 mg tablet 10 mg PO TID 04/23/21 04/29/21 History docusate sodium 100 mg capsule 100 mg PO BID 04/23/21 04/29/21 History (Colace) hydrophilic (DermaFix) 1 applic TOPICAL BID 04/23/21 04/29/21 History hydroxyzine HCl 25 mg tablet 25 mg PO Q8H PRN 04/23/21 04/29/21 History lidocaine 5 % topical patch 1 patch TOPICAL DAILY 04/23/21 04/29/21 History (Lidoderm) melatonin 3 mg capsule 3 mg PO HS PRN 04/23/21 04/29/21 History sennosides 8.6 mg tablet (Senokot) 8.6 mg PO DAILY PRN 04/23/21 04/29/21 History tramadol 50 mg tablet (Ultram) 50 mg PO Q8H 04/23/21 04/29/21 History acetaminophen 325 mg tablet 650 mg PO DIRECTED PRN 04/29/21 04/29/21 History (Tylenol) Patient History Medical History Leg length discrepancy PTSD (post-traumatic stress disorder) Spinal cord injury occurred in 1967 TIA (transient ischemic attack) Surgical History History of appendectomy History of herniorrhaphy History of tonsillectomy and adenoidectomy History of total knee replacement (TKR) BTKA History of urostomy Hx of cervical spine surgery Knee joint replacement status Family History Other No significant family history Social History Smoking Status: Never smoker Tobacco Type: Pipe Second Hand Exposure: No; Hx Alcohol Use: Yes Alcohol type: hard liquor Alcohol Intake Frequency Comment: ONE DRINK AT BEDTIME Hx Substance Use: No Preferred Language: Vincentian Communication Ability: Effective Visual Impairment: Partially Limited Hearing Ability: Use of Hearing Aid Special Equipment Technician Required: No Beliefs That Will Affect Care: None marital status: Current Living Situation: Spouse Current Living Situation Comment: 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 ([facility]) [facility] current occupational status: disabled Feels Safe at Home: Yes during the past year weight has: increased > 10 lbs Assistive Devices: Glasses Review of Systems Review of Systems: All systems reviewed & are unremarkable except as noted in HPI & below Physical Exam Constitutional: WD/WN, vitals as above Eyes: PERRL, conjunctivae normal, anicteric sclerae Neck: trachea midline, no thyromegaly Respiratory: normal respiratory effort, lungs clear to auscultation Cardiovascular: Rate/Rhythm: regular rate and regular rhythm Gastrointestinal (Abdomen): Inspection/Auscultation: abdomen normal to inspection Percussion/Palpation: abdomen soft; abdomen nontender Musculoskeletal: Stage III sacral decubitus ulcer with extensive fibrinous material and exudate; the ulcer extends 5 cm x 3 cm, and has approximately 2 cm underlay at the apex of the wound. There is an area of necrosis at the caudad edge; slight erythema surrounding the decubitus Skin: no rashes, warm and dry Results & Data ([facility]) Vital Signs (Past 12 Hours) Vital Signs Temp Pulse Resp BP Pulse Ox 04/29/21 17:39 36.6 C 95 H 20 130/83 95 Laboratory Results 04/29/21 04/29/21 04/29/21 Range/Units 20:45 20:30 20:30 WBC (4.8-10.8) K/uL RBC (4.7-6.1) M/uL Hgb (14.0-18.0) g/dL POC Hgb 12.2 L (14.0-18.0) g/dl Hct (42-52) % POC Hct 36 L (42-52) % MCV (80-100) fL MCH (25-34) pg MCHC (32-36) g/dL RDW Std Deviation (36.4-46.3) fL RDW Coeff of Faustino (11.5-14.5) % Plt Count (130-400) K/uL MPV (7.4-10.4) fL Immature Gran % (Auto) % Neut % (Auto) % Lymph % (Auto) % [place] % (Auto) % Eos % (Auto) % Baso % (Auto) % Neut # (Auto) (1.4-6.5) K/uL Lymph # (Auto) (1.2-3.4) K/uL [place] # (Auto) (0.11-0.59) K/uL Eos # (Auto) (0-0.5) K/uL Baso # (Auto) (0-0.2) K/uL Immature Gran # (Auto) (0.00-0.02) K/uL Absolute Nucleated RBC (0-0) K/uL Nucleated RBC % (auto) % PT (9.0-12.0) Seconds INR (0.9-1.1) APTT (21.0-31.0) Seconds PTT Ratio POC Sodium 131 L (135-144) mmol/L Sodium (136-145) mmol/L POC Potassium 4.6 (3.3-5.0) mmol/L Potassium (3.5-5.1) mmol/L POC Chloride 94 L (101-112) mmol/L Chloride (98-107) mmol/L Carbon Dioxide (21-32) mmol/L POC Total CO2 25 (24-31) mmol/L Anion Gap (3-11) POC Anion Gap 17.0 (16-25) mmol/L POC BUN 27 H (7-18) mg/dl BUN (7-18) mg/dl Creatinine (0.6-1.4) mg/dl POC Creatinine 1.6 H (0.6-1.3) mg/dl Est Cr Clr Drug Dosing Est GFR ( Amer) ml/min Est GFR (Non-Af Amer) ml/min BUN/Creatinine Ratio (10-20) Glucose (70-99) mg/dl POC Glucose (other) 83 (70-99) mg/dl Calcium (8.5-10.1) mg/dl POC Ioniz Calcium Kareem 1.24 (1.12-1.32) mmol/l Total Bilirubin (0.2-1) mg/dl AST (15-37) U/L ALT (12-78) U/L Alkaline Phosphatase (45-117) U/L Total Protein (6.4-8.2) gm/dl Albumin (3.4-5.0) gm/dl Globulin (2.5-4.0) gm/dl Albumin/Globulin Ratio (0.9-2) COVID-19 Eval Order Covid19 at [facility] SARS-CoV-2 (PCR) NEGATIVE (Negative) 04/29/21 04/29/21 04/29/21 Range/Units 20:30 20:30 20:30 WBC 14.58 H (4.8-10.8) K/uL RBC 4.11 L (4.7-6.1) M/uL Hgb 10.6 L (14.0-18.0) g/dL POC Hgb (14.0-18.0) g/dl Hct 33.6 L (42-52) % POC Hct (42-52) % MCV 81.8 (80-100) fL MCH 25.8 (25-34) pg MCHC 31.5 L (32-36) g/dL RDW Std Deviation 51.5 H (36.4-46.3) fL RDW Coeff of Faustino 17.7 H (11.5-14.5) % Plt Count 822 H (130-400) K/uL MPV 9.1 (7.4-10.4) fL Immature Gran % (Auto) 0.3 % Neut % (Auto) 74.5 % Lymph % (Auto) 9.7 % [place] % (Auto) 11.8 % Eos % (Auto) 3.5 % Baso % (Auto) 0.2 % Neut # (Auto) 10.86 H (1.4-6.5) K/uL Lymph # (Auto) 1.41 (1.2-3.4) K/uL [place] # (Auto) 1.72 H (0.11-0.59) K/uL Eos # (Auto) 0.51 H (0-0.5) K/uL Baso # (Auto) 0.03 (0-0.2) K/uL Immature Gran # (Auto) 0.05 H (0.00-0.02) K/uL Absolute Nucleated RBC 0.07 H (0-0) K/uL Nucleated RBC % (auto) 0.5 % PT 10.1 (9.0-12.0) Seconds INR 1.0 (0.9-1.1) APTT 32.0 H (21.0-31.0) Seconds PTT Ratio 1.2 POC Sodium (135-144) mmol/L Sodium 130 L (136-145) mmol/L POC Potassium (3.3-5.0) mmol/L Potassium 4.5 (3.5-5.1) mmol/L POC Chloride (101-112) mmol/L Chloride 97 L (98-107) mmol/L Carbon Dioxide 26 (21-32) mmol/L POC Total CO2 (24-31) mmol/L Anion Gap 7.0 (3-11) POC Anion Gap (16-25) mmol/L POC BUN (7-18) mg/dl BUN 27 H (7-18) mg/dl Creatinine 1.46 H (0.6-1.4) mg/dl POC Creatinine (0.6-1.3) mg/dl Est Cr Clr Drug Dosing Not Reportable Est GFR ( Amer) 53.4 ml/min Est GFR (Non-Af Amer) 46.1 ml/min BUN/Creatinine Ratio 18.6 (10-20) Glucose 80 (70-99) mg/dl POC Glucose (other) (70-99) mg/dl Calcium 10.0 (8.5-10.1) mg/dl POC Ioniz Calcium Kareem (1.12-1.32) mmol/l Total Bilirubin 0.3 (0.2-1) mg/dl AST 17 (15-37) U/L ALT 15 (12-78) U/L Alkaline Phosphatase 96 (45-117) U/L Total Protein 7.5 (6.4-8.2) gm/dl Albumin 2.6 L (3.4-5.0) gm/dl Globulin 4.9 H (2.5-4.0) gm/dl Albumin/Globulin Ratio 0.5 L (0.9-2) COVID-19 Eval Order SARS-CoV-2 (PCR) (Negative)
--- NOTE | 2021-04-29 22:33 | Operative Report ---
Post Operative Report Pre & Post Diagnosis Sacral decubitus ulcer stage III I identified the patient and participated in the time-out.: Yes Procedure Sharp debridement of sacral decubitus ulcer Surgeon Lonnie Perez MD Edger Liner None Estimated Blood Loss 2 Findings Consistent with Post-Op Diagnosis Specimens Cultures are sent Complications No immediate complications Indications Fibrinous and purulent exudate as well as necrosis in the sacral decubitus ulcer Description of Procedure A timeout was performed at the bedside. The sacral decubitus was cleaned with Betadine. Sharp debridement was effected with a 15 blade scalpel and scissor dissection. Necrotic areas were removed, fibrinous exudate was removed. The debridement continued back to healthy bleeding tissue. The wound was packed wet-to-dry with Kerlix. A dressing was applied. He tolerated the procedure without complication. I attest to the content of the Intraoperative Record and any orders documented therein. Any exceptions are noted below.
--- NOTE | 2021-04-29 23:42 | History & Physical Report ---
Date of Service April 29, 2021 Assessment & Plan (1) Sacral decubitus ulcer, stage III: Plan: 75-year-old male with history of incomplete quadriplegia presenting with stage [address] ulcer. CT obtained which revealed tracking from the skin surface into the deep subcutaneous tissues. No fluid collection. Patient is afebrile, hemodynamically stable. Nontoxic in appearance. 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 Admit to medical floor Wound care consult and general surgery assistance appreciated We will continue Zosyn for empiric coverage Turn every 2 hours Perineal care as needed. states that patient has a persistent anal discharge despite the presence of colostomy (2) Chronic incomplete quadriplegia: Plan: Patient at baseline functional status Turn every 2 hours Assistance with meals Call friedman in hand are within reach. Mouth call friedman if available -Maintain heel boots in place Aspiration precautions Flexeril 10 mg p.o. 3 times daily for neck pain Lidoderm patch Tramadol for pain Gabapentin 300 mg p.o. nightly (3) History of urinary diversion procedure: Plan: Urostomy in place with clear urine in the bag Routine care every shift (4) Anemia: Plan: Normochromic, normocytic anemia with Hgb = 10.6, HCT = 33.6. No active bleeding. This is near patient's baseline Continue to monitor (5) Rheumatoid arthritis: Plan: Patient currently not on any medication for this Continue to monitor (6) GERD (gastroesophageal reflux disease): Plan: Chronic. Stable. Protonix 40 mg p.o. daily (7) Depression: Plan: Chronic. Stable. Continue Wellbutrin Continue hydroxyzine as needed for anxiety Plan: FENLR at 100 mL/h x 2 L, monitor electrolytes and replete as needed, regular diet as tolerated with assistance and aspiration precautions. Continue bowel regimen with Colace, senna and MiraLAX. states that patient's usual output from his colostomy is soft and occurs every 2 to 3 days Prophylaxiswe will avoid chemoprophylaxis at this time CodeDNR/DNI per discussion with patient. at bedside Dispositionadmit to medical History of Present Illness Chief Complaint: Sacral decubitus Primary Care Provider: Elmo Hoskins MD Meek Anaya is a 75yo male with history of incomplete quadriplegia CKD, PTSD. Patient was recently hospitalized at the [facility] in [place] for a right lower extremity wound for approximately 3 weeks. During that time he unfortunately de veloped a sacral decubitus ulcer. He was discharged home on April 29 with home services. Son was providing wound care and was concerned that the sacral ulcer was getting worse. The family called home nursing and they evaluated the patient sacral decubiti yesterday and recommended that he be seen at the [facility] wound clinic. He was then referred to the hospital. Patient denies pain/fever/chills/malaise. He denies chest pain/palpitations/shortness of breath/abdominal pain/nausea/vomiting/diarrhea. His appetite is intact and he has had normal output from his colostomy and urostomy. No additional complaints at this time. In the ER patient afebrile, tachycardic at 111 bpm, blood pressure stable, no respiratory distress. He was evaluated by surgery and had bedside debridement performed. ER course: Zosyn Allergies Allergy/AdvReac Type Severity Reaction Status Date / Time shellfish derived Allergy Severe Anaphylaxis Verified 04/29/21 20:46 trimethoprim Allergy Intermediate rash Verified 04/29/21 20:46 oxycodone AdvReac Severe PSYCHOTIC Verified 04/29/21 20:46 Sulfa (Sulfonamide AdvReac Severe KIDNEY Verified 04/29/21 20:46 Antibiotics) FAILURE hydromorphone AdvReac Intermediate NAUSEA AND Verified 04/29/21 20:46 VOMITING morphine AdvReac Mild VOMITING Verified 04/29/21 20:46 naproxen AdvReac Mild vertigo Verified 04/29/21 20:46 Home Medications Medication Instructions Recorded Confirmed Type ascorbic acid (vitamin C) 500 mg 500 mg PO BID cap 05/11/18 04/29/21 History capsule aspirin 81 mg tablet,delayed 81 mg PO QPM 05/11/18 04/29/21 History release (Adult Aspirin Regimen) bupropion HCl 150 mg 24 hr tablet, 150 mg PO QAM 05/11/18 04/29/21 History extended release (Wellbutrin XL) polyethylene glycol 3350 17 17 g PO QAM gm 05/11/18 04/29/21 History gram/dose oral powder (Miralax) sodium bicarbonate 650 mg tablet 650 mg PO QDL tab 05/11/18 04/29/21 History gabapentin 300 mg capsule 300 mg PO HS cap 06/13/18 04/29/21 History (Neurontin) dextran 70-hypromellose (PF) 0.1 1 drp OPB BID 10/23/18 04/29/21 History %-0.3 % eye drops in a dropperette (Artificial Tears (PF)) cholecalciferol (vitamin D3) 25 25 mcg PO BID cap 01/09/20 04/29/21 History mcg (1,000 unit) capsule (Vitamin D3) pantoprazole 40 mg tablet,delayed 40 mg PO DAILY 02/07/20 04/29/21 History release (Protonix) cephalexin 500 mg capsule 500 mg PO BID #60 cap 04/08/20 04/29/21 Rx Lactobacillus acidophilus 2 tab PO DAILY 04/23/21 04/29/21 History (Acidophilus) betamethasone dipropionate 0.05 % 1 applic TOPICAL BID 04/23/21 04/29/21 History topical cream cyclobenzaprine 10 mg tablet 10 mg PO TID 04/23/21 04/29/21 History docusate sodium 100 mg capsule 100 mg PO BID 04/23/21 04/29/21 History (Colace) hydrophilic (DermaFix) 1 applic TOPICAL BID 04/23/21 04/29/21 History hydroxyzine HCl 25 mg tablet 25 mg PO Q8H PRN 04/23/21 04/29/21 History lidocaine 5 % topical patch 1 patch TOPICAL DAILY 04/23/21 04/29/21 History (Lidoderm) melatonin 3 mg capsule 3 mg PO HS PRN 04/23/21 04/29/21 History sennosides 8.6 mg tablet (Senokot) 8.6 mg PO DAILY PRN 04/23/21 04/29/21 History tramadol 50 mg tablet (Ultram) 50 mg PO Q8H 04/23/21 04/29/21 History acetaminophen 325 mg tablet 650 mg PO DIRECTED PRN 04/29/21 04/29/21 History (Tylenol) Past Med/Surg History Medical History Leg length discrepancy PTSD (post-traumatic stress disorder) Spinal cord injury occurred in 1967 TIA (transient ischemic attack) Surgical History History of appendectomy History of herniorrhaphy History of tonsillectomy and adenoidectomy History of total knee replacement (TKR) BTKA History of urostomy Hx of cervical spine surgery Knee joint replacement status Family History Other No significant family history Social History Smoking Status: Never smoker Tobacco Type: Pipe Second Hand Exposure: No; Hx Alcohol Use: Yes Alcohol type: hard liquor Alcohol Intake Frequency Comment: ONE DRINK AT BEDTIME Hx Substance Use: No Preferred Language: Welsh Communication Ability: Effective Visual Impairment: Partially Limited Hearing Ability: Use of Hearing Aid Justice Court Judge Required: No Beliefs That Will Affect Care: None marital status: Current Living Situation: Spouse Current Living Situation Comment: 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 ([facility] current occupational status: disabled Feels Safe at Home: Yes during the past year weight has: increased > 10 lbs Assistive Devices: Glasses Review of Systems Review of Systems: All systems reviewed & are unremarkable except as noted in HPI & below Physical Exam Physical Exam: General: Chronically ill-appearing male patient resting comfortably, NAD, A&O x 4 Skin: warm, dry, RLE lesion covered with Kerlix with boots in place, Sacral wound s/p bedside debridement wtih wet-to-dry packing and kerlix HEENT: NC/AT, PERRL, EOMI, anicteric sclera, conjunctiva without injection, external ear normal to inspection and nontender, nares patent, moist mucus membranes, dentition intact, no oropharyngeal lesions, neck supple, trachea midline, no LAD, no thyromegaly, no JVD Heart: +S1/S2, regular, tachycardic, no m/r/g Lungs: equal air entry bilaterally, no rales/rhonchi/wheezes Abd: +BS, soft, NT/ND, no masses/organomegaly/ascites, urostomy in place with small amount of urine in bag, colostomy in place, no bleeding/drainage/erythema at site Ext: warm, 2+ pulses in UE/LE bilaterally, no clubbing/cyanosis, 1+ pitting edema of bilateral LE Neuro: Patient with incomplete quadriplegia, has some functional use of his arms and hands although limited, diminished sensation of legs, awake alert and oriented x4 with normal speech, no facial droop, cranial nerves grossly intact Results & Data Results & Data ([facility]) Vital Signs (Past 12 Hours) Vital Signs Temp Pulse Resp BP Pulse Ox 04/29/21 22:30 111 H 20 146/99 H 92 04/29/21 22:01 108 H 16 146/106 H 92 04/29/21 21:43 109 H 18 146/94 H 92 04/29/21 17:39 36.6 C 95 H 20 130/83 95 Laboratory Results Laboratory Results WBC 14.58 K/uL (4.8-10.8) H 04/29/21 20:30 RBC 4.11 M/uL (4.7-6.1) L 04/29/21 20:30 Hgb 10.6 g/dL (14.0-18.0) L 04/29/21 20:30 POC Hgb 12.2 g/dl (14.0-18.0) L 04/29/21 20:45 Hct 33.6 % (42-52) L 04/29/21 20:30 POC Hct 36 % (42-52) L 04/29/21 20:45 MCV 81.8 fL (80-100) 04/29/21 20:30 MCH 25.8 pg (25-34) 04/29/21 20:30 MCHC 31.5 g/dL (32-36) L 04/29/21 20:30 RDW Std Deviation 51.5 fL (36.4-46.3) H 04/29/21 20:30 RDW Coeff of Faustino 17.7 % (11.5-14.5) H 04/29/21 20:30 Plt Count 822 K/uL (130-400) H 04/29/21 20:30 MPV 9.1 fL (7.4-10.4) 04/29/21 20:30 Immature Gran % (Auto) 0.3 % 04/29/21 20:30 Neut % (Auto) 74.5 % 04/29/21 20:30 Lymph % (Auto) 9.7 % 04/29/21 20:30 [place] % (Auto) 11.8 % 04/29/21 20:30 Eos % (Auto) 3.5 % 04/29/21 20:30 Baso % (Auto) 0.2 % 04/29/21 20:30 Neut # (Auto) 10.86 K/uL (1.4-6.5) H 04/29/21 20:30 Lymph # (Auto) 1.41 K/uL (1.2-3.4) 04/29/21 20:30 [place] # (Auto) 1.72 K/uL (0.11-0.59) H 04/29/21 20:30 Eos # (Auto) 0.51 K/uL (0-0.5) H 04/29/21 20:30 Baso # (Auto) 0.03 K/uL (0-0.2) 04/29/21 20:30 Immature Gran # (Auto) 0.05 K/uL (0.00-0.02) H 04/29/21 20:30 Absolute Nucleated RBC 0.07 K/uL (0-0) H 04/29/21 20:30 Nucleated RBC % (auto) 0.5 % 04/29/21 20:30 PT 10.1 Seconds (9.0-12.0) 04/29/21 20:30 INR 1.0 (0.9-1.1) 04/29/21 20:30 APTT 32.0 Seconds (21.0-31.0) H 04/29/21 20: PTT Ratio 1.2 04/29/21 20:30 POC Sodium 131 mmol/L (135-144) L 04/29/21 20:45 Sodium 130 mmol/L (136-145) L 04/29/21 20:30 POC Potassium 4.6 mmol/L (3.3-5.0) 04/29/21 20:45 Potassium 4.5 mmol/L (3.5-5.1) 04/29/21 20:30 POC Chloride 94 mmol/L (101-112) L 04/29/21 20:45 Chloride 97 mmol/L (98-107) L 04/29/21 20:30 Carbon Dioxide 26 mmol/L (21-32) 04/29/21 20:30 POC Total CO2 25 mmol/L (24-31) 04/29/21 20:45 Anion Gap 7.0 (3-11) 04/29/21 20:30 POC Anion Gap 17.0 mmol/L (16-25) 04/29/21 20:45 POC BUN 27 mg/dl (7-18) H 04/29/21 20:45 BUN 27 mg/dl (7-18) H 04/29/21 20:30 Creatinine 1.46 mg/dl (0.6-1.4) H 04/29/21 20:30 POC Creatinine 1.6 mg/dl (0.6-1.3) H 04/29/21 20:45 Est Cr Clr Drug Dosing Not Reportable 04/29/21 20:30 Est GFR ( Amer) 53.4 ml/min 04/29/21 20:30 Est GFR (Non-Af Amer) 46.1 ml/min 04/29/21 20:30 BUN/Creatinine Ratio 18.6 (10-20) 04/29/21 20:30 Glucose 80 mg/dl (70-99) 04/29/21 20:30 POC Glucose (other) 83 mg/dl (70-99) 04/29/21 20:45 Calcium 10.0 mg/dl (8.5-10.1) 04/29/21 20:30 POC Ioniz Calcium Kareem 1.24 mmol/l (1.12-1.32) 04/29/21 20:45 Total Bilirubin 0.3 mg/dl (0.2-1) 04/29/21 20:30 AST 17 U/L (15-37) 04/29/21 20:30 ALT 15 U/L (12-78) 04/29/21 20:30 Alkaline Phosphatase 96 U/L (45-117) 04/29/21 20:30 Total Protein 7.5 gm/dl (6.4-8.2) 04/29/21 20:30 Albumin 2.6 gm/dl (3.4-5.0) L 04/29/21 20:30 Globulin 4.9 gm/dl (2.5-4.0) H 04/29/21 20:30 Albumin/Globulin Ratio 0.5 (0.9-2) L 04/29/21 20:30 COVID-19 Eval Order Covid19 at [facility] 04/29/21 20:30 SARS-CoV-2 (PCR) NEGATIVE (Negative) 04/29/21 20:[address] of the abdomen and pelvis with contrastPer stat read: Mild atelectasis of the lung bases. The heart is large. Liver intact. Gallbladder unremarkable. There is a loculated slightly complex collection spanning most of the length of the pancreas estimated to measure 11 cm transverse and 4.5 cm anterior-posterior fully. There is compression of the pancreas. Spleen absent. Adrenals intact. Scarring of the kidneys. Bilateral renal cysts. Moderate amount of stool in the colon. Fluid in the small bowel loops. Right anterior pelvic wall ostomy with short segment bowel hernia. No obstruction. Left anterior abdominal wall ostomy with short segment of bowel. Appendix not seen. Atherosclerosis. No adenopathy, free fluid or free air. Status post previous pelvic wall hernia repair. Degenerative changes and postsurgical changes of the spine. Right hip hardware. Left posterior medial gluteal subcutaneous inflammatory changes with bubbles of air. Erythema tracking from the superficial soft tissue into the deeper subcutaneous tissues near the left inferior ramus. There is a superficial skin ulceration. No obvious loculated collection detected. No foreign body. Impression: Left posterior medial gluteal region decubitus ulcer. Bubbles of air seen tracking from the skin surface into the deep subcutaneous tissues as described. No loculated collection detected Code Status & VTE Plan VTE Prophylaxis Plan VTE Prophylaxis will be ordered: Yes PG Care Time/CCT Total # of Minutes Spent Total Time Spent with Patient: Total time spent is greater than 50% in coordination of care (as documented) at patient's floor/unit and/or counseling patient: Coding Level of Care Code 82090 Initial Inpt Care Lvl 3 Diagnoses Sacral decubitus ulcer, stage III L89.153 History of urinary diversion procedure Z98.890 Anemia D64.9 Chronic incomplete quadriplegia G82.50 Rheumatoid arthritis M06.9 GERD (gastroesophageal reflux disease) K21.9 Depression F32.9
[2021-04-29 23:43] LABS: Lipase 199 U/L (73-393)
[2021-04-30] MEDS ORDERED: ONDANSETRON INJ 2 MG/ML 2 ML VIAL IV PRN (00:54)
[2021-04-30] MEDS ORDERED: PIPERACILL/TAZOBAC CONSULT ACTIVE PRN (00:54)
[2021-04-30] MEDS ORDERED: SENNA 8.6 MG TAB PO PRN (00:54)
[2021-04-30] MEDS ORDERED: hydrOXYzine HCl 25 MG TAB PO PRN (00:54)
[2021-04-30] MEDS ORDERED: ACETAMINOPHEN 325 MG TAB PO PRN (00:54)
[2021-04-30] MEDS: traMADol HCL 50 MG TABLET PO PRN ×2 (02:14→08:41)
[2021-04-30] MEDS: LACTATED RINGER'S 1,000 ML IV SCH ×2 (02:25→12:28)
[2021-04-30] MEDS ORDERED: CYCLOBENZAPRINE HCL 10 MG TAB PO PRN (02:46)
[2021-04-30] MEDS: PIPERACILLIN/TAZOBACTAM 3.375 GM in DEXTROSE 5% 100 ML IV SCH ×3 (04:37→20:15)
[2021-04-30 05:48] LABS: Basophils # (auto) 0.04 K/uL (0-0.2); Basophils % (auto) 0.2 %; Eosinophils % (auto) 2.4 %; Hematocrit (blood only) 31.3 % (42-52); Immature Granulocytes # (auto) 0.04 K/uL (0.00-0.02); Immature Granulocytes % (auto) 0.2 %; Lymphocytes # (auto) 1.15 K/uL (1.2-3.4); Lymphocytes % (auto) 6.9 %; Mean Corpuscular Hemoglobin 25.8 pg (25-34); Mean Corpuscular Hgb Conc 31.9 g/dL (32-36); Mean Corpuscular Volume 80.7 fL (80-100); Monocytes # (auto) 2.26 K/uL (0.11-0.59); Monocytes % (auto) 13.6 %; Neutrophils # (auto) 12.71 K/uL (1.4-6.5); Neutrophils % (auto) 76.7 %; Nucleated RBC # (auto) 0.06 K/uL (0-0); Nucleated RBC % (auto) 0.3 %; Platelet Count 812 K/uL (130-400); RDW Coefficient of Variation 17.6 % (11.5-14.5); RDW Standard Deviation 50.9 fL (36.4-46.3); Red Blood Count 3.88 M/uL (4.7-6.1)
[2021-04-30 06:19] LABS: BUN Creatinine Ratio 16.9 (10-20); Calcium 9.3 mg/dl (8.5-10.1); Creatinine Clr Calc Pharmacy 50.5 ml/min; Est GFR (African American) 53.8 ml/min; Est GFR (Non-African American) 46.4 ml/min; Potassium 4.3 mmol/L (3.5-5.1)
[2021-04-30] MEDS: POLYETHYLENE (MIRALAX) 17 GM PACK PO SCH (08:06)
[2021-04-30] MEDS: PANTOprazole 40 MG TAB PO SCH (08:06)
[2021-04-30] MEDS: DOCUSATE SODIUM 100 MG CAP PO SCH ×2 (08:06→20:16)
[2021-04-30] MEDS: BETAMETHASONE DIP AUG (DIPROLENE) 0.05% CR 15 GM TUBE EXT SCH ×2 (08:07→20:16)
[2021-04-30] MEDS: buPROPion XL 150 MG TABCR PO SCH (08:07)
--- NOTE | 2021-04-30 08:14 | CT Scan Report ---
CT abd pelvis IV con only CLINICAL HISTORY: buttock wound eval for abscess COMPARISON STUDY: February 08, 2020 TECHNIQUE: A dose lowering technique was utilized adhering to the principles of ALARA. CT DOSE: 1239.93 mGy.cm FINDINGS: Lower chest: Multiple linear densities within bilateral basis, could represent atelectasis or scarrin g.. Liver: The contrast-enhanced liver is normal in size, contour, and attenuation. There is no intrahepa tic biliary ductal dilatation. The hepatic veins and portal veins are patent. Gallbladder: Unremarkable. Spleen: Is not seen, probably surgically absent. Pancreas: Pancreas is atrophic. Interval development of elongated 10.2 x 4.7 cm fluid collection gema cent to anterior aspect of the pancreatic body and tail is seen. There is additional area of loculate d collection is extending inferiorly and measuring 5.7 x 2.8 cm on coronal reconstruction. Adrenal glands: Unremarkable. Kidneys: Bilateral kidneys are atrophic with multiple cortical cysts which are seen bilaterally and n ot significantly changed since recent prior. There is no definite obstructive nephrolithiasis is seen . Pelvic viscera: Redemonstration of status post cystectomy and ileal conduit placement. Limited evalua tion of lower pelvis due to beam hardening artifact from prosthetic right hip joint. Bowel: Bowel loops are nondilated. Appendix is not seen. Extensive stool content is seen within trans verse colon. Redemonstration of the Yolis's pouch at the level of the upper rectum. Prior sigmoide ctomy. Right anterior pericolic wall ostomy with short segment of small bowel hernia. No evidence of obstruction. Left anterior abdominal wall ostomy with short segment of small bowel herniation is seen on the right. No evidence of obstruction. Status post previous anterior abdominal and pelvic wall hernia repair. Peritoneum: There is no intraperitoneal free air or abdominal ascites. Vasculature: Abdominal aorta is normal in caliber, tortuous with scattered calcifications of its wall . Adenopathy: None. Skeletal structures: Multilevel degenerative changes of the spine. Osteopenia and lumbar levoscoliosi s. There is subcutaneous soft tissue fat stranding with few areas of gas collection is seen extending fr om the left buttock to the left ischial bone. Skin ulceration is seen. No evidence of osseous destruc tion is seen and this time. IMPRESSION: 1. Redemonstration of decubitus ulcer involving left buttocks which shows interval worsening of surr ounding inflammatory changes and new areas of gas collection which was not seen during January 2020 exam . No loculated fluid collection is seen within this region. 2. Interval development of large loculated fluid collection adjacent to the pancreatic body and tail which is also extending distally to the left hemiabdomen, might represent pseudocyst. Please correla te above-mentioned findings with prior history of pancreatitis. Follow-up evaluation is per clinical protocol. 3. Status post partial colectomy and Yolis's pouch formation. Right and left anterior abdominal o stomy with short segment of small bowel herniation on the right. No evidence of obstruction or maine ulation. 4. Atrophic kidneys with multiple cysts. Status post cystectomy and ileal conduit placement. 5. The rest of findings as above. ACT 112: Negative or not required by law. The above report was generated using voice recognition software. It may contain grammatical, syntax o r spelling errors. Electronically signed by: Belkis Morales DO 04/30/2021 8:13 AM
[2021-04-30] MEDS: LIDOCAINE 5% 1 PATCH TD SCH (08:31)
[2021-04-30] MEDS: ARTIFICIAL TEARS OP SCH ×2 (08:34→20:15)
--- NOTE | 2021-04-30 09:41 | Surgery Progress Note ---
Date of Service April 30, 2021 Assessment & Plan (1) Sacral decubitus ulcer, stage III: Plan: POD # 1 s/p debridement of sacral decubitus ulcer - afebrile, leukocytosis increased to 16K - Wound now with granulation tissue at base of wound s/p debridement, no bone visualized on exam. CT scan showing no osseous destruction - wound care nurse consulted, would likely benefit from wound vac Plan: Continue IV Zosyn pain management as needed wound nurse consult for possible wound vac if possible given location Change outer dressing as needed [facility] surgery covering this weekend. Dr. Perez has seen and examined pt, agrees with above. Admission and Anticipated Discharge Date Admission Date: April 29, 2021 Subjective waking up when entering into room patient moaning a little, having some pain in the buttocks region. Physical Exam Constitutional: + obese and cooperative; no acute distress and not ill appearing Gastrointestinal (Abdomen): Left buttocks with surrounding erythema. There is a 5 cm x 3 cm sacral wound , about 2 cm undermining superiorly, kerlix packing removed and there was old blood at wound base. Some active bleeding. Granulation tissue at base of wound. Results & Data ([facility]) Vital Signs (Past 12 Hours) Vital Signs Temp Pulse Pulse Pulse Resp BP BP 04/30/21 07:14 37.4 C 114 H 18 106/67 04/30/21 01:39 112 H 139/86 04/30/21 01:29 36.7 C 108 H 175/92 H 04/30/21 00:55 36.7 C 107 H 16 175/92 H 04/30/21 00:00 102 H 20 114/75 04/29/21 23:30 107 H 20 132/83 04/29/21 23:00 107 H 20 119/76 04/29/21 22:30 111 H 20 146/99 H 04/29/21 22:01 108 H 16 146/106 H 04/29/21 21:43 109 H 18 146/94 H Pulse Ox 04/30/21 07:14 91 04/30/21 01:39 04/30/21 01:29 95 04/30/21 00:55 94 04/30/21 00:00 95 04/29/21 23:30 94 04/29/21 23:00 92 04/29/21 22:30 92 04/29/21 22:01 92 04/29/21 21:43 92 Laboratory Results 04/30/21 04/30/21 04/29/21 Range/Units 05:22 05:22 20:45 WBC 16.60 H (4.8-10.8) K/uL RBC 3.88 L (4.7-6.1) M/uL Hgb 10.0 L (14.0-18.0) g/dL POC Hgb 12.2 L (14.0-18.0) g/dl Hct 31.3 L (42-52) % POC Hct 36 L (42-52) % MCV 80.7 (80-100) fL MCH 25.8 (25-34) pg MCHC 31.9 L (32-36) g/dL RDW Std Deviation 50.9 H (36.4-46.3) fL RDW Coeff of Faustino 17.6 H (11.5-14.5) % Plt Count 812 H (130-400) K/uL MPV 9.0 (7.4-10.4) fL Immature Gran % (Auto) 0.2 % Neut % (Auto) 76.7 % Lymph % (Auto) 6.9 % Linn % (Auto) 13.6 % Eos % (Auto) 2.4 % Baso % (Auto) 0.2 % Neut # (Auto) 12.71 H (1.4-6.5) K/uL Lymph # (Auto) 1.15 L (1.2-3.4) K/uL Linn # (Auto) 2.26 H (0.11-0.59) K/uL Eos # (Auto) 0.40 (0-0.5) K/uL Baso # (Auto) 0.04 (0-0.2) K/uL Immature Gran # (Auto) 0.04 H (0.00-0.02) K/uL Absolute Nucleated RBC 0.06 H (0-0) K/uL Nucleated RBC % (auto) 0.3 % PT (9.0-12.0) Seconds INR (0.9-1.1) APTT (21.0-31.0) Seconds PTT Ratio POC Sodium 131 L (135-144) mmol/L Sodium 130 L (136-145) mmol/L POC Potassium 4.6 (3.3-5.0) mmol/L Potassium 4.3 (3.5-5.1) mmol/L POC Chloride 94 L (101-112) mmol/L Chloride 96 L (98-107) mmol/L Carbon Dioxide 26 (21-32) mmol/L POC Total CO2 25 (24-31) mmol/L Anion Gap 8.0 (3-11) POC Anion Gap 17.0 (16-25) mmol/L POC BUN 27 H (7-18) mg/dl BUN 25 H (7-18) mg/dl Creatinine 1.45 H (0.6-1.4) mg/dl POC Creatinine 1.6 H (0.6-1.3) mg/dl Est Cr Clr Drug Dosing 50.5 Est GFR ( Amer) 53.8 ml/min Est GFR (Non-Af Amer) 46.4 ml/min BUN/Creatinine Ratio 16.9 (10-20) Glucose 94 (70-99) mg/dl POC Glucose (other) 83 (70-99) mg/dl Calcium 9.3 (8.5-10.1) mg/dl POC Ioniz Calcium Kareem 1.24 (1.12-1.32) mmol/l Total Bilirubin (0.2-1) mg/dl AST (15-37) U/L ALT (12-78) U/L Alkaline Phosphatase (45-117) U/L Total Protein (6.4-8.2) gm/dl Albumin (3.4-5.0) gm/dl Globulin (2.5-4.0) gm/dl Albumin/Globulin Ratio (0.9-2) Lipase (73-393) U/L COVID-19 Eval Order SARS-CoV-2 (PCR) (Negative) 04/29/21 04/29/21 04/29/21 Range/Units 20:30 20:30 20:30 WBC 14.58 H (4.8-10.8) K/uL RBC 4.11 L (4.7-6.1) M/uL Hgb 10.6 L (14.0-18.0) g/dL POC Hgb (14.0-18.0) g/dl Hct 33.6 L (42-52) % POC Hct (42-52) % MCV 81.8 (80-100) fL MCH 25.8 (25-34) pg MCHC 31.5 L (32-36) g/dL RDW Std Deviation 51.5 H (36.4-46.3) fL RDW Coeff of Faustino 17.7 H (11.5-14.5) % Plt Count 822 H (130-400) K/uL MPV 9.1 (7.4-10.4) fL Immature Gran % (Auto) 0.3 % Neut % (Auto) 74.5 % Lymph % (Auto) 9.7 % Linn % (Auto) 11.8 % Eos % (Auto) 3.5 % Baso % (Auto) 0.2 % Neut # (Auto) 10.86 H (1.4-6.5) K/uL Lymph # (Auto) 1.41 (1.2-3.4) K/uL Linn # (Auto) 1.72 H (0.11-0.59) K/uL Eos # (Auto) 0.51 H (0-0.5) K/uL Baso # (Auto) 0.03 (0-0.2) K/uL Immature Gran # (Auto) 0.05 H (0.00-0.02) K/uL Absolute Nucleated RBC 0.07 H (0-0) K/uL Nucleated RBC % (auto) 0.5 % PT (9.0-12.0) Seconds INR (0.9-1.1) APTT (21.0-31.0) Seconds PTT Ratio POC Sodium (135-144) mmol/L Sodium (136-145) mmol/L POC Potassium (3.3-5.0) mmol/L Potassium (3.5-5.1) mmol/L POC Chloride (101-112) mmol/L Chloride (98-107) mmol/L Carbon Dioxide (21-32) mmol/L POC Total CO2 (24-31) mmol/L Anion Gap (3-11) POC Anion Gap (16-25) mmol/L POC BUN (7-18) mg/dl BUN (7-18) mg/dl Creatinine (0.6-1.4) mg/dl POC Creatinine (0.6-1.3) mg/dl Est Cr Clr Drug Dosing Est GFR ( Amer) ml/min Est GFR (Non-Af Amer) ml/min BUN/Creatinine Ratio (10-20) Glucose (70-99) mg/dl POC Glucose (other) (70-99) mg/dl Calcium (8.5-10.1) mg/dl POC Ioniz Calcium Kareem (1.12-1.32) mmol/l Total Bilirubin (0.2-1) mg/dl AST (15-37) U/L ALT (12-78) U/L Alkaline Phosphatase (45-117) U/L Total Protein (6.4-8.2) gm/dl Albumin (3.4-5.0) gm/dl Globulin (2.5-4.0) gm/dl Albumin/Globulin Ratio (0.9-2) Lipase (73-393) U/L COVID-19 Eval Order Covid19 at [facility] SARS-CoV-2 (PCR) NEGATIVE (Negative) 04/29/21 04/29/21 Range/Units 20:30 20:30 WBC (4.8-10.8) K/uL RBC (4.7-6.1) M/uL Hgb (14.0-18.0) g/dL POC Hgb (14.0-18.0) g/dl Hct (42-52) % POC Hct (42-52) % MCV (80-100) fL MCH (25-34) pg MCHC (32-36) g/dL RDW Std Deviation (36.4-46.3) fL RDW Coeff of Faustino (11.5-14.5) % Plt Count (130-400) K/uL MPV (7.4-10.4) fL Immature Gran % (Auto) % Neut % (Auto) % Lymph % (Auto) % Linn % (Auto) % Eos % (Auto) % Baso % (Auto) % Neut # (Auto) (1.4-6.5) K/uL Lymph # (Auto) (1.2-3.4) K/uL Linn # (Auto) (0.11-0.59) K/uL Eos # (Auto) (0-0.5) K/uL Baso # (Auto) (0-0.2) K/uL Immature Gran # (Auto) (0.00-0.02) K/uL Absolute Nucleated RBC (0-0) K/uL Nucleated RBC % (auto) % PT 10.1 (9.0-12.0) Seconds INR 1.0 (0.9-1.1) APTT 32.0 H (21.0-31.0) Seconds PTT Ratio 1.2 POC Sodium (135-144) mmol/L Sodium 130 L (136-145) mmol/L POC Potassium (3.3-5.0) mmol/L Potassium 4.5 (3.5-5.1) mmol/L POC Chloride (101-112) mmol/L Chloride 97 L (98-107) mmol/L Carbon Dioxide 26 (21-32) mmol/L POC Total CO2 (24-31) mmol/L Anion Gap 7.0 (3-11) POC Anion Gap (16-25) mmol/L POC BUN (7-18) mg/dl BUN 27 H (7-18) mg/dl Creatinine 1.46 H (0.6-1.4) mg/dl POC Creatinine (0.6-1.3) mg/dl Est Cr Clr Drug Dosing Not Reportable Est GFR ( Amer) 53.4 ml/min Est GFR (Non-Af Amer) 46.1 ml/min BUN/Creatinine Ratio 18.6 (10-20) Glucose 80 (70-99) mg/dl POC Glucose (other) (70-99) mg/dl Calcium 10.0 (8.5-10.1) mg/dl POC Ioniz Calcium Kareem (1.12-1.32) mmol/l Total Bilirubin 0.3 (0.2-1) mg/dl AST 17 (15-37) U/L ALT 15 (12-78) U/L Alkaline Phosphatase 96 (45-117) U/L Total Protein 7.5 (6.4-8.2) gm/dl Albumin 2.6 L (3.4-5.0) gm/dl Globulin 4.9 H (2.5-4.0) gm/dl Albumin/Globulin Ratio 0.5 L (0.9-2) Lipase 199 (73-393) U/L COVID-19 Eval Order SARS-CoV-2 (PCR) (Negative) Diagnostic Findings CT abd pelvis IV con only CLINICAL HISTORY: buttock wound eval for abscess COMPARISON STUDY: February 08, 2020 TECHNIQUE: A dose lowering technique was utilized adhering to the principles of ALARA. CT DOSE: 1239.93 mGy.cm FINDINGS: Lower chest: Multiple linear densities within bilateral basis, could represent atelectasis or scarring.. Liver: The contrast-enhanced liver is normal in size, contour, and attenuation. There is no intrahepatic biliary ductal dilatation. The hepatic veins and portal veins are patent. Gallbladder: Unremarkable. Spleen: Is not seen, probably surgically absent. Pancreas: Pancreas is atrophic. Interval development of elongated 10.2 x 4.7 cm fluid collection adjacent to anterior aspect of the pancreatic body and tail is seen. There is additional area of loculated collection is extending inferiorly and measuring 5.7 x 2.8 cm on coronal reconstruction. Adrenal glands: Unremarkable. Kidneys: Bilateral kidneys are atrophic with multiple cortical cysts which are seen bilaterally and not significantly changed since recent prior. There is no definite obstructive nephrolithiasis is seen. Pelvic viscera: Redemonstration of status post cystectomy and ileal conduit placement. Limited evaluation of lower pelvis due to beam hardening artifact from prosthetic right hip joint. Bowel: Bowel loops are nondilated. Appendix is not seen. Extensive stool content is seen within transverse colon. Redemonstration of the Yolis's pouch at the level of the upper rectum. Prior sigmoidectomy. Right anterior pericolic wall ostomy with short segment of small bowel hernia. No evidence of obstruction. Left anterior abdominal wall ostomy with short segment of small bowel herniation is seen on the right. No evidence of obstruction. Status post previous anterior abdominal and pelvic wall hernia repair. Peritoneum: There is no intraperitoneal free air or abdominal ascites. Vasculature: Abdominal aorta is normal in caliber, tortuous with scattered calcifications of its wall. Adenopathy: None. Skeletal structures: Multilevel degenerative changes of the spine. Osteopenia and lumbar levoscoliosis. There is subcutaneous soft tissue fat stranding with few areas of gas collection is seen extending from the left buttock to the left ischial bone. Skin ul ceration is seen. No evidence of osseous destruction is seen and this time. IMPRESSION: 1. Redemonstration of decubitus ulcer involving left buttocks which shows interval worsening of surrounding inflammatory changes and new areas of gas collection which was not seen during January 2020 exam. No loculated fluid collection is seen within this region. 2. Interval development of large loculated fluid collection adjacent to the pancreatic body and tail which is also extending distally to the left hemiabdomen, might represent pseudocyst. Please correlate above-mentioned findings with prior history of pancreatitis. Follow-up evaluation is per clinical protocol. 3. Status post partial colectomy and Yolis's pouch formation. Right and left anterior abdominal ostomy with short segment of small bowel herniation on the right. No evidence of obstruction or strangulation. 4. Atrophic kidneys with multiple cysts. Status post cystectomy and ileal conduit placement. 5. The rest of findings as above.
[2021-04-30] MEDS: SODIUM BICARBONATE 650 MG TAB PO SCH (12:50)
[2021-04-30] MEDS: ASPIRIN 81 MG ECTAB PO SCH (20:15)
[2021-04-30] MEDS: GABAPENTIN 300 MG CAP PO SCH (20:16)
--- NOTE | 2021-04-30 20:38 | Hospitalist Progress Note ---
Date of Service April 30, 2021 Assessment & Plan (1) Sacral decubitus ulcer, stage III: Plan: 75-year-old male with history of incomplete quadriplegia presenting with stage III sacral decubitus ulcer. CT obtained which revealed tracking from the skin surface into the deep subcutaneous tissues. No fluid collection. Patient is afebrile, hemodynamically stable. Nontoxic in appearance. 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 Admit to medical floor Wound care consult and general surgery assistance appreciated -Will obtain wound culture. -Ulcer was clean and debrided by surgery. We will continue Zosyn for empiric coverage Turn every 2 hours -asif likely require wound vac. Perineal care as needed. states that patient has a persistent anal discharge despite the presence of colostomy (2) Chronic incomplete quadriplegia: Plan: Patient at baseline functional status Turn every 2 hours Assistance with meals Call friedman in hand are within reach. Mouth call friedman if available -Maintain heel boots in place Aspiration precautions Flexeril 10 mg p.o. 3 times daily for neck pain Lidoderm patch Tramadol for pain Gabapentin 300 mg p.o. nightly (3) History of urinary diversion procedure: Plan: Urostomy in place with clear urine in the bag Routine care every shift (4) Anemia: Plan: Normochromic, normocytic anemia with Hgb = 10.6, HCT = 33.6. No active bleeding. This is near patient's baseline Continue to monitor (5) Rheumatoid arthritis: Plan: Patient currently not on any medication for this Continue to monitor (6) GERD (gastroesophageal reflux disease): Plan: Chronic. Stable. Protonix 40 mg p.o. daily (7) Depression: Plan: Chronic. Stable. Continue Wellbutrin Continue hydroxyzine as needed for anxiety Plan: FENLR at 100 mL/h x 2 L, monitor electrolytes and replete as needed, regular diet as tolerated with assistance and aspiration precautions. Continue bowel regimen with Colace, senna and MiraLAX. states that patient's usual output from his colostomy is soft and occurs every 2 to 3 days Prophylaxiswe will avoid chemoprophylaxis at this time CodeDNR/DNI per discussion with patient. at bedside Dispositionadmit to medical Admission and Anticipated Discharge Date Admission Date: April 29, 2021 Subjective Patient has no new complaints. Review of Systems Review of Systems: All systems reviewed & are unremarkable except as noted in HPI & below Physical Exam Physical Exam: General: NAD, A&O x 4 Skin: warm, dry, RLE lesion covered with Kerlix with boots in place, Sacral wound s/p bedside debridement wtih wet-to-dry packing and kerlix HEENT: NC/AT, PERRL, EOMI, anicteric sclera, conjunctiva without injection, external ear normal to inspection and nontender, nares patent, moist mucus membranes, dentition intact, no oropharyngeal lesions, neck supple, trachea midline, no LAD, no thyromegaly, no JVD Heart: +S1/S2, regular, tachycardic, no m/r/g Lungs: equal air entry bilaterally, no rales/rhonchi/wheezes Abd: +BS, soft, NT/ND, no masses/organomegaly/ascites, urostomy in place with small amount of urine in bag, colostomy in place, no bleeding/drainage/erythema at site Ext: warm, 2+ pulses in UE/LE bilaterally, no clubbing/cyanosis, 1+ pitting edema of bilateral LE Neuro: Patient with incomplete quadriplegia, has some functional use of his arms and hands although limited, diminished sensation of legs, awake alert and oriented x4 with normal speech, no facial droop, cranial nerves grossly intact Results & Data Results & Data ([facility]) Vital Signs (Past 12 Hours) Vital Signs Temp Pulse Resp BP Pulse Ox 04/30/21 17:07 105 H 98/52 L 04/30/21 16:20 37.3 C 112 H 18 91/52 L 91 PG Care Time/CCT Total # of Minutes Spent Total Time Spent with Patient: Total time spent is greater than 50% in coordination of care (as documented) at patient's floor/unit and/or counseling p atient: Coding Level of Care Code 79599 Subseq Hosp Care Lvl 2 Diagnoses Sacral decubitus ulcer, stage III L89.153 Chronic incomplete quadriplegia G82.50 History of urinary diversion procedure Z98.890 Anemia D64.9 Rheumatoid arthritis M06.9 GERD (gastroesophageal reflux disease) K21.9 Depression F32.9 Time Spent (min) 25
[2021-05-01] MEDS: PIPERACILLIN/TAZOBACTAM 3.375 GM in DEXTROSE 5% 100 ML IV SCH ×3 (04:33→20:06)
[2021-05-01] MEDS: LIDOCAINE 5% 1 PATCH TD SCH (09:02)
[2021-05-01] MEDS: ARTIFICIAL TEARS OP SCH ×2 (09:04→19:56)
[2021-05-01] MEDS: BETAMETHASONE DIP AUG (DIPROLENE) 0.05% CR 15 GM TUBE EXT SCH ×2 (09:08→19:59)
[2021-05-01] MEDS: buPROPion XL 150 MG TABCR PO SCH (09:08)
[2021-05-01] MEDS: DOCUSATE SODIUM 100 MG CAP PO SCH ×3 (09:08→19:57)
[2021-05-01] MEDS: PANTOprazole 40 MG TAB PO SCH (09:09)
[2021-05-01] MEDS: POLYETHYLENE (MIRALAX) 17 GM PACK PO SCH (09:09)
[2021-05-01 12:14] LABS: Hematocrit (blood only) 29.2 % (42-52); Hemoglobin 8.9 g/dL (14.0-18.0); Mean Corpuscular Hemoglobin 24.7 pg (25-34); Mean Corpuscular Hgb Conc 30.5 g/dL (32-36); Mean Corpuscular Volume 81.1 fL (80-100); Mean Platelet Volume 8.5 fL (7.4-10.4); Platelet Count 767 K/uL (130-400); RDW Coefficient of Variation 17.6 % (11.5-14.5); White Blood Count 11.88 K/uL (4.8-10.8)
[2021-05-01] MEDS: SODIUM BICARBONATE 650 MG TAB PO SCH (12:15)
[2021-05-01 12:55] LABS: BUN Creatinine Ratio 13.7 (10-20); Calcium 9.3 mg/dl (8.5-10.1); Creatinine Clr Calc Pharmacy 43.4 ml/min; Est GFR (African American) 44.7 ml/min; Est GFR (Non-African American) 38.6 ml/min
[2021-05-01] MEDS: GABAPENTIN 300 MG CAP PO SCH (19:57)
[2021-05-01] MEDS: ASPIRIN 81 MG ECTAB PO SCH (19:57)
--- NOTE | 2021-05-01 21:06 | Hospitalist Progress Note ---
Date of Service May 01, 2021 Assessment & Plan (1) Sacral decubitus ulcer, stage III: Plan: 75-year-old male with history of incomplete quadriplegia presenting with stage III sacral decubitus ulcer. CT obtained which revealed tracking from the skin surface into the deep subcutaneous tissues. No fluid collection. Patient is afebrile, hemodynamically stable. Nontoxic in appearance. 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 Admit to medical floor Wound care consult and general surgery assistance appreciated -Will obtain wound culture. -Ulcer was clean and debrided by surgery. We will continue Zosyn for empiric coverage Turn every 2 hours Perineal care as needed. states that patient has a persistent anal discharge despite the presence of colostomy Patient now has a wound vac Awaiting cultures. (2) Chronic incomplete quadriplegia: Plan: Patient at baseline functional status Turn every 2 hours Assistance with meals Call friedman in hand are within reach. Mouth call friedman if available -Maintain heel boots in place Aspiration precautions Flexeril 10 mg p.o. 3 times daily for neck pain Lidoderm patch Tramadol for pain Gabapentin 300 mg p.o. nightly (3) History of urinary diversion procedure: Plan: Urostomy in place with clear urine in the bag Routine care every shift (4) Anemia: Plan: Normochromic, normocytic anemia with Hgb = 10.6, HCT = 33.6. No active bleeding. This is near patient's baseline Continue to monitor (5) Rheumatoid arthritis: Plan: Patient currently not on any medication for this Continue to monitor (6) GERD (gastroesophageal reflux disease): Plan: Chronic. Stable. Protonix 40 mg p.o. daily (7) Depression: Plan: Chronic. Stable. Continue Wellbutrin Continue hydroxyzine as needed for anxiety Plan: FENLR at 100 mL/h x 2 L, monitor electrolytes and replete as needed, regular diet as tolerated with assistance and aspiration precautions. Continue bowel regimen with Colace, senna and MiraLAX. states that patient's usual output from his colostomy is soft and occurs every 2 to 3 days Prophylaxiswe will avoid chemoprophylaxis at this time CodeDNR/DNI per discussion with patient. at bedside Admission and Anticipated Discharge Date Admission Date: April 29, 2021 Subjective Patient reports no new symptoms. Review of Systems Review of Systems: All systems reviewed & are unremarkable except as noted in HPI & below Physical Exam Physical Exam: General: NAD, A&O x 4 Skin: warm, dry, RLE lesion covered with Kerlix with boots in place, Sacral wound s/p bedside debridement wtih wet-to-dry packing and kerlix HEENT: NC/AT, PERRL, EOMI, anicteric sclera, conjunctiva without injection, external ear normal to inspection and nontender, nares patent, moist mucus membranes, dentition intact, no oropharyngeal lesions, neck supple, trachea midline, no LAD, no thyromegaly, no JVD Heart: +S1/S2, regular, tachycardic, no m/r/g Lungs: equal air entry bilaterally, no rales/rhonchi/wheezes Abd: +BS, soft, NT/ND, no masses/organomegaly/ascites, urostomy in place with small amount of urine in bag, colostomy in place, no bleeding/drainage/erythema at site Ext: warm, 2+ pulses in UE/LE bilaterally, no clubbing/cyanosis, 1+ pitting edema of bilateral LE Neuro: Patient with incomplete quadriplegia, has some functional use of his arms and hands although limited, diminished sensation of legs, awake alert and oriented x4 with normal speech, no facial droop, cranial nerves grossly intact Results & Data Results & Data ([facility]) Vital Signs (Past 12 Hours) Vital Signs Temp Pulse Resp BP Pulse Ox 05/01/21 15:56 36.9 C 111 H 20 160/71 H 95 PG Care Time/CCT Total # of Minutes Spent Total Time Spent with Patient: Total time spent is greater than 50% in coordination of care (as documented) at patient's floor/unit and/or counseling patient: Coding Level of Care Code 23691 Subseq Hosp Care Lvl 2 Diagnoses Sacral decubitus ulcer, stage III L89.153 Chronic incomplete quadriplegia G82.50 History of urinary diversion procedure Z98.890 Anemia D64.9 Rheumatoid arthritis M06.9 GERD (gastroesophageal reflux disease) K21.9 Depression F32.9 Time Spent (min) 25
[2021-05-02] MEDS: PIPERACILLIN/TAZOBACTAM 3.375 GM in DEXTROSE 5% 100 ML IV SCH ×3 (04:30→20:15)
[2021-05-02] MEDS: DOCUSATE SODIUM 100 MG CAP PO SCH ×2 (10:12→20:16)
[2021-05-02] MEDS: buPROPion XL 150 MG TABCR PO SCH (10:13)
[2021-05-02] MEDS: PANTOprazole 40 MG TAB PO SCH (10:13)
[2021-05-02] MEDS: LIDOCAINE 5% 1 PATCH TD SCH (10:14)
[2021-05-02] MEDS: BETAMETHASONE DIP AUG (DIPROLENE) 0.05% CR 15 GM TUBE EXT SCH ×3 (10:15→20:18)
[2021-05-02] MEDS: ARTIFICIAL TEARS OP SCH ×2 (10:15→20:15)
[2021-05-02] MEDS: POLYETHYLENE (MIRALAX) 17 GM PACK PO SCH (10:16)
[2021-05-02] MEDS: SODIUM BICARBONATE 650 MG TAB PO SCH (14:06)
--- NOTE | 2021-05-02 19:45 | Hospitalist Progress Note ---
Date of Service May 02, 2021 Assessment & Plan (1) Sacral decubitus ulcer, stage III: Plan: 75-year-old male with history of incomplete quadriplegia presenting with stage [address]ral [address] ulcer. CT obtained which revealed tracking from the skin surface into the deep subcutaneous tissues. No fluid collection. Patient is afebrile, hemodynamically stable. Nontoxic in appearance. 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 Admit to medical floor Wound care consult and general surgery assistance appreciated -Will obtain wound culture. -Ulcer was clean and debrided by surgery. We will continue Zosyn for empiric coverage Turn every 2 hours Perineal care as needed. states that patient has a persistent anal discharge despite the presence of colostomy Patient now has a wound vac Awaiting cultures. (2) Chronic incomplete quadriplegia: Plan: Patient at baseline functional status Turn every 2 hours Assistance with meals Call friedman in hand are within reach. Mouth call friedman if available -Maintain heel boots in place Aspiration precautions Flexeril 10 mg p.o. 3 times daily for neck pain Lidoderm patch Tramadol for pain Gabapentin 300 mg p.o. nightly (3) History of urinary diversion procedure: Plan: Urostomy in place with clear urine in the bag Routine care every shift (4) Anemia: Plan: Normochromic, normocytic anemia with Hgb = 10.6, HCT = 33.6. No active bleeding. This is near patient's baseline Continue to monitor (5) Rheumatoid arthritis: Plan: Patient currently not on any medication for this Continue to monitor (6) GERD (gastroesophageal reflux disease): Plan: Chronic. Stable. Protonix 40 mg p.o. daily (7) Depression: Plan: Chronic. Stable. Continue Wellbutrin Continue hydroxyzine as needed for anxiety (8) CKD (chronic kidney disease), stage III: Plan: CKD appears at baseline. will monitor. Plan: FENLR at 100 mL/h x 2 L, monitor electrolytes and replete as needed, regular diet as tolerated with assistance and aspiration precautions. Continue bowel regimen with Colace, senna and MiraLAX. states that patient's usual output from his colostomy is soft and occurs every 2 to 3 days Prophylaxiswe will avoid chemoprophylaxis at this time CodeDNR/DNI per discussion with patient. at bedside Admission and Anticipated Discharge Date Admission Date: April 29, 2021 Subjective Patient reports no new symptoms. Review of Systems Review of Systems: All systems reviewed & are unremarkable except as noted in HPI & below Physical Exam Physical Exam: General: NAD, A&O x 4 Skin: warm, dry, RLE lesion covered with Kerlix with boots in place, Sacral w ound s/p bedside debridement wtih wet-to-dry packing and kerlix HEENT: NC/AT, PERRL, EOMI, anicteric sclera, conjunctiva without injection, external ear normal to inspection and nontender, nares patent, moist mucus membranes, dentition intact, no oropharyngeal lesions, neck supple, trachea midline, no LAD, no thyromegaly, no JVD Heart: +S1/S2, regular, tachycardic, no m/r/g Lungs: equal air entry bilaterally, no rales/rhonchi/wheezes Abd: +BS, soft, NT/ND, no masses/organomegaly/ascites, urostomy in place with small amount of urine in bag, colostomy in place, no bleeding/drainage/erythema at site Ext: warm, 2+ pulses in UE/LE bilaterally, no clubbing/cyanosis, 1+ pitting edema of bilateral LE Neuro: Patient with incomplete quadriplegia, has some functional use of his arms and hands although limited, diminished sensation of legs, awake alert and oriented x4 with normal speech, no facial droop, cranial nerves grossly intact Results & Data Results & Data ([facility]) Vital Signs (Past 12 Hours) Vital Signs Temp Pulse Pulse Resp BP Pulse Ox 05/02/21 16:15 36.9 C 10 L 98 H 17 144/89 H 95 05/02/21 08:34 37.2 C 103 H 18 129/82 92 PG Care Time/CCT Total # of Minutes Spent Total Time Spent with Patient: Total time spent is greater than 50% in coordination of care (as documented) at patient's floor/unit and/or counseling patient: Coding Level of Care Code 26895 Subseq Hosp Care Lvl 2 Diagnoses Sacral decubitus ulcer, stage III L89.153 Chronic incomplete quadriplegia G82.50 History of urinary diversion procedure Z98.890 Anemia D64.9 Rheumatoid arthritis M06.9 GERD (gastroesophageal reflux disease) K21.9 Depression F32.9 CKD (chronic kidney disease), stage III N18.30
[2021-05-02] MEDS: ASPIRIN 81 MG ECTAB PO SCH (20:15)
[2021-05-02] MEDS: GABAPENTIN 300 MG CAP PO SCH (20:16)
[2021-05-03] MEDS: PIPERACILLIN/TAZOBACTAM 3.375 GM in DEXTROSE 5% 100 ML IV SCH ×3 (04:47→20:13)
[2021-05-03 07:44] LABS: Creatinine Clr Calc Pharmacy 47.9 ml/min; Est GFR (African American) 50.4 ml/min; Est GFR (Non-African American) 43.5 ml/min
[2021-05-03] MEDS: BETAMETHASONE DIP AUG (DIPROLENE) 0.05% CR 15 GM TUBE EXT SCH ×2 (09:57→20:21)
[2021-05-03] MEDS: ARTIFICIAL TEARS OP SCH ×2 (09:57→20:14)
[2021-05-03] MEDS: buPROPion XL 150 MG TABCR PO SCH (09:58)
[2021-05-03] MEDS: LIDOCAINE 5% 1 PATCH TD SCH (09:58)
[2021-05-03] MEDS: PANTOprazole 40 MG TAB PO SCH (09:59)
[2021-05-03] MEDS: POLYETHYLENE (MIRALAX) 17 GM PACK PO SCH (09:59)
[2021-05-03] MEDS: DOCUSATE SODIUM 100 MG CAP PO SCH ×2 (10:00→20:20)
[2021-05-03] MEDS: SODIUM BICARBONATE 650 MG TAB PO SCH (15:19)
--- NOTE | 2021-05-03 19:08 | Hospitalist Progress Note ---
Date of Service May 03, 2021 Assessment & Plan (1) Sacral decubitus ulcer, stage III: Plan: 75-year-old male with history of incomplete quadriplegia presenting with stage III sacral decub[address] ulcer. CT obtained which revealed tracking from the skin surface into the deep subcutaneous tissues. No fluid collection. Patient is afebrile, hemodynamically stable. Nontoxic in appearance. 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 - Leukocytosis is improving with IV Abx - S/P debridement on 04/29 by general surgery - Cx with low counts mixed probable GI microbiota - pt does have chronic anal discharge despite presence of colostmy and suspect this may have contaminated wound - Currently on Zosyn therapy - no evidence of osseos destruction is seen on imaging -- Could consider oral antibiotic course that covers GI organisms and close follow-up with wound care - if worsening findings consider further imaging and will have to monitor for osteomyelitis given chronic anal drainage and his quadriplegia may limit him sensing more pain/changes (family is very supportive with care) Turn every 2 hours Perineal care as needed. states that patient has a persistent anal discharge despite the presence of colostomy - Wound vac in place - plan to have F/U with wound care center on 18 May -- Pt also follows with wound care through [place] and just started [facility] - patient has had extensive hospital stays for wounds ([place]) (2) Chronic incomplete quadriplegia: Plan: - Patient at baseline functional status Turn every 2 hours; assistance with meals Flexeril 10 mg p.o. 3 times daily for neck pain Lidoderm patch Tramadol for pain Gabapentin 300 mg p.o. nightly (3) History of urinary diversion procedure: Plan: - Urostomy in place with clear urine in the bag Routine care every shift (4) Anemia: Plan: - Normochromic, normocytic anemia - Slightly lower today and will repeat CBC in AM (5) Rheumatoid arthritis: Plan: - Patient currently not on any medication for this Continue to monitor (6) GERD (gastroesophageal reflux disease): Plan: - Chronic. Stable. Protonix 40 mg p.o. daily (7) Depression: Plan: - Chronic. Stable - feels may be a little bit exacerbated given his multiple hospital stays Continue Wellbutrin Continue hydroxyzine as needed for anxiety (8) CKD (chronic kidney disease), stage III: Plan: - CKD appears at baseline; continue to monitor Plan: - Plan is for discharge home with and [employer] - pending AM labs could likely go tomorrow - Complete a course of antibiotics - likely could complete oral course -- Close monitoring for worsening wound prompting further imaging or prolonged Abx - Pt has a wound vac at home that was approved for his lower leg (didn't use and now not needed for leg) - [facility] approved use for sacral region - Could discharge patient home without wound vac to make transport easier for patient/family and have it replaced upon arriving at home - wound care center follow-up on 18 May. was curious if the office has the means to get him from his motorized chair to an exam table as he requires a lift Admission and Anticipated Discharge Date Admission Date: April 29, 2021 Subjective Reports feeling overall well today. Not having any pain. Just eager to return home. Discussed current plan. Updated his over the phone as well Review of Systems Review of Systems: REVIEW OF SYSTEMS General/Constitutional: Denies fever/chills ENT: Denies sore throat Cardiovascular: Denies chest pain, palpitations, edema Respiratory: Denies cough, SOB, wheezing GI: Denies nausea, vomiting, abdominal pain Musculoskeletal: Denies joint/muscle aches Results & Data Results & Data ([facility]) Vital Signs (Past 12 Hours) Vital Signs Temp Pulse Resp BP Pulse Ox 05/03/21 15:06 36.6 C 103 H 18 120/70 92 05/03/21 07:28 37.1 C 105 H 16 113/68 91 PG Care Time/CCT Total # of Minutes Spent Total Time Spent with Patient: Total time spent is greater than 50% in coordination of care (as documented) at patient's floor/unit and/or counseling patient: Coding Level of Care Code 06633 Subseq Hosp Care Lvl 3 Diagnoses Sacral decubitus ulcer, stage III L89.153 Chronic incomplete quadriplegia G82.50 History of urinary diversion procedure Z98.890 Anemia D64.9 Rheumatoid arthritis M06.9 GERD (gastroesophageal reflux disease) K21.9 Depression F32.9 CKD (chronic kidney disease), stage III N18.30
[2021-05-03] MEDS: GABAPENTIN 300 MG CAP PO SCH (20:14)
[2021-05-03] MEDS: ASPIRIN 81 MG ECTAB PO SCH (20:14)
[2021-05-04] MEDS: PIPERACILLIN/TAZOBACTAM 3.375 GM in DEXTROSE 5% 100 ML IV SCH (03:56)
[2021-05-04 06:58] LABS: Hemoglobin 9.7 g/dL (14.0-18.0); Mean Corpuscular Hemoglobin 25.3 pg (25-34); Mean Corpuscular Hgb Conc 31.3 g/dL (32-36); Mean Corpuscular Volume 80.7 fL (80-100); Mean Platelet Volume 8.7 fL (7.4-10.4); Nucleated RBC # (auto) 0.04 K/uL (0-0); Nucleated RBC % (auto) 0.5 %; Platelet Count 895 K/uL (130-400); RDW Coefficient of Variation 17.7 % (11.5-14.5); RDW Standard Deviation 50.9 fL (36.4-46.3); Red Blood Count 3.84 M/uL (4.7-6.1); White Blood Count 9.32 K/uL (4.8-10.8)
[2021-05-04 07:43] LABS: BUN Creatinine Ratio 10.3 (10-20); Calcium 9.8 mg/dl (8.5-10.1); Creatinine Clr Calc Pharmacy 46.4 ml/min; Est GFR (African American) 48.5 ml/min; Est GFR (Non-African American) 41.9 ml/min; Potassium 3.8 mmol/L (3.5-5.1)
[2021-05-04] MEDS: ARTIFICIAL TEARS OP SCH ×2 (09:11→20:34)
[2021-05-04] MEDS: BETAMETHASONE DIP AUG (DIPROLENE) 0.05% CR 15 GM TUBE EXT SCH ×2 (09:12→20:33)
[2021-05-04] MEDS: ASCORBIC ACID 500 MG TAB PO SCH (09:12)
[2021-05-04] MEDS: buPROPion XL 150 MG TABCR PO SCH (09:12)
[2021-05-04] MEDS: MULTIVITAMIN TAB PO SCH (09:13)
[2021-05-04] MEDS: PANTOprazole 40 MG TAB PO SCH (09:13)
[2021-05-04] MEDS: LIDOCAINE 5% 1 PATCH TD SCH (09:13)
[2021-05-04] MEDS: DOCUSATE SODIUM 100 MG CAP PO SCH ×2 (09:14→20:34)
[2021-05-04] MEDS: POLYETHYLENE (MIRALAX) 17 GM PACK PO SCH (09:14)
[2021-05-04] MEDS: AMOXICILLIN/CLAVULANATE 875 MG TAB PO SCH ×2 (12:30→20:34)
[2021-05-04] MEDS: SODIUM BICARBONATE 650 MG TAB PO SCH (12:30)
[2021-05-04] MEDS ORDERED: TRANEXAMIC ACID / 0.7% NACL 1000MG/100ML BAG IV ONE (13:16)
[2021-05-04] MEDS: ASPIRIN 81 MG ECTAB PO SCH (20:34)
[2021-05-04] MEDS: GABAPENTIN 300 MG CAP PO SCH (20:34)
[2021-05-05 07:22] LABS: Creatinine Clr Calc Pharmacy 41.6 ml/min; Est GFR (African American) 42.6 ml/min; Est GFR (Non-African American) 36.7 ml/min
--- NOTE | 2021-05-05 08:18 | Hospitalist Progress Note ---
Date of Service May 05, 2021 Assessment & Plan (1) Sacral decubitus ulcer, stage III: Plan: 75-year-old male with history of incomplete quadriplegia presenting with stage III sacral decub[address] ulcer. CT obtained which revealed tracking from the skin surface into the deep subcutaneous tissues. No fluid collection. Patient is afebrile, hemodynamically stable. Nontoxic in appearance. 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 - Leukocytosis is improving with IV Abx - S/P debridement on 04/29 by general surgery - Cx with low counts mixed probable GI microbiota - pt does have chronic anal discharge despite presence of colostmy and suspect this may have contaminated wound - was on Zosyn therapy - no evidence of osseos destruction is seen on imaging -- change to Augmentin BID today may limit him sensing more pain/changes (family is very supportive with care) Turn every 2 hours Perineal care as needed. states that patient has a persistent anal discharge despite the presence of colostomy - Wound vac in place - plan to have F/U with wound care center on 18 May -- Pt also follows with wound care through [place] and [facility] - patient has had extensive hospital stays for wounds ([place]) plan to discharge to home morning on 05/05 (2) Chronic incomplete quadriplegia: Plan: - Patient at baseline functional status Turn every 2 hours; assistance with meals Flexeril 10 mg p.o. 3 times daily for neck pain Lidoderm patch Tramadol for pain Gabapentin 300 mg p.o. nightly (3) History of urinary diversion procedure: Plan: - Urostomy in place with clear urine in the bag Routine care every shift (4) Anemia: Plan: - Normochromic, normocytic anemia - Slightly lower today and will repeat CBC in AM (5) Rheumatoid arthritis: Plan: - Patient currently not on any medication for this Continue to monitor (6) GERD (gastroesophageal reflux disease): Plan: - Chronic. Stable. Protonix 40 mg p.o. daily (7) Depression: Plan: - Chronic. Stable - feels may be a little bit exacerbated given his multiple hospital stays Continue Wellbutrin Continue hydroxyzine as needed for anxiety (8) CKD (chronic kidney disease), stage III: Plan: - CKD appears at baseline; continue to monitor Plan: - Plan is for discharge home with and [facility] - pending AM labs could likely go tomorrow - Complete a course of antibiotics - likely could complete oral course -- Close monitoring for worsening wound prompting further imaging or prolonged Abx - Pt has a wound vac at home that was approved for his lower leg (didn't use and now not needed for leg) - [facility] approved use for sacral region - Could discharge patient home without wound vac to make transport easier for patient/family and have it replaced upon arriving at home - wound care center follow-up on 18 May. was curious if the office has the means to get him from his motorized chair to an exam table as he requires a lift Admission and Anticipated Discharge Date Admission Date: April 29, 2021 Subjective patient is stable, eating well, changed to Augmentin, he is tolerating discussed with he and his about going home in the morning on 05/05, they are in agreement they have home health set up and can manage him there Review of Systems Review of Systems: All systems reviewed & are unremarkable except as noted in Subjective Physical Exam Physical Exam: General: well developed, well nourished, no acute distress, comfortable Neck: supple, trachea midline, normal thyroid Lungs: clear to auscultation bilaterally, normal respiratory effort, no accessory muscle use, no distress Heart: regular S1 and S2, no murmur, peripheral pulses normal, capillary refill normal, no edema Abdomen: soft, NT, ND, + BS, no hepatomegaly, normal to percussion, ostomy intact Extremities: normal in appearance, no cyanosis, no petechiae, strength is 5/5 bilaterally Neuro: awake, cooperative, paraplegic, CN II-XII intact, sensation in extremities intact, normal speech Skin: sacral decubitus ulcer Psych: Awake, alert oriented x 3, euthymic affect Results & Data Results & Data ([facility]) Vital Signs (Past 12 Hours) Vital Signs Temp Pulse Pulse Resp BP Pulse Ox 05/05/21 07:26 37.2 C 115 H 18 100/63 93 05/04/21 22:45 36.9 C 81 17 143/82 H 93 PG Care Time/CCT Total # of Minutes Spent Total Time Spent with Patient: Total time spent is greater than 50% in coordination of care (as documented) at patient's floor/unit and/or counseling patient: Coding Level of Care Code 33924 Subseq Hosp Care Lvl 2 Diagnoses Sacral decubitus ulcer, stage III L89.153 Chronic incomplete quadriplegia G82.50 History of urinary diversion procedure Z98.890 Anemia D64.9 Rheumatoid arthritis M06.9 GERD (gastroesophageal reflux disease) K21.9 Depression F32.9 CKD (chronic kidney disease), stage III N18.30
[2021-05-05] MEDS: AMOXICILLIN/CLAVULANATE 875 MG TAB PO SCH (10:23)
[2021-05-05] MEDS: ASCORBIC ACID 500 MG TAB PO SCH (10:23)
[2021-05-05] MEDS: ARTIFICIAL TEARS OP SCH (10:24)
[2021-05-05] MEDS: PANTOprazole 40 MG TAB PO SCH (10:25)
[2021-05-05] MEDS: MULTIVITAMIN TAB PO SCH (10:25)
[2021-05-05] MEDS: DOCUSATE SODIUM 100 MG CAP PO SCH (10:26)
[2021-05-05] MEDS: buPROPion XL 150 MG TABCR PO SCH (10:26)
[2021-05-05] MEDS: BETAMETHASONE DIP AUG (DIPROLENE) 0.05% CR 15 GM TUBE EXT SCH (10:26)
[2021-05-05] MEDS: LIDOCAINE 5% 1 PATCH TD SCH (10:27)
[2021-05-05] MEDS: POLYETHYLENE (MIRALAX) 17 GM PACK PO SCH (10:27)
[2021-05-05] MEDS: SODIUM BICARBONATE 650 MG TAB PO SCH (13:16)
--- NOTE | 2021-05-05 17:37 | Discharge Summary ---
Date of Service May 05, 2021 Admission HPI Per Admitting Provider Meek Anaya is a 75yo male with history of incomplete quadriplegia CKD, PTSD. Patient was recently hospitalized at the [facility] in [place] for a right lower extremity wound for approximately 3 weeks. During that time he unfortunately developed a sacral decubitus ulcer. He was discharged home on April 29 with home services. Son was providing wound care and was concerned that the sacral ulcer was getting worse. The family called home nursing and they evaluated the patient sacral decubiti yesterday and recommended that he be seen at the [facility] wound clinic. He was then referred to the hospital. Patient denies pain/fever/chills/malaise. He denies chest pain/palpitations/shortness of breath/abdominal pain/nausea/vomiting/diarrhea. His appetite is intact and he has had normal output from his colostomy and urostomy. No additional complaints at this time. In the ER patient afebrile, tachycardic at 111 bpm, blood pressure stable, no respiratory distress. He was evaluated by surgery and had bedside debridement performed. ER course: [place] Principal Diagnosis Sacral Decubitus Discharge Exam PHYSICAL EXAM General Appearance: NAD;A&O x 3 HEENT: Head is normocephalic/atraumatic; Hearing grossly intact; Mucous membranes moist Neck: Supple; Trachea midline; Neg JVD Heart: RRR with no M/G/R Lungs: CTA in all lung xiong bilaterally; Respirations unlabored; Neg accessory muscle use Abdomen: Soft, non-tender, non-distended; Positive BS x 4 quadrants; +ostomy Extremities: Neg cyanosis or edema Neurological: Speech clear Psychiatric: Appropriate mood/affect Skin: Normal Color; Warm/Dry; Reviewed imaging of sacral decubitus Discharge Data Allergies Allergy/AdvReac Type Severity Reaction Status Date / Time shellfish derived Allergy Severe Anaphylaxis Verified 04/29/21 20:46 trimethoprim Allergy Intermediate rash Verified 04/29/21 20:46 oxycodone AdvReac Severe PSYCHOTIC Verified 04/29/21 20:46 Sulfa (Sulfonamide AdvReac Severe KIDNEY Verified 04/29/21 20:46 Antibiotics) FAILURE hydromorphone AdvReac Intermediate NAUSEA AND Verified 04/29/21 20:46 VOMITING morphine AdvReac Mild VOMITING Verified 04/29/21 20:46 naproxen AdvReac Mild vertigo Verified 04/29/21 20:46 Consultations 04/29/21 22:28 ED Decision to Admit Stat Ordered Studies 04/29/21 20:28 CT abd pelvis IV con only Urgent Hospital Course (1) Sacral decubitus ulcer, stage III: 75-year-old male with history of incomplete quadriplegia presenting with stage [address] ulcer. CT obtained which revealed tracking from the skin surface into the deep subcutaneous tissues. No fluid collection. Patient is afebrile, hemodynamically stable. Nontoxic in appearance. 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 - Leukocytosis resolved with IV Abx - S/P debridement on 04/29 by general surgery - Cx with low counts mixed probable GI microbiota - pt does have chronic anal discharge despite presence of colostomy and suspect this may have contaminated wound - was on Zosyn therapy - no evidence of osseous destruction on imaging -- change to Augmentin BID to complete course - Will need ongoing monitoring and possibly repeat imaging if development of fever or worsening illness given risk for osteo Turn every 2 hours Perineal care as needed. states that patient has a persistent anal discharge despite the presence of colostomy - Wound vac in place - plan to have F/U with wound care center on 18 May -- Pt also follows with wound care through [facility] and [facility] - patient has had extensive hospital stays for wounds and cervical intervention ([place]) (2) Chronic incomplete quadriplegia: - Patient at baseline functional status Turn every 2 hours; assistance with meals Flexeril 10 mg p.o. 3 times daily for neck pain Lidoderm patch Tramadol for pain Gabapentin 300 mg p.o. nightly (3) History of urinary diversion procedure: - Urostomy in place with clear urine in the bag Routine care every shift (4) Anemia: - Normochromic, normocytic anemia - Slightly lower today and will repeat CBC in AM (5) Rheumatoid arthritis: - Patient currently not on any medication for this Continue to monitor (6) GERD (gastroesophageal reflux disease): - Chronic. Stable. Protonix 40 mg p.o. daily (7) Depression: - Chronic. Stable - feels may be a little bit exacerbated given his multiple hospital stays Continue Wellbutrin Continue hydroxyzine as needed for anxiety (8) CKD (chronic kidney disease), stage III: - CKD appears at baseline; continue to monitor - Plan is for discharge home with and [employer] - Complete a course of antibiotics -- Close monitoring for worsening wound prompting further imaging or prolon ged Abx - Pt has a wound vac at home that was approved for his lower leg (didn't use and now not needed for leg) - [facility] approved use for sacral region Total Time Total Time Spent Total Time Spent (In Minutes): Greater than 30 minutes Discharge Plan Discharge Items Patient Disposition: Home - Home Health Services Reason For Visit: SACRAL DECUBITUS Discharge Diagnosis: Sacral Pressure Sore Activity: Resume your previous activity Non-emergency contact: Primary Care Provider Call non-emergency contact if: you have any medication questions, your symptoms worsen and you have a fever Follow-up/Referrals: Elmo Hoskins MD [Primary Care Provider] - Candice Prieto DO, FACEP [Physician] - 05/18/21 1:00 pm (You have an appt. at the wound clinic to assess your wound healing. This is on at 1:00pm.) Diet: Regular Addtl Attending Provider Instructions: Sacral Ulcer: - You had this ulcer debrided by the general surgery team here at the hospital to remove the unhealthy tissue. - The plan is to continue the wound vac and have you follow-up with the wound cl in in [place] on 18 May at 1 PM - You will have home health services to assist with the wound vac and monitoring - Instructions given to the home services on management - The wound will be irrigated with saline with skin prep applied to periphery and allowed to dry. Change every 48-72 hours - Could place a pad or gauze to help absorb the anal disharge to help prevent this from contaminating the wound - Would culture only showed low counts of GI bacteria (suspect this could be from the anal discharge). So likely it more contaminated the wound instead of fully infected it but will continue Antibiotics to fully treat - Will need to continue close monitoring of the wound. Any time we have a wound near bones we have to watch for bone infection developing. If you would develop a fever or the wound looks continues to get worse, you may need for imaging of the back and further evaluation of the wound. - Continue your home medications as previously prescribed as these were not changed. -- HOLD YOUR CEPHELAXIN (THIS IS THE ANTIBIOTIC YOU TAKE DAILY TO PREVENT INFECTION) until you finish the Augmentin then you can resume this as previously prescribed Pending Studies at Discharge: No Stand-Alone Forms: My [facility], Smoking Cessation Medications and DC Order Prescriptions: New amoxicillin-pot clavulanate [Augmentin] 875-125 mg Tablet 1 tab PO Q12 Qty: 7 RF: 0 Continued aspirin [Adult Aspirin Regimen] 81 mg tablet,delayed release (DR/EC) 81 mg PO QPM RF: 0 sodium bicarbonate 650 mg tablet 650 mg PO QDL RF: 0 polyethylene glycol 3350 [Miralax] 17 gram/dose powder 17 g PO QAM RF: 0 bupropion HCl [Wellbutrin XL] 150 mg tablet extended release 24 hr 150 mg PO QAM RF: 0 ascorbic acid (vitamin C) 500 mg capsule 500 mg PO BID RF: 0 gabapentin [Neurontin] 300 mg capsule 300 mg PO HS RF: 0 cholecalciferol (vitamin D3) [Vitamin D3] 25 mcg (1,000 unit) capsule 25 mcg PO BID RF: 0 cephalexin 500 mg capsule 500 mg PO BID Qty: 60 RF: 0 Artificial Tears (PF) 0.1-0.3 % Dropperette 1 drp OPB BID RF: 0 pantoprazole [Protonix] 40 mg tablet,delayed release (DR/EC) 40 mg PO DAILY RF: 0 acetaminophen [Tylenol] 325 mg Tablet 650 mg PO DIRECTED PRN (Reason: Pain) RF: 0 sennosides [Senokot] 8.6 mg Tablet 8.6 mg PO DAILY PRN (Reason: Constipation) RF: 0 hydrophilic [DermaFix] Ointment 1 applic TOPICAL BID RF: 0 lidocaine [Lidoderm] 5 % Adhesive Patch,Medicated 1 patch TOPICAL DAILY RF: 0 betamethasone dipropionate 0.05 % Cream 1 applic TOPICAL BID RF: 0 docusate sodium [Colace] 100 mg Capsule 100 mg PO BID RF: 0 hydroxyzine HCl 25 mg Tablet 25 mg PO Q8H PRN (Reason: Anxiety) RF: 0 Acidophilus Tablet,Chewable 2 tab PO DAILY RF: 0 melatonin 3 mg Capsule 3 mg PO HS PRN (Reason: Sleep) RF: 0 cyclobenzaprine 10 mg tablet 10 mg PO TID RF: 0 tramadol [Ultram] 50 mg tablet 50 mg PO Q8H RF: 0 Discharge Orders: Discharge Order (Routine); Ordered 05/05/21 Ordered By: Rosa Maria Collier Admission Data Admit Date/Time: 04/29/21 23:27 Attending Provider: Maurice Huang Admit Provider: Jessie Lawson Primary Care Provider: Elmo Hoskins Other Providers: Jessie Lawson ; [facility] Other Interventions: Discharge Summary Assessment (RN) Last Done: 05/05/21 13:20 Coding Level of Care Code D/C DAY MANAGEMENT >30 MINS Diagnoses Sacral decubitus ulcer, stage III L89.153 Chronic incomplete quadriplegia G82.50 History of urinary diversion procedure Z98.890 Anemia D64.9 Rheumatoid arthritis M06.9 GERD (gastroesophageal reflux disease) K21.9 Depression F32.9 CKD (chronic kidney disease), stage III N18.30
== END 2021-05-05 15:12 | disposition home health service (06) | DRG 570 ==
LOC: ED 17:31 → 3N 23:27 → SUATTDRO 23:27 → 3N 04-30 00:19
DX: Z88.5 Allergy status to narcotic agent; K21.9 Gastro-esophageal reflux disease without esophagitis; F43.10 Post-traumatic stress disorder, unspecified; Z93.3 Colostomy status; Z93.6 Other artificial openings of urinary tract status; Z88.2 Allergy status to sulfonamides; L03.317 Cellulitis of buttock; Y36.90XS War operations, unspecified, sequela; Z66 Do not resuscitate; Z96.653 Presence of artificial knee joint, bilateral; L89.153 Pressure ulcer of sacral region, stage 3; G82.50 Quadriplegia, unspecified; F32.9 Major depressive disorder, single episode, unspecified; Z90.81 Acquired absence of spleen; X58.XXXS Exposure to other specified factors, sequela; N18.30 Chronic kidney disease, stage 3 unspecified

== ENCOUNTER 2021-05-12 12:46 | Inpatient (IN) ==
--- NOTE | 2021-05-12 13:30 | XRay Report ---
XR chest 1V portable CLINICAL HISTORY: SEPSIS COMPARISON STUDY: April 23, 2021 FINDINGS: No pneumothorax. Partial silhouetting of peripheral aspect of the left hemidiaphragm could be due to small left pleura l effusion. Hazy opacity within left retrocardiac region slightly worsened since prior could represen t atelectasis or infiltrate. Right hemidiaphragm is elevated. No pleural effusion is seen on the right. Cardiac silhouette is prom inent. Aorta is calcified. No significant pulmonary vascular congestion.. Osseous structures: Mild degenerative changes of the spine. Redemonstration of the orthopedic hardwa re projecting to the lower cervical region. IMPRESSION: 1. Small left pleural effusion, worsening since prior. Atelectasis or infiltrates at the left lower lung. ACT 112: Negative or not required by law. The above report was generated using voice recognition software. It may contain grammatical, syntax o r spelling errors. Electronically signed by: Belkis Morales DO 05/12/2021 1:29 PM
[2021-05-12 13:36] LABS: Hematocrit (blood only) 33.4 % (42-52); Hemoglobin 10.3 g/dL (14.0-18.0); Mean Corpuscular Hemoglobin 25.5 pg (25-34); Mean Corpuscular Hgb Conc 30.8 g/dL (32-36); Mean Corpuscular Volume 82.7 fL (80-100); Platelet Count 1011 K/uL (130-400); RDW Coefficient of Variation 17.8 % (11.5-14.5); RDW Standard Deviation 53.6 fL (36.4-46.3); Red Blood Count 4.04 M/uL (4.7-6.1); White Blood Count 13.74 K/uL (4.8-10.8)
[2021-05-12 13:43] LABS: Partial Thromboplastin Ratio 1.1; Partial Thromboplastin Time 30.2 Seconds (21.0-31.0); Prothrombin Time 10.5 Seconds (9.0-12.0)
[2021-05-12 13:48] LABS: Basophils # (auto) 0.05 K/uL (0-0.2); Basophils % (auto) 0.4 %; Eosinophils # (auto) 1.32 K/uL (0-0.5); Eosinophils % (auto) 9.6 %; Immature Granulocytes # (auto) 0.06 K/uL (0.00-0.02); Immature Granulocytes % (auto) 0.4 %; Lymphocytes # (auto) 1.42 K/uL (1.2-3.4); Lymphocytes % (auto) 10.3 %; Monocytes # (auto) 2.47 K/uL (0.11-0.59); Neutrophils # (auto) 8.42 K/uL (1.4-6.5); Neutrophils % (auto) 61.3 %; Target Cells 1+
[2021-05-12 13:51] LABS: Albumin Level 2.4 gm/dl (3.4-5.0); BUN Creatinine Ratio 42.7 (10-20); Calcium 11.5 mg/dl (8.5-10.1); Creatinine Clr Calc Pharmacy 51.9 ml/min; Est GFR (African American) 51.7 ml/min; Est GFR (Non-African American) 44.6 ml/min; Magnesium 2.1 mg/dl (1.8-2.4); Potassium 4.6 mmol/L (3.5-5.1)
[2021-05-12 13:54] LABS: Albumin Globulin Ratio 0.5 (0.9-2); Bilirubin,Total 0.2 mg/dl (0.2-1); Globulin 5.2 gm/dl (2.5-4.0); Total Protein 7.6 gm/dl (6.4-8.2)
[2021-05-12] MEDS: SODIUM CHLORIDE 0.9% 1000ML 1,000 ML IV SCH ×3 (14:33→20:47)
--- NOTE | 2021-05-12 14:53 | XRay Report ---
SINGLE VIEW CHEST CLINICAL HISTORY: Change in mental status. FINDINGS: An AP, portable, upright chest radiograph is compared to study dated 05/12/2021. Correlation is made with chest CT dated 04/23/2021. The examination is mildly degraded by portable technique and p atient rotation. The heart is enlarged noting atherosclerotic calcification of the thoracic aorta. Th e pulmonary vasculature is noncongested. Chronic interstitial thickening and elevation of the right h emidiaphragm is similar to previous. No airspace consolidation or large pleural effusion is identifie d. Scarring/atelectasis is noted at the left lung base. No pneumothorax is seen. The bony thorax is g rossly intact. Fusion hardware is seen in the lower cervical spine. IMPRESSION: Cardiomegaly with no acute cardiopulmonary abnormality. ACT 112: Negative or not required by law. Electronically signed by: Indio Brown M.D. 05/12/2021 2:52 PM
--- NOTE | 2021-05-12 14:58 | XRay Report ---
KUB CLINICAL HISTORY: Change in mental status. FINDINGS: 2 AP, portable, supine abdominal radiographs are compared to study dated 01/15/2020 and ángel elated with abdominal CT dated 04/29/2021. There is a nonobstructed abdominal bowel gas pattern. No chu dence of intraperitoneal free air is seen on these supine images. Numerous surgical clips are seen th roughout the pelvis. A metallic foreign body is seen in the left upper quadrant. Suture admission mat erial project over the abdomen and pelvis. There are no abnormal abdominal calcifications. Phlebolith s are seen in the pelvis. Mild fecal retention is seen in the right colon. The skeletal structures ar e osteopenic and appear intact. There is advanced lumbosacral spondylosis and scoliosis. A right hip arthroplasty is in place. IMPRESSION: No acute abnormality is identified. Electronically signed by: Indio Brown M.D. 05/12/2021 2:56 PM
--- NOTE | 2021-05-12 15:26 | CT Scan Report ---
CT OF THE HEAD WITHOUT CONTRAST CLINICAL HISTORY: Altered mental status. COMPARISON STUDY: Head CT and CTA of the head January 28, 2020. CT DOSE: 788.63 mGycm TECHNIQUE: Helical axial images of the head were obtained without IV contrast. Automated exposure con trol was utilized for the study. A dose lowering technique was utilized adhering to the principles o f ALARA. FINDINGS: No acute intracranial hemorrhage, midline shift or mass effect is present. The ventricular system is stable. White matter hypodensity suggests small vessel disease. The basal cisterns are siddiqi nt. No extra-axial collections are present. There are no findings to suggest acute dural sinus thromb osis or acute territorial infarct. No significant calvarial abnormalities are present. Postoperative findings within the cervical spine are partially imaged on this exam. Left mastoid air cells are part ially opacified. There are minimal secretions within the right sphenoid sinus. IMPRESSION: 1. No acute intracranial findings. 2. Partially opacified left mastoid air cells. ACT 112: Negative or not required by law. Electronically signed by: Eyad Bo M.D. 05/12/2021 3:25 PM
--- NOTE | 2021-05-12 16:03 | Electrocardiogram Report ---
Test Reason : Blood Pressure : / mmHG Vent. 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
[2021-05-12 17:21] LABS: Appearance Urine Clear (Clear); Bacteria Urine Automated 2+ (Negative); Bilirubin Urine Negative (Negative); Blood Urine Negative (Negative); Color Urine Yellow; Epithelial Cell Urine Auto >30 /lpf (0-5); Glucose Urine UA Negative (Negative); Ketones Urine Negative (Negative); Leukocyte Esterase Urine 2+ (Negative); Nitrite Urine Positive (Negative); RBC Urine Automated 0-4 /hpf (0-4); Specific Gravity Urine 1.013 (1.000-1.030); Urobilinogen Urine Negative (Negative); pH Urine 7.5 (4.5-7.5)
[2021-05-12 17:23] LABS: Protein Urine 1+ (Negative)
[2021-05-12 17:34] LABS: Renal Epithelial Cells Urine 0-5 /lpf (0-5)
--- NOTE | 2021-05-12 18:01 | Emergency Department Note ---
History of Present Illness General Chief complaint: Weakness Stated complaint: weakness, hypotension Time Seen by Provider: 05/12/21 13:59 Source: family Mode of arrival: EMS Limitations: altered mental status History of Present Illness Provider complaint: Altered mental status This is a 75-year-old male presents emergency department via EMS with his who is the primary historian with concern for altered mental status. states patient with a complicated history including prior neck surgery, colostomy, and urostomy. She states they do have a difficult time getting him to do tolerate food and drink and stay well-hydrated. She states this morning he did have an episode of choking/coughing when he was attempting to eat so out of concern for possible aspiration they stopped. Patient seemed more fatigued today compared to normal, and she has noted that over the last several days. She denied noting any fevers, cough, or him complaining of any pain. She states he then began to talk about things that were not there, and seemed confused and hallucinating. Patient contacted 911 for patient be brought to the emergency room. She denies any recent change in medications. She states a wound care n remy has been coming to the house to check on a sacral decubitus ulcer that he has, he does have a wound VAC at this time. She states both she and the wound care nurse feel that area is improving. Pt seen during a time of high acuity and national emergency pandemic while wearing PPE. Home Medications Medication Instructions Recorded Confirmed Type ascorbic acid (vitamin C) 500 mg 500 mg PO BID cap 05/11/18 05/12/21 History capsule aspirin 81 mg tablet,delayed 81 mg PO QPM 05/11/18 05/12/21 History release (Adult Aspirin Regimen) bupropion HCl 150 mg 24 hr tablet, 150 mg PO QAM 05/11/18 05/12/21 History extended release (Wellbutrin XL) polyethylene glycol 3350 17 17 g PO QAM gm 05/11/18 05/12/21 History gram/dose oral powder (Miralax) sodium bicarbonate 650 mg tablet 650 mg PO QDL tab 05/11/18 05/12/21 History gabapentin 300 mg capsule 300 mg PO HS cap 06/13/18 05/12/21 History (Neurontin) cholecalciferol (vitamin D3) 25 25 mcg PO BID cap 01/09/20 05/12/21 History mcg (1,000 unit) capsule (Vitamin D3) pantoprazole 40 mg tablet,delayed 40 mg PO DAILY 02/07/20 05/12/21 History release (Protonix) cephalexin 500 mg capsule 500 mg PO BID #60 cap 04/08/20 05/12/21 Rx Lactobacillus acidophilus 2 tab PO DAILY 04/23/21 05/12/21 History (Acidophilus) cyclobenzaprine 10 mg tablet 10 mg PO TID 04/23/21 05/12/21 History docusate sodium 100 mg capsule 100 mg PO BID PRN 04/23/21 05/12/21 History (Colace) hydrophilic (DermaFix) 1 applic TOPICAL BID 04/23/21 05/12/21 History hydroxyzine HCl 25 mg tablet 25 mg PO Q8H PRN 04/23/21 05/12/21 History lidocaine 5 % topical patch 1 patch TOPICAL DAILY 04/23/21 05/12/21 History (Lidoderm) melatonin 3 mg capsule 3 mg PO HS PRN 04/23/21 05/12/21 History sennosides 8.6 mg tablet (Senokot) 8.6 mg PO DAILY PRN 04/23/21 05/12/21 History tramadol 50 mg tablet (Ultram) 50 mg PO Q8H 04/23/21 05/12/21 History acetaminophen 325 mg tablet 650 mg PO DIRECTED PRN 04/29/21 05/12/21 History (Tylenol) carboxymethylcellulose sodium 0.5 1 drp OPB BID 05/12/21 05/12/21 History % eye drops (Refresh Tears) clotrimazole-betamethasone 1 1 applic TOPICAL UD 05/12/21 05/12/21 History %-0.05 % topical cream Allergies Allergy/AdvReac Type Severity Reaction Status Date / Time shellfish derived Allergy Severe Anaphylaxis Verified 05/12/21 15:55 trimethoprim Allergy Intermediate rash Verified 05/12/21 15:55 oxycodone AdvReac Severe PSYCHOTIC Verified 05/12/21 15:55 Sulfa (Sulfonamide AdvReac Severe KIDNEY Verified 05/12/21 15:55 Antibiotics) FAILURE hydromorphone AdvReac Intermediate NAUSEA AND Verified 05/12/21 15:55 VOMITING morphine AdvReac Mild VOMITING Verified 05/12/21 15:55 naproxen AdvReac Mild vertigo Verified 05/12/21 15:55 Past Med/Surg History Medical History Leg length discrepancy PTSD (post-traumatic stress disorder) Spinal cord injury occurred in 1967 TIA (transient ischemic attack) Surgical History History of appendectomy History of herniorrhaphy History of tonsillectomy and adenoidectomy History of total knee replacement (TKR) BTKA History of urostomy Hx of cervical spine surgery Knee joint replacement status Family History Other No significant family history Social History Smoking Status: Never smoker Tobacco Type: Pipe Second Hand Exposure: No; Hx Alcohol Use: Yes Alcohol type: beer, wine and hard liquor Alcohol Intake Frequency Comment: ONE DRINK AT BEDTIME Hx Substance Use: No Preferred Language: Belgian Communication Ability: Effective Visual Impairment: Partially Limited Hearing Ability: Use of Hearing Aid 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 Required: No Beliefs That Will Affect Care: None marital status: Current Living Situation: Spouse Current Living Situation Comment: 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 ([facility]) OBTAINED THROUGH THE [facility] current occupational status: disabled Feels Safe at Home: Yes during the past year weight has: increased > 10 lbs Assistive Devices: Glasses Review of Systems A total of 10 systems reviewed and were otherwise negative All systems reviewed & are unremarkable except as noted in HPI & below Physical Exam Vital Signs Vital Signs - 24 hr 05/12/21 12:50 05/12/21 13:00 05/12/21 13:30 Temperature 36.8 C Temperature Source Oral Pulse Rate 113 H 110 H 112 H Pulse Rate from SpO2 Sensor 110 H 112 H Respiratory Rate 24 19 23 Blood Pressure 105/72 96/64 L 116/72 Blood Pressure Mean 83 74 86 Pulse Oximetry 95 92 96 Oxygen Delivery Method Room Air Room Air Room Air Sepsis Recent Fever Within 48 Hours No Sepsis New/Unexplained Change in Mental Status Yes Sepsis Action Taken by Nursing No Action Required 05/12/21 14:02 05/12/21 14:30 05/12/21 15:00 Temperature Temperature Source Pulse Rate 111 H 109 H 104 H Pulse Rate from SpO2 Sensor 105 H 110 H 104 H Respiratory Rate 17 18 18 Blood Pressure Blood Pressure Mean Pulse Oximetry 92 94 91 Oxygen Delivery Method Room Air Room Air Room Air Sepsis Recent Fever Within 48 Hours Sepsis New/Unexplained Change in Mental Status Sepsis Action Taken by Nursing 05/12/21 15:30 05/12/21 16:00 05/12/21 16:30 Temperature Temperature Source Pulse Rate 104 H 97 H 85 Pulse Rate from SpO2 Sensor 98 H 85 Respiratory Rate 23 17 16 Blood Pressure 123/87 107/78 Blood Pressure Mean 99 87 Pulse Oximetry 93 89 L Oxygen Delivery Method Room Air Room Air Sepsis Recent Fever Within 48 Hours Sepsis New/Unexplained Change in Mental Status Sepsis Action Taken by Nursing 05/12/21 17:00 05/12/21 17:30 05/12/21 18:00 Temperature Temperature Source Pulse Rate 89 89 88 Pulse Rate from SpO2 Sensor 89 89 90 Respiratory Rate 15 14 14 Blood Pressure 118/82 133/92 133/92 Blood Pressure Mean 94 105 105 Pulse Oximetry 88 L 90 90 Oxygen Delivery Method Room Air Sepsis Recent Fever Within 48 Hours Sepsis New/Unexplained Change in Mental Status Sepsis Action Taken by Nursing 05/12/21 18:30 05/12/21 19:00 Temperature Temperature Source Pulse Rate 90 90 Pulse Rate from SpO2 Sensor 98 H Respiratory Rate 21 21 Blood Pressure 130/89 138/91 Blood Pressure Mean 102 106 Pulse Oximetry 92 Oxygen Delivery Method Sepsis Recent Fever Within 48 Hours Sepsis New/Unexplained Change in Mental Status Sepsis Action Taken by Nursing GENERAL: Somnolent, unwell appearing, well nourished, no distress, non-toxic EYE EXAM: normal conjunctiva, PERRL and EOM's grossly intact OROPHARYNX: no exudate, no erythema, lips, buccal mucosa, and tongue normal and mucous membranes are moist NECK: supple, no nuchal rigidity, no adenopathy, non-tender, well-healed surgical scar noted anteriorly LUNGS: Clear to auscultation. Normal chest wall mechanics, no w/r/r HEART: no murmurs, S1 normal and S2 normal ABDOMEN: abdomen soft, non-tender, normo-active bowel sounds, no masses, no rebound or guarding. BACK: Back is symmetrical on inspection and there is no deformity, no midline tenderness, no CVA tenderness. SKIN: no rashes and no bruising UPPER EXTREMITIES: upper extremities are grossly normal. nml pulses b/l. LOWER EXTREMITIES: No pitting edema. nml pulses b/l. Protective boots noted b/l. Healing wound noted to the left anterior tib-fib region. NEURO EXAM: Somnolent but arousable, confused, cranial nerves II-XII grossly i ntact, normal speech, Gross sensation intact. Patient unable to cooperate for additional neuro testing including strength testing. Course Course 175: Pt's updated at bedside. Patient seems more alert, HR improved, ho wever pt still confused. 1800: Discussed with Dr. Caldwell. Administered Medications Aspirin (Aspirin 81 Mg Ectab) 81 mg PO QPM MATTHEW Stop: 06/11/21 20:59 Last Admin: 05/12/21 22:10 Dose: 81 mg Documented by: [id number] Enoxaparin Sodium (Enoxaparin Inj 40 Mg/0.4 Ml Syr) 40 mg SQ Q24H MATTHEW Stop: 06/11/21 20:59 Last Admin: 05/12/21 22:10 Dose: 40 mg Documented by: [id number] Gabapentin (Gabapentin 300 Mg Cap) 300 mg PO HS MATTHEW Stop: 06/11/21 20:59 Last Admin: 05/12/21 22:10 Dose: 300 mg Documented by: [id number] Sodium Chloride (Nss 1000ml) 1,000 mls @ 100 mls/hr IV .Q10H MATTHEW Stop: 05/13/21 16:46 Last Admin: 05/12/21 20:47 Dose: 100 mls/hr Documented by: [id number] Miscellaneous (Remove Lidoderm Patch) 1 ea N/A DAILY@2100 MATTHEW Stop: 06/11/21 20:59 Last Admin: 05/12/21 22:10 Dose: 1 ea Documented by: [id number] Tramadol HCl (Tramadol Hcl 50 Mg Tablet) 50 mg PO Q8H MATTHEW Stop: 06/11/21 20:59 Last Admin: 05/12/21 22:10 Dose: 50 mg Documented by: [id number] Vitamin D (Cholecalciferol 1,000 Units 25 Mcg Tab) 1,000 units PO BID MATTHEW Stop: 06/11/21 20:59 Last Admin: 05/12/21 22:10 Dose: 1,000 units Documented by: [id number] Discontinued Medications Sodium Chloride (Nss 1000ml) 1,000 mls @ 500 mls/hr IV .Q2H MATTHEW Stop: 06/11/21 14:29 Last Infusion: 05/12/21 17:48 Dose: 0 mls/hr Documented by: [id number] Admin: 05/12/21 15:37 Dose: 500 mls/hr Documented by: [id number] Infusion: 05/12/21 15:36 Dose: 0 mls/hr Documented by: [id number] Admin: 05/12/21 14:33 Dose: 500 mls/hr Documented by: [id number] Piperacillin Sod/Tazobactam (Sod 3.375 gm/ Dextrose) 115 mls @ 160 mls/hr IV 2130 [facility]; Protocol Stop: 05/12/21 23:59 Last Admin: 05/12/21 21:35 Dose: 160 mls/hr Documented by: [id number] Medical Decision Making Differential Diagnosis Differential diagnoses includes but is not limited to toxic, metabolic, infectious, traumatic, cardiac, neurologic, hematologic, psychiatric and inflammatory etiologies. Medical Records Attestation: I reviewed the patient's medical records. Home Medications Current Medication List: was personally reviewed by me Laboratory Data Attestation: I reviewed the patient's lab results. Result diagrams: 05/12/21 13:20 05/12/21 13:20 Lab Results 05/12/21 05/12/21 05/12/21 Range/Units 13:20 13:20 13:20 WBC 13.74 H (4.8-10.8) K/uL RBC 4.04 L (4.7-6.1) M/uL Hgb 10.3 L (14.0-18.0) g/dL Hct 33.4 L (42-52) % MCV 82.7 (80-100) fL MCH 25.5 (25-34) pg MCHC 30.8 L (32-36) g/dL RDW Std Deviation 53.6 H (36.4-46.3) fL RDW Coeff of Faustino 17.8 H (11.5-14.5) % Plt Count 1011 H* (130-400) K/uL MPV 9.0 (7.4-10.4) fL Immature Gran % (Auto) 0.4 % Neut % (Auto) 61.3 % Lymph % (Auto) 10.3 % Morrison % (Auto) 18.0 % Eos % (Auto) 9.6 % Baso % (Auto) 0.4 % Neut # (Auto) 8.42 H (1.4-6.5) K/uL Lymph # (Auto) 1.42 (1.2-3.4) K/uL Morrison # (Auto) 2.47 H (0.11-0.59) K/uL Eos # (Auto) 1.32 H (0-0.5) K/uL Baso # (Auto) 0.05 (0-0.2) K/uL Immature Gran # (Auto) 0.06 H (0.00-0.02) K/uL Target Cells 1+ PT 10.5 (9.0-12.0) Seconds INR 1.0 (0.9-1.1) APTT 30.2 (21.0-31.0) Seconds PTT Ratio 1.1 Sodium 133 L (136-145) mmol/L Potassium 4.6 (3.5-5.1) mmol/L Chloride 99 (98-107) mmol/L Carbon Dioxide 27 (21-32) mmol/L Anion Gap 7.0 (3-11) BUN 64 H (7-18) mg/dl Creatinine 1.50 H (0.6-1.4) mg/dl Est Cr Clr Drug Dosing 51.9 ml/min Est GFR ( Amer) 51.7 ml/min Est GFR (Non-Af Amer) 44.6 ml/min BUN/Creatinine Ratio 42.7 H (10-20) Glucose 98 (70-99) mg/dl Lactate (0.4-2.0) mmol/L Calcium 11.5 H (8.5-10.1) mg/dl Magnesium 2.1 (1.8-2.4) mg/dl Total Bilirubin 0.2 (0.2-1) mg/dl AST 16 (15-37) U/L ALT 11 L (12-78) U/L Alkaline Phosphatase 84 (45-117) U/L Total Protein 7.6 (6.4-8.2) gm/dl Albumin 2.4 L (3.4-5.0) gm/dl Globulin 5.2 H (2.5-4.0) gm/dl Albumin/Globulin Ratio 0.5 L (0.9-2) Urine Color Urine Appearance (Clear) Urine pH (4.5-7.5) Ur Specific [place] (1.000-1.030) Urine Protein (Negative) Urine Glucose (UA) (Negative) Urine Ketones (Negative) Urine Blood (Negative) Urine Nitrite (Negative) Urine Bilirubin (Negative) Urine Urobilinogen (Negative) Ur Leukocyte Esterase (Negative) Urine WBC (Auto) (0-5) /hpf Urine RBC (Auto) (0-4) /hpf U Hyaline Cast (Auto) (0-5) /lpf U Epithel Cells (Auto) (0-5) /lpf Urine Bacteria (Auto) (Negative) Ur Renal Epithelial Cell (0-5) /lpf COVID-19 Eval Order SARS-CoV-2 (PCR) (Negative) 05/12/21 05/12/21 05/12/21 Range/Units 13:20 14:32 14:32 WBC (4.8-10.8) K/uL RBC (4.7-6.1) M/uL Hgb (14.0-18.0) g/dL Hct (42-52) % MCV (80-100) fL MCH (25-34) pg MCHC (32-36) g/dL RDW Std Deviation (36.4-46.3) fL RDW Coeff of Faustino (11.5-14.5) % Plt Count (130-400) K/uL MPV (7.4-10.4) fL Immature Gran % (Auto) % Neut % (Auto) % Lymph % (Auto) % Morrison % (Auto) % Eos % (Auto) % Baso % (Auto) % Neut # (Auto) (1.4-6.5) K/uL Lymph # (Auto) (1.2-3.4) K/uL Morrison # (Auto) (0.11-0.59) K/uL Eos # (Auto) (0-0.5) K/uL Baso # (Auto) (0-0.2) K/uL Immature Gran # (Auto) (0.00-0.02) K/uL Target Cells PT (9.0-12.0) Seconds INR (0.9-1.1) APTT (21.0-31.0) Seconds PTT Ratio Sodium (136-145) mmol/L Potassium (3.5-5.1) mmol/L Chloride (98-107) mmol/L Carbon Dioxide (21-32) mmol/L Anion Gap (3-11) BUN (7-18) mg/dl Creatinine (0.6-1.4) mg/dl Est Cr Clr Drug Dosing ml/min Est GFR ( Amer) ml/min Est GFR (Non-Af Amer) ml/min BUN/Creatinine Ratio (10-20) Glucose (70-99) mg/dl Lactate 2.2 H* (0.4-2.0) mmol/L Calcium (8.5-10.1) mg/dl Magnesium (1.8-2.4) mg/dl Total Bilirubin (0.2-1) mg/dl AST (15-37) U/L ALT (12-78) U/L Alkaline Phosphatase (45-117) U/L Total Protein (6.4-8.2) gm/dl Albumin (3.4-5.0) gm/dl Globulin (2.5-4.0) gm/dl Albumin/Globulin Ratio (0.9-2) Urine Color Urine Appearance (Clear) Urine pH (4.5-7.5) Ur Specific [place] (1.000-1.030) Urine Protein (Negative) Urine Glucose (UA) (Negative) Urine Ketones (Negative) Urine Blood (Negative) Urine Nitrite (Negative) Urine Bilirubin (Negative) Urine Urobilinogen (Negative) Ur Leukocyte Esterase (Negative) Urine WBC (Auto) (0-5) /hpf Urine RBC (Auto) (0-4) /hpf U Hyaline Cast (Auto) (0-5) /lpf U Epithel Cells (Auto) (0-5) /lpf Urine Bacteria (Auto) (Negative) Ur Renal Epithelial Cell (0-5) /lpf COVID-19 Eval Order Covid19 at [facility] SARS-CoV-2 (PCR) NEGATIVE (Negative) 05/12/21 05/12/21 Range/Units 15:32 17:06 WBC (4.8-10.8) K/uL RBC (4.7-6.1) M/uL Hgb (14.0-18.0) g/dL Hct (42-52) % MCV (80-100) fL MCH (25-34) pg MCHC (32-36) g/dL RDW Std Deviation (36.4-46.3) fL RDW Coeff of Faustino (11.5-14.5) % Plt Count (130-400) K/uL MPV (7.4-10.4) fL Immature Gran % (Auto) % Neut % (Auto) % Lymph % (Auto) % Morrison % (Auto) % Eos % (Auto) % Baso % (Auto) % Neut # (Auto) (1.4-6.5) K/uL Lymph # (Auto) (1.2-3.4) K/uL Morrison # (Auto) (0.11-0.59) K/uL Eos # (Auto) (0-0.5) K/uL Baso # (Auto) (0-0.2) K/uL Immature Gran # (Auto) (0.00-0.02) K/uL Target Cells PT (9.0-12.0) Seconds INR (0.9-1.1) APTT (21.0-31.0) Seconds PTT Ratio Sodium (136-145) mmol/L Potassium (3.5-5.1) mmol/L Chloride (98-107) mmol/L Carbon Dioxide (21-32) mmol/L Anion Gap (3-11) BUN (7-18) mg/dl Creatinine (0.6-1.4) mg/dl Est Cr Clr Drug Dosing ml/min Est GFR ( Amer) ml/min Est GFR (Non-Af Amer) ml/min BUN/Creatinine Ratio (10-20) Glucose (70-99) mg/dl Lactate 1.1 (0.4-2.0) mmol/L Calcium (8.5-10.1) mg/dl Magnesium (1.8-2.4) mg/dl Total Bilirubin (0.2-1) mg/dl AST (15-37) U/L ALT (12-78) U/L Alkaline Phosphatase (45-117) U/L Total Protein (6.4-8.2) gm/dl Albumin (3.4-5.0) gm/dl Globulin (2.5-4.0) gm/dl Albumin/Globulin Ratio (0.9-2) Urine Color Yellow Urine Appearance Clear (Clear) Urine pH 7.5 (4.5-7.5) Ur Specific [place] 1.013 (1.000-1.030) Urine Protein 1+ H (Negative) Urine Glucose (UA) Negative (Negative) Urine Ketones Negative (Negative) Urine Blood Negative (Negative) Urine Nitrite Positive A (Negative) Urine Bilirubin Negative (Negative) Urine Urobilinogen Negative (Negative) Ur Leukocyte Esterase 2+ H (Negative) Urine WBC (Auto) 10-30 H (0-5) /hpf Urine RBC (Auto) 0-4 (0-4) /hpf U Hyaline Cast (Auto) 1-5 (0-5) /lpf U Epithel Cells (Auto) >30 H (0-5) /lpf Urine Bacteria (Auto) 2+ H (Negative) Ur Renal Epithelial Cell 0-5 (0-5) /lpf COVID-19 Eval Order SARS-CoV-2 (PCR) (Negative) Imaging Data Radiologist's Impression: Chest X-Ray 05/12/21 13:03 XR chest 1V portable CLINICAL HISTORY: SEPSIS COMPARISON STUDY: April 23, 2021 FINDINGS: No pneumothorax. Partial silhouetting of peripheral aspect of the left hemidiaphragm could be due to small left pleural effusion. Hazy opacity within left retrocardiac region slightly worsened since prior could represent atelectasis or infiltrate. Right hemidiaphragm is elevated. No pleural effusion is seen on the right. Cardiac silhouette is prominent. Aorta is calcified. No significant pulmonary vascular congestion.. Osseous structures: Mild degenerative changes of the spine. Redemonstration of the orthopedic hardware projecting to the lower cervical region. IMPRESSION: 1. Small left pleural effusion, worsening since prior. Atelectasis or infiltrates at the left lower lung. ACT 112: Negative or not required by law. The above report was generated using voice recognition software. It may contain grammatical, syntax or spelling errors. Electronically signed by: Belkis Morales DO 05/12/2021 1:29 PM Chest X-Ray 05/12/21 14:27 SINGLE VIEW CHEST CLINICAL HISTORY: Change in mental status. FINDINGS: An AP, portable, upright chest radiograph is compared to study dated 05/12/2021. Correlation is made with chest CT dated 04/23/2021. The examination is mildly degraded by portable technique and patient rotation. The heart is enlarged noting atherosclerotic calcification of the thoracic aorta. The pulmonary vasculature is noncongested. Chronic interstitial thickening and elevation of the right hemidiaphragm is similar to previous. No airspace consolidation or large pleural effusion is identified. Scarring/atelectasis is noted at the left lung base. No pneumothorax is seen. The bony thorax is grossly intact. Fusion hardware is seen in the lower cervical spine. IMPRESSION: Cardiomegaly with no acute cardiopulmonary abnormality. ACT 112: Negative or not required by law. Electronically signed by: Indio Brown M.D. 05/12/2021 2:[address] 05/12/21 14:27 CT OF THE HEAD WITHOUT CONTRAST CLINICAL HISTORY: Altered mental status. COMPARISON STUDY: Head CT and CTA of the head January 28, 2020. CT DOSE: 788.63 mGycm TECHNIQUE: Helical axial images of the head were obtained without IV contrast. Automated exposure control was utilized for the study. A dose lowering technique was utilized adhering to the principles of ALARA. FINDINGS: No acute intracranial hemorrhage, midline shift or mass effect is present. The ventricular system is stable. White matter hypodensity suggests small vessel disease. The basal cisterns are patent. No extra-axial collections are present. There are no findings to suggest acute dural sinus thrombosis or acute territorial infarct. No significant calvarial abnormalities are present. Postoperative findings within the cervical spine are partially imaged on this exam. Left mastoid air cells are partially opacified. There are minimal secretions within the right sphenoid sinus. IMPRESSION: 1. No acute intracranial findings. 2. Partially opacified left mastoid air cells. ACT 112: Negative or not required by law. Electronically signed by: Eyad Bo M.D. 05/12/2021 3:25 PM KUB X-Ray 05/12/21 14:28 KUB CLINICAL HISTORY: Change in mental status. FINDINGS: 2 AP, portable, supine abdominal radiographs are compared to study dated 01/15/2020 and correlated with abdominal CT dated 04/29/2021. There is a nonobstructed abdominal bowel gas pattern. No evidence of intraperitoneal free air is seen on these supine images. Numerous surgical clips are seen throughout the pelvis. A metallic foreign body is seen in the left upper quadrant. Suture admission material project over the abdomen and pelvis. There are no abnormal abdominal calcifications. Phleboliths are seen in the pelvis. Mild fecal retention is seen in the right colon. The skeletal structures are osteopenic and appear intact. There is advanced lumbosacral spondylosis and scoliosis. A right hip arthroplasty is in place. IMPRESSION: No acute abnormality is identified. Electronically signed by: Indio Brown M.D. 05/12/2021 2:56 PM ECG Data Attestation: I personally reviewed and interpreted this ECG as follows: Indication: + weakness Rate (beats per minute): 110 Rhythm: + sinus tachycardia ECG Intervals/blocks: + Normal QRS and + Normal QT ECG [place]: + Normal ECG ST segments: + Normal ST segments MDM Narrative This is an elderly male with a complicated past medical history presents with at bedside due to concern for altered mentation. Labs and imaging performed. Patient was initially noted to be mildly hypotensive and tachycardic, however this did resolve with IV fluid rehydration. Patient was more alert and responsive after IV for duration also. No evidence for overt sepsis. Patient's chest x-ray reassuring and no evidence of aspiration pneumonia. While UA was unremarkable, it was inadvertently collected from the patient's urostomy which will be chronically abnormal and contaminated. I do not suspect this to be an overt infectious source. Patient was found to have th rombocytosis however this is chronic and I suspect worse due to accompanying dehydration. Patient's creatinine stable compared to prior. Initial lactic acid mildly elevated at 2.2, however this resolved with IV fluid rehydration also. No obvious focal neuro deficit however patient would not cooperate for extensive neuro testing. Head CT was unremarkable. Due to persistent altered mentation despite improvement in alertness and other vital signs, case discussed with hospitalist for additional evaluation management. An order was placed for continuous cardiac monitoring. The monitor shows a rate of _97__ with _normal sinus___ rhythm. Impression & Plan Altered mental status, Dehydration Discharge Plan Visit Data Chief Complaint: Weakness Stated Complaint: weakness, hypotension ED Provider: Kiara Garrido Discharge Problem: Altered mental status, Dehydration Patient Disposition: Admitted As Inpatient Discharge Instructions Interventions: ED Discharge Assessment Last Done: 05/12/21 19:54 Discharge Problem: Altered mental status Qualifiers: Altered mental status type: unspecified Qualified Code(s): R41.82 - Altered mental status, unspecified
--- NOTE | 2021-05-12 18:03 | History & Physical Report ---
Date of Service May 12, 2021 Assessment & Plan (1) Sacral decubitus ulcer: Plan: Admitted for metabolic encephalopathy from possible infectious decubitus ulcer, possible aspiration event, possible UTI with persistent urostomy versus decline from poor oral intake with dehydration nutritional deficiency. Decubitus ulcer was listed as stage III it was debrided on April 29. He does have persistent anal drainage and the wound VAC when I examined there was dislodged. Subsequently the patient will be placed on Zosyn therapy wound culture will be obtained CT scan of his pelvis will be obtained for sacral osteomyelitis rule out. Blood cultures are already obtained. Patient with wound care nurse evaluation. Wound VAC was removed in the ER hopefully replacing the patient's in the hospital I did discuss palliative care with the patient's she will think about it certainly not ready to cross that bridge at this point time. (2) CKD (chronic kidney disease), stage III: Plan: Acute kidney injury with chronic kidney disease stage III patient be hydrated with saline he is a decreased oral intake at home (3) Chronic incomplete quadriplegia: Plan: Patient is completely dependent requiring lifts. Likely cause of his pressure ulcers. Reportedly from cervical spine issue (4) Hypertension: (5) Depression: Plan: Difficult to ascertain we will continue appropriate home History of Present Illness Primary Care Provider: Red Hoffmann MD 75-year-old male brought in by family with functional decline at home with decreased oral intake. Patient has a colostomy and urostomy and a decubitus ulcer with wound VAC in place. Family supports that he is mostly a functional quadriparetic patient typically not getting out of wheelchair or bed. Patient reportedly had ambulation difficulties and 5 years ago had progressive weakness and then developed upper arm weakness which eventually was attributed to a cervical spine lesion which she had surgery on but did not correct his problem. He is now unable to even transfer or sit or feed himself and he mostly remains in bed or in the chair moved by Maryam lift at home. In the emergency department is found of a leukocytosis no significant pneumonia or fever.. He does have abnormal urinalysis but this was drawn from the urostomy bag. He is Covid negative. There is some concern about possible aspiration event while eating today.. And certainly we need to inspect his decubitus ulcer. At this point time the family feels his functional status has declined where he said decreased oral intake and they cannot care for him safely at home. Patient was discharged from our facility May 05 after he had a debridement of his decubitus ulcer April 29. At that time there was some discussion whether he had a deeper infection at that time he did not appear to be so he was given Zosyn discharged on Augmentin. Since his discharge he is declined at home with decreased oral intake. The patient his wound VAC was in place when I examined him and the wound looked reasonably clean however I cannot see the defined endpoint of the wound. Subsequently we will do a CT of his pelvis to jeffrey huerta for osteomyelitis of his sacrum at this time. Nader discussion about end-of-life and palliative care with the which brought tears to her eyes do not feel they are ready for this at this point in time however it likely could be an ongoing discussion. Allergies Allergy/AdvReac Type Severity Reaction Status Date / Time shellfish derived Allergy Severe Anaphylaxis Verified 05/12/21 15:55 trimethoprim Allergy Intermediate rash Verified 05/12/21 15:55 oxycodone AdvReac Severe PSYCHOTIC Verified 05/12/21 15:55 Sulfa (Sulfonamide AdvReac Severe KIDNEY Verified 05/12/21 15:55 Antibiotics) FAILURE hydromorphone AdvReac Intermediate NAUSEA AND Verified 05/12/21 15:55 VOMITING morphine AdvReac Mild VOMITING Verified 05/12/21 15:55 naproxen AdvReac Mild vertigo Verified 05/12/21 15:55 Home Medications Medication Instructions Recorded Confirmed Type ascorbic acid (vitamin C) 500 mg 500 mg PO BID cap 05/11/18 05/12/21 History capsule aspirin 81 mg tablet,delayed 81 mg PO QPM 05/11/18 05/12/21 History release (Adult Aspirin Regimen) bupropion HCl 150 mg 24 hr tablet, 150 mg PO QAM 05/11/18 05/12/21 History extended release (Wellbutrin XL) polyethylene glycol 3350 17 17 g PO QAM gm 05/11/18 05/12/21 History gram/dose oral powder (Miralax) sodium bicarbonate 650 mg tablet 650 mg PO QDL tab 05/11/18 05/12/21 History gabapentin 300 mg capsule 300 mg PO HS cap 06/13/18 05/12/21 History (Neurontin) cholecalciferol (vitamin D3) 25 25 mcg PO BID cap 01/09/20 05/12/21 History mcg (1,000 unit) capsule (Vitamin D3) pantoprazole 40 mg tablet,delayed 40 mg PO DAILY 02/07/20 05/12/21 History release (Protonix) cephalexin 500 mg capsule 500 mg PO BID #60 cap 04/08/20 05/12/21 Rx Lactobacillus acidophilus 2 tab PO DAILY 04/23/21 05/12/21 History (Acidophilus) cyclobenzaprine 10 mg tablet 10 mg PO TID 04/23/21 05/12/21 History docusate sodium 100 mg capsule 100 mg PO BID PRN 04/23/21 05/12/21 History (Colace) hydrophilic (DermaFix) 1 applic TOPICAL BID 04/23/21 05/12/21 History hydroxyzine HCl 25 mg tablet 25 mg PO Q8H PRN 04/23/21 05/12/21 History lidocaine 5 % topical patch 1 patch TOPICAL DAILY 04/23/21 05/12/21 History (Lidoderm) melatonin 3 mg capsule 3 mg PO HS PRN 04/23/21 05/12/21 History sennosides 8.6 mg tablet (Senokot) 8.6 mg PO DAILY PRN 04/23/21 05/12/21 History tramadol 50 mg tablet (Ultram) 50 mg PO Q8H 04/23/21 05/12/21 History acetaminophen 325 mg tablet 650 mg PO DIRECTED PRN 04/29/21 05/12/21 History (Tylenol) carboxymethylcellulose sodium 0.5 1 drp OPB BID 05/12/21 05/12/21 History % eye drops (Refresh Tears) clotrimazole-betamethasone 1 1 applic TOPICAL UD 05/12/21 05/12/21 History %-0.05 % topical cream Past Med/Surg History Medical History Leg length discrepancy PTSD (post-traumatic stress disorder) Spinal cord injury occurred in 1967 TIA (transient ischemic attack) Surgical History History of appendectomy History of herniorrhaphy History of tonsillectomy and adenoidectomy History of total knee replacement (TKR) BTKA History of urostomy Hx of cervical spine surgery Knee joint replacement status Family History Other No significant family history Social History Smoking Status: Never smoker Tobacco Type: Pipe Second Hand Exposure: No; Hx Alcohol Use: Yes Alcohol type: beer, wine and hard liquor Alcohol Intake Frequency Comment: ONE DRINK AT BEDTIME Hx Substance Use: No Preferred Language: Danish Communication Ability: Effective Visual Impairment: Partially Limited Hearing Ability: Use of Hearing Aid Production Intern Required: No Beliefs That Will Affect Care: None marital status: Current Living Situation: Spouse Current Living Situation Comment: 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 ([facility] current occupational status: disabled Feels Safe at Home: Yes during the past year weight has: increased > 10 lbs Assistive Devices: Glasses Review of Systems Review of Systems: Moderate distress and weakness and significant fatigue Most review of systems garnered from his . no headache, no visual changes reports swallowing issues no chest pain, pressure or palpitations no shortness of breath, there is some coughing with eating today no abdominal pain, nausea or vomiting, colostomy and ileostomy with good output As of an open area in the right distal verdin which is covered by Optifoam no back pain, CVA tenderness or radicular pain no bruising, bleeding or rashes no focal signs of weakness or numbness or altered sensation no complaints of anxiety or depression.. Physical Exam Physical Exam: The patient appeared chronically ill and declining condition afebrile but slightly hypoxemic on room air Head exam is normocephalic atraumatic Oropharynx is a red material in it which says is from his dietary supplement at home Neck is without JVD, thyromegaly, or carotid bruits. There is no stridor Lungs are minutes bilaterally Cardiac exam, Rhythm is regular.. No murmurs, rubs or gallops. Abdominal exam reveals normal bowel sounds, soft some lower quadrant tenderness is colostomy in the left ileostomy in the right Extremities are trace edematous and both pedal pulses are present Neurologic exam is alert and does respond to questioning but cannot process complex information has very little movement of his arms no movement of his legs Skin is with open areas to his right anterior verdin this is mostly a surface abrasion just with a surface area of skin denuded this is also very large 3 to 4 cm. Large decubitus ulcer on his buttocks approximately 3 to 4 cm which is fairly deep probably stage III Results & Data Results & Data ([facility]) Vital Signs (Past 12 Hours) Vital Signs Temp Pulse Resp BP Pulse Ox 05/12/21 17:00 89 15 118/82 88 L 05/12/21 16:30 85 16 107/78 89 L 05/12/21 16:00 97 H 17 123/87 93 05/12/21 15:30 104 H 23 05/12/21 15:00 104 H 18 91 05/12/21 14:30 109 H 18 94 05/12/21 14:02 111 H 17 92 05/12/21 13:30 112 H 23 116/72 96 05/12/21 13:00 110 H 19 96/64 L 92 05/12/21 12:50 98.2 F 113 H 24 105/[address] head 05/12/2021 no acute intercranial findings some mastoid sinus opacification Chest x-ray 05/12/2021 cardiomegaly with no acute findings KUB 05/12/2021 no acute abnormality identified ECG Additional Comments: EKG normal sinus rhythm no acute ST or T wave changes PG Care Time/CCT Total # of Minutes Spent Total Time Spent with Patient: Total time spent is greater than 50% in coordination of care (as documented) at patient's floor/unit and/or counseling patient: Coding Level of Care Code 89290 Initial Inpt Care Lvl 3 Diagnoses Sacral decubitus ulcer L89.159 Pressure injury stage: unspecified pressure injury stage CKD (chronic kidney disease), stage III N18.30 Chronic incomplete quadriplegia G82.50 Hypertension I10 Depression F32.9 (1) Sacral decubitus ulcer Pressure injury stage: unspecified pressure injury stage Qualified Code(s): L89.159 - Pressure ulcer of sacral region, unspecified stage
[2021-05-12] MEDS ORDERED: ACETAMINOPHEN 325 MG TAB PO PRN (20:47)
[2021-05-12] MEDS ORDERED: ONDANSETRON INJ 2 MG/ML 2 ML VIAL IV PRN (20:47)
[2021-05-12] MEDS ORDERED: PIPERACILL/TAZOBAC CONSULT ACTIVE PRN (20:47)
[2021-05-12] MEDS ORDERED: hydrOXYzine HCl 25 MG TAB PO PRN (20:47)
[2021-05-12] MEDS ORDERED: PIPERACILLIN/TAZOBACTAM 3.375 GM in DEXTROSE 5% 100 ML IV SCH (21:30)
[2021-05-12] MEDS: CHOLECALCIFEROL 1,000 UNITS 25 MCG TAB PO SCH (22:10)
[2021-05-12] MEDS: ASPIRIN 81 MG ECTAB PO SCH (22:10)
[2021-05-12] MEDS: traMADol HCL 50 MG TABLET PO SCH (22:10)
[2021-05-12] MEDS: ENOXAPARIN INJ 40 MG/0.4 ML SYR SQ SCH (22:10)
[2021-05-12] MEDS: GABAPENTIN 300 MG CAP PO SCH (22:10)
[2021-05-13] MEDS: PIPERACILLIN/TAZOBACTAM 3.375 GM in DEXTROSE 5% 100 ML IV SCH ×3 (02:58→18:20)
[2021-05-13] MEDS: traMADol HCL 50 MG TABLET PO SCH ×3 (05:55→21:14)
[2021-05-13 07:23] LABS: Hematocrit (blood only) 34.2 % (42-52); Hemoglobin 10.2 g/dL (14.0-18.0); Mean Corpuscular Hemoglobin 24.8 pg (25-34); Mean Corpuscular Hgb Conc 29.8 g/dL (32-36); Mean Platelet Volume 8.8 fL (7.4-10.4); Nucleated RBC # (auto) 0.04 K/uL (0-0); Nucleated RBC % (auto) 0.3 %; Platelet Count 1008 K/uL (130-400); RDW Coefficient of Variation 17.9 % (11.5-14.5); RDW Standard Deviation 54.6 fL (36.4-46.3); Red Blood Count 4.12 M/uL (4.7-6.1); White Blood Count 13.08 K/uL (4.8-10.8)
[2021-05-13] MEDS: SODIUM CHLORIDE 0.9% 1000ML 1,000 ML IV SCH (07:23)
[2021-05-13 08:14] LABS: BUN Creatinine Ratio 37.8 (10-20); Calcium 10.8 mg/dl (8.5-10.1); Creatinine Clr Calc Pharmacy 57.9 ml/min; Est GFR (African American) 59.2 ml/min; Est GFR (Non-African American) 51.1 ml/min; Potassium 3.7 mmol/L (3.5-5.1)
--- NOTE | 2021-05-13 08:52 | CT Scan Report ---
CT SCAN OF THE PELVIS WITHOUT IV CONTRAST CLINICAL HISTORY: Sacral decubitus ulcer. Clinical concern for osteomyelitis. COMPARISON STUDY: Pelvic CT dated 04/29/2021. TECHNIQUE: CT scan of the pelvis is performed from the pelvic inlet to the proximal femora. Images ar e reviewed in the axial, sagittal, and coronal planes. IV contrast was not administered for this exam ination. The examination is degraded by streak artifact from a right hip arthroplasty. A dose lowerin g technique was utilized adhering to the principles of ALARA. FINDINGS: The skeletal structures are osteopenic. A bipolar right hip arthroplasty is in place. No ac jamul fracture is seen. Mild osteoarthritic change is noted in the left hip. Mild degenerative change i s noted in the sacroiliac joints. Advanced spondylotic and postoperative change is noted in the parti ally imaged lower lumbar spine. A metallic foreign body is seen superficial to the sacrum at the leve l of S2-S3. This is best seen on axial image #46. A metallic foreign body is also seen in the left gl uteal soft tissues. There is no bony erosion or periostitis to suggest osteomyelitis as clinically qu eried. No lytic or blastic lesion is seen. There is diffuse fatty atrophy of the paraspinous and pelv ic musculature. There is a large decubitus ulceration seen overlying and below the left ischial tuberosity. There are small foci of subcutaneous gas with evidence of surrounding cellulitis. No organized fluid collectio n is seen to indicate abscess on this unenhanced examination. The bladder is decompressed and not wel l evaluated. The prostate and seminal vesicles are normal as imaged. Numerous surgical clips are seen throughout the pelvis. Ostomies are present within the ventral pelvis bilaterally with evidence of p revious ventral hernia repair. A small parastomal hernia is seen involving the right pelvic ostomy. T here is no evidence of bowel obstruction. Advanced atherosclerotic calcification is noted in the dist al abdominal aorta and the iliac arteries. There is no pelvic sidewall or inguinal lymphadenopathy. N o intraperitoneal free air or free fluid is seen in the pelvis. IMPRESSION: 1. There is a large decubitus ulceration at and below the level of the left ischial tuberosity. 2. There is no CT evidence of osteomyelitis involving the underlying bone as clinically queried. 3. There is evidence of cellulitis and soft tissue gas around the ulcer. No organized fluid collectio n is seen to suggest abscess on this unenhanced examination. 4. No fracture is seen. 5. Additional findings as above. ACT 112: Negative or not required by law. Dictated: 05/13/2021 8:01 AM Transcribed: 05/13/2021 8:50 AM Prudence [id number] BOY_Rhoda Electronically signed by: Indio Brown M.D. 05/13/2021 8:51 AM
[2021-05-13] MEDS ORDERED: AQUAPHOR EXT SCH (09:00)
[2021-05-13] MEDS: buPROPion XL 150 MG TABCR PO SCH (09:24)
[2021-05-13] MEDS: PANTOprazole 40 MG TAB PO SCH (09:24)
[2021-05-13] MEDS: LIDOCAINE 5% 1 PATCH TD SCH (09:24)
[2021-05-13] MEDS: POLYETHYLENE (MIRALAX) 17 GM PACK PO SCH (09:24)
[2021-05-13] MEDS: ASCORBIC ACID 500 MG TAB PO SCH ×2 (09:24→21:14)
[2021-05-13] MEDS: CHOLECALCIFEROL 1,000 UNITS 25 MCG TAB PO SCH ×2 (09:24→21:14)
[2021-05-13] MEDS: ADVANCED PROBIOTIC 1250 MG CAPSULE PO SCH (09:24)
[2021-05-13] MEDS: CLOTRIMAZOLE/BETAMETHASONE CR 15 GM TUBE EXT SCH (09:24)
[2021-05-13] MEDS: ARTIFICIAL TEARS OP SCH ×2 (09:25→21:16)
[2021-05-13] MEDS: EMOLLIENT OINTMENT 1 GM EXT SCH ×2 (09:25→21:15)
[2021-05-13] MEDS: SODIUM BICARBONATE 650 MG TAB PO SCH (12:13)
[2021-05-13] MEDS: GABAPENTIN 300 MG CAP PO SCH (21:14)
[2021-05-13] MEDS: ASPIRIN 81 MG ECTAB PO SCH (21:14)
[2021-05-13] MEDS: ENOXAPARIN INJ 40 MG/0.4 ML SYR SQ SCH (21:14)
--- NOTE | 2021-05-13 21:52 | Hospitalist Progress Note ---
Date of Service May 13, 2021 Assessment & Plan (1) Sacral decubitus ulcer: Plan: had been stage 3, now stage 4. Wound Care saw in consult and is concerned about tunneling and palpable bone. likely source of ongoing debilitation. had debridement last admission by gen surg. received IV abx during that stay, then transitioned to oral augmentin. currently on zosyn. may need MRI pelvis to r/o osteomyelitis as CT pelvis was nondiagnostic. cont zosyn. may also need gen surg to see for additional Rx. (2) CKD (chronic kidney disease), stage III: Plan: baseline CrCl appears to be 40s/50s (3) Chronic incomplete quadriplegia: Plan: 2nd to cervical spine issues requiring multiple surgeries in past (4) Hypertension: Plan: BPs controlled - on no meds (5) Depression: Plan: cont home meds may need titration - he endorsed depression symptoms today during my visit (6) Metabolic encephalopathy: Plan: suspect 2nd to #1 and #7 supportive care does he have baseline cognitive impairment? will d/w (7) Hypercalcemia: Plan: 2nd to dehydration? or - alternatively - could he have a bone marrow d/o or malignancy? check iPTH in am. cont hydration. bmp am. (8) Thrombocytosis: Plan: etiology? reactive to #1? primary bone marrow d/o? Fe def? combo? cbc in am. request peripheral smear from pathology (9) Rheumatoid arthritis: Plan: was on Tocilizumab in the past stopped in early 2020 by 's report appears controlled however (10) Colostomy status: (11) Presence of urostomy: (12) DVT prophylaxis: Plan: lovenox Plan: spoke with this evening update given Admission and Anticipated Discharge Date Admission Date: May 12, 2021 Subjective patient pleasant, talkative during the stay however - quite confused, stating he is in the [facility], it is Monday, and that it is 2019 he talks alot about chronic headaches "behind his eyes" present for 1 year or longer? headaches move to the occiput as well no temporal pain he is eating decently at [facility] - took 75% of breakfast this am denies pain in any other location extensive discussion held with by phone Review of Systems Review of Systems: gen - no fever; +fatigue CV - no chest pain pulm - denies dyspnea or orthopnea GI - no abd pain Physical Exam Physical Exam: gen - NAD, pleasant - but confused neck - no JVD; no lymphadenopathy mouth - MMM heart - RRR, s1 s2, no murmurs lungs - decreased BS bases, CTA b/l otherwise abd - soft NT ND BS+; urostomy in place; colostomy in place ext - trace edema, pulses 2+ b/l neuro - paraplegia of legs; partial movements of arms noted psych - a/o x person only Results & Data Results & Data ([facility]) Vital Signs (Past 12 Hours) Vital Signs Temp Pulse Resp BP Pulse Ox 05/13/21 21:18 36.8 C 102 H 16 119/71 100 05/13/21 14:39 36.4 C L 104 H 20 128/81 93 Laboratory Results Laboratory Results - last 24 hr 05/13/21 05/13/21 06:44 06:44 WBC 13.08 H RBC 4.12 L Hgb 10.2 L Hct 34.2 L MCV 83.0 MCH 24.8 L MCHC 29.8 L RDW Std Deviation 54.6 H RDW Coeff of Faustino 17.9 H Plt Count 1008 H* MPV 8.8 Absolute Nucleated RBC 0.04 H Nucleated RBC % (auto) 0.3 Sodium 136 Potassium 3.7 D Chloride 103 Carbon Dioxide 26 Anion Gap 7.0 BUN 51 H Creatinine 1.34 Est Cr Clr Drug Dosing 57.9 Est GFR ( Amer) 59.2 Est GFR (Non-Af Amer) 51.1 BUN/Creatinine Ratio 37.8 H Glucose 88 Calcium 10.8 H PG Care Time/CCT Total # of Minutes Spent Total Time Spent with Patient: Total time spent is greater than 50% in coordination of care (as documented) at patient's floor/unit and/or counseling patient: Coding Level of Care Code 82664 Subseq Hosp Care Lvl 3 Diagnoses Sacral decubitus ulcer L89.159 Pressure injury stage: unspecified pressure injury stage CKD (chronic kidney disease), stage III N18.30 Chronic incomplete quadriplegia G82.50 Hypertension I10 Depression F32.9 Metabolic encephalopathy G93.41 Hypercalcemia E83.52 Thrombocytosis D47.3 Rheumatoid arthritis M06.9 Colostomy status Z93.3 Presence of urostomy Z93.6 DVT prophylaxis Z29.9 (1) Sacral decubitus ulcer Pressure injury stage: unspecified pressure injury stage Qualified Code(s): L89.159 - Pressure ulcer of sacral region, unspecified stage
[2021-05-14] MEDS: PIPERACILLIN/TAZOBACTAM 3.375 GM in DEXTROSE 5% 100 ML IV SCH (03:38)
[2021-05-14] MEDS: traMADol HCL 50 MG TABLET PO SCH ×3 (05:19→21:43)
[2021-05-14 06:33] LABS: Hematocrit (blood only) 31.8 % (42-52); Hemoglobin 9.8 g/dL (14.0-18.0); Mean Corpuscular Hemoglobin 24.9 pg (25-34); Mean Corpuscular Hgb Conc 30.8 g/dL (32-36); Mean Corpuscular Volume 80.9 fL (80-100); Mean Platelet Volume 8.8 fL (7.4-10.4); Nucleated RBC # (auto) 0.08 K/uL (0-0); Nucleated RBC % (auto) 0.6 %; Platelet Count 914 K/uL (130-400); RDW Coefficient of Variation 17.8 % (11.5-14.5); RDW Standard Deviation 52.4 fL (36.4-46.3); Red Blood Count 3.93 M/uL (4.7-6.1); White Blood Count 12.51 K/uL (4.8-10.8)
[2021-05-14 07:04] LABS: BUN Creatinine Ratio 27.9 (10-20); Calcium 10.1 mg/dl (8.5-10.1); Creatinine Clr Calc Pharmacy 61.6 ml/min; Est GFR (African American) 63.8 ml/min; Potassium 3.5 mmol/L (3.5-5.1)
[2021-05-14 07:05] LABS: C Reactive Protein 14.2 mg/dl (0-0.29)
[2021-05-14] MEDS: ARTIFICIAL TEARS OP SCH ×2 (08:19→21:38)
[2021-05-14] MEDS: CLOTRIMAZOLE/BETAMETHASONE CR 15 GM TUBE EXT SCH (08:20)
[2021-05-14] MEDS: EMOLLIENT OINTMENT 1 GM EXT SCH ×2 (08:20→21:39)
[2021-05-14] MEDS: LIDOCAINE 5% 1 PATCH TD SCH (08:20)
[2021-05-14] MEDS: POLYETHYLENE (MIRALAX) 17 GM PACK PO SCH (08:20)
[2021-05-14] MEDS: PANTOprazole 40 MG TAB PO SCH (08:20)
[2021-05-14] MEDS: buPROPion XL 150 MG TABCR PO SCH (08:20)
[2021-05-14] MEDS: ADVANCED PROBIOTIC 1250 MG CAPSULE PO SCH (08:20)
[2021-05-14] MEDS: CHOLECALCIFEROL 1,000 UNITS 25 MCG TAB PO SCH ×2 (08:20→21:39)
[2021-05-14] MEDS: ASCORBIC ACID 500 MG TAB PO SCH ×2 (08:20→21:38)
[2021-05-14] MEDS ORDERED: CEFEPIME CONSULT ACTIVE PRN (09:59)
[2021-05-14] MEDS ORDERED: GADOBUTROL 65ML VIAL IV ONE ×2 (11:07→13:40)
[2021-05-14] MEDS: CEFEPIME 2,000 MG in SYRINGE 0 ML IV SCH ×2 (11:30→21:40)
[2021-05-14] MEDS: SODIUM BICARBONATE 650 MG TAB PO SCH (11:30)
[2021-05-14] MEDS ORDERED: LORazepam 0.5 MG TAB PO STA (13:26)
--- NOTE | 2021-05-14 14:30 | Magnetic Resonance Report ---
MR pelvis wo/w con CLINICAL INDICATION: Sacral decubitus ulcer and cellulitis in the left buttock COMPARISON: Comparison is made to CT pelvis 05/12/2021 TECHNIQUE: Multiplanar multisequence images were obtained of the abdomen with and without the adminis tration of contrast. FINDINGS: Findings are highly limited by susceptibility artifact arising from the posterior midline soft tissue s in this patient with a wound VAC, as a result, evaluation of the sacrum is highly limited. Bowel: Unremarkable. Lymph nodes: Unremarkable. Bladder: Limited evaluation due to underdistention. Reproductive organs: Unremarkable. Vessels: Unremarkable. Abdominal wall: There is T2 hyperintensity in the left gluteal soft tissues compatible with history o f cellulitis. Bones: There is a right total hip prosthesis. Within limits of susceptibility artifact as described a dalila, there is no abnormal T2 signal to suggest osteomyelitis. Intraosseous lipoma is noted in the le ft iliac crest. IMPRESSION: Highly limited exam. Left gluteal cellulitis is noted. No definite evidence of sacral osteomyelitis i s noted. ACT 112: Negative or not required by law. Electronically signed by: Maurice Lauren M.D. 05/14/2021 2:28 PM
--- NOTE | 2021-05-14 14:46 | Surgery Consultation ---
Date of Consultation May 14, 2021 Assessment & Plan (1) Sacral decubitus ulcer: 75 year-old male with history of functional quadriplegia and history of stage 3 sacral wound now with stage 4 sacral wound and cellulitis. MRI showing no evidence of osteomyelitis. Wound base is clean however there is more tunneling and bone is now exposed compared to prior admission and status at prior discharge. Leukocytosis. Plan: No surgical indication for debridement at this time Would continue wound vac therapy optimize nutritional status to help with wound healing, recommend BOOST supplementation Continue IV Abx Continue wound care per wound nurse Dr. Ma has seen and examined patient . Please see addendum for further recommendations. Supervising Physician Co-Signing Physician Notes Pt personally seen and examined. Agree with history and physical as above. Wound examined - clean base, exposed 2.5 cm area of periosteum superiorly, some tunnelling inferiorly but no pus or exudate. No need for further debridement. Defer decision re antibiotics for potential osteo to primary service although reviewed that exposed bone does not necessarily mean osteomyelitis. Would continue wound vac. Will sign off. Discussed with Dr. Post. History of Present Illness Reason for Consultation: Sacral decubitus wound stage 4 Requesting Physician: Elmo Post Attending Physician: Elmo Post History of Present Illness Mr Anaya is a 75 year-old male with functional quadriplegia who presented back to [facility] for metabolic encephalopathy from possible infected sacral decubitus vs aspiration pneumonia. He had surgical debridement of sacral wound on by Dr. Perez and had wound vac placed and was discharged home with wound vac therapy. He had a ct scan of pelvis without contrast which showed no evidence of osteomyelitis however there was a sacral decubitus ulcer with subcutaneous gas still present. Our services consulted for possible need for further surgical debridement and concern for possible osteomyelitis. Mr. Anaya just returned to room for obtaining pelvic MRI which is not resulted yet. Allergies Allergy/AdvReac Type Severity Reaction Status Date / Time shellfish derived Allergy Severe Anaphylaxis Verified 05/12/21 15:55 trimethoprim Allergy Intermediate rash Verified 05/12/21 15:55 oxycodone AdvReac Severe PSYCHOTIC Verified 05/12/21 15:55 Sulfa (Sulfonamide AdvReac Severe KIDNEY Verified 05/12/21 15:55 Antibiotics) FAILURE hydromorphone AdvReac Intermediate NAUSEA AND Verified 05/12/21 15:55 VOMITING morphine AdvReac Mild VOMITING Verified 05/12/21 15:55 naproxen AdvReac Mild vertigo Verified 05/12/21 15:55 Home Medications Medication Instructions Recorded Confirmed Type ascorbic acid (vitamin C) 500 mg 500 mg PO BID cap 05/11/18 05/12/21 History capsule aspirin 81 mg tablet,delayed 81 mg PO QPM 05/11/18 05/12/21 History release (Adult Aspirin Regimen) bupropion HCl 150 mg 24 hr tablet, 150 mg PO QAM 05/11/18 05/12/21 History extended release (Wellbutrin XL) polyethylene glycol 3350 17 17 g PO QAM gm 05/11/18 05/12/21 History gram/dose oral powder (Miralax) sodium bicarbonate 650 mg tablet 650 mg PO QDL tab 05/11/18 05/12/21 History gabapentin 300 mg capsule 300 mg PO HS cap 06/13/18 05/12/21 History (Neurontin) cholecalciferol (vitamin D3) 25 25 mcg PO BID cap 01/09/20 05/12/21 History mcg (1,000 unit) capsule (Vitamin D3) pantoprazole 40 mg tablet,delayed 40 mg PO DAILY 02/07/20 05/12/21 History release (Protonix) cephalexin 500 mg capsule 500 mg PO BID #60 cap 04/08/20 05/12/21 Rx Lactobacillus acidophilus 2 tab PO DAILY 04/23/21 05/12/21 History (Acidophilus) cyclobenzaprine 10 mg tablet 10 mg PO TID 04/23/21 05/12/21 History docusate sodium 100 mg capsule 100 mg PO BID PRN 04/23/21 05/12/21 History (Colace) hydrophilic (DermaFix) 1 applic TOPICAL BID 04/23/21 05/12/21 History hydroxyzine HCl 25 mg tablet 25 mg PO Q8H PRN 04/23/21 05/12/21 History lidocaine 5 % topical patch 1 patch TOPICAL DAILY 04/23/21 05/12/21 History (Lidoderm) melatonin 3 mg capsule 3 mg PO HS PRN 04/23/21 05/12/21 History sennosides 8.6 mg tablet (Senokot) 8.6 mg PO DAILY PRN 04/23/21 05/12/21 History tramadol 50 mg tablet (Ultram) 50 mg PO Q8H 04/23/21 05/12/21 History acetaminophen 325 mg tablet 650 mg PO DIRECTED PRN 04/29/21 05/12/21 History (Tylenol) carboxymethylcellulose sodium 0.5 1 drp OPB BID 05/12/21 05/12/21 History % eye drops (Refresh Tears) clotrimazole-betamethasone 1 1 applic TOPICAL UD 05/12/21 05/12/21 History %-0.05 % topical cream Patient History Medical History Leg length discrepancy PTSD (post-traumatic stress disorder) Spinal cord injury occurred in 1967 TIA (transient ischemic attack) Surgical History History of appendectomy History of herniorrhaphy History of tonsillectomy and adenoidectomy History of total knee replacement (TKR) BTKA History of urostomy Hx of cervical spine surgery Knee joint replacement status Family History Other No significant family history Social History Smoking Status: Never smoker Tobacco Type: Pipe Second Hand Exposure: No; Do You Dip or Chew Tobacco: No; Tobacco Cessation Education Requested by Patient: No Hx Alcohol Use: Yes Alcohol type: beer, wine, hard liquor and other Alcohol Intake Frequency Comment: ONE DRINK AT BEDTIME Hx Substance Use: No Preferred Language: Angolan Communication Ability: Effective Communication Ability Comment: Writing ability limited. Visual Impairment: Partially Limited Hearing Ability: Use of Hearing Aid Text Transcriber Required: No Beliefs That Will Affect Care: None marital status: Current Living Situation: Spouse Current Living Situation Comment: 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 ([facility]) [facility] current occupational status: disabled Other Information That Helps Us Care for You: No Feels Safe at Home: Yes Safety Concerns: Feels Safe At This Time during the past year weight has: increased > 10 lbs Assistive Devices: Wheelchair Assistive Devices Comment: Maryam lift and gait belt. Physical Exam Constitutional: cooperative; no acute distress, not ill appearing and not disheveled Respiratory: normal respiratory effort; no respiratory distress Gastrointestinal (Abdomen): Inspection/Auscultation: abdomen normal to inspection; abdomen not distended He has a urostomy and colostomy present. Colostomy bag is full with air and stool. Skin: no rashes, warm and dry There is a left sacral wound about 6 cm by 3 cm that has tunneling inferiorly with healthy granulation tissue present. He also has exposed bone present in wound in tunneling aspect. This is deeper and bone is now exposed compared to prior wound evaluation 04/29/21, Wound vac was replaced after wound inspection and sealed and suction was working prior to leaving room. Results & Data ([facility]) Vital Signs (Past 12 Hours) Vital Signs Temp Pulse Resp BP Pulse Ox 05/14/21 07:44 36.3 C L 91 H 16 115/74 94 Laboratory Results 05/14/21 05/14/21 05/14/21 Range/Units 05:48 05:48 05:48 WBC (4.8-10.8) K/uL RBC (4.7-6.1) M/uL Hgb (14.0-18.0) g/dL Hct (42-52) % MCV (80-100) fL MCH (25-34) pg MCHC (32-36) g/dL RDW Std Deviation (36.4-46.3) fL RDW Coeff of Faustino (11.5-14.5) % Plt Count (130-400) K/uL MPV (7.4-10.4) fL Absolute Nucleated RBC (0-0) K/uL Nucleated RBC % (auto) % Peripher Smr Path Cons ESR 120 H (0-20) mm/hr Sodium 138 (136-145) mmol/L Potassium 3.5 (3.5-5.1) mmol/L Chloride 105 (98-107) mmol/L Carbon Dioxide 25 (21-32) mmol/L Anion Gap 8.0 (3-11) BUN 35 H (7-18) mg/dl Creatinine 1.26 (0.6-1.4) mg/dl Est Cr Clr Drug Dosing 61.6 ml/min Est GFR ( Amer) 63.8 ml/min Est GFR (Non-Af Amer) 55.0 ml/min BUN/Creatinine Ratio 27.9 H (10-20) Glucose 83 (70-99) mg/dl Calcium 10.1 (8.5-10.1) mg/dl C-Reactive Protein 14.20 H (0-0.29) mg/dl PTH Intact 14.7 L (18.4-80.1) pg/ml 05/14/21 Range/Units 05:48 WBC 12.51 H (4.8-10.8) K/uL RBC 3.93 L (4.7-6.1) M/uL Hgb 9.8 L (14.0-18.0) g/dL Hct 31.8 L (42-52) % MCV 80.9 (80-100) fL MCH 24.9 L (25-34) pg MCHC 30.8 L (32-36) g/dL RDW Std Deviation 52.4 H (36.4-46.3) fL RDW Coeff of Faustino 17.8 H (11.5-14.5) % Plt Count 914 H (130-400) K/uL MPV 8.8 (7.4-10.4) fL Absolute Nucleated RBC 0.08 H (0-0) K/uL Nucleated RBC % (auto) 0.6 % Peripher Smr Path Cons ESR (0-20) mm/hr Sodium (136-145) mmol/L Potassium (3.5-5.1) mmol/L Chloride (98-107) mmol/L Carbon Dioxide (21-32) mmol/L Anion Gap (3-11) BUN (7-18) mg/dl Creatinine (0.6-1.4) mg/dl Est Cr Clr Drug Dosing ml/min Est GFR ( Amer) ml/min Est GFR (Non-Af Amer) ml/min BUN/Creatinine Ratio (10-20) Glucose (70-99) mg/dl Calcium (8.5-10.1) mg/dl C-Reactive Protein (0-0.29) mg/dl PTH Intact (18.4-80.1) pg/ml Microbiology 05/12/21 13:43 Aerobic Blood Culture - Preliminary Blood No growth in Aerobic bottle after 48 hours. Anaerobic Blood Culture - Final 05/12/21 13:20 Aerobic Blood Culture - Preliminary Blood No growth in Aerobic bottle after 48 hours. Anaerobic Blood Culture - Preliminary No growth in Anaerobic bottle after 48 hours. 05/12/21 17:06 Urine Culture - Final Urine,Clean Catch Pseudomonas aeruginosa Morganella morganii Diagnostic Findings MR pelvis wo/w con CLINICAL INDICATION: Sacral decubitus ulcer and cellulitis in the left buttock COMPARISON: Comparison is made to CT pelvis 05/12/2021 TECHNIQUE: Multiplanar multisequence images were obtained of the abdomen with and without the administration of contrast. FINDINGS: Findings are highly limited by susceptibility artifact arising from the posterior midline soft tissues in this patient with a wound VAC, as a result, evaluation of the sacrum is highly limited. Bowel: Unremarkable. Lymph nodes: Unremarkable. Bladder: Limited evaluation due to underdistention. Reproductive organs: Unremarkable. Vessels: Unremarkable. Abdominal wall: There is T2 hyperintensity in the left gluteal soft tissues compatible with history of cellulitis. Bones: There is a right total hip prosthesis. Within limits of susceptibility artifact as described above, there is no abnormal T2 signal to suggest o steomyelitis. Intraosseous lipoma is noted in the left iliac crest. IMPRESSION: Highly limited exam. Left gluteal cellulitis is noted. No definite evidence of sacral osteomyelitis is noted. (1) Sacral decubitus ulcer Pressure injury stage: unspecified pressure injury stage Qualified Code(s): L89.159 - Pressure ulcer of sacral region, unspecified stage
[2021-05-14] MEDS: ENOXAPARIN INJ 40 MG/0.4 ML SYR SQ SCH (21:37)
[2021-05-14] MEDS: GABAPENTIN 300 MG CAP PO SCH (21:38)
[2021-05-14] MEDS: ASPIRIN 81 MG ECTAB PO SCH (21:38)
[2021-05-14] MEDS: JUVEN PO SCH (21:39)
--- NOTE | 2021-05-14 21:46 | Hospitalist Progress Note ---
Date of Service May 14, 2021 Assessment & Plan (1) Sacral decubitus ulcer: Plan: had been stage 3, now stage 4. Wound Care saw in consult and observed tunneling and palpable bone. had debridement last admission by gen surg (04/29/[address] Perez). received IV abx during that stay, then transitioned to oral augmentin. was on zosyn this admission - transitioned to cefepime today due to urine culture results as below. MRI pelvis and CT pelvis without definitive signs of osteomyelitis (despite marked sed rate elevation). Gen surg consulted again today - wound is clean, medical management advised, cont wound vac. (2) Fluid collection of pancreas: Plan: 04/29/21 CT abdomen with 2 large peripancreatic fluid collections. lipase at that time was normal. etiology?? to my knowledge has never had pancreatitis thus pseudocyst would be unusual. could these collections be abscesses? other? is the persistently high WBC count and very high inflammatory markers due to such?? would repeat CT in am and go from there. recheck lipase. check a procalcitonin in am. (3) Elevated sed rate: Plan: osteomyelitis ruled out on MRI pelvis and CT pelvis. blood cx's thus far neg ruling out SBE. peripheral smear report noted - cannot rule out essential thrombocytosis. can't rule out a primary bone marrow malignancy. can't rule out autoimmune disease (temporal arteritis - pt with headaches). can't rule out that the peripancreatic collections aren't driving the sed rate. strongly consider hematology consult. repeat CT abd in am. (4) CKD (chronic kidney disease), stage III: Plan: baseline CrCl appears to be 40s/50s BMP stable with improved Cr overnight s/p IV fluids (5) Chronic incomplete quadriplegia: Plan: 2nd to cervical spine issues requiring multiple surgeries in past (6) Hypertension: Plan: BPs controlled - on no meds (7) Depression: Plan: cont home meds consider titration (8) Metabolic encephalopathy: Plan: suspect 2nd to #1 and #7 supportive care does he have baseline cognitive impairment? (9) Hypercalcemia: Plan: resolved 2nd to dehydration? or - alternatively - could he have a bone marrow d/o or malignancy? intact PTH low thus no hyperparathyroidism could consider PTH-related peptide (10) Thrombocytosis: Plan: etiology? reactive to #1? primary bone marrow d/o? Fe def? combo? cbc today - platelets mildly better. peripheral smear from pathology reviewed. strongly consider hematology consult. (11) Rheumatoid arthritis: Plan: was on Tocilizumab in the past stopped in early 2020 by 's report appears controlled however (12) Colostomy status: Plan: no issues (13) Presence of urostomy: Plan: no issues (14) Bacteriuria: Plan: pt grew pseudomonas and morganella from urine. given his urostomy he will ALWAYS have bacteria in his urine. I am uncertain if the bacteria present on culture are truly pathogenic at this time or asymptomatic bacteriuria. given his quad status and neurogenic bladder very difficult to know. in light of marked sed rate and crp elevations will Rx for now. change zosyn to cefepime. check procal in am. (15) DVT prophylaxis: Plan: lovenox Plan: spoke with this evening and gave extensive update once again care d/w gen surg Admission and Anticipated Discharge Date Admission Date: May 12, 2021 Subjective saw patient post-MRI pelvis and post-visit from gen surg gen surg plan to medically manage the sacral wound gen surg and wound care both state there is a small amount of sacral periosteum visible/palpable but the entire wound is clean by their report there is no purulence patient's complaint this am is, similar to yesterday - headaches, mainly occipital denies chest pain, abd pain, dyspnea ate 75% of breakfast per the nursing flow sheets Review of Systems Review of Systems: gen - feels better today CV - no chest pain, no orthopnea pulm - no cough GI - denies nausea/emesis/pain Physical Exam Physical Exam: gen - NAD, pleasant; again confused - thinks he is still at the [facility]; when I told him it was [facility] he still stated "well, we are at a [place] location of the [place]" neck - no JVD; no lymphadenopathy; no thyroidmegaly; lidoderms in place posterior neck; tender at base of neck to palpation mouth - MMM heart - RRR, s1 s2, no murmurs lungs - decreased BS bases, CTA b/l otherwise abd - soft NT ND BS+; urostomy in place; colostomy in place ext - trace edema, pulses 2+ b/l neuro - paraplegia of legs; partial spontaneous movements of arms noted psych - a/o x person only musculo - RA changes of hands Results & Data Results & Data ([facility]) Vital Signs (Past 12 Hours) Vital Signs Temp Pulse Resp BP Pulse Ox 05/14/21 15:52 36.6 C 101 H 16 125/81 96 Laboratory Results Laboratory Results - last 24 hr 05/14/21 05/14/21 05/14/21 05:48 05:48 05:48 WBC 12.51 H RBC 3.93 L Hgb 9.8 L Hct 31.8 L MCV 80.9 MCH 24.9 L MCHC 30.8 L RDW Std Deviation 52.4 H RDW Coeff of Faustino 17.8 H Plt Count 914 H MPV 8.8 Absolute Nucleated RBC 0.08 H Nucleated RBC % (auto) 0.6 Peripher Smr Path Cons ESR Sodium 138 Potassium 3.5 Chloride 105 Carbon Dioxide 25 Anion Gap 8.0 BUN 35 H Creatinine 1.26 Est Cr Clr Drug Dosing 61.6 Est GFR ( Amer) 63.8 Est GFR (Non-Af Amer) 55.0 BUN/Creatinine Ratio 27.9 H Glucose 83 Calcium 10.1 C-Reactive Protein 14.20 H PTH Intact 14.7 L 05/14/21 05:48 WBC RBC Hgb Hct MCV MCH MCHC RDW Std Deviation RDW Coeff of Faustino Plt Count MPV Absolute Nucleated RBC Nucleated RBC % (auto) Peripher Smr Path Cons ESR 120 H Sodium Potassium Chloride Carbon Dioxide Anion Gap BUN Creatinine Est Cr Clr Drug Dosing Est GFR ( Amer) Est GFR (Non-Af Amer) BUN/Creatinine Ratio Glucose Calcium C-Reactive Protein PTH Intact Diagnostic Findings peripheral smear report: "The peripheral blood shows a normocytic anemia with increased anisopoikilocytosis. There are some scattered spherocytes but there is no significant increase in schistocytes. Rare nucleated red cells are seen. There is no evidence of rouleaux, RBC agglutination, or basophilic stippling. The WBC is increased secondary to an absolute neutrophilia, monocytosis, and eosinophilia. The granulocytes are appropriately segmented without dysplastic features. Mild reactive changes are present. No circulating immature myeloid precursors or blasts are identified. The monocytes are morphologically mature. The lymphocytes are small to moderate in size and mature, with occasional reactive and large, granular forms noted. No atypical features are identified. The platelets are quantitatively increased with occasional large forms noted. No dysplastic or giant forms are identified. The peripheral smear is remarkable for a leukocytosis, thrombocytosis, and a normocytic anemia. The patient presents with possible sepsis and multiple infectious sources. His neutrophils and WBC have only increased acutely and are likely related to these infections. The patient has had slowly increasing platelets starting back since 2018. They have also recently jumped to much more substantial numbers which would suggest a reactive component. The patient may suffer from chronic iron deficiency which would elevate the platelet counts. I also cannot entirely rule out the potential of essential thrombocythemia. Of note, he also has a notable chronic eosinophilia. Possible game tester/immunology consult may be useful after resolution of current acute issues. Please correlate clinically." Ann Olguin M.D. PG Care Time/CCT Total # of Minutes Spent Total Time Spent with Patient: Total time spent is greater than 50% in coordination of care (as documented) at patient's floor/unit and/or counseling patient: Prolonged Care Time Prolonged Care Time: Yes 75 minutes - includes call to , discussion with gen surg attending & PA, review of old records, complex care coordination Coding Level of Care Code 96168 Subseq Hosp Care Lvl 3 (25 - SIGNIFICANT, SEPARATELY IDENTIFIABLE ) Diagnoses Sacral decubitus ulcer L89.159 Pressure injury stage: unspecified pressure injury stage CKD (chronic kidney disease), stage III N18.30 Chronic incomplete quadriplegia G82.50 Hypertension I10 Depression F32.9 Metabolic encephalopathy G93.41 Hypercalcemia E83.52 Thrombocytosis D47.3 Rheumatoid arthritis M06.9 Colostomy status Z93.3 Presence of urostomy Z93.6 DVT prophylaxis Z29.9 Fluid collection of pancreas K86.89 Elevated sed rate R70.0 Bacteriuria R82.71 Additional Codes Prolonged Care Time - Prolonged Care Time: Yes ([id number]) Time Spent (min) 75 (1) Sacral decubitus ulcer Pressure injury stage: unspecified pressure injury stage Qualified Code(s): L89.159 - Pressure ulcer of sacral region, unspecified stage
[2021-05-15] MEDS: traMADol HCL 50 MG TABLET PO SCH ×3 (05:34→22:12)
[2021-05-15 08:20] LABS: Hematocrit (blood only) 32.3 % (42-52); Hemoglobin 9.8 g/dL (14.0-18.0); Mean Corpuscular Hemoglobin 24.9 pg (25-34); Mean Corpuscular Hgb Conc 30.3 g/dL (32-36); Mean Corpuscular Volume 82.2 fL (80-100); Mean Platelet Volume 8.9 fL (7.4-10.4); Nucleated RBC # (auto) 0.06 K/uL (0-0); Nucleated RBC % (auto) 0.7 %; Platelet Count 923 K/uL (130-400); RDW Coefficient of Variation 17.8 % (11.5-14.5); RDW Standard Deviation 54.1 fL (36.4-46.3); Red Blood Count 3.93 M/uL (4.7-6.1); White Blood Count 9.34 K/uL (4.8-10.8)
[2021-05-15 08:48] LABS: BUN Creatinine Ratio 22.6 (10-20); Calcium 10.4 mg/dl (8.5-10.1); Creatinine Clr Calc Pharmacy 66.9 ml/min; Est GFR (African American) 70.5 ml/min; Est GFR (Non-African American) 60.8 ml/min; Potassium 3.6 mmol/L (3.5-5.1)
[2021-05-15 08:51] LABS: Ferritin 95.3 ng/ml (8-388)
[2021-05-15] MEDS: ASCORBIC ACID 500 MG TAB PO SCH ×2 (09:02→22:13)
[2021-05-15] MEDS: LIDOCAINE 5% 1 PATCH TD SCH (09:03)
[2021-05-15] MEDS: JUVEN PO SCH ×2 (09:03→22:13)
[2021-05-15] MEDS: CLOTRIMAZOLE/BETAMETHASONE CR 15 GM TUBE EXT SCH (09:03)
[2021-05-15] MEDS: buPROPion XL 150 MG TABCR PO SCH (09:03)
[2021-05-15] MEDS: ARTIFICIAL TEARS OP SCH ×2 (09:03→22:13)
[2021-05-15] MEDS: PANTOprazole 40 MG TAB PO SCH (09:03)
[2021-05-15] MEDS: CHOLECALCIFEROL 1,000 UNITS 25 MCG TAB PO SCH ×2 (09:03→22:13)
[2021-05-15] MEDS: POLYETHYLENE (MIRALAX) 17 GM PACK PO SCH (09:03)
[2021-05-15] MEDS: ADVANCED PROBIOTIC 1250 MG CAPSULE PO SCH (09:03)
[2021-05-15] MEDS: EMOLLIENT OINTMENT 1 GM EXT SCH ×2 (09:03→22:13)
[2021-05-15] MEDS ORDERED: OPTIRAY 320 100ml IV ONE (10:03)
[2021-05-15] MEDS: CEFEPIME 2,000 MG in SYRINGE 0 ML IV SCH ×2 (10:53→22:14)
[2021-05-15] MEDS: SODIUM BICARBONATE 650 MG TAB PO SCH (10:53)
--- NOTE | 2021-05-15 11:14 | CT Scan Report ---
CT abdomen w IV con HISTORY: 75 years-old Male recent CT w/ peripancreatic fluid collection acute mid abdominal pain wit h peripancreatic fluid collection COMPARISON: CT abdomen and pelvis 04/29/2021, CT abdomen and pelvis 02/08/2020, MRI pelvis 05/14/2021 TECHNIQUE: Axial CT images of the abdomen were obtained following the intravenous administration of 9 4 mL Optiray 320. A dose lowering technique was used consistent with the principals of JENNIFER. FINDINGS: Cardiomegaly with coronary artery calcifications. Fusiform dilation of the aortic root measures 4.1 c m. Mild bibasilar atelectasis. Limited exam secondary to perched on the positioning. No pneumoperiton eum or pneumatosis. Absent spleen. The gallbladder, adrenal glands and liver are unremarkable. The po rtal vein appears patent. Moderate pancreatic atrophy. Complex mixed attenuating peripancreatic colle ction is redemonstrated measuring 18.7 x 4.3 x 15.3 cm in transverse, AP and craniocaudal dimensions which is again noted extending into the left lower quadrant mesentery. This appears stable from the exam when measured in a similar fashion. No pancreatic ductal dilation. Atrophic kidneys with numerous left greater than right renal cysts. There are a few punctate calcific ations again noted within the bilateral kidneys. No hydronephrosis. Atherosclerosis of the aorta with out aneurysm. Unremarkable IVC. No adenopathy. No bowel obstruction or bowel wall thickening. Mild fe tiana retention. Herniorrhaphy changes of the anterior abdominal wall. Degenerative changes of the spin e, and imaged pelvis.. Lumbar levoscoliosis. Multiple level central canal or neural foraminal narrowi ng. IMPRESSION: 1. Complex mixed attenuating peripancreatic collection measuring up to approximately [address] able in size from the 04/29/2021 exam and is again noted to partially extend into the left aspect of th e upper pelvic mesentery. This may reflect walled off pancreatic necrosis versus a complex pseudocyst . Follow-up is recommended. 2. No bowel obstruction or bowel wall thickening. 3. Chronic findings as above. ACT 112: Negative or not required by law. The above report was generated using voice recognition software. It may contain grammatical, syntax o r spelling errors. Electronically signed by: Sony Grimes M.D. 05/15/2021 11:12 AM
--- NOTE | 2021-05-15 20:38 | Hospitalist Progress Note ---
Date of Service May 15, 2021 Assessment & Plan (1) Sacral decubitus ulcer: Plan: had been stage 3, now stage 4. Wound Care saw in consult and observed tunneling and palpable bone/periosteum. had debridement last admission by gen surg (04/29/[address] Perez). received IV abx during that stay, then transitioned to oral augmentin at d/c. was on zosyn this admission - transitioned to cefepime due to urine culture results as below. MRI pelvis and CT pelvis without definitive signs of osteomyelitis (despite marked sed rate elevation). Gen surg consulted and since wound is clean - medical management advised, cont wound vac. Cont nutritional supplements, etc. (2) Fluid collection of pancreas: Plan: Apparently he was hospitalized at [facility] in the last 12-18 months with acute pancreatitis and has had a pseudocyst since that time. 04/29/21 CT abdomen with 2 large peripancreatic fluid collections. lipase at that time was normal. Repeat CT of abdomen today with 20cm cyst - unchanged from 04/29/21 CT. Lipase today again normal. This cyst is chronic, but given his persistently high WBC count and very high inflammatory markers could the cyst be infected?? Due to his partial quadriplegic status he will not feel pain or other GI symptoms from this process. Spoke with Dr Jose from GI who spoke with Dr Bear from [employer]. [facility] can be consulted on Monday to determine if they can intervene on the cyst. Additionally, could that intervention be performed here? Or would he need tertiary care? in meantime - continue IV antibiotics. (3) Elevated sed rate: Plan: osteomyelitis ruled out on MRI pelvis and CT pelvis. blood cx's thus far neg ruling out SBE. peripheral smear report noted - cannot rule out essential thrombocytosis. Dr Jerry saw in consult today from oncology - he does not feel he has a blood or bone marrow malignancy based on current data. can't rule out autoimmune disease (temporal arteritis? - pt with headaches). can't rule out that the peripancreatic collections aren't driving the sed rate. will consult [facility] on Monday for management of cyst. I spoke with his today re: this cyst and what we may need to do for it. (4) CKD (chronic kidney disease), stage III: Plan: baseline CrCl appears to be 40s/50s BMP stable (5) Chronic incomplete quadriplegia: Plan: 2nd to cervical spine issues requiring multiple surgeries in past (6) Hypertension: Plan: BPs controlled - on no meds (7) Depression: Plan: cont home meds consider titration (8) Metabolic encephalopathy: Plan: suspect 2nd to #1 and #7 this is improved has some residual cognitive impairment (9) Hypercalcemia: Plan: resolved, then trended back up overnight hold vit D intact PTH low thus no hyperparathyroidism could consider PTH-related peptide trend (10) Thrombocytosis: Plan: etiology? reactive to #1? primary bone marrow d/o? Fe def? combo? peripheral smear from pathology reviewed. Dr Jerry's consult appreciated. feels that this is likely a combination of asplenic state, reactivity to his current infectious/inflammatory issues, and Fe deficiency. plan for IV venofer tomorrow if blood cx's remain negative. repeat cbc am. (11) Rheumatoid arthritis: Plan: was on Tocilizumab in the past stopped in early 2020 by 's report appears controlled / not active (12) Colostomy status: Plan: no issues (13) Presence of urostomy: Plan: no issues (14) Bacteriuria: Plan: pt grew pseudomonas and morganella from urine. given his urostomy he will ALWAYS have bacteria in his urine. I am uncertain if the bacteria present on culture are truly pathogenic at this time or asymptomatic bacteriuria. given his quad status and neurogenic bladder very difficult to know. in light of marked sed rate and crp elevations will Rx for now. changed zosyn to cefepime. procal normal. recheck crp in am. (15) DVT prophylaxis: Plan: lovenox Plan: spoke with this evening and gave extensive update once again told her about Dr Jerry's consultation as well as the pseudocyst Admission and Anticipated Discharge Date Admission Date: May 12, 2021 Subjective patient resting comfortably in bed watching the [employer] football game he denies any complaints except for his chronic neck pain/headache ate well at breakfast today no new issues Dr Jerry saw him in consult; feels high platelets, etc is due to low Fe patient states he has had IV iron in the past to his knowledge Review of Systems Review of Systems: gen - weakness CV - no cp pulm - no dyspnea GI - no pain or nausea or emesis Physical Exam Physical Exam: gen - NAD, pleasantly confused; again does not know where he is or why neck - no JVD mouth - MMM heart - RRR, s1 s2, no murmurs lungs - decreased BS bases, CTA b/l otherwise abd - soft NT ND BS+; urostomy in place w/ clear urine; colostomy in place ext - trace edema, pulses 2+ b/l neuro - paraplegia of legs; partial movements of arms psych - a/o x person only musculo - RA changes of hands unchanged; no active synovitis Results & Data Results & Data ([facility]) Vital Signs (Past 12 Hours) Vital Signs Temp Pulse Resp BP Pulse Ox 05/15/21 15:29 36.6 C 100 H 18 130/76 97 Laboratory Results Laboratory Results - last 24 hr 05/15/21 05/15/21 05/15/21 07:56 07:56 07:56 WBC 9.34 RBC 3.93 L Hgb 9.8 L Hct 32.3 L MCV 82.2 MCH 24.9 L MCHC 30.3 L RDW Std Deviation 54.1 H RDW Coeff of Faustino 17.8 H Plt Count 923 H MPV 8.9 Absolute Nucleated RBC 0.06 H Nucleated RBC % (auto) 0.7 Sodium 137 Potassium 3.6 Chloride 106 Carbon Dioxide 25 Anion Gap 6.0 BUN 26 H Creatinine 1.16 Est Cr Clr Drug Dosing 66.9 Est GFR ( Amer) 70.5 Est GFR (Non-Af Amer) 60.8 BUN/Creatinine Ratio 22.6 H Glucose 79 Calcium 10.4 H Iron Transferrin Transferrin % Sat Ferritin Lipase 123 Procalcitonin 0.13 05/15/21 07:56 WBC RBC Hgb Hct MCV MCH MCHC RDW Std Deviation RDW Coeff of Faustino Plt Count MPV Absolute Nucleated RBC Nucleated RBC % (auto) Sodium Potassium Chloride Carbon Dioxide Anion Gap BUN Creatinine Est Cr Clr Drug Dosing Est GFR ( Amer) Est GFR (Non-Af Amer) BUN/Creatinine Ratio Glucose Calcium Iron 17 L Transferrin 159 L Transferrin % Sat 8 L Ferritin 95.3 Lipase Procalcitonin PG Care Time/CCT Total # of Minutes Spent Total Time Spent with Patient: Total time spent is greater than 50% in coordination of care (as documented) at patient's floor/unit and/or counseling patient: Coding Level of Care Code 42562 Subseq Hosp Care Lvl 3 Diagnoses Sacral decubitus ulcer L89.159 Pressure injury stage: unspecified pressure injury stage Fluid collection of pancreas K86.89 Elevated sed rate R70.0 CKD (chronic kidney disease), stage III N18.30 Chronic incomplete quadriplegia G82.50 Hypertension I10 Depression F32.9 Metabolic encephalopathy G93.41 Hypercalcemia E83.52 Thrombocytosis D47.3 Rheumatoid arthritis M06.9 Colostomy status Z93.3 Presence of urostomy Z93.6 Bacteriuria R82.71 DVT prophylaxis Z29.9 (1) Sacral decubitus ulcer Pressure injury stage: unspecified pressure injury stage Qualified Code(s): L89.159 - Pressure ulcer of sacral region, unspecified stage
[2021-05-15] MEDS: ENOXAPARIN INJ 40 MG/0.4 ML SYR SQ SCH (22:12)
[2021-05-15] MEDS: ASPIRIN 81 MG ECTAB PO SCH (22:12)
[2021-05-15] MEDS: GABAPENTIN 300 MG CAP PO SCH (22:13)
[2021-05-16] MEDS: traMADol HCL 50 MG TABLET PO SCH ×3 (05:26→20:51)
[2021-05-16 06:40] LABS: Hematocrit (blood only) 35.2 % (42-52); Hemoglobin 10.7 g/dL (14.0-18.0); Mean Corpuscular Hemoglobin 24.9 pg (25-34); Mean Corpuscular Hgb Conc 30.4 g/dL (32-36); Mean Corpuscular Volume 82.1 fL (80-100); Mean Platelet Volume 9.2 fL (7.4-10.4); Nucleated RBC # (auto) 0.07 K/uL (0-0); Nucleated RBC % (auto) 0.7 %; Platelet Count 1025 K/uL (130-400); RDW Standard Deviation 53.1 fL (36.4-46.3); Red Blood Count 4.29 M/uL (4.7-6.1); White Blood Count 10.73 K/uL (4.8-10.8)
[2021-05-16 06:57] LABS: BUN Creatinine Ratio 23.9 (10-20); Calcium 10.6 mg/dl (8.5-10.1); Creatinine Clr Calc Pharmacy 63.6 ml/min; Est GFR (African American) 66.3 ml/min; Est GFR (Non-African American) 57.2 ml/min; Potassium 3.6 mmol/L (3.5-5.1)
[2021-05-16 07:11] LABS: C Reactive Protein 11.1 mg/dl (0-0.29)
[2021-05-16] MEDS: ARTIFICIAL TEARS OP SCH ×2 (08:57→20:50)
[2021-05-16] MEDS: buPROPion XL 150 MG TABCR PO SCH (08:58)
[2021-05-16] MEDS: ADVANCED PROBIOTIC 1250 MG CAPSULE PO SCH (08:58)
[2021-05-16] MEDS: PANTOprazole 40 MG TAB PO SCH (08:58)
[2021-05-16] MEDS: ASCORBIC ACID 500 MG TAB PO SCH ×2 (08:58→20:50)
[2021-05-16] MEDS: CLOTRIMAZOLE/BETAMETHASONE CR 15 GM TUBE EXT SCH (08:59)
[2021-05-16] MEDS: JUVEN PO SCH ×2 (09:00→20:51)
[2021-05-16] MEDS: EMOLLIENT OINTMENT 1 GM EXT SCH ×2 (09:01→21:11)
[2021-05-16] MEDS: LIDOCAINE 5% 1 PATCH TD SCH (09:01)
[2021-05-16] MEDS: POLYETHYLENE (MIRALAX) 17 GM PACK PO SCH (09:01)
[2021-05-16] MEDS ORDERED: IRON SUCROSE 300 MG in SODIUM CHLORIDE 0.9% 250 ML IV ONE (10:00)
[2021-05-16] MEDS: SODIUM BICARBONATE 650 MG TAB PO SCH (11:50)
[2021-05-16] MEDS: CEFEPIME 2,000 MG in SYRINGE 0 ML IV SCH ×2 (11:50→21:11)
--- NOTE | 2021-05-16 13:14 | Communication Note ---
Date of Service: May 16, 2021 I was contacted by regarding the patient's Pseudocyst on imaging, reviewed his record, he had endonasal surgery in November 2020 and developed acute pancreatitis post op, a month after that he was found with this large peripancreatic pseudocyst which remained stable in size upon follow up CT scan in January 2021, patient did not have symptoms at that time. I reviewed his imaging and the collection is easily accessible with LAMS from the stomach. I will have my office contact the patient/ family to schedule EUS with me next Monday05/24/2021 at [facility].
[2021-05-16] MEDS: NSS + 20MEQ KCL 20 MEQ/1,000 ML BAG IV SCH (17:48)
[2021-05-16] MEDS: ENOXAPARIN INJ 40 MG/0.4 ML SYR SQ SCH (20:49)
[2021-05-16] MEDS: GABAPENTIN 300 MG CAP PO SCH (20:50)
[2021-05-16] MEDS: ASPIRIN 81 MG ECTAB PO SCH (20:50)
--- NOTE | 2021-05-16 23:07 | Consultation Report ---
HEMATOLOGY CONSULTATION DATE OF SERVICE: 05/15/2021. REASON FOR CONSULTATION: Thrombocytosis. HISTORY OF PRESENT ILLNESS: The patient is a pleasant 75-year-old gentleman who was admitted to [facility] because of overall functional decline and decreased oral intake. 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 He also has both colostomy and urostomy and multiple decubitus ulcers the most significant in his sacral area. Apparently, the patient was previously admitted to our facility in early April, underwent a debridement of decubitus ulcer. Upon representation, was found to have a significant leukocytosis and thrombocytosis. Dr. Elmo Post is managing the patient's admission and medical care and asked me to assist in ongoing hematologic issues. Patient has been pancultured. When I interviewed the patient, he has informed me specifically that he had received intravenous iron in the past; he estimates within the past 5 months. I suspect while he does not have active gastrointestinal or genitourinary bleeding, Mr. Anaya continues tolose iron from multiple decubiti over time. Thus, I suspect between ongoing infections, inflammation and intermittent iron deficiency, his platelet count is most likely attributable to all three. Again, this gentleman suffered a traumatic splenectomy during the [place] War and suspect his baseline platelet count probably on average is about 500-600,000. The splenectomy would also partially explain the leukocytosis. The hospitalist service again is asking for assistance and a workup for thrombocytosis. PAST MEDICAL HISTORY: Posttraumatic stress disorder, spinal cord injury, transient ischemic attack and then a traumatic splenectomy. PAST SURGICAL HISTORY: Includes appendectomy, herniorrhaphy, tonsillectomy and adenoidectomy, total knee replacement, urostomy, cervical spine surgery, status post knee replacement. MEDICATIONS PRIOR TO ADMISSION: Include vitamin C 500 mg p.o. b.i.d., aspirin 81 mg p.o. daily, bupropion 150 mg p.o. daily, MiraLax 17 g p.o. daily, sodium bicarbonate 650 mg p.o. q. ____, gabapentin 300 mg p.o. at bedtime, cholecalciferol 25 mcg p.o. b.i.d., Protonix 40 mg p.o. daily, cephalexin 500 mg p.o. b.i.d., cyclobenzaprine 10 mg p.o. t.i.d., docusate sodium 100 mg p.o. b.i.d., hydroxyzine 25 mg p.o. q. 8 hours, melatonin 3 mg p.o. at bedtime p.r.n., tramadol 50 mg p.o. q. 8 hours. ALLERGIES: SHELLFISH, TRIMETHOPRIM, OXYCODONE, SULFA, HYDROMORPHONE, MORPHINE, NAPROXEN. SOCIAL HISTORY: Patient drinks at least one alcoholic drink per night. He is a pipe smoker. Negative for illicit substances. He is and lives with his spouse. He is presently disabled. FAMILY HISTORY: Noncontributory. REVIEW OF SYSTEMS: As per HPI. PHYSICAL EXAMINATION: GENERAL: Very pleasant 75-year-old gentleman, awake, alert and appropriate, in no acute distress. VITAL SIGNS: Temperature 36.5, pulse 106, respiratory rate 16, blood pressure 132/80. SKIN: Turgor is fair without rash or lesion. No petechia or ecchymosis noted. HEENT: Atraumatic, normocephalic. Eyes: PERRLA. EOMI. Sclerae are nonicteric. No conjunctival injection. Nares patent without rhinorrhea or discharge. Throat clear. Tongue midline. No buccal lesions or ulcerations. NECK: Supple. HEART: Regular rate and rhythm. No clicks, rubs or murmurs. LUNGS: Clear to auscultation bilaterally. ABDOMEN: Urostomy and colostomy noted, nontender, no palpable hepatomegaly. EXTREMITIES: No clubbing or cyanosis. Trace peripheral edema in bilateral lower extremities. NEUROLOGICALLY: Grossly intact. LABORATORY DATA: WBC count 10,730, hemoglobin 10.7, platelet count 1.025 million. Sodium 135, potassium 3.6, chloride 104, carbon dioxide 24, creatinine 1.22, BUN 29. C-reactive protein 11.1, calcium 10.6. IMPRESSION: 1. Thrombocytosis (reactive). 2. Sacral decubitus ulcer. 3. Peripancreatic fluid. 4. Elevated sed rate. 5. Incomplete quadriplegia. 6. Metabolic encephalopathy. 7. Hypercalcemia. 8. Iron deficiency anemia. PLAN: In summary, it was my pleasure to meet the patient and the information provided during this morning's encounter was very helpful in putting together a probable underlying cause for this gentleman's thrombocytosis. He relates 5 months earlier receiving IV iron, which has been a problem for him as of late. In the absence of gastrointestinal or genitourinary bleeding, wounds certainly over time can ooze and result in iron loss. This gentleman's iron studies confirmed he is once again deficient and recommended Dr. Post administer at least 1-2 doses of iron sucrose during admission. Infection needs to be sought and treated. That said, I think over time as the patient begins to stabilize his platelet count should retreat towards normal. I do not feel there is evidence for an underlying myeloproliferative disorder. I would hold off on cytoreduction for now and would be more than happy to continue followup of this pleasant gentleman in the outpatient arena. If there are any questions or concerns, feel free to contact me at any time. Job ID: [id number] MTDD
--- NOTE | 2021-05-16 23:56 | Hospitalist Progress Note ---
Date of Service May 16, 2021 Assessment & Plan (1) Sacral decubitus ulcer: Plan: had been stage 3, now stage 4. Wound Care saw in consult and observed tunneling and palpable bone/periosteum. had debridement last admission by gen surg (04/29/[address] Perez). received IV abx during that stay, then transitioned to oral augmentin at d/c. was on zosyn this admission - transitioned to cefepime due to urine culture results as below. MRI pelvis and CT pelvis without definitive signs of osteomyelitis (despite marked sed rate elevation). Gen surg consulted and since wound is clean - medical management advised, cont wound vac. Cont nutritional supplements, etc. (2) Fluid collection of pancreas: Plan: Apparently he was hospitalized at [facility] in the last 12-18 months with acute pancreatitis and has had a pseudocyst since that time. 04/29/21 CT abdomen with 2 large peripancreatic fluid collections. lipase at that time was normal. Repeat CT of abdomen 05/15 with 20cm cyst - unchanged from 04/29/21 CT. Lipase today again normal. See Dr Bear's communication note. This cyst is chronic, but given his persistently high WBC count and very high inflammatory markers could the cyst be infected?? Due to his partial quadriplegic status he will not feel pain or other GI symptoms from this process as would be typical for someone elsee. Continue IV antibiotics. Dr Bear can intervene on this cyst via EUS -- at [facility] next Monday. That plan would assume he is discharged before then. Need to address other issues as below. (3) Elevated sed rate: Plan: osteomyelitis ruled out on MRI pelvis and CT pelvis. blood cx's thus far neg ruling out SBE. peripheral smear report noted - cannot rule out essential thrombocytosis. Dr Jerry saw in consult from oncology - he does not feel he has a blood or bone marrow malignancy based on current data. can't rule out autoimmune disease (temporal arteritis? - pt with headaches). can't rule out that the peripancreatic collections aren't driving the sed rate. the current UTI could be contributing to sed rate elevation. is there an occult process causing hypercalcemia and high sed rate? repeat in a few days. of note -- CRP today is improved. (4) CKD (chronic kidney disease), stage III: Plan: baseline CrCl appears to be 40s/50s BMP stable (5) Chronic incomplete quadriplegia: Plan: 2nd to cervical spine issues requiring multiple surgeries in past (6) Hypertension: Plan: BPs controlled - on no meds (7) Depression: Plan: cont home meds consider titration (8) Metabolic encephalopathy: Plan: worse today -- suspect 2nd to #1 and #7; perhaps #2 as well?? has baseline cognitive impairment antibiotics on board for UTI and possible infection of sacral wound restart IV fluids as total calcium level (corrected is about 11.5) is trending up (9) Hypercalcemia: Plan: resolved, then trended back up overnight hold vit D; restart IV fluids - NS at 100cc/hr intact PTH low thus no hyperparathyroidism check PTH-related peptide cause of hypercalcemia?? occult malignancy? other? I do believe that the calcium issue is causing some confusion, lethargy, etc. repeat BMP am (10) Thrombocytosis: Plan: etiology? reactive to #1? Fe def? combo? peripheral smear from pathology reviewed. Dr Jerry's consult appreciated. Dr Jerry feels that this is likely a combination of asplenic state, reactivity to his current infectious/inflammatory issues, and Fe deficiency. plan for IV venofer today. repeat cbc in am. can repeat the IV venofer again tomorrow if he tolerates today's infusion. (11) Rheumatoid arthritis: Plan: was on Tocilizumab in the past stopped in early 2020 by 's report appears controlled / not active (12) Colostomy status: Plan: no issues (13) Presence of urostomy: Plan: no issues (14) Bacteriuria: Plan: pt grew pseudomonas and morganella from urine. given his urostomy he will ALWAYS have bacteria in his urine. I am uncertain if the bacteria present on culture are truly pathogenic at this time or asymptomatic bacteriuria. given his quad status and neurogenic bladder very difficult to know. in light of marked sed rate and crp elevations will Rx for now. changed zosyn to cefepime. procal normal. crp improved today. continue cefepime -- day # 3 today. Plan 7 days of Rx. Could ultimately transition to PO levaquin as both pathogens sensitive to levaquin. (15) DVT prophylaxis: Plan: lovenox Plan: spoke with this evening and gave extensive update once again told her about Dr Bear from [facility] being able to drain the pancreatic pseudocyst vis EUS at [facility] next Monday HOWEVER - multiple other active issues including his worsening fatigue/mental status, hypercalcemia, poor oral intake, etc. I did not discuss palliative care with his this weekend but if he does not improve with supportive care, if failure to thrive persists, appetite does not improve, etc - would consult Dr Sosa from palliative care to refine goals of care. Admission and Anticipated Discharge Date Admission Date: May 12, 2021 Subjective during the visit today pt reported feeling unwell he was vague about what he was feeling stating several times he "just didn't feel good" he was sleepy today but able to answer questions he could not tell me where he was or why he was here appetite fair per staff patient denied headaches today denied dyspnea or chest pain staff agree he is not as animated and alert today as yesterday Review of Systems Review of Systems: gen - denies chills, c/o fatigue pulm - no dyspnea or cough CV - no chest pain musculo - denies headaches or neck pain today GI - no vomiting Physical Exam Physical Exam: gen - NAD, looks tired and overall not as good as yesterday; more confused today neck - no JVD mouth - MM dry heart - RRR, s1 s2, no murmurs lungs - decreased BS bases, CTA b/l otherwise abd - soft NT ND BS+; urostomy in place w/ clear urine; colostomy in place L abdomen -no changes ext - trace edema, pulses 2+ b/l neuro - paraplegia of legs; limited spontaneous movements of arms as previous psych - a/o x person only musculo - RA changes of hands unchanged; no active synovitis skin - right verdin - large ulceration with scant drainage, no cellulitis Results & Data Results & Data ([facility]) Vital Signs (Past 12 Hours) Vital Signs Temp Pulse Resp BP BP Pulse Ox 05/16/21 22:49 36.4 C L 112 H 16 124/82 91 05/16/21 15:25 36.5 C 106 H 16 132/80 94 Laboratory Results Laboratory Results - last 24 hr 05/16/21 05/16/21 05:41 05:41 WBC 10.73 RBC 4.29 L Hgb 10.7 L Hct 35.2 L MCV 82.1 MCH 24.9 L MCHC 30.4 L RDW Std Deviation 53.1 H RDW Coeff of Faustino 18.0 H Plt Count 1025 H* MPV 9.2 Absolute Nucleated RBC 0.07 H Nucleated RBC % (auto) 0.7 Sodium 136 Potassium 3.6 Chloride 104 Carbon Dioxide 24 Anion Gap 8.0 BUN 29 H Creatinine 1.22 Est Cr Clr Drug Dosing 63.6 Est GFR ( Amer) 66.3 Est GFR (Non-Af Amer) 57.2 BUN/Creatinine Ratio 23.9 H Glucose 84 Calcium 10.6 H C-Reactive Protein 11.10 H PG Care Time/CCT Total # of Minutes Spent Total Time Spent with Patient: Total time spent is greater than 50% in coordination of care (as documented) at patient's floor/unit and/or counseling patient: Coding Level of Care Code 71186 Subseq Hosp Care Lvl 3 Diagnoses Sacral decubitus ulcer L89.159 Pressure injury stage: unspecified pressure injury stage Fluid collection of pancreas K86.89 Elevated sed rate R70.0 CKD (chronic kidney disease), stage III N18.30 Chronic incomplete quadriplegia G82.50 Hypertension I10 Depression F32.9 Metabolic encephalopathy G93.41 Hypercalcemia E83.52 Thrombocytosis D47.3 Rheumatoid arthritis M06.9 Colostomy status Z93.3 Presence of urostomy Z93.6 Bacteriuria R82.71 DVT prophylaxis Z29.9 (1) Sacral decubitus ulcer Pressure injury stage: unspecified pressure injury stage Qualified Code(s): L89.159 - Pressure ulcer of sacral region, unspecified stage
[2021-05-17] MEDS: NSS + 20MEQ KCL 20 MEQ/1,000 ML BAG IV SCH (05:26)
[2021-05-17] MEDS: traMADol HCL 50 MG TABLET PO SCH ×4 (05:26→22:02)
[2021-05-17 07:51] LABS: Hematocrit (blood only) 33.9 % (42-52); Hemoglobin 10.3 g/dL (14.0-18.0); Mean Corpuscular Hemoglobin 25.1 pg (25-34); Mean Corpuscular Hgb Conc 30.4 g/dL (32-36); Mean Corpuscular Volume 82.5 fL (80-100); Mean Platelet Volume 9.3 fL (7.4-10.4); Nucleated RBC # (auto) 0.07 K/uL (0-0); Nucleated RBC % (auto) 0.7 %; Platelet Count 973 K/uL (130-400); RDW Standard Deviation 54.1 fL (36.4-46.3); Red Blood Count 4.11 M/uL (4.7-6.1); White Blood Count 10.63 K/uL (4.8-10.8)
[2021-05-17 08:27] LABS: BUN Creatinine Ratio 23.6 (10-20); Calcium 10.1 mg/dl (8.5-10.1); Creatinine Clr Calc Pharmacy 66.9 ml/min; Est GFR (African American) 70.5 ml/min; Est GFR (Non-African American) 60.8 ml/min; Potassium 3.9 mmol/L (3.5-5.1)
[2021-05-17] MEDS: ARTIFICIAL TEARS OP SCH ×2 (10:25→22:03)
[2021-05-17] MEDS: SODIUM BICARBONATE 650 MG TAB PO SCH (10:26)
[2021-05-17] MEDS: PANTOprazole 40 MG TAB PO SCH (10:26)
[2021-05-17] MEDS: buPROPion XL 150 MG TABCR PO SCH (10:26)
[2021-05-17] MEDS: CLOTRIMAZOLE/BETAMETHASONE CR 15 GM TUBE EXT SCH (10:27)
[2021-05-17] MEDS: ADVANCED PROBIOTIC 1250 MG CAPSULE PO SCH (10:27)
[2021-05-17] MEDS: ASCORBIC ACID 500 MG TAB PO SCH ×2 (10:27→22:03)
[2021-05-17] MEDS: EMOLLIENT OINTMENT 1 GM EXT SCH ×2 (10:27→22:03)
[2021-05-17] MEDS: LIDOCAINE 5% 1 PATCH TD SCH (10:28)
[2021-05-17] MEDS: JUVEN PO SCH ×2 (13:13→22:02)
[2021-05-17] MEDS: POLYETHYLENE (MIRALAX) 17 GM PACK PO SCH (13:13)
--- NOTE | 2021-05-17 13:23 | Hospitalist Progress Note ---
Date of Service May 17, 2021 Assessment & Plan (1) Sacral decubitus ulcer: Plan: Sacral decubitus ulcer Progressed to stage IV from stage III Wound care consulted. Tunneling with palpable bone/periosteum Zosyn this admission narrowed to cefepime based on UC results MRI pelvis/CT pelvis: No signs of osteomyelitis, although of note patient with elevated ESR General surgery consulted. Recommend medical management continue wound VAC, appreciate Elias Patient seen by nutrition and has substantial protein deficit with poor illness in the setting of medical frailty and altered mental status limiting p.o. intake. Patient at deficit and likely requires approximately 130 g protein daily for adequate healing. Discussed need for nutrition with Family and whether NGT/PEG would be consistent with his goals of care. Palliative Consulted, family having a meeting to discuss goals and care plan internally. See palliative note, appreciate Recs and assistance (2) Fluid collection of pancreas: Plan: - hospitalized at [facility] in the last 12-18 months with acute pancreatitis and has had a pseudocyst since that time. - 04/29/21 CT abdomen with 2 large peripancreatic fluid collections. - lipase at that time was normal. - Repeat CT of abdomen 05/15 with 20cm cyst - unchanged from 04/29/21 CT. - Repeat lipase normal - This cyst is chronic, but given his persistently high WBC count and very high inflammatory markers ? potential nidus forinfection. Due to his partial quadriplegic status he will not feel pain or other GI symptoms from this process as would be typical for someone elsee. - Continue IV antibiotics. - Dr Bear can intervene on this cyst via EUS -- at [facility] next Monday. - Not medically stable for discharge at this time (3) Elevated sed rate: Plan: - No signs of Osteomyelitis on MRI pelvis and CT pelvis. - Blood cx's thus far neg ruling out SBE. - peripheral smear report noted - cannot rule out essential thrombocytosis. - ONcology (Dr. Jerry) consulted. Low suspicion for bone/blood marrow malignancy - can't rule out autoimmune disease (temporal arteritis? - pt with headaches). - can't rule out that the peripancreatic collections aren't driving the sed rate. - the current UTI could be contributing to sed rate elevation. - ?Occult process. PTH-rp pending - CRP towntrending, repeat q48h (4) CKD (chronic kidney disease), stage III: Plan: -baseline CrCl appears to be 40s/50s -BMP stable -Cr stable (5) Chronic incomplete quadriplegia: Plan: -2nd to cervical spine issues requiring multiple surgeries in past (6) Hypertension: Plan: -BPs controlled - on no meds (7) Depression: Plan: -cont home Bupropion 150 mg every morning (8) Metabolic encephalopathy: Plan: - Continues to worsen - Aucte on baseline cognitive impairment - Continue tx of metabolic contributors as otherwise noted - Ca improves with IVF tx (9) Hypercalcemia: Plan: - Intermitted, improves with fluids - Continue IVFM - intact PTH low thus no hyperparathyroidism - PTH-RP pending, ?occult malignancy - Hypercalcemia may be conributing to AMS, although guarded prognosis aswnl today and mental status continues to be poor/worsening (10) Thrombocytosis: Plan: - Suspect reactive in the setting of acute illness, iron deficiency - Treatments as above - Oncology consulted, low suspicion for primary bone marrow/blood etiology - May consider additional venofer xfusion as tolerated - Iron studies consistent with iron deficiency (11) Rheumatoid arthritis: Plan: - was on Tocilizumab in the past - stopped in early 2020 by 's report - appears controlled / not active (12) Colostomy status: Plan: no issues (13) Presence of urostomy: Plan: no issues (14) Bacteriuria: Plan: - UC positive for cefepime sensitive Pseudomonas and morganella - given his urostomy he will always have bacteriuria - Unclear if contributory vs asymptomatic bacteriuria, quad status limiting symptom assessment - Continue tx in the setting of above - procal normal. - Trend CRP - Anticipate 7 days of tx with cefepime (or PO conversion to levofloxacin) (15) DVT prophylaxis: Plan: -lovenox (16) Protein calorie malnutrition: Plan: - Estimated 135g protein requirement per day - Pt malnourished, poor PO intake - Along with medical frailty also has poorly healing sacral wound with increased protein requirements - Discussed NGT/PEG with , and whether would be consistent with pts goals of care. Leaning towards preference for trial of NGT, is not sure if PEG would be wanted by patient but he had one previously. Palliative consult as noted. Admission and Anticipated Discharge Date Admission Date: May 12, 2021 Karen Eden seen at the bedside today. He opens his eyes to voice, gives grunting/groaning responses to questions but does not follow 1 or two-step commands. Falls back asleep quickly. Subjective limited by mental status. Review of Systems Review of Systems: Unobtainable due to cognitive status Physical Exam Physical Exam: General: Arouses to voice, but does not answer questions. Does not follow 1 or two-step commands. Somnolent/lethargic. HEENT: Atraumatic, normocephalic. Does not track with eyes, pupils equal and responsive to light. Pulm: Diminished, grossly clear-wheezes, -rales, -rhonchi. Symmetrical chest rise. No increase in work of breathing. No respiratory distress. Cardiac: RRR, -mrg. Radial pulses intact and symmetrical. Abdominal: Urostomy in place, clear urine. No guarding on abdominal palpation. No grimacing on abdominal palpation. Sacral ulcer as noted Extremities: Warm, dry. Right verdin with ulcer present, no superimposed erythema/warmth or discharge. Resting in slightly flexed position. Results & Data Results & Data ([facility]) Vital Signs (Past 12 Hours) Vital Signs Temp Pulse Resp BP Pulse Ox 05/17/21 07:10 36.8 C 108 H 22 129/81 93 PG Care Time/CCT Total # of Minutes Spent Total Time Spent with Patient: Total time spent is greater than 50% in coordination of care (as documented) at patient's floor/unit and/or counseling patient: Coding Level of Care Code 28236 Subseq Hosp Care Lvl 3 Diagnoses Sacral decubitus ulcer L89.159 Pressure injury stage: unspecified pressure injury stage Fluid collection of pancreas K86.89 Elevated sed rate R70.0 CKD (chronic kidney disease), stage III N18.30 Chronic incomplete quadriplegia G82.50 Hypertension I10 Depression F32.9 Metabolic encephalopathy G93.41 Hypercalcemia E83.52 Thrombocytosis D47.3 Rheumatoid arthritis M06.9 Colostomy status Z93.3 Presence of urostomy Z93.6 Bacteriuria R82.71 DVT prophylaxis Z29.9 Protein calorie malnutrition E46 (1) Sacral decubitus ulcer Pressure injury stage: unspecified pressure injury stage Qualified Code(s): L89.159 - Pressure ulcer of sacral region, unspecified stage
[2021-05-17] MEDS: CEFEPIME 2,000 MG in SYRINGE 0 ML IV SCH ×2 (15:09→23:14)
--- NOTE | 2021-05-17 15:23 | Palliative Care Consultation ---
Date of Consultation May 17, 2021 Assessment & Plan (1) Palliative care encounter: Mr. Anaya is a 75 year old male who presented to the [facility] with metabolic encephalopathy related to a prolonged and delayed wound healing with a stage IV infectious decubitus ulcer that has a wound vac in place, which most recently was debrided on 05/11. He has unfortunately been in and out of the hospital since November with these complications, including surgery. He, at baseline, is a functional quadriplegic [place] for which he sustained a splenic injury resulting in him having a colostomy and urostomy. In early April, he was noted to have acute pancreatitis and a pseudocyst. This admission, an MRI was performed and unremarkable for osteomyelitis; however, worsening tunneling has been identified. Unfortunately, due to his fragility medically and recent altered mental status, along with his poor po intake, his overall prognosis is guarded. Palliative Medicine was consulted to discuss overall goals of care with regards specifically to artificial nutrition/hydration. I entered room 309. The patient was lying on his back, eyes were closed and he did not open his eyes to verbal or tactile stimulation. He has been noted to be yelling out and is awake, alert, and oriented to self per nursing. He did have furrowed brow and was grimacing. I was able to talk with the patients Sherice and their son Jah between two numbers [phone] and [phone] on a conference call. We discussed his overall medical condition and inpatient hospitalizations overall beginning in November. I asked Sherice what typically brings [place] and she mentioned that they would watch TV together, watch football together and discuss gardening together. Prior to his surgery in November he was able to use his power chair and they were able to get out to the [facility]. With COVID this has changed their ability to interact with friends, etc. which has been challenging for them. We discussed and reviewed some of this hospitalization including the MRI results, wound vac and overall poor PO intake. We reflected on his previous NGT placement and J-tube placement and toleration. He had an NGT at [facility] and a surgical placement of the feeding tube post surgery in November 2020. He had a J- tube within a week or two. I asked if he was able to participate in conversation regarding how aggressive he would want to be, if he was unable to return to a meaningful interactive state; how would he want to proceed. Sherice mentioned that for now they would want to have him return home with trial IV fluids and trial NGT with the increased protein requirement. I did discuss home health and transition to hospice as well based on progression. The patient would certainly qualify for hospice services with a diagnosis of: Severe Protein Malnourishment. The family has decided to discuss internally with how they would like to proceed. Sherice was agreeable to have a follow up conversation tomorrow. Hospitalist updated with above. Palliative will continue to follow and assist family with goals decision making. (2) Protein calorie malnutrition: (3) Metabolic encephalopathy: (4) CKD (chronic kidney disease), stage III: (5) Sacral decubitus ulcer: Pressure injury stage: unspecified pressure injury stage Qualified Code(s): L89.159 - Pressure ulcer of sacral region, unspecified stage History of Present Illness Reason for Consultation: goals of care Requesting Physician: Dr. Butcher Attending Physician: Sawyer Butcher MD History of Present Illness Mr. Anaya is a 75 year old male who presented to the [facility] with metabolic encephalopathy related to a prolonged and delayed wound healing with a stage IV infectious decubitus ulcer that has a wound vac in place, which most recently was debrided on 05/11. He has unfortunately been in and out of the hospital since November with these complications, including surgery. He, at baseline, is a functional quadriplegic [place] for which he sustained a splenic injury resulting in him having a colostomy and urostomy. In early April, he was noted to have acute pancreatitis and a pseudocyst. This admission, an MRI was performed and unremarkable for osteomyelitis; however, worsening tunneling has been identified. Unfortunately, due to his fragility medically and recent altered mental status, along with his poor po intake, his overall prognosis is guarded. Palliative Medicine was consulted to discuss overall goals of care with regards specifically to artificial nutrition/hydration. Please see A/P for further details. Thanks for involving Palliative Medicine with this patient and their family. Allergies Allergy/AdvReac Type Severity Reaction Status Date / Time shellfish derived Allergy Severe Anaphylaxis Verified 05/12/21 15:55 trimethoprim Allergy Intermediate rash Verified 05/12/21 15:55 oxycodone AdvReac Severe PSYCHOTIC Verified 05/12/21 15:55 Sulfa (Sulfonamide AdvReac Severe KIDNEY Verified 05/12/21 15:55 Antibiotics) FAILURE hydromorphone AdvReac Intermediate NAUSEA AND Verified 05/12/21 15:55 VOMITING morphine AdvReac Mild VOMITING Verified 05/12/21 15:55 naproxen AdvReac Mild vertigo Verified 05/12/21 15:55 Home Medications Medication Instructions Recorded Confirmed Type ascorbic acid (vitamin C) 500 mg 500 mg PO BID cap 05/11/18 05/12/21 History capsule aspirin 81 mg tablet,delayed 81 mg PO QPM 05/11/18 05/12/21 History release (Adult Aspirin Regimen) bupropion HCl 150 mg 24 hr tablet, 150 mg PO QAM 05/11/18 05/12/21 History extended release (Wellbutrin XL) polyethylene glycol 3350 17 17 g PO QAM gm 05/11/18 05/12/21 History gram/dose oral powder (Miralax) sodium bicarbonate 650 mg tablet 650 mg PO QDL tab 05/11/18 05/12/21 History gabapentin 300 mg capsule 300 mg PO HS cap 06/13/18 05/12/21 History (Neurontin) cholecalciferol (vitamin D3) 25 25 mcg PO BID cap 01/09/20 05/12/21 History mcg (1,000 unit) capsule (Vitamin D3) pantoprazole 40 mg tablet,delayed 40 mg PO DAILY 02/07/20 05/12/21 History release (Protonix) cephalexin 500 mg capsule 500 mg PO BID #60 cap 04/08/20 05/12/21 Rx Lactobacillus acidophilus 2 tab PO DAILY 04/23/21 05/12/21 History (Acidophilus) cyclobenzaprine 10 mg tablet 10 mg PO TID 04/23/21 05/12/21 History docusate sodium 100 mg capsule 100 mg PO BID PRN 04/23/21 05/12/21 History (Colace) hydrophilic (DermaFix) 1 applic TOPICAL BID 04/23/21 05/12/21 History hydroxyzine HCl 25 mg tablet 25 mg PO Q8H PRN 04/23/21 05/12/21 History lidocaine 5 % topical patch 1 patch TOPICAL DAILY 04/23/21 05/12/21 History (Lidoderm) melatonin 3 mg capsule 3 mg PO HS PRN 04/23/21 05/12/21 History sennosides 8.6 mg tablet (Senokot) 8.6 mg PO DAILY PRN 04/23/21 05/12/21 History tramadol 50 mg tablet (Ultram) 50 mg PO Q8H 04/23/21 05/12/21 History acetaminophen 325 mg tablet 650 mg PO DIRECTED PRN 04/29/21 05/12/21 History (Tylenol) carboxymethylcellulose sodium 0.5 1 drp OPB BID 05/12/21 05/12/21 History % eye drops (Refresh Tears) clotrimazole-betamethasone 1 1 applic TOPICAL UD 05/12/21 05/12/21 History %-0.05 % topical cream Patient History Medical History (Updated 05/17/21 @ 15:52 by GIA Abad) Leg length discrepancy Palliative care encounter PTSD (post-traumatic stress disorder) Spinal cord injury occurred in 1967 TIA (transient ischemic attack) Surgical History History of appendectomy History of herniorrhaphy History of tonsillectomy and adenoidectomy History of total knee replacement (TKR) BTKA History of urostomy Hx of cervical spine surgery Knee joint replacement status Family History Other No significant family history Social History Smoking Status: Never smoker Tobacco Type: Pipe Second Hand Exposure: No; Do You Dip or Chew Tobacco: No; Tobacco Cessation Education Requested by Patient: No Hx Alcohol Use: Yes Alcohol type: beer, wine, hard liquor and other Alcohol Intake Frequency Comment: ONE DRINK AT BEDTIME Hx Substance Use: No Preferred Language: Amharic Communication Ability: Effective Communication Ability Comment: Writing ability limited. Visual Impairment: Partially Limited Hearing Ability: Use of Hearing Aid Wire Inspector Required: No Beliefs That Will Affect Care: None marital status: Current Living Situation: Spouse Current Living Situation Comment: 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 ([facility]) OBTAINED THROUGH THE [place] current occupational status: disabled Other Information That Helps Us Care for You: No Feels Safe at Home: Yes Safety Concerns: Feels Safe At This Time during the past year weight has: increased > 10 lbs Assistive Devices: Glasses Assistive Devices Comment: Maryam lift and gait belt. Review of Systems Review of Systems: Alford System Assessment Scale: Pain: 1/3 by observation Anxiety: 0/3 by observation Shortness of breath: 0/3 by observation. Tiredness: 2/3 by observation Palliative Performance Scale: 30% Physical Exam Constitutional: + ill appearing, + frail appearing and + lethargic ENMT: Mouth: + dry oral mucous membranes Respiratory: normal respiratory effort Auscultation: + diminished lung sounds Cardiovascular: Rate/Rhythm: + tachycardic Extremities: normal capillary refill Gastrointestinal (Abdomen): Inspection/Auscultation: abdomen normal to inspection RLQ urostomy LLQ colostomy Skin: + pallor Results & Data ([facility]) Vital Signs (Past 12 Hours) Vital Signs Temp Pulse Resp BP Pulse Ox 05/17/21 07:10 36.8 C 108 H 22 129/81 93 PG Care Time/CCT Total # of Minutes Spent Total Time Spent with Patient: Total time spent is greater than 50% in coordination of care (as documented) at patient's floor/unit and/or counseling patient: 100 minutes with > 50% of that time spent assessing the patient, discussing goals of care, and collaborating with IDT Coding Level of Care Code 95266 Inpt Consult Level 3 Diagnoses Palliative care encounter Z51.5 Protein calorie malnutrition E46 Metabolic encephalopathy G93.41 CKD (chronic kidney disease), stage III N18.30 Sacral decubitus ulcer L89.159 Pressure injury stage: unspecified pressure injury stage Time Spent (min) 100
[2021-05-17] MEDS: ASPIRIN 81 MG ECTAB PO SCH (22:03)
[2021-05-17] MEDS: ENOXAPARIN INJ 40 MG/0.4 ML SYR SQ SCH (22:03)
[2021-05-17] MEDS: GABAPENTIN 300 MG CAP PO SCH (22:03)
[2021-05-18] MEDS: traMADol HCL 50 MG TABLET PO SCH ×2 (05:30→15:29)
[2021-05-18 07:00] LABS: BUN Creatinine Ratio 19.4 (10-20); Basophils # (auto) 0.09 K/uL (0-0.2); Basophils % (auto) 0.7 %; Calcium 11.1 mg/dl (8.5-10.1); Creatinine Clr Calc Pharmacy 63.1 ml/min; Echinocytes 1+; Eosinophils # (auto) 1.21 K/uL (0-0.5); Eosinophils % (auto) 9.9 %; Est GFR (African American) 65.7 ml/min; Est GFR (Non-African American) 56.7 ml/min; Hemoglobin 11.1 g/dL (14.0-18.0); Immature Granulocytes # (auto) 0.02 K/uL (0.00-0.02); Immature Granulocytes % (auto) 0.2 %; Lymphocytes # (auto) 1.22 K/uL (1.2-3.4); Mean Corpuscular Hemoglobin 24.8 pg (25-34); Mean Corpuscular Volume 82.8 fL (80-100); Mean Platelet Volume 9.3 fL (7.4-10.4); Monocytes # (auto) 1.74 K/uL (0.11-0.59); Monocytes % (auto) 14.3 %; Neutrophils # (auto) 7.93 K/uL (1.4-6.5); Neutrophils % (auto) 64.9 %; Nucleated RBC # (auto) 0.12 K/uL (0-0); Platelet Count 1027 K/uL (130-400); Polychromasia 1+; Potassium 4.1 mmol/L (3.5-5.1); RDW Coefficient of Variation 18.1 % (11.5-14.5); RDW Standard Deviation 54.5 fL (36.4-46.3); Red Blood Count 4.47 M/uL (4.7-6.1); Target Cells 1+; White Blood Count 12.21 K/uL (4.8-10.8)
[2021-05-18] MEDS: ARTIFICIAL TEARS OP SCH ×2 (09:30→20:53)
--- NOTE | 2021-05-18 13:36 | Palliative Care Progress Note ---
Date of Service May 18, 2021 Assessment & Plan (1) Palliative care encounter: Plan: I entered room 309. The patient was lying on his back, eyes were closed and he did not open his eyes to verbal or tactile stimulation. I spoke softly to him and he appeared to have heard me, but was grimacing and had furrowed brow. He has been refusing medications and has ultimately not been awake enough to swallow any pills safely at this point. He has been noted to be yelling out and is awake, alert, and oriented to self per nursing, slightly less than yesterday. I was able to talk with the patients Sherice at [phone] and we talked at length. She said that it sounds like she is losing time with him and that it is time to allow him to peacefully with dignity. She said she has been thinking about the feeding tube option that we discussed yesterday and feels we have missed that window of opportunity. I reassured her that we did not feel that the feeding tube would be beneficial in the large picture. I advised that when we feel we can't fix something, we can promise to keep him comfortable as he enters the last phase of his life, while providing him with a gift of dignity. She agrees and is agreeable to a full comfort transition; discontinuing all blood work, vital signs (aside from a spot check SpO2), and all medications not focused on his comfort. Regarding his wound vac, the dressing was just changed today and not due for an additional change until Monday. As this may be providing him with some comfort, I would suggest allowing it in place while on comfort measures and if he should live until Monday, remove it at that time. I ordered Morphine 1 mg Q2 IV PRN, Ativan 1 mg IV Q3 PRN for terminal agitation, Glycopyrrolate 0.2mg IV Q3 PRN for terminal secretions. Patient has an adequate creatinine so concerns are less for opioid toxicity. Sherice will be coming to the bedside for visitation at end of life. I also advised that their two adult children Jah and Khushi could visit for end of life visitation. Expectation set that they would have to rotate in and out with one visitor at a time. All of the above discussed with Dr. Butcher, his nurse Annel, and 3rd floor waxer, Catina Montana. deskidding machine operator notified of one person at a time visitation. Nursing will call for bereavement cart when family arrives. asked about life expectancy and I feel when we begin this process, he likely has days of life remaining. Palliative Medicine will follow and continue to address symptoms and support the family. (2) Protein calorie malnutrition: (3) Metabolic encephalopathy: (4) CKD (chronic kidney disease), stage III: (5) Sacral decubitus ulcer: Admission and Anticipated Discharge Date Admission Date: May 12, 2021 Subjective Patient is lying on his back and grimacing. He clenches his eyes and fists close. He would not open his eyes on command. He has been tachycardic. Please see A/P for further details. Review of Systems Review of Systems: Success System Assessment Scale: Pain: 1/3 by observation Anxiety: 0/3 by observation Shortness of breath: 0/3 by observation. Tiredness: 2/3 by observation Palliative Performance Scale: 20% Physical Exam Constitutional: + ill appearing, + frail appearing and + lethargic ENMT: Mouth: + dry oral mucous membranes Respiratory: normal respiratory effort Auscultation: + diminished lung sounds Cardiovascular: Rate/Rhythm: + tachycardic Extremities: normal capillary refill Gastrointestinal (Abdomen): Inspection/Auscultation: abdomen normal to inspection Skin: + pallor Results & Data ([facility]) Vital Signs (Past 12 Hours) Vital Signs Temp Pulse Resp BP Pulse Ox 05/18/21 07:40 36.5 C 118 H 20 146/92 H 98 PG Care Time/CCT Total # of Minutes Spent Total Time Spent with Patient: Total time spent is greater than 50% in coordination of care (as documented) at patient's floor/unit and/or counseling patient: 45 minutes with > 50% of that time spent assessing the patient, discussing goals of care with family, addressing symptom management and collaborating with IDT Coding Level of Care Code 21078 Subseq Hosp Care Lvl 3 Diagnoses Palliative care encounter Z51.5 Protein calorie malnutrition E46 Metabolic encephalopathy G93.41 CKD (chronic kidney disease), stage III N18.30 Sacral decubitus ulcer L89.159 Pressure injury stage: unspecified pressure injury stage Time Spent (min) 45 (1) Sacral decubitus ulcer Pressure injury stage: unspecified pressure injury stage Qualified Code(s): L89.159 - Pressure ulcer of sacral region, unspecified stage
[2021-05-18] MEDS ORDERED: MoRPHine SULFATE 2 MG/ML CARP IV PRN (14:11)
[2021-05-18] MEDS ORDERED: LORazepam 1 MG/2 ML VIAL IV PRN (14:12)
[2021-05-18] MEDS ORDERED: GLYCOPYRROLATE 0.2 MG/ML VIAL IV PRN (14:12)
--- NOTE | 2021-05-18 14:46 | Hospitalist Progress Note ---
Date of Service May 18, 2021 Assessment & Plan (1) Comfort measures only status: Plan: Mr. Anaya is a 75-year-old male admitted to [facility] with a Bolick encephalopathy/altered mental status with a poorly healing decubitus ulcer, and a past history of quadriplegia, poor intake, rheumatoid arthritis, and ostomy who continue to decline following admission for his encephalopathy. Following extended discussions and risk/benefits of multiple options and his recurrent hospitalization (and prior history of PEG tube trial) along with his clinical deterioration the decision was made to move to comfort measures on 05/18. Care was discussed between palliative care and patient's family and decision was made to allow him to peacefully with dignity and comfort. Comfort measures ordered, remaining clinical history below for documentation. Comfort measures only No new labs, needlesticks Medications reviewed, comfort only meds Wound VAC changed 05/18, neck scheduled for Monday. If seen Monday would recommend removing current VAC and not replacing as is very painful to perform and will not change clinical course at this time. (2) Sacral decubitus ulcer: Plan: Sacral decubitus ulcer - TAR PROCESSING TECHNICIAN Progressed to stage IV from stage III Wound care consulted. Tunneling with palpable bone/periosteum Zosyn this admission narrowed to cefepime based on UC results MRI pelvis/CT pelvis: No signs of osteomyelitis, although of note patient with elevated ESR General surgery consulted. Recommend medical management continue wound VAC, appreciate Elias Patient seen by nutrition and has substantial protein deficit with poor illness in the setting of medical frailty and altered mental status limiting p.o. intake. Patient at deficit and likely requires approximately 130 g protein daily for adequate healing. Discussed need for nutrition with Family and whether NGT/PEG would be consistent with his goals of care. Palliative Consulted, family having a meeting to discuss goals and care plan internally. See palliative note, appreciate Recs and assistance (3) Fluid collection of pancreas: Plan: - hospitalized at [facility] in the last 12-18 months with acute pancreatitis and has had a pseudocyst since that time. - 04/29/21 CT abdomen with 2 large peripancreatic fluid collections. - lipase at that time was normal. - Repeat CT of abdomen 05/15 with 20cm cyst - unchanged from 04/29/21 CT. - Repeat lipase normal - This cyst is chronic, but given his persistently high WBC count and very high inflammatory markers ? potential nidus forinfection. Due to his partial quadriplegic status he will not feel pain or other GI symptoms from this process as would be typical for someone elsee. - Continue IV antibiotics. - Dr Bear originally tentatively planned for EUS and potential drainage at [facility] next Monday, deferred with clinical decline and TAR PROCESSING TECHNICIAN. -Further work-up/intervention deferred, patient with comfort measure goals at this time (4) Elevated sed rate: Plan: -Defer additional work-up consistent with TAR PROCESSING TECHNICIAN goals - No signs of Osteomyelitis on MRI pelvis and CT pelvis. - Blood cx's thus far neg ruling out SBE. - peripheral smear report noted - cannot rule out essential thrombocytosis. - ONcology (Dr. Jerry) consulted. Low suspicion for bone/blood marrow malignancy - can't rule out autoimmune disease (temporal arteritis? - pt with headaches). - can't rule out that the peripancreatic collections aren't driving the sed rate. - the current UTI could be contributing to sed rate elevation. - ?Occult process. PTH-rp pending (5) CKD (chronic kidney disease), stage III: Plan: -baseline CrCl appears to be 40s/50s -BMP stable -Cr stable Additional labs deferred for TAR PROCESSING TECHNICIAN goals (6) Chronic incomplete quadriplegia: Plan: -2nd to cervical spine issues requiring multiple surgeries in past (7) Hypertension: Plan: -BPs controlled - on no meds Defer BP checks, TAR PROCESSING TECHNICIAN (8) Depression: Plan: -cont home Bupropion 150 mg every morning Refusing oral meds at this time, TAR PROCESSING TECHNICIAN (9) Metabolic encephalopathy: Plan: -Continue to worsen, acute worsening on background of medical frailty-some cognitive decline TAR PROCESSING TECHNICIAN goals as above (10) Hypercalcemia: Plan: -PTHRP pending,? Occult malignancy. 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, CML (12) Rheumatoid arthritis: Plan: - was on Tocilizumab in the past - stopped in early 2020 by 's report - appears controlled / not active (13) Colostomy status: Plan: no issues (14) Presence of urostomy: Plan: no issues (15) Bacteriuria: Plan: - UC positive for cefepime sensitive Pseudomonas and morganella - given his urostomy he will always have bacteriuria - Unclear if contributory vs asymptomatic bacteriuria, quad status limiting sy mptom assessment TAR PROCESSING TECHNICIAN goals, additional eval/treatment deferred this time (16) DVT prophylaxis: Plan: -lovenox (17) Protein calorie malnutrition: Plan: - Estimated 135g protein requirement per day - Pt malnourished, poor PO intake - Along with medical frailty also has poorly healing sacral wound with increased protein requirements - Discussed NGT/PEG with , and whether would be consistent with pts goals of care. Patient made decision to go TAR PROCESSING TECHNICIAN 05/18, defer NGT/PEG Admission and Anticipated Discharge Date Admission Date: May 12, 2021 Subjective Patient grimaces to voice and shoulder touch, does not open eyes. Refusing meds. Appears clinically worsen, does not follow commands. Subjective limited by cognitive status. Extensive discussion tween family and palliative care today, moving to comfort measure oriented goals of care at this time. See palliative for further. Review of Systems Review of Systems: Unobtainable Physical Exam Physical Exam: General: Grimacing. Does not follow 1 or two-step commands. Somnolent/lethargic. HEENT: Atraumatic, normocephalic. Does not track with eyes, pupils equal and responsive to light. Pulm: Diminished. No respiratory distress. Cardiac: RRR, -mrg. Radial pulses intact and symmetrical. Abdominal: Urostomy in place, clear urine. No guarding on abdominal palpation. Also present, dressed with wound VAC. Extremities: Warm, dry. Right verdin with ulcer present, no superimposed erythema/warmth or discharge. Resting in flexed position. Results & Data Results & Data ([facility]) Vital Signs (Past 12 Hours) Vital Signs Temp Pulse Resp BP Pulse Ox 05/18/21 07:40 36.5 C 118 H 20 146/92 H 98 PG Care Time/CCT Total # of Minutes Spent Total Time Spent with Patient: Total time spent is greater than 50% in coordination of care (as documented) at patient's floor/unit and/or counseling patient: Coding Level of Care Code 74202 Subseq Hosp Care Lvl 1 Diagnoses Sacral decubitus ulcer L89.159 Pressure injury stage: unspecified pressure injury stage Fluid collection of pancreas K86.89 Elevated sed rate R70.0 CKD (chronic kidney disease), stage III N18.30 Chronic incomplete quadriplegia G82.50 Hypertension I10 Depression F32.9 Metabolic encephalopathy G93.41 Hypercalcemia E83.52 Thrombocytosis D47.3 Rheumatoid arthritis M06.9 Colostomy status Z93.3 Presence of urostomy Z93.6 Bacteriuria R82.71 DVT prophylaxis Z29.9 Protein calorie malnutrition E46 Comfort measures only status Z51.5 (1) Sacral decubitus ulcer Pressure injury stage: unspecified pressure injury stage Qualified Code(s): L89.159 - Pressure ulcer of sacral region, unspecified stage
[2021-05-18] MEDS: EMOLLIENT OINTMENT 1 GM EXT SCH (15:27)
[2021-05-18] MEDS: CLOTRIMAZOLE/BETAMETHASONE CR 15 GM TUBE EXT SCH (15:27)
[2021-05-18] MEDS: ASCORBIC ACID 500 MG TAB PO SCH (15:27)
[2021-05-18] MEDS: buPROPion XL 150 MG TABCR PO SCH (15:27)
[2021-05-18] MEDS: ADVANCED PROBIOTIC 1250 MG CAPSULE PO SCH (15:27)
[2021-05-18] MEDS: LIDOCAINE 5% 1 PATCH TD SCH (15:27)
[2021-05-18] MEDS: SODIUM BICARBONATE 650 MG TAB PO SCH (15:28)
[2021-05-18] MEDS: PANTOprazole 40 MG TAB PO SCH (15:28)
[2021-05-18] MEDS: JUVEN PO SCH (15:28)
[2021-05-18] MEDS: CEFEPIME 2,000 MG in SYRINGE 0 ML IV SCH (15:28)
[2021-05-18] MEDS: POLYETHYLENE (MIRALAX) 17 GM PACK PO SCH (15:28)
[2021-05-19] MEDS: ARTIFICIAL TEARS OP SCH ×2 (08:21→22:29)
[2021-05-19] MEDS ORDERED: MoRPHine SULFATE 2 MG/ML CARP IV PRN ×2 (09:37→09:56)
--- NOTE | 2021-05-19 09:43 | Palliative Care Progress Note ---
Date of Service May 19, 2021 Assessment & Plan (1) Palliative care encounter: Plan: I entered room 309. The patient was lying on his back, eyes were closed and he did not open his eyes to verbal or tactile stimulation, similar to yesterday. I spoke softly to him and he appeared to have heard me, but was grimacing and had furrowed brow. He has received one dose of IV Morphine this morning. Low threshold for administration discussed with nursing. Will schedule Morphine Q6 with PRN for additional breakthrough. Regarding his wound vac, the dressing was just changed today and not due for an additional change until Monday. As this may be providing him with some comfort, I would suggest allowing it in place while on comfort measures and if he should live until Monday, remove it at that time. I was able to talk to his , Sherice at [phone] at length. She was able to visit with him yesterday and feels that this validated the decision to transition to a more comfort focused approach to his care. She has some friends that provide her with support and she also has attended group sessions [facility]. Patient continues to have Ativan 1 mg IV Q3 PRN for terminal agitation, Glycopyrrolate 0.2mg IV Q3 PRN for terminal secretions. Patient has an adequate creatinine so concerns are less for opioid toxicity. Expectation set for family yesterday that they would have to rotate in and out with one visitor at a time. All of the above discussed with Dr. Butcher, his nurse Annel, and 3rd floor sander, Catina Montana. patient coordinator front desk notified of one person at a time visitation. Nursing will call for bereavement cart when family arrives. asked about life expectancy and I feel when we begin this process, he likely has days of life remaining. Palliative Medicine will follow and continue to address symptoms and support the family. (2) Protein calorie malnutrition: (3) Metabolic encephalopathy: (4) CKD (chronic kidney disease), stage III: (5) Sacral decubitus ulcer: Admission and Anticipated Discharge Date Admission Date: May 12, 2021 Subjective Patient continues to grimace to verbal or tactile stimulation. He was transitioned to LOGISTICS SUPERVISOR yesterday at 1400. Discussion held with nursing that due to grimacing, anticipated pain with stage IV sacral ulcer, would have low threshold for pain medication administration. Please see A/P for further details. Review of Systems Review of Systems: [place] System Assessment Scale: Pain: 1/3 by observation Anxiety: 0/3 by observation Shortness of breath: 0/3 by observation. Tiredness: 2/3 by observation Palliative Performance Scale: 20% Physical Exam Constitutional: + ill appearing, + frail appearing and + lethargic ENMT: Mouth: + dry oral mucous membranes Respiratory: normal respiratory effort Auscultation: + diminished lung sounds Cardiovascular: Rate/Rhythm: + tachycardic Extremities: normal capillary refill Gastrointestinal (Abdomen): Inspection/Auscultation: abdomen normal to inspection Skin: + pallor PG Care Time/CCT Total # of Minutes Spent Total Time Spent with Patient: Total time spent is greater than 50% in coordination of care (as documented) at patient's floor/unit and/or counseling patient: 35 minutes with > 50% of that time spent assessing the patient, discussing goals of care, addressing symptom management and collaborating with IDT Coding Level of Care Code 84507 Subseq Hosp Care Lvl 3 Diagnoses Palliative care encounter Z51.5 Protein calorie malnutrition E46 Metabolic encephalopathy G93.41 CKD (chronic kidney disease), stage III N18.30 Sacral decubitus ulcer L89.159 Pressure injury stage: unspecified pressure injury stage Time Spent (min) 35 (1) Sacral decubitus ulcer Pressure injury stage: unspecified pressure injury stage Qualified Code(s): L89.159 - Pressure ulcer of sacral region, unspecified stage
[2021-05-19] MEDS ORDERED: MoRPHine SULFATE 2 MG/ML CARP IV SCH (11:00)
[2021-05-19] MEDS: MoRPHine SULFATE 2 MG/ML CARP IV SCH ×3 (11:58→23:39)
--- NOTE | 2021-05-19 16:41 | Hospitalist Progress Note ---
Date of Service May 19, 2021 Assessment & Plan (1) Comfort measures only status: Plan: Mr. Anaya is a 75-year-old male admitted to [facility] with a Bolick encephalopathy/altered mental status with a poorly healing decubitus ulcer, and a past history of quadriplegia, poor intake, rheumatoid arthritis, and ostomy who continue to decline following admission for his encephalopathy. Following extended discussions and risk/benefits of multiple options and his recurrent hospitalization (and prior history of PEG tube trial) along with his clinical deterioration the decision was made to move to comfort measures on 05/18. Care was discussed between palliative care and patient's family and decision was made to allow him to peacefully with dignity and comfort. Comfort measures ordered, remaining clinical history below for documentation. Comfort measures only No new labs, needlesticks Medications reviewed, comfort only meds Wound VAC changed 05/18, neck scheduled for Monday. If seen Monday would recommend removing current VAC and not replacing as is very painful to perform and will not change clinical course at this time. Glycopyrrolate, Ativan, morphine per palliative care (2) Sacral decubitus ulcer: Plan: Sacral decubitus ulcer - ENGINEERING AND OPERATIONS DIRECTOR Progressed to stage IV from stage III Wound care consulted. Tunneling with palpable bone/periosteum Zosyn this admission narrowed to cefepime based on UC results MRI pelvis/CT pelvis: No signs of osteomyelitis, although of note patient with elevated ESR General surgery consulted. Recommend medical management continue wound VAC, appreciate Elias Patient seen by nutrition and has substantial protein deficit with poor illness in the setting of medical frailty and altered mental status limiting p.o. intake. Patient at deficit and likely requires approximately 130 g protein daily for adequate healing. Discussed need for nutrition with Family and whether NGT/PEG would be consistent with his goals of care. Palliative Consulted, family having a meeting to discuss goals and care plan internally. See palliative note, appreciate Recs and assistance (3) Fluid collection of pancreas: Plan: - hospitalized at [facility] in the last 12-18 months with acute pancreatitis and has had a pseudocyst since that time. - 04/29/21 CT abdomen with 2 large peripancreatic fluid collections. - lipase at that time was normal. - Repeat CT of abdomen 05/15 with 20cm cyst - unchanged from 04/29/21 CT. - Repeat lipase normal - This cyst is chronic, but given his persistently high WBC count and very high inflammatory markers ? potential nidus forinfection. Due to his partial quadriplegic status he will not feel pain or other GI symptoms from this process as would be typical for someone elsee. - Continue IV antibiotics. - Dr Bear originally tentatively planned for EUS and potential drainage at [facility] next Monday, deferred with clinical decline and ENGINEERING AND OPERATIONS DIRECTOR. -Further work-up/intervention deferred, patient with comfort measure goals at this time (4) Elevated sed rate: Plan: -Defer additional work-up consistent with ENGINEERING AND OPERATIONS DIRECTOR goals - No signs of Osteomyelitis on MRI pelvis and CT pelvis. - Blood cx's thus far neg ruling out SBE. - peripheral smear report noted - cannot rule out essential thrombocytosis. - ONcology (Dr. Jerry) consulted. Low suspicion for bone/blood marrow malignancy - can't rule out autoimmune disease (temporal arteritis? - pt with headaches). - can't rule out that the peripancreatic collections aren't driving the sed rate. - the current UTI could be contributing to sed rate elevation. - ?Occult process. PTH-rp pending (5) CKD (chronic kidney disease), stage III: Plan: -baseline CrCl appears to be 40s/50s -BMP stable -Cr stable Additional labs deferred for ENGINEERING AND OPERATIONS DIRECTOR goals (6) Chronic incomplete quadriplegia: Plan: -2nd to cervical spine issues requiring multiple surgeries in past (7) Hypertension: Plan: -BPs controlled - on no meds Defer BP checks, ENGINEERING AND OPERATIONS DIRECTOR (8) Depression: Plan: -cont home Bupropion 150 mg every morning Refusing oral meds at this time, ENGINEERING AND OPERATIONS DIRECTOR (9) Metabolic encephalopathy: Plan: -Continue to worsen, acute worsening on background of medical frailty-some cognitive decline ENGINEERING AND OPERATIONS DIRECTOR goals as above (10) Hypercalcemia: Plan: -PTHRP pending,? Occult malignancy. 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, CML (12) Rheumatoid arthritis: Plan: - was on Tocilizumab in the past - stopped in early 2020 by 's report - appears controlled / not active (13) Colostomy status: Plan: no issues (14) Presence of urostomy: Plan: no issues (15) Bacteriuria: Plan: - UC positive for cefepime sensitive Pseudomonas and morganella - given his urostomy he will always have bacteriuria - Unclear if contributory vs asymptomatic bacteriuria, quad status limiting symptom assessment ENGINEERING AND OPERATIONS DIRECTOR goals, additional eval/treatment deferred this time (16) DVT prophylaxis: Plan: -lovenox (17) Protein calorie malnutrition: Plan: - Estimated 135g protein requirement per day - Pt malnourished, poor PO intake - Along with medical frailty also has poorly healing sacral wound with increased protein requirements - Discussed NGT/PEG with , and whether would be consistent with pts goals of care. Patient made decision to go ENGINEERING AND OPERATIONS DIRECTOR 05/18, defer NGT/PEG Admission and Anticipated Discharge Date Admission Date: May 12, 2021 Subjective Appears critically ill, grimaces slightly to tactile, stimulation. Subjective limited by lethargy. Review of Systems Review of Systems: Unobtainable due to cognitive status Physical Exam Physical Exam: General: Grimaces but does not arouse to touch, lethargic. Appears frail, ill. Pulm: Diminished. No respiratory distress. Cardiac: RRR, -mrg. Radial pulses intact and symmetrical. Abdominal: Urostomy in place, clear urine. No guarding on abdominal palpation. Extremities: Warm, dry. Right verdin with ulcer present, no superimposed erythema/warmth or discharge. Resting in flexed position. PG Care Time/CCT Total # of Minutes Spent Total Time Spent with Patient: Total time spent is greater than 50% in coordination of care (as documented) at patient's floor/unit and/or counseling patient: Coding Level of Care Code 41509 Subseq Hosp Care Lvl 1 Diagnoses Comfort measures only status Z51.5 Sacral decubitus ulcer L89.159 Pressure injury stage: unspecified pressure injury stage Fluid collection of pancreas K86.89 Elevated sed rate R70.0 CKD (chronic kidney disease), stage III N18.30 Chronic incomplete quadriplegia G82.50 Hypertension I10 Depression F32.9 Metabolic encephalopathy G93.41 Hypercalcemia E83.52 Thrombocytosis D47.3 Rheumatoid arthritis M06.9 Colostomy status Z93.3 Presence of urostomy Z93.6 Bacteriuria R82.71 DVT prophylaxis Z29.9 Protein calorie malnutrition E46 (1) Sacral decubitus ulcer Pressure injury stage: unspecified pressure injury stage Qualified Code(s): L89.159 - Pressure ulcer of sacral region, unspecified stage
[2021-05-20] MEDS: MoRPHine SULFATE 2 MG/ML CARP IV SCH ×5 (05:00→23:14)
[2021-05-20] MEDS: ARTIFICIAL TEARS OP SCH ×2 (07:29→21:21)
--- NOTE | 2021-05-20 12:32 | Palliative Care Progress Note ---
Date of Service May 20, 2021 Assessment & Plan (1) Palliative care encounter: Plan: Focus of care is comfort. He does not appear comfortable. Will increase frequency of routine morphine to 2mg every four hours. Continue prn dosing. No evidence of morphine toxicity. I talked with RN about premedicating before bathing and dressing changes to ensure comfort. I spoke with Mrs. Anaya at bedside. She asked about prognosis and we talked about what to expect. He is likely to within the next few days. She is appropriately tearful and doing life review. She has support from family and friends. (2) Cervical myelopathy: (3) Spinal cord injury: (4) Metabolic encephalopathy: Admission and Anticipated Discharge Date Admission Date: May 12, 2021 Subjective Opens eyes briefly with stimulation. Facial grimace with movement and sometimes at rest. No prn morphine dosing. He has had 24mg OME last 24 hours. Review of Systems Review of Systems: Unobtainable due to reduced consciousness [place] Symptom Assessment Scale Pain by observation 1/3 Dyspnea by observation 0/3 Palliative Performance Score 10% Physical Exam Constitutional: + ill appearing ENMT: Mouth: + dry oral mucous membranes Respiratory: normal respiratory effort; no labored breathing no audible rhonchi Gastrointestinal (Abdomen): Inspection/Auscultation: abdomen not distended Skin: no mottling, warm to touch Neurologic: + obtunded PG Care Time/CCT Total # of Minutes Spent Total Time Spent: 40 Total Time Spent with Patient: Total time spent is greater than 50% in coordination of care (as documented) at patient's floor/unit and/or counseling patient: symptom management, prognosis, family education and support, coordination of care Coding Level of Care Code 21766 Subseq Hosp Care Lvl 3 Diagnoses Palliative care encounter Z51.5 Cervical myelopathy G95.9 Spinal cord injury Metabolic encephalopathy G93.41
--- NOTE | 2021-05-20 13:58 | Hospitalist Progress Note ---
Date of Service May 20, 2021 Assessment & Plan (1) Comfort measures only status: Plan: Mr. Anaya is a 75-year-old male admitted to [facility] with a Bolick encephalopathy/altered mental status with a poorly healing decubitus ulcer, and a past history of quadriplegia, poor intake, rheumatoid arthritis, and ostomy who continue to decline following admission for his encephalopathy. Following extended discussions and risk/benefits of multiple options and his recurrent hospitalization (and prior history of PEG tube trial) along with his clinical deterioration the decision was made to move to comfort measures on 05/18. Care was discussed between palliative care and patient's family and decision was made to allow him to peacefully with dignity and comfort. Comfort measures ordered, remaining clinical history below for documentation. Comfort measures only No new labs, needlesticks Medications reviewed, comfort only meds Wound VAC changed 05/18, neck scheduled for Monday. If seen Monday would recommend removing current VAC and not replacing as is very painful to perform and will not change clinical course at this time. Glycopyrrolate, Ativan, morphine per palliative care (2) Sacral decubitus ulcer: Plan: Sacral decubitus ulcer - CORPORATE HEALTH CONSULTANT Progressed to stage IV from stage III Wound care consulted. Tunneling with palpable bone/periosteum Zosyn this admission narrowed to cefepime based on UC results MRI pelvis/CT pelvis: No signs of osteomyelitis, although of note patient with elevated ESR General surgery consulted. Recommend medical management continue wound VAC, appreciate Elias Patient seen by nutrition and has substantial protein deficit with poor illness in the setting of medical frailty and altered mental status limiting p.o. intake. Patient at deficit and likely requires approximately 130 g protein daily for adequate healing. Discussed need for nutrition with Family and whether NGT/PEG would be consistent with his goals of care. Palliative Consulted, family having a meeting to discuss goals and care plan internally. See palliative note, appreciate Recs and assistance (3) Fluid collection of pancreas: Plan: - hospitalized at [facility] in the last 12-18 months with acute pancreatitis and has had a pseudocyst since that time. - 04/29/21 CT abdomen with 2 large peripancreatic fluid collections. - lipase at that time was normal. - Repeat CT of abdomen 05/15 with 20cm cyst - unchanged from 04/29/21 CT. - Repeat lipase normal - This cyst is chronic, but given his persistently high WBC count and very high inflammatory markers ? potential nidus forinfection. Due to his partial quadriplegic status he will not feel pain or other GI symptoms from this process as would be typical for someone elsee. - Continue IV antibiotics. - Dr Bear originally tentatively planned for EUS and potential drainage at [facility] next Monday, deferred with clinical decline and CORPORATE HEALTH CONSULTANT. -Further work-up/intervention deferred, patient with comfort measure goals at this time (4) Elevated sed rate: Plan: -Defer additional work-up consistent with CORPORATE HEALTH CONSULTANT goals - No signs of Osteomyelitis on MRI pelvis and CT pelvis. - Blood cx's thus far neg ruling out SBE. - peripheral smear report noted - cannot rule out essential thrombocytosis. - ONcology (Dr. Jerry) consulted. Low suspicion for bone/blood marrow malignancy - can't rule out autoimmune disease (temporal arteritis? - pt with headaches). - can't rule out that the peripancreatic collections aren't driving the sed rate. - the current UTI could be contributing to sed rate elevation. - ?Occult process. PTH-rp pending (5) CKD (chronic kidney disease), stage III: Plan: -baseline CrCl appears to be 40s/50s -BMP stable -Cr stable Additional labs deferred for CORPORATE HEALTH CONSULTANT goals (6) Chronic incomplete quadriplegia: Plan: -2nd to cervical spine issues requiring multiple surgeries in past (7) Hypertension: Plan: -BPs controlled - on no meds Defer BP checks, CORPORATE HEALTH CONSULTANT (8) Depression: Plan: -cont home Bupropion 150 mg every morning Refusing oral meds at this time, CORPORATE HEALTH CONSULTANT (9) Metabolic encephalopathy: Plan: -Continue to worsen, acute worsening on background of medical frailty-some cognitive decline CORPORATE HEALTH CONSULTANT goals as above (10) Hypercalcemia: Plan: -PTHRP pending,? Occult malignancy. 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, CORPORATE HEALTH CONSULTANT (12) Rheumatoid arthritis: Plan: - was on Tocilizumab in the past - stopped in early 2020 by 's report - appears controlled / not active (13) Colostomy status: Plan: no issues (14) Presence of urostomy: Plan: no issues (15) Bacteriuria: Plan: - UC positive for cefepime sensitive Pseudomonas and morganella - given his urostomy he will always have bacteriuria - Unclear if contributory vs asymptomatic bacteriuria, quad status limiting symptom assessment CORPORATE HEALTH CONSULTANT goals, additional eval/treatment deferred this time (16) DVT prophylaxis: Plan: -lovenox (17) Protein calorie malnutrition: Plan: - Estimated 135g protein requirement per day - Pt malnourished, poor PO intake - Along with medical frailty also has poorly healing sacral wound with increased protein requirements - Discussed NGT/PEG with , and whether would be consistent with pts goals of care. Patient made decision to go CORPORATE HEALTH CONSULTANT 05/18, defer NGT/PEG Admission and Anticipated Discharge Date Admission Date: May 12, 2021 Subjective Stirs to voice partially opens eyes to touch, grimaces that shoulder touch. Does not offer spontaneous speech. Review of Systems Review of Systems: Unobtainable due to cognitive status Physical Exam Physical Exam: General: Grimaces but does not arouse to touch, lethargic. Appears frail, ill. Pulm: Diminished. No respiratory distress. HEENT: Eyes closed, mucous membranes dry Extremities: Warm, dry. Right verdin with ulcer present, no superimposed erythema/warmth or discharge. Resting in flexed position. PG Care Time/CCT Total # of Minutes Spent Total Time Spent with Patient: Total time spent is greater than 50% in coordination of care (as documented) at patient's floor/unit and/or counseling patient: Coding Level of Care Code 26240 Subseq Hosp Care Lvl 1 Diagnoses Comfort measures only status Z51.5 Sacral decubitus ulcer L89.159 Pressure injury stage: unspecified pressure injury stage Fluid collection of pancreas K86.89 Elevated sed rate R70.0 CKD (chronic kidney disease), stage III N18.30 Chronic incomplete quadriplegia G82.50 Hypertension I10 Depression F32.9 Metabolic encephalopathy G93.41 Hypercalcemia E83.52 Thrombocytosis D47.3 Rheumatoid arthritis M06.9 Colostomy status Z93.3 Presence of urostomy Z93.6 Bacteriuria R82.71 DVT prophylaxis Z29.9 Protein calorie malnutrition E46 (1) Sacral decubitus ulcer Pressure injury stage: unspecified pressure injury stage Qualified Code(s): L89.159 - Pressure ulcer of sacral region, unspecified stage
[2021-05-21] MEDS: MoRPHine SULFATE 2 MG/ML CARP IV SCH ×4 (03:14→15:56)
[2021-05-21] MEDS: ARTIFICIAL TEARS OP SCH ×2 (09:23→20:15)
--- NOTE | 2021-05-21 14:47 | Palliative Care Progress Note ---
Date of Service May 21, 2021 Assessment & Plan (1) Palliative care encounter: Plan: On routine morphine for pain relief. He certainly has reasons for pain and has exhibited pain behaviors. He moans with touch which could be concerning for opioid toxicity. Morphine dosing is relatively low but renal function has likely declined over the last few days. Will rotate opioid to hydromorphone to reduce risk of opioid toxicity. He has had adverse reactions to multiple opioids, generally nausea and vomiting. His reports that he did have psychosis with oxycodone. He also would be very likely to have emotional distress with PTSD given his history. I discussed this with his . We could use lorazepam in addition to hydromorphone. She would prefer to use lorazepam to ensure his comfort. Admission and Anticipated Discharge Date Admission Date: May 12, 2021 Subjective Moans with touch. 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 No facial grimace. Review of Systems Review of Systems: Unobtainable due to reduced consciousness Palliative Performance Score 10% Physical Exam Constitutional: + uncomfortable ENMT: Mouth: + dry oral mucous membranes Respiratory: normal respiratory effort; no labored breathing no audible rhonchi Cardiovascular: no mottling Neurologic: + obtunded PG Care Time/CCT Total # of Minutes Spent Total Time Spent: 35 Total Time Spent with Patient: Total time spent is greater than 50% in coordination of care (as documented) at patient's floor/unit and/or counseling patient:symptom management, family education and support Coding Level of Care Code 70572 Subseq Hosp Care Lvl 3 Diagnoses Palliative care encounter Z51.5
[2021-05-21] MEDS ORDERED: HYDROmorphone INJ 0.5 MG/0.5 ML SYR IV PRN (15:44)
[2021-05-21] MEDS: LORazepam 1 MG/2 ML VIAL IV SCH ×2 (15:56→21:53)
--- NOTE | 2021-05-21 16:14 | Hospitalist Progress Note ---
Date of Service May 21, 2021 Assessment & Plan (1) Comfort measures only status: Plan: Mr. Anaya is a 75-year-old male admitted to [facility] with a Bolick encephalopathy/altered mental status with a poorly healing decubitus ulcer, and a past history of quadriplegia, poor intake, rheumatoid arthritis, and ostomy who continue to decline following admission for his encephalopathy. Following extended discussions and risk/benefits of multiple options and his recurrent hospitalization (and prior history of PEG tube trial) along with his clinical deterioration the decision was made to move to comfort measures on 05/18. Care was discussed between palliative care and patient's family and decision was made to allow him to peacefully with dignity and comfort. Comfort measures ordered, remaining clinical history below for documentation. Comfort measures only No new labs, needlesticks comfort only meds Defer additional woundvac changes Glycopyrrolate, Ativan, morphine per palliative care - Pt is clinically critically ill and unstable for transport for home hospice (2) Sacral decubitus ulcer: Plan: Sacral decubitus ulcer - LEARNING AND DEVELOPMENT INTERN Progressed to stage IV from stage III Wound care consulted. Tunneling with palpable bone/periosteum Zosyn this admission narrowed to cefepime based on UC results MRI pelvis/CT pelvis: No signs of osteomyelitis, although of note patient with elevated ESR General surgery consulted. Recommend medical management continue wound VAC, appreciate Elias Patient seen by nutrition and has substantial protein deficit with poor illness in the setting of medical frailty and altered mental status limiting p.o. intake. Patient at deficit and likely requires approximately 130 g protein daily for adequate healing. Discussed need for nutrition with Family and whether NGT/PEG would be consistent with his goals of care. Palliative Consulted, family having a meeting to discuss goals and care plan internally. See palliative note, appreciate Recs and assistance (3) Fluid collection of pancreas: Plan: - hospitalized at [facility] in the last 12-18 months with acute pancreatitis and has had a pseudocyst since that time. - 04/29/21 CT abdomen with 2 large peripancreatic fluid collections. - lipase at that time was normal. - Repeat CT of abdomen 05/15 with 20cm cyst - unchanged from 04/29/21 CT. - Repeat lipase normal - This cyst is chronic, but given his persistently high WBC count and very high inflammatory markers ? potential nidus forinfection. Due to his partial quadriplegic status he will not feel pain or other GI symptoms from this process as would be typical for someone elsee. - Continue IV antibiotics. - Dr Bear originally tentatively planned for EUS and potential drainage at [facility] next Monday, deferred with clinical decline and LEARNING AND DEVELOPMENT INTERN. -Further work-up/intervention deferred, patient with comfort measure goals at this time (4) Elevated sed rate: Plan: -Defer additional work-up consistent with LEARNING AND DEVELOPMENT INTERN goals - No signs of Osteomyelitis on MRI pelvis and CT pelvis. - Blood cx's thus far neg ruling out SBE. - peripheral smear report noted - cannot rule out essential thrombocytosis. - ONcology (Dr. Jerry) consulted. Low suspicion for bone/blood marrow malignancy - can't rule out autoimmune disease (temporal arteritis? - pt with headaches). - can't rule out that the peripancreatic collections aren't driving the sed rate. - the current UTI could be contributing to sed rate elevation. - ?Occult process. PTH-rp pending (5) CKD (chronic kidney disease), stage III: Plan: -baseline CrCl appears to be 40s/50s -BMP stable -Cr stable Additional labs deferred for LEARNING AND DEVELOPMENT INTERN goals (6) Chronic incomplete quadriplegia: Plan: -2nd to cervical spine issues requiring multiple surgeries in past (7) Hypertension: Plan: -BPs controlled - on no meds Defer BP checks, LEARNING AND DEVELOPMENT INTERN (8) Depression: Plan: -cont home Bupropion 150 mg every morning Refusing oral meds at this time, LEARNING AND DEVELOPMENT INTERN (9) Metabolic encephalopathy: Plan: -Continue to worsen, acute worsening on background of medical frailty-some cognitive decline LEARNING AND DEVELOPMENT INTERN goals as above (10) Hypercalcemia: Plan: -PTHRP pending,? Occult malignancy. 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, LEARNING AND DEVELOPMENT INTERN (12) Rheumatoid arthritis: Plan: - was on Tocilizumab in the past - stopped in early 2020 by 's report - appears controlled / not active (13) Colostomy status: Plan: no issues (14) Presence of urostomy: Plan: no issues (15) Bacteriuria: Plan: - UC positive for cefepime sensitive Pseudomonas and morganella - given his urostomy he will always have bacteriuria - Unclear if contributory vs asymptomatic bacteriuria, quad status limiting symptom assessment LEARNING AND DEVELOPMENT INTERN goals, additional eval/treatment deferred this time (16) DVT prophylaxis: Plan: -lovenox (17) Protein calorie malnutrition: Plan: - Estimated 135g protein requirement per day - Pt malnourished, poor PO intake - Along with medical frailty also has poorly healing sacral wound with increased protein requirements - Discussed NGT/PEG with , and whether would be consistent with pts goals of care. Patient made decision to go LEARNING AND DEVELOPMENT INTERN 05/18, defer NGT/PEG Admission and Anticipated Discharge Date Admission Date: May 12, 2021 Subjective Seen at bedside, offers no spontaneous speech. Grimaces slightly to touch. Review of Systems Review of Systems: Unobtainable due to reduced consciousness Physical Exam Physical Exam: General: Grimaces but does not arouse to touch, obtunded. Appears frail, ill. Pulm: Diminished. No respiratory distress. HEENT: Eyes closed, mucous membranes dry Extremities: Warm, dry. Resting in flexed position. PG Care Time/CCT Total # of Minutes Spent Total Time Spent with Patient: Total time spent is greater than 50% in coordination of care (as documented) at patient's floor/unit and/or counseling patient: Coding Level of Care Code 77524 Subseq Hosp Care Lvl 1 Diagnoses Comfort measures only status Z51.5 Sacral decubitus ulcer L89.159 Pressure injury stage: unspecified pressure injury stage Fluid collection of pancreas K86.89 Elevated sed rate R70.0 CKD (chronic kidney disease), stage III N18.30 Chronic incomplete quadriplegia G82.50 Hypertension I10 Depression F32.9 Metabolic encephalopathy G93.41 Hypercalcemia E83.52 Thrombocytosis D47.3 Rheumatoid arthritis M06.9 Colostomy status Z93.3 Presence of urostomy Z93.6 Bacteriuria R82.71 DVT prophylaxis Z29.9 Protein calorie malnutrition E46 (1) Sacral decubitus ulcer Pressure injury stage: unspecified pressure injury stage Qualified Code(s): L89.159 - Pressure ulcer of sacral region, unspecified stage
[2021-05-21] MEDS: HYDROmorphone INJ 0.5 MG/0.5 ML SYR IV SCH ×2 (16:48→20:14)
[2021-05-22] MEDS: HYDROmorphone INJ 0.5 MG/0.5 ML SYR IV SCH (00:04)
--- NOTE | 2021-05-22 03:29 | Death Pronouncement Note ---
Date of Service May 22, 2021 Pronouncement Note Admission Date Admission Date: May 12, 2021 Date and Time of Date of : 05/22/21 Time of : 03:13 Contributing Factors (1) Comfort measures only status: (2) Sacral decubitus ulcer: (3) Fluid collection of pancreas: (4) Elevated sed rate: (5) CKD (chronic kidney disease), stage III: (6) Chronic incomplete quadriplegia: (7) Hypertension: (8) Depression: (9) Metabolic encephalopathy: (10) Hypercalcemia: (11) Thrombocytosis: (12) Rheumatoid arthritis: (13) Colostomy status: (14) Presence of urostomy: (15) Bacteriuria: (16) DVT prophylaxis: (17) Protein calorie malnutrition: Hospital Course Hospital Course: See note Summary Additional details: Patient ceased to breath at 03:13 on 05/22/21. Notified by nursing. Patient confirmed at the bedside. Additional Data Confirmation of : no pulse, no respirations, no heart sounds and pupils f ixed and dilated Family: contacted Attending/PCP notified?: Yes Attending physician: Sawyer Butcher MD Was code activated?: No Autopsy requested?: No soft work wrapper layer and examiner notified?: No Organ bank notified?: No Resident Activity Tracking Resident Involvement: Resident Care Provided and Programmer Analyst [employer] It Coverage Note Care Provided: Adult Hospital Medicine
--- NOTE | 2021-05-22 17:57 | Discharge Summary ---
Date of Service May 22, 2021 Admission HPI Per Admitting Provider 75-year-old male brought in by family with functional decline at home with decreased oral intake. Patient has a colostomy and urostomy and a decubitus ulcer with wound VAC in place. Family supports that he is mostly a functional quadriparetic patient typically not getting out of wheelchair or bed. Patient reportedly had ambulation difficulties and 5 years ago had progressive weakness and then developed upper arm weakness which eventually was attributed to a cervical spine lesion which she had surgery on but did not correct his problem. He is now unable to even transfer or sit or feed himself and he mostly remains in bed or in the chair moved by Maryam lift at home. In the emergency department is found of a leukocytosis no significant pneumonia or fever.. He does have abnormal urinalysis but this was drawn from the urostomy bag. He is Covid negative. There is some concern about possible aspiration event while eating today.. And certainly we need to inspect his decubitus ulcer. At this point time the family feels his functional status has declined where he said decreased oral intake and they cannot care for him safely at home. Patient was discharged from our facility May 05 after he had a debridement of his decubitus ulcer April 29. At that time there was some discussion whether he had a deeper infection at that time he did not appear to be so he was given Zosyn discharged on Augmentin. Since his discharge he is declined at home with decreased oral intake. The patient his wound VAC was in place when I examined him and the wound looked reasonably clean however I cannot see the defined endpoint of the wound. Subsequently we will do a CT of his pelvis to look for osteomyelitis of his sacrum at this time. Nader discussion about end-of-life and palliative care with the which brought tears to her eyes do not feel they are ready for this at this point in time however it likely could be an ongoing discussion. Admission Exam Per Admitting Provider The patient appeared chronically ill and declining condition afebrile but slightly hypoxemic on room air Head exam is normocephalic atraumatic Oropharynx is a red material in it which says is from his dietary supplement at home Neck is without JVD, thyromegaly, or carotid bruits. There is no stridor Lungs are minutes bilaterally Cardiac exam, Rhythm is regular.. No murmurs, rubs or gallops. Abdominal exam reveals normal bowel sounds, soft some lower quadrant tenderness is colostomy in the left ileostomy in the right Extremities are trace edematous and both pedal pulses are present Neurologic exam is alert and does respond to questioning but cannot process complex information has very little movement of his arms no movement of his legs Skin is with open areas to his right anterior verdin this is mostly a surface abrasion just with a surface area of skin denuded this is also very large 3 to 4 cm. Large decubitus ulcer on his buttocks approximately 3 to 4 cm which is fairly deep probably stage III Principal Diagnosis Metabolic encephalopathy Failure to thrive Sacral ulcer Discharge Exam Patient passed at 05/22/2021, time of 0 313. Notified by nursing, patient confirmed at bedside by overnight resident. Confirmation of no pulse, no respirations, no heart sounds, pupils fixed and dilated. Family notified by overnight physician. Discharge Data Allergies Allergy/AdvReac Type Severity Reaction Status Date / Time shellfish derived Allergy Severe Anaphylaxis Verified 05/12/21 15:55 trimethoprim Allergy Intermediate rash Verified 05/12/21 15:55 oxycodone AdvReac Severe PSYCHOTIC Verified 05/12/21 15:55 Sulfa (Sulfonamide AdvReac Severe KIDNEY Verified 05/12/21 15:55 Antibiotics) FAILURE hydromorphone AdvReac Intermediate NAUSEA AND Verified 05/12/21 15:55 VOMITING morphine AdvReac Mild VOMITING Verified 05/12/21 15:55 naproxen AdvReac Mild vertigo Verified 05/12/21 15:55 Consultations 05/12/21 18:01 ED Decision to Admit Stat 05/14/21 13:32 Consult General Surgery Routine 05/15/21 07:46 Consult Hematology Routine 05/17/21 14:13 Consult Palliative Care Routine Ordered Studies 05/12/21 14:27 CT head/brain wo con Stat 05/12/21 20:47 CT pelvis wo con Routine 05/14/21 09:47 MR pelvis wo/w con Routine 05/15/21 09:35 CT abdomen w IV con Routine Hospital Course (1) Comfort measures only status: Mr. Anaya is a 75-year-old male admitted to [facility] with a Bolick encephalopathy/altered mental status with a poorly healing decubitus ulcer, and a past history of quadriplegia, poor intake, rheumatoid arthritis, and ostomy who continue to decline following admission for his encephalopathy. Following extended discussions and risk/benefits of multiple options and his recurrent hospitalization (and prior history of PEG tube trial) along with his clinical deterioration the decision was made to move to comfort measures on 05/18. Care was discussed between palliative care and patient's family and decision was made to allow him to peacefully with dignity and comfort. Comfort measures ordered, remaining clinical history below for docume ntation. Comfort measures only No new labs, needlesticks comfort only meds Defer additional woundvac changes Glycopyrrolate, Ativan, morphine per palliative care - Pt is clinically critically ill and unstable for transport for home hospice (2) Sacral decubitus ulcer: Sacral decubitus ulcer - ATHLETIC AGENT Progressed to stage IV from stage III Wound care consulted. Tunneling with palpable bone/periosteum Zosyn this admission narrowed to cefepime based on UC results MRI pelvis/CT pelvis: No signs of osteomyelitis, although of note patient with elevated ESR General surgery consulted. Recommend medical management continue wound VAC, appreciate Elias Patient seen by nutrition and has substantial protein deficit with poor illness in the setting of medical frailty and altered mental status limiting p.o. intake. Patient at deficit and likely requires approximately 130 g protein daily for adequate healing. Discussed need for nutrition with Family and whether NGT/PEG would be consistent with his goals of care. Palliative Consulted, family having a meeting to discuss goals and care plan internally. See palliative note, appreciate Recs and assistance (3) Fluid collection of pancreas: - hospitalized at [facility] in the last 12-18 months with acute pancreatitis and has had a pseudocyst since that time. - 04/29/21 CT abdomen with 2 large peripancreatic fluid collections. - lipase at that time was normal. - Repeat CT of abdomen 05/15 with 20cm cyst - unchanged from 04/29/21 CT. - Repeat lipase normal - This cyst is chronic, but given his persistently high WBC count and very high inflammatory markers ? potential nidus forinfection. Due to his partial quadriplegic status he will not feel pain or other GI symptoms from this process as would be typical for someone elsee. - Continue IV antibiotics. - Dr Bear originally tentatively planned for EUS and potential drainage at [facility] next Monday, deferred with clinical decline and ATHLETIC AGENT. -Further work-up/intervention deferred, patient with comfort measure goals (4) Elevated sed rate: -Defer additional work-up consistent with ATHLETIC AGENT goals - No signs of Osteomyelitis on MRI pelvis and CT pelvis. - Blood cx's thus far neg ruling out SBE. - peripheral smear report noted - cannot rule out essential thrombocytosis. - ONcology (Dr. Jerry) consulted. Low suspicion for bone/blood marrow malignancy - can't rule out autoimmune disease (temporal arteritis? - pt with headaches). - can't rule out that the peripancreatic collections aren't driving the sed rate. - the current UTI could be contributing to sed rate elevation. - ?Occult process. PTH-rp pended prior to ATHLETIC AGENT (5) CKD (chronic kidney disease), stage III: -baseline CrCl appears to be 40s/50s -BMP stable -Cr stable Additional labs deferred for ATHLETIC AGENT goals (6) Chronic incomplete quadriplegia: -2nd to cervical spine issues requiring multiple surgeries in past (7) Hypertension: -BPs controlled - on no meds Defer BP checks, ATHLETIC AGENT (8) Depression: -cont home Bupropion 150 mg every morning Refusing oral meds at this time, ATHLETIC AGENT (9) Metabolic encephalopathy: -Continue to worsen, acute worsening on background of medical frailty-some cognitive decline ATHLETIC AGENT goals as above (10) Hypercalcemia: -PTHRP pending,? Occult malignancy. Additional work-up and treatment deferred for comfort measure goals (11) Thrombocytosis: - Suspect reactive in the setting of acute illness, iron deficiency - Oncology consulted, low suspicion for primary bone marrow/blood etiology - May consider additional venofer xfusion as tolerated - Iron studies consistent with iron deficiency No additional eval/treatment at this time, ATHLETIC AGENT (12) Rheumatoid arthritis: - was on Tocilizumab in the past - stopped in early 2020 by 's report - appeared controlled / not active (13) Colostomy status: no issues (14) Presence of urostomy: no issues (15) Bacteriuria: - UC positive for cefepime sensitive Pseudomonas and morganella - given his urostomy he will always have bacteriuria - Unclear if contributory vs asymptomatic bacteriuria, quad status limiting symptom assessment ATHLETIC AGENT goals, additional eval/treatment deferred (16) DVT prophylaxis: -lovenox (17) Protein calorie malnutrition: - Estimated 135g protein requirement per day - Pt malnourished, poor PO intake - Along with medical frailty also has poorly healing sacral wound with increased protein requirements - Discussed NGT/PEG with , and whether would be consistent with pts goals of care. Patient made decision to go ATHLETIC AGENT 05/18, defer NGT/PEG Total Time Total Time Spent Total Time Spent (In Minutes): Time spent preparing discharge on day of expiration approximately 15 minutes including documentation and review of labs, images, and chart. Discharge Plan Discharge Items Patient Disposition: Discharge Diagnosis: Addtl Attending Provider Instructions: See note Other Date/Time: 05/22/21 03:13 Coding Level of Care Code D/C DAY MANAGEMENT <30 MINS Diagnoses Comfort measures only status Z51.5 Sacral decubitus ulcer L89.159 Pressure injury stage: unspecified pressure injury stage Fluid collection of pancreas K86.89 Elevated sed rate R70.0 CKD (chronic kidney disease), stage III N18.30 Chronic incomplete quadriplegia G82.50 Hypertension I10 Depression F32.9 Metabolic encephalopathy G93.41 Hypercalcemia E83.52 Thrombocytosis D47.3 Rheumatoid arthritis M06.9 Colostomy status Z93.3 Presence of urostomy Z93.6 Bacteriuria R82.71 DVT prophylaxis Z29.9 Protein calorie malnutrition E46
== END 2021-05-22 04:55 | disposition expired | DRG 592 ==
LOC: ED 12:46 → SUATTDRO 19:09 → 3E 19:09